=== PATIENT | female | born 1985 | race Caucasian/White ===

== ENCOUNTER 2023-04-03 08:58 | Outpatient (OUT) | payer BC, SELFPAY ==
--- NOTE | 2023-04-03 09:12 | US_ITS ---
Patient: GLO MONTES Exam Date: 04/03/2023 : 1985 Gender:F Ordering : DR Etienne Bueno . Admission #: [id number] Family : NON-STAFF PHYSICIAN Order #: [id number] CLICK HERE TO VIEW EXAM RADIOLOGY REPORT PROCEDURE: MM TOMOSYNTHESIS DIAGNOSTIC BI, 04/03/2023, 09:03 US BREAST LT LIMITED, 04/03/2023, 09:36 COMPARISON: None. INDICATIONS: Nipple Discharge In Female N94.52 Calculator Name NCI Breast Cancer Risk Assessment Tool 5 Year Breast Cancer Risk Not Reported. Lifetime Breast Cancer Risk Not Reported. Personal Breast Cancer No Personal Ovarian Cancer No Treatments None Family Cancers None LOCATION: [facility] BREAST COMPOSITION: Heterogeneously dense,which may obscure small masses. FINDINGS: DIAGNOSTIC CATEGORY 2--BENIGN FINDING: RIGHT BREAST: No significant suspicious finding. LEFT BREAST: No significant suspicious finding. No mammographic or ultrasound abnormality to explain the patient's nipple discharge. Further evaluation should be based on clinical exam RECOMMENDATIONS: ROUTINE MAMMOGRAM AND CLINICAL EVALUATION IN 12 MONTHS. CLINICAL EVALUATION. PLEASE NOTE: A NORMAL MAMMOGRAM DOES NOT EXCLUDE THE POSSIBILITY OF BREAST CANCER. A CLINICALLY SUSPICIOUS PALPABLE LUMP SHOULD BE BIOPSIED. Dictated by: Abdoulaye Greenberg MD on 04/03/2023 at 10:05 Approved by: Abdoulaye Greenberg MD on 04/03/2023 at 10:08
== END 2023-04-03 08:59 | disposition home or self-care (01) ==
LOC: MAMMO 08:58
PROVIDERS: Visit Provider Obstetrics & Gynecology
DX: N64.52 Nipple discharge (principal)
CPT/HCPCS: 76642; 77066; G0279

== ENCOUNTER 2024-02-02 20:57 | Outpatient (REF) | payer BC, SELFPAY ==
[2024-02-07 13:07] LABS: Age Gdln ACOG Testing Note (.); HPV Aptima Negative (Negative); IGP, Aptima HPV, rfx 16/18,45 Note (.)
== END 2024-02-02 20:58 | disposition home or self-care (01) ==
LOC: LAB 20:57
PROVIDERS: Visit Provider Obstetrics & Gynecology
DX: Z01.419 Encounter for gynecological examination (general) (routine) without abnormal findings (principal)
CPT/HCPCS: 87624; G0145

== ENCOUNTER 2024-02-16 09:18 | Outpatient (OUT) | payer BC, SELFPAY ==
--- NOTE | 2024-02-16 08:38 | US_ITS ---
The [address] [address] Patient Name: GLO MONTES MRN: [id number] date: 1985 Sex: F Assigned Patient Location: [facility] Current Patient Location: LAB Accession/Order Number: [id number] Exam Date: 02/16/2024 08:38 Report Date: 02/16/2024 09:34 At the request of: CALI MEHTA Procedure: US pelvis transvaginal EXAMINATION: US pelvis transvaginal HISTORY: MENORRHAGIA , chronic pelvic pain COMPARISON: No relevant comparison available. TECHNIQUE: Transabdominal and/or transvaginal sonographic examination was performed as indicated by examination type. FINDINGS: UTERUS: Normal size and appearance. Uterus size: ENDOMETRIUM: Normal homogeneous appearance. Endometrial thickness: RIGHT OVARY: Contains a dominant follicle versus small cyst. Duplex Doppler demonstrates normal waveform and flow; resistive index 0.6. Ovary size: 4.1 x 2.1 x 2.7 cm LEFT OVARY: Normal size and appearance. Duplex Doppler demonstrates normal waveform and flow; resistive index 0.6. Ovary size: 3.0 x 1.9 x 1.9 cm CUL-DE-SAC: Unremarkable. No significant free fluid. BLADDER: Unremarkable. OTHER: None. US/US pelvis transvaginal IMPRESSION: 1. Dominant follicle versus small cyst within right ovary of doubtful clinical significance. 2. Unremarkable uterus and left ovary. No specific findings to account for patient's symptoms. Electronically authenticated by: NIKKIE THURSTON Date: 02/16/2024 09:34
--- OUTSIDE RECORDS SUMMARY | 2024-02-16 09:39 | XMS_ITS | CCD ---
Author Organization [facility] Care Team Providers Care Mill Manager Name Role Phone JANINE ., DR LEIVA Admitting Unavailable MISC, DR BUTT Primary Care Unavailable JANINE ., DR LEIVA Attending Unavailable JANINE ., DR LEIVA Consulting Unavailable JANINE ., DR LEIVA Admitting Unavailable MISC, DR BUTT Primary Care Unavailable JANINE ., DR LEIVA Attending Unavailable JANINE ., DR LEIVA Consulting Unavailable JANINE, CALI Attending Unavailable SALAM, Kyra Attending Unavailable SALAM, Kyra Admitting Unavailable Evgeny Rodrigez Attending Unavailable Kip Xiao Attending Unavaila ble Problems Active Problems Problem Classification Problem Date Documented Date Episodic/Chronic Immunizations and screening for infectious disease (1 source) Encounter for screening for human papillomavirus (HPV); Translations: [ENC SCREENING HUMAN PAPILLOMAVIRUS] Onset: 02-01-2023 Episodic Other screening for suspected conditions (not mental disorders or infectious disease) (4 sources) Encounter for screening for malignant neoplasm of cervix; Translations: [ENC SCREENING MALIG NEOPLASM CERV] Onset: 01-29-2023 Episodic Past or Other Problems Problem Classification Problem Date Documented Da te Episodic/Chronic Other endocrine disorders (4 sources) Endocrine disorder, unspecified; Translations: [ENDOCRINE DISORDER UNSPECIFIED] Onset: 07-15-2022 Episodic Results Test Name Value Interpretation Reference Range Facility Retail - Clinical Noteon Retail - Clinical Note [id number]#[id number]:127 Normal [facility] Pre-Certification Formon Pre-Certification Form [id number]#1.00CD:127 [facility] Pre-Certification Form [id number]#1.00CD:127 [facility] Pre-Certification Formon Pre-Certification Form [id number]#1.00CD:127 [facility] Retail - Clinical Noteon Retail - Clinical Note [id number]#1.00CD:127 [facility] Pre-Certification Formon Pre-Certification Form [id number]#1.00CD:127 [facility] Pre-Certification Formon Pre-Certification Form [id number]#1.00CD:127 [facility] Family Medicine Office/Clini c Noteon 04-19-2023 Family Medicine Office/Clinic Note Chief Complaint MPt- scalp infection HPI Staff complaints of scalp infection Onset: 1 day Characteristics: crusty red, sore OTC tried: none History of Present Illness I have reviewed and verified the staff HPI to be accurate for this encounter. Portions of this record have been created with voice recognition software. Occasional wrong-word or ?bitda-x-pinv? substitutions may have occurred due to the inherent limitations of voice recognition software. 38 yo female presents today with cc of irritation to the top of her scalp. Patient states that 1 day ago she noticed an area at the top of her scalp which was red and sore. States now it is crusty. Has concerned in regards to staph infection as she states that has happened to her in the past which she then lost hair. She states she would like to be ahead of the game in regards to treating this. She denies any fever chills weakness she denies any areas of the rash or yellow crusted lesions. She has no other concerns at this time. Review of Systems PHQ Score Initial Depression Screen Score: 0 Physical Exam Vitals & Measurements T: 36.3 ?C(Temporal Artery) HR: 77(Peripheral) BP: 120/62 SpO2: 98% HT: 65 in HT: 165 cm WT: 78 kg WT: 171.6 lb BMI: 28.65 General: Well developed, well nourished, in no acute distress Eyes: not assessed Ears: not assessed Nose: not addressed Mouth: not assessed Neck: not assessed Lungs: clear to auscultation throughout, no wheezing, no rales. No respiratory distress Cardio: regular rate and rhythm, no murmur Abdomen: not assessed Musculoskeletal: not assessed Extremity: not assessed Neurologic: not assessed Skin: Patient has a small area at the top midportion of the scalp which appears to be a scabbed lesion this may be somewhat yellow in appearance however no drainage or significant redness surrounding the area. No other areas in the scalp which appear to be the same possible dry skin or early impetigo. Patient states history of staph infection. Mental Status: Alert and oriented x3. Normal mood and affect Assessment/Plan 1. Skin lesion of scalp (L98.9: Disorder of the skin and subcutaneous tissue, unspecified) I discussed with patient regards to treatment with mupirocin ointment to cover staph with her great concern. She states she had staph lesion several years ago which she lost hair and does not wish to go through that again. I spoke with patient noting that the area that appears to be scabbed at the top of the scalp and there is no surrounding redness or concern for immediate infection at this time however the scab did appear to be somewhat yellow in color so we will cover with mupirocin. Patient agrees and understands plan of care. Patient agrees to return or follow-up closely with primary care provider if she notes any worsening or concerning symptoms. Ordered: mupirocin topical, 1 george, Topical, TID for 7 day(s), 22 gm, Refill(s) 0, [employer] [facility], 165, cm, 04/19/23 13:47:00 EDT, Height/Length Dosing, 78, kg, 04/19/23 13:47:00 EDT, Weight Dosing 2. BMI 28.0-28.9,adult (Z68.28: Body mass index [BMI] 28.0-28.9, adult) The standard range for ages 18 and older is >=18.5 and < 25 kg/m2. Your BMI today was above this range, this falls in the overweight to obese category and there are medical benefits to weight loss. We can offer counselling, referral, and/or medical support in addressing this problem. Your BMI and weight management will be followed at subsequent visits. Ordered: mupirocin topical, 1 george, Topical, TID for 7 day(s), 22 gm, Refill(s) 0, [employer] [facility], 165, cm, 04/19/23 13:47:00 EDT, Height/Length Dosing, 78, kg, 04/19/23 13:47:00 EDT, Weight Dosing Follow-up With When Contact Information Vindo ROBINS DO, Toni Carmen, [address] [id number]- Additional Instructions: Patient Education BMI for Adults Impetigo, Adult Problem List/Past Medical History Ongoing Anemia Crohn disease Crohn's disease, small intestine Epigastric pain foliculitis Heart murmur Loose stools seborrice dermititis Historical Procedure/Surgical History Colonoscopy (06/29/2019), Esophagogastroduodenoscopy (06/29/2019), Arthroscopy of knee, Colonoscopy, [place] tooth. 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 Alcohol abuse in household: No. Substance abuse in household: No. Smoker in household: Yes. Injuries/Abuse/Neglect in household: (more content not included)... Normal [facility] Comment on above: Result Comment: Elec tronically Signed By: Elia BONE, Evgeny Spivey\.br\Date and Time Signed: 04/19/23 13:59 EDT Patient Educationon 04-19-20 Patient Education Infectious Disease Impetigo, Adult Impetigo is an infection of the skin. It commonly occurs in young children, but it can also occur in adults. The infection causes itchy blisters and sores that produce brownish-yellow fluid. As the fluid dries, it forms a thick, honey-colored crust. These skin changes usually occur on the face, but they can also affect other areas of the body. Impetigo usually goes away in 7?10 days with treatment. What are the causes? This condition is caused by two types of bacteria. It may be caused by staphylococci or streptococci bacteria. These bacteria cause impetigo when they get under the surface of the skin. This often happens after some damage to the skin, such as: ? Cuts, scrapes, or scratches. ? Rashes. ? Insect bites, especially when you scratch the area of a bite. ? Chickenpox or other illnesses that cause open skin sores. ? Nail biting or chewing. Impetigo can spread easily from one person to another (is contagious). It may be spread through close skin contact or by sharing towels, clothing, or other items that an infected person has touched. Scratching the affected area can cause impetigo to spread to other parts of the body. The bacteria can get under your fingernails and spread when you touch another area of your skin. What increases the risk? The following factors may make you more likely to develop this condition: ? Playing sports that include idud-jj-frvt contact with others. ? Having broken skin, such as from a cut or scrape. ? Living in an area that has high humidity levels. ? Having poor hygiene. ? Having high levels of staphylococci in your nose. ? Having a condition that weakens the skin integrity, such as: ? Having a weak body defense system (immune system). ? Having a skin condition with open sores, such as chickenpox. ? Having diabetes. What are the signs or symptoms? The main symptom of this condition is small blisters, often on the face around the mouth and nose. In time, the blisters break open and turn into tiny sores (lesions) with a yellow crust. In some cases, the blisters cause itching or burning. Scratching, irritation, or lack of treatment may cause these small lesions to get larger. Other possible symptoms include: ? Larger blisters. ? Pus. ? Swollen lymph glands. How is this diagnosed? This condition is usually diagnosed during a physical exam. A skin sample or a sample of fluid from a blister may be taken for lab tests that involve growing bacteria (culture test). Lab tests can help confirm the diagnosis or help determine the best treatment. How is this treated? Treatment for this condition depends on the severity of the condition: ? Mild impetigo can be treated with prescription antibiotic cream. ? Oral antibiotic medicine may be used in more severe cases. ? Medicines that reduce itchiness (antihistamines)may also be used. Follow these instructions at home: Medicines ? Take auls-tpa-hfyfxdb and prescription medicines only as told by your health care provider. ? Apply or take your antibiotic as told by your health care provider. Do not stop using the antibiotic even if your condition improves. ? Before applying antibiotic cream or ointment, you should: ? Gently wash the infected areas with antibacterial soap and warm water. ? Soak crusted areas in warm, soapy water using antibacterial soap. ? Gently rub the areas to remove crusts. Do not scrub. Preventing the spread of infection ? To help prevent impetigo from spreading to other body areas: ? Keep your fingernails short and clean. ? Do not scratch the blisters or sores. ? Cover infected areas, if necessary, to keep from scratching. ? Wash your hands often with soap and warm water. ? To help prevent impetigo from spreading to other people: ? Do not share towels. ? Wash your clothing and bedsheets in water that is 140?F (60?C) or warmer. ? Stay home until you have used an antibiotic cream for 48 hours (2 days) or an oral antibiotic medicine for 24 hours (1 day). ? You should only return to work and activities with other people if your skin shows significant improvement. ? You may return to contact sports after you have used antibiotic medicine for 72 hours (3 days). General instructions ? Keep all follow-up visits. This is important. How is this prevented? ? Wash your hands often with soap and warm water. ? Do not share towels, washcloths, clothing, bedding, or razors. ? Keep your fingernails short. ? Keep any cuts, scrapes, bug bites, or rashes clean and covered. ? Use insect repellent to prevent bug bites. Contact a health care provider if: ? You develop more blisters or sores, even with treatment. ? Other family members get sores. ? Your skin sores are not improving after 72 hours (3 days) of treatment. ? You have a fever. Get help right away if: ? You see spreading redness or swelling of the skin around your sores. ? Y (more content not included)... Normal [facility] Auto Diffon 02-06-2023 Basophils/100 WBC (Bld) 1.1 % Normal 0.0-2.0 [facility] Comment on above: Order Comment: Order Added by Discern Expert. Performed By: #### 2 679084, 8499573, 0273023, 75931350, 4047797, 68346392 #### [facility] [address] [place] [address] Basophils/Leukocytes Auto (Bld) [Pure # fraction] 0.1 E9/L Normal 0.0-0.2 [facility] Comment on above: Order Comment: Order Added by Discern Expert. Performed By: #### 2 533641, 7367366, 8920525, 79510826, 2100701, 62876182 #### [facility] [address] [place] [address] Eosinophils/100 WBC (Bld) 3.2 % Normal 0.0-8.0 [facility] Comment on above: Order Comment: Order Added by Discern Expert. Performed By: #### 2 426178, 9628289, 0460176, 12456377, 3522999, 46525566 #### [facility] [address] [place] [address] Eosinophils/Leukocytes Auto (Bld) [Pure # fraction] 0.2 E9/L Normal 0.0-0.5 [facility] Comment on above: Order Comment: Order Added by Discern Expert. Performed By: #### 2 749478, 0824971, 3665228, 21425060, 1651262, 67262005 #### [facility] [address] [place] [address] Lymphocytes/100 WBC (Bld) 35.3 % Normal 14.0-50.0 [facility] Comment on above: Order Comment: Order Added by Discern Expert. Performed By: #### 2 367040, 5510159, 6684417, 52973557, 2562146, 85824213 #### [facility] [address] [place] [address] Lymphocytes/Leukocytes Auto (Bld) [Pure # fraction] 2.3 E9/L Normal 1.0-4.0 [facility] Comment on above: Order Comment: Order Added by Discern Expert. Performed By: #### 2 848177, 5299076, 4890951, 79579446, 8033821, 36379417 #### [facility] [address] [place] [address] Monocytes/100 WBC (Bld) 8.6 % Normal 4.0-14.0 [facility] Comment on above: Order Comment: Order Added by Rachelle Expert. Performed By: #### 2 687595, 8757715, 3223674, 07558574, 6008069, 35588891 #### [facility] [address] [place] [address] Monocytes/Leukocytes Auto (Bld) [Pure # fraction] 0.6 E9/L Normal 0.2-1.0 [facility] Comment on above: Order Comment: Order Added by Rachelle Expert. Performed By: #### 2 114995, 3435757, 7539768, 62303627, 7503661, 88674692 #### [facility] [address] [place] [address] Neutrophils/100 WBC (Bld) 51.8 % Normal 36.0-75.0 [facility] Comment on above: Order Comment: Order Added by Rachelle Expert. Performed By: #### 2 459289, 9875561, 9263199, 19978820, 9269251, 07232657 #### [facility] [address] [place] [address] Neutrophils/Leukocytes Auto (Bld) [Pure # fraction] 3.4 E9/L Normal 2.0-7.5 [facility] Comment on above: Order Comment: Order Added by Discern Expert. Performed By: #### 2 230347, 5810309, 9671249, 97986213, 1724860, 69054438 #### [facility] [address] [place] [address] CBC w/ Auto Diffon 3 Erythrocyte distribution width (RBC) [Ratio] 14.3 % High 10.9-14.2 [facility] Comment on above: Performed By: #### 2 749979, 8341488, 1556926, 85657937, 0554563, 29256172 #### [facility] [address] [place] [address] Hematocrit (Bld) [Volume fraction] 40.0 % Normal 34.0-46.0 [facility] Comment on above: Performed By: #### 2 274355, 4093002, 9032578, 05344044, 1589899, 16506348 #### [facility] [address] [place], [place] [address] Hemoglobin (Bld) [Mass/Vol] 12.9 g/dL Normal 12.0-16.0 [facility] Comment on above: Performed By: #### 2 904278, 2567327, 0317858, 36013440, 2948706, 56917962 #### [facility] [address] [place] [address] MCH (RBC) [Entitic mass] 29.4 pg Normal 27.0-34.0 [facility] Comment on above: Performed By: #### 2 139665, 6990474, 8702152, 30420645, 4968578, 64103652 #### [facility] [address] [place] [address] MCHC (RBC) [Mass/Vol] 32.3 g/dL Normal 31.4-36.0 [facility] Comment on above: Performed By: #### 2 757496, 4307746, 7250722, 89139325, 0371348, 55693232 #### [facility] [address] [place] [address] MCV (RBC) [Entitic vol] 91.2 fL Normal 80.0-100.0 [facility] Comment on above: Performed By: #### 2 054440, 2947931, 8718742, 47758835, 6456565, 59860866 #### [facility] [address] [place] [address] Platelet mean volume (Bld) [Entitic vol] 8.0 fL Normal 6.4-10.8 [facility] Comment on above: Performed By: #### 2 187654, 0083957, 9206836, 95513364, 4139831, 58892349 #### [facility] [address] [place] [address] Platelets (Bld) [#/Vol] 288.0 E9/L Normal 150. 0-500. 0 [facility] Comment on above: Performed By: #### 2 410820, 9707302, 6969343, 50069702, 1908912, 80341735 #### [facility] [address] [place] [address] RBC (Bld) [#/Vol] 4.4 E12/L Normal 4.3-5.9 [facility] Comment on above: Performed By: #### 2 669172, 3296649, 9647914, 04246874, 5837998, 23015184 #### [facility] [address] [place] [address] WBC corrected for nucl RBC Auto (Bld) [#/Vol] 6.5 E9/L Normal 4.0-11.0 [facility] Comment on above: Performed By: #### 2 247750, 7345644, 8530692, 84565473, 0526781, 43442425 #### [facility] [address] [place] [address] CMPon 02-06-2023 Albumin [Mass/Vol] 4.1 g/dL Normal 3.3-5.0 [facility] Comment on above: Performed By: #### 2 843961, 6506647, 2231583, 67863353, 6260085, 43242814 #### [facility] [address] [place] [address] Albumin/Globulin (S) [Mass conc ratio] 1.1 Normal 1.1-2.2 [facility] Comment on above: Performed By: #### 2 078803, 7261007, 7254720, 97851430, 6336321, 70248194 #### [facility] [address] [place] [address] ALP [Catalytic activity/Vol] 48 Int._Unit/L Normal 21-98 [facility] Comment on above: Performed By: #### 2 415282, 6929513, 5620246, 16681639, 4354301, 62390316 #### [facility] [address] [place] [address] ALT No additional P-5'-P [Catalytic activity/Vol] 23 Int._Unit/L Normal 6-46 [facility] Comment on above: Performed By: #### 2 575137, 1644592, 1355446, 16687003, 1089679, 78330214 #### [facility] [address] [place] [address] Anion gap [Moles/Vol] 12 mmol/L Normal 6-16 [facility] Comment on above: Performed By: #### 2 699550, 1652742, 3703507, 95927066, 1433398, 54296855 #### [facility] [address] [place] [address] AST [Catalytic activity/Vol] 20 Int._Unit/L Normal 5-43 [facility] Comment on above: Performed By: #### 2 569752, 1323905, 8406166, 05604568, 5123247, 31595918 #### [facility] [address] [place] [address] Bilirubin [Mass/Vol] 0.6 mg/dL Normal 0.0-1.1 [facility] Comment on above: Performed By: #### 2 558649, 0170250, 5907706, 64592374, 8880750, 63053416 #### [facility] [address] [place] [address] Calcium [Mass/Vol] 8.9 mg/dL Normal 8.9-11.1 [facility] Comment on above: Performed By: #### 2 312086, 9269395, 3944158, 15484172, 1613098, 59151123 #### [facility] [address] [place] [address] Chloride [Moles/Vol] 104 mmol/L Normal 101-111 [facility] Comment on above: Performed By: #### 2 904402, 1731414, 4865010, 00373499, 3653008, 71327586 #### [facility] [address] [place] [address] CO2 [Moles/Vol] 24 mmol/L Normal 21-31 [facility] Comment on above: Performed By: #### 2 002348, 5593545, 1599710, 12419478, 7662168, 55399298 #### [facility] [address] [place] [address] Creatinine [Mass/Vol] 0.8 mg/dL Normal 0.5-1.3 [facility] Comment on above: Performed By: #### 2 137169, 8241201, 0404686, 56914574, 8771838, 38761412 #### [facility] [address] [place] [address] Globulin (S) [Mass/Vol] 3.6 g/dL Normal 1.4-4.0 [facility] Comment on above: Performed By: #### 2 373169, 7861058, 8778252, 49181500, 4741368, 05677611 #### [facility] [address] [place] [address] Glucose [Mass/Vol] 103 mg/dL Normal 55-199 [facility] Comment on above: Result Comment: If t his glucose result represents a fasting glucose, interpretation should refer to the following reference range: 55-99 mg/dL Performed By: #### 2 539164, 1788514, 1780057, 22348827, 0307534, 00080304 #### [facility] [address] [place] [address] Potassium [Moles/Vol] 3.9 mmol/L Normal 3.5-5.3 [facility] Comment on above: Performed By: #### 2 671163, 6059763, 4591233, 70657894, 2397543, 99960730 #### [facility] [address] [place] [address] Protein [Mass/Vol] 7.7 g/dL Normal 6.0-7.8 [facility] Comment on above: Performed By: #### 2 775985, 2551030, 2201054, 85655990, 4439616, 60475998 #### [facility] [address] [place] [address] Sodium [Moles/Vol] 136 mmol/L Normal 135-145 [facility] Comment on above: Performed By: #### 2 308476, 0672270, 0414353, 15046286, 5236026, 73187655 #### [facility] [address] [place] [address] Urea nitrogen [Mass/Vol] 12 mg/dL Normal 5-21 [facility] Comment on above: Performed By: #### 2 694367, 8100764, 7709358, 95124086, 4596796, 62799196 #### [facility] [address] [place] [address] Urea nitrogen/Creatinine [Mass ratio] 15 No Units Normal 10-20 [facility] Comment on above: Performed By: #### 2 895898, 2203692, 1628805, 36034844, 4821916, 83028964 #### [facility] [address] [place] [address] CRPon 02-06-2023 CRP [Mass/Vol] 0.7 mg/dL Normal <=1.9 [facility] Comment on above: Performed By: #### 2 536058, 1930646, 0566876, 26870318, 9072323, 90631517 #### [facility] [address] [place] [address] Consent for Treatmenton Consent for Treatment [id number] Normal [facility] Sed Rate Automatedon 023 Sed Rate Automated 11 mm/hr Normal 0-34 [facility] Comment on above: Performed By: #### 2 [id number], [id number], [id number] #### [facility] [address] [place] [address] eGFRon 02-06-2023 GFR/1.73 sq M.predicted among non-blacks MDRD (S/P/Bld) [Vol rate/Area] 97 mL/min/1.73 m2 Normal >=59 [facility] Comment on above: Order Comment: Order added by Discern Expert. Result Comment: Computer System Validation Specialist vielka kidney disease could be indicated at eGFR's of less than 60 mL/min/1.73m2. Kidney failure is indicated at less than 15 mL/min/1.73m2. Performed By: #### 2 [id number], [id number], [id number], [id number] #### [facility] [address] [place] [address] PAP ACOG PANEL 2: 30 to 65on 02-05-2023 . . Normal [facility] Comment on above: Result Comment: Perf ormed at: WB Performed By: #### 4 [id number] #### [facility] [address] [address] [address] Sally Lambert Age Gdln ACOG Testing 30-65 Normal [facility] Comment on above: Performed By: #### 4 [id number] #### [facility] [address] [place] [address] Dr. Sally Lambert DIAGNOSIS: Comment Normal [facility] Comment on above: Result Comment: NEGA TIVE FOR INTRAEPITHELIAL LESION OR MALIGNANCY. Performed at: WB Performed By: #### 4 [id number] #### [facility] [address] [place] [address] Dr. Sally Lambert HPV Aptima Negative Normal Negative [facility] Comment on above: Result Comment: This nucleic acid amplification test detects fourteen high-risk HPV types (16,18,31,33,35,39,45,51,52,56,58,59,66,68) without differentiation. Performed at: =G Performed By: #### 4 [id number] #### [facility] [address] [place] [address] Dr. Sally Lambert HPV Genotype Reflex Comment Normal [facility] Comment on above: Result Comment: Crit eria not met, HPV Genotype not performed. Performed at: WB Performed By: #### 4 [id number] #### [facility] [address] [place] [address] Dr. Sally Lambert Methodology: Comment Normal [facility] Comment on above: Result Comment: This liquid based ThinPrep(R) pap test was screened with the use of an image guided system. Performed at: WB Performed By: #### 4 [id number] #### [facility] [address] [place] [address] Dr. Sally Lambert Note: Comment Normal [facility] Comment on above: Result Comment: The Pap smear is a screening test designed to aid in the detection of premalignant and malignant conditions of the uterine cervix. It is not a diagnostic procedure and should not be used as the sole means of detecting cervical cancer. Both false-positive and false-negative reports do occur. . Performed at: WB Performed By: #### 4 [id number] #### [facility] [address] [place] [address] Dr. Sally Lambert Performed by: Comment Normal [facility] Comment on above: Result Comment: Melita Deal, Small Products Assembler (ASCP) Performed at: WB Performed By: #### 4 [id number] #### [facility] [address] [place], [place] [address] Dr. Sally Lambert Specimen adequacy: Comment Normal [facility] Comment on above: Result Comment: Sati sfactory for evaluation. Endocervical and/or squamous metaplastic cells (endocervical component) are present. Performed at: WB Performed By: #### 4 [id number] #### [facility] [address] [address] [address] Sally Lambert DHEA SERUMon 07-18-2022 Dehydroepiandrosterone (DHEA) 335 ng/dL Normal 31-701 [facility] Comment on above: Result Comment: Age 1 - 5 years 0 - 67 6 - 7 years 0 - 110 8 - 10 years 0 - 185 11 - 12 years 0 - 201 13 - 14 years 0 - 318 15 - 16 years 39 - 481 17 - 19 years 40 - 491 >19 years 31 - 701 Performed By: #### Mayra MCCABE. #### [facility] [address] [place] [address] Dr. Sally Lambert DHEA-SULFATEon 07-16-2022 DHEA-Sulfate 291.0 ug/dL Critically high 57.3-279.2 [facility] Comment on above: Performed By: #### Mayra GRANDE #### [facility] [address] [place] [address] Dr. Sally Lambert FSHon 07-16-2022 FSH 4.4 mIU/mL Normal [facility] Comment on above: Result Comment: Adul t Female: Follicular phase 3.5 - 12.5 Ovulation phase 4.7 - 21.5 Luteal phase 1.7 - 7.7 Postmenopausal 25.8 - 134.8 Performed By: #### L [facility] #### [facility] [address] [place] [address] Dr. Sally Lambert LUTEINIZING HORMONE (LH)on LH 5.1 mIU/mL Normal [facility] Comment on above: Result Comment: Adul t Female: Follicular phase 2.4 - 12.6 Ovulation phase 14.0 - 95.6 Luteal phase 1.0 - 11.4 Postmenopausal 7.7 - 58.5 Performed By: #### L FREDRICK #### [facility] [address] [address] [address] Sally Lambert CBC AUTO DIFFon 07-15-2022 BASO # 0.0 103/ul Normal 0.0-0.1 [facility] Comment on above: Performed By: #### C BC #### [facility] [address] [address] [address] Sally Lambert Basophils/100 WBC (Bld) 0.6 % Normal 0.2-2.0 [facility] Comment on above: Performed By: #### C BC #### [facility] [address] [address] [address] Sally Lambert EO # 0.1 103/ul Normal 0.0-0.7 [facility] Comment on above: Performed By: #### C BC #### [facility] [address] [place] [address] Dr. Sally Lambert Eosinophils/100 WBC (Bld) 2.6 % Normal 0.9-7.0 [facility] Comment on above: Performed By: #### C BC #### [facility] [address] [address] [address] Sally Lambert Erythrocyte distribution width (RBC) [Ratio] 13.8 % Normal 11.0-15.0 [facility] Comment on above: Performed By: #### C BC #### [facility] [address] [address] [address] Sally Lambert Hematocrit (Bld) [Volume fraction] 35.9 % Critically low 36.0-48.0 [facility] Comment on above: Performed By: #### C BC #### [facility] [address] [address] [address] Sally Lambert Hemoglobin (Bld) [Mass/Vol] 11.5 g/dL Critically low 12.0-16.0 [facility] Comment on above: Performed By: #### C BC #### [facility] [address] [address] [address] Sally Lambert IG # 0.02 10e3/ul Normal 0.00-0.03 [facility] Comment on above: Performed By: #### C BC #### [facility] [address] [place] [address] Dr. Sally Lambert IG % 0.4 % Normal 0.0-0.5 [facility] Comment on above: Performed By: #### C BC #### [facility] [address] [place] [address] Dr. Sally Lambert LYMPH # 1.9 103/ul Normal 1.2-3.8 [facility] Comment on above: Performed By: #### C BC #### [facility] [address] [place] [address] Dr. Sally Lambert Lymphocytes/100 WBC (Bld) 36.6 % Normal 20.5-60.0 [facility] Comment on above: Performed By: #### C BC #### [facility] [address] [place] [address] Dr. Sally Lambert MANUAL DIFF REQ NO Normal [facility] Comment on above: Performed By: #### C BC #### [facility] [address] [place] [address] Dr. Sally Lambert MCH (RBC) [Entitic mass] 29.6 pg Normal 26.7-34.0 [facility] Comment on above: Performed By: #### C BC #### [facility] [address] [place] [address] Dr. Sally Lambert MCHC (RBC) [Mass/Vol] 32.0 g/dL Normal 29.9-35.2 [facility] Comment on above: Performed By: #### C BC #### [facility] [address] [place] [address] Dr. Sally Lambert MCV (RBC) [Entitic vol] 92.5 fL Normal 81.0-99.0 [facility] Comment on above: Performed By: #### C BC #### [facility] [address] [place] [address] Dr. Sally Lambert MONO # 0.3 103/ul Normal 0.3-0.8 [facility] Comment on above: Performed By: #### C BC #### [facility] [address] [place] [address] Dr. Sally Lambert Monocytes/100 WBC (Bld) 5.7 % Normal 1.7-12.0 [facility] Comment on above: Performed By: #### C BC #### [facility] [address] [place] [address] Dr. Sally Lambert NEUT # 2.9 103/ul Normal 1.4-6.5 [facility] Comment on above: Performed By: #### C BC #### [facility] [address] [place] [address] Dr. Sally Lambert Neutrophils/100 WBC (Bld) 54.1 % Normal 43.0-75.0 [facility] Comment on above: Performed By: #### C BC #### [facility] [address] [place] [address] Dr. Sally Lambert Platelet mean volume (Bld) [Entitic vol] 9.9 fL Normal 9.5-13.5 [facility] Comment on above: Performed By: #### C BC #### [facility] [address] [place] [address] Dr. Sally Lambert PLT 311 103/ul Normal 150-450 [facility] Comment on above: Performed By: #### C BC #### [facility] [address] [place] [address] Dr. Sally Lambert RBC 3.88 106/ul Critically low 4.20-5.40 [facility] Comment on above: Performed By: #### C BC #### [facility] [address] [place] [address] Dr. Sally Lambert WBC 5.3 103/ul Normal 4.0-11.0 [facility] Comment on above: Performed By: #### C BC #### [facility] [address] [place] [address] Dr. Sally Lambert FREE T4on 07-15-2022 Free T4 [Mass/Vol] 0.93 ng/dL Normal 0.76-1.46 [facility] Comment on above: Performed By: #### F T4 #### [facility] [address] [address] [address] Sally Lambert GLYCOHEMOGLOBIN A1Con 2021 ADA RECOMMENDATION SEE BELOW Normal [facility] Comment on above: Result Comment: ADA RECOMMENDED LIMIT 4.0 - 6.0 ADA THERAPEUTIC TARGET < 7.0 ACTION SUGGESTED > 7.0 Performed By: #### A 1C #### [facility] [address] [address] [address] Sally Lambert Glucose [Mass/Vol] 120 mg/dL Normal [facility] Comment on above: Performed By: #### A 1C #### [facility] [address] [address] [address] Sally Lambert HbA1c (Bld) [Mass fraction] 5.8 % Normal 4.5-6.2 [facility] Comment on above: Performed By: #### A 1C #### [facility] [address] [address] [address] Sally Lambert TSHon 07-15-2022 TSH 1.110 uIU/mL Normal 0.358-3.74 0 [facility] Comment on above: Performed By: #### T SH #### [facility] [address] [address] [address] Sally Lambert Encounters Encounter Date Encounter Type Care Provider Facility Start: 03-31-2024 ambulatory Kip Xiao Facility:[facility] Start: 02-02-2024 End: 02-02-2024 ambulatory CALI MEHTA Not Available Start: 04-19-2023 End: 04-20-2023 ambulatory Evgeny Rodrigez [facility] Start: 02-06-2023 End: 02-07-2023 ambulatory Kyra SIMPSON [place] [place] Start: 01-29-2023 End: 01-29-[address] CALI EMHTA . Facility: Start: 07-15-2022 End: 07-16-[address] CALI MEHTA . Facility: Payers Date Payer Category Payer Unknown [id number] 2.16.84 [id number] 1985 Unknown [id number] 2.16.84 [id number] 1984 Unknown [id number] 2.16.84 [id number] 1984 Unknown [id number] 2.16.8 [id number] 1984 Unknown [id number] 2.16.8 [id number] 1984 Unknown [id number] 2.16.8 [id number] 1959 Unknown [id number] Summary Purpose Family History No Family History Records FoundNo Family History Records FoundNo Family History Records Found Advance Directives No Advanced Directives Records FoundNo Advanced Directives Records FoundNo Advanced Directives Records Found Additional Source Comments INFORMATION SOURCE (unrecogn ized section and content) DATE CREATED AUTHOR 02/06/[address] [facility] DATE CREATED AUTHOR AUTHOR'S ORGANIZ ATION 02/03/2024 [facility] EPIC DATE CREATED AUTHOR AUTHOR'S ORGANIZ ATION 02/05/2024 [facility] FOR RECORDS PERTAINING TO PATIENTS WHO ARE OR HAVE BEEN ENROLLED IN A CHEMICAL DEPENDENCY/SUBSTANCEABUSE PROGRAM, SOME INFORMATION MAY BE OMITTED. This clinical summary was aggregated from multiple sources. Caution should be exercised in using it in the provision of clinical care. This summary normalizes information from multiple sources, and as a consequence, information in this document may materially change the coding, format and clinical context of patient data. In addition, data may be omitted in some cases. CLINICAL DECISIONS SHOULD BE BASED ON THE PRIMARY CLINICAL RECORDS. [employer] provides no warranty or guarantee of the accuracy or completeness of information in this document.
== END 2024-02-16 09:19 | disposition home or self-care (01) ==
LOC: NOMS 09:18
PROVIDERS: Visit Provider Obstetrics & Gynecology
DX: N92.0 Excessive and frequent menstruation with regular cycle (principal)
CPT/HCPCS: 76830

== ENCOUNTER 2024-02-16 09:21 | Outpatient (OUT) | payer BC, SELFPAY ==
[2024-02-16 09:41] LABS: Basophils Absolute Auto 0.1 10^3/uL (0.0-0.1); Basophils Percent Auto 1.3 % (0.2-2.0); Eosinophils Absolute Auto 0.2 10^3/uL (0.0-0.7); Hematocrit 40.3 % (36.0-48.0); Hemoglobin 12.8 g/dL (12.0-16.0); Immature Granulocytes Abs Auto 0.01 10^3/uL (0.00-0.03); Immature Granulocytes Pct Auto 0.2 % (0.0-0.5); Lymphocytes Absolute Auto 1.6 10^3/uL (1.2-3.8); Lymphocytes Percent Auto 29.6 % (20.5-60.0); Mean Corpuscular HGB Conc 31.8 g/dL (29.9-35.2); Mean Corpuscular Volume 94.4 fL (81.0-99.0); Mean Platelet Volume 9.8 fL (9.5-13.5); Monocytes Absolute Auto 0.3 10^3/uL (0.3-0.8); Neutrophils Absolute Auto 3.2 10^3/uL (1.4-6.5); Neutrophils Percent Auto 58.9 % (43.0-75.0); Platelet Count 269 10^3/uL (150-450); Red Blood Count 4.27 10^6/uL (4.20-5.40); Red Cell Distribution Width 13.1 % (11.0-15.0); White Blood Count 5.5 10^3/uL (4.0-11.0)
[2024-02-16 10:00] LABS: INR 1.05; Partial Thromboplastin Time 27.7 sec (22.3-36.2); Prothrombin Time 11.1 sec (9.0-11.6)
[2024-02-16 10:10] LABS: HCG Quantitative <1 mIU/mL; Thyroid Stimulating Hormone 1.236 uIU/mL (0.358-3.740)
[2024-02-16 10:16] LABS: Estimated Average Glucose 97 mg/dL
[2024-02-16 10:39] LABS: Free T4 0.74 ng/dL (0.76-1.46)
== END 2024-02-16 09:22 | disposition home or self-care (01) ==
LOC: LAB 09:22
PROVIDERS: Visit Provider Obstetrics & Gynecology
DX: N92.0 Excessive and frequent menstruation with regular cycle (principal); R63.5 Abnormal weight gain
CPT/HCPCS: 36415; 76830; 82533; 83036; 84439; 84443; 84702; 85025; 85610; 85730

== ENCOUNTER 2024-07-27 08:51 | Outpatient (OUT) | payer BC, SELFPAY ==
--- NOTE | 2024-07-27 08:54 | US_ITS ---
The [address] [address] Patient Name: GLO MONTES MRN: [id number] date: 1985 Sex: F Assigned Patient Location: [facility] Current Patient Location: [facility] Accession/Order Number: [id number] Exam Date: 07/27/2024 08:53 Report Date: 07/27/2024 11:29 At the request of: CHINA TAYLOR Procedure: US pelvis EXAMINATION: US pelvis HISTORY: MENORRHAGIA COMPARISON: Ultrasound pelvis 02/16/2024 TECHNIQUE: Transabdominal and/or transvaginal sonographic examination was performed as indicated by examination type. FINDINGS: UTERUS: Normal size and appearance. Uterus size: 10.4 x 5.7 x 6.5 cm ENDOMETRIUM: Normal homogeneous appearance. Endometrial thickness: 14 mm RIGHT OVARY: Normal size and appearance. Duplex Doppler demonstrates normal waveform and flow; resistive index 0.6. Ovary size: 3.0 x 1.6 x 1.6 cm LEFT OVARY: Normal size and appearance. Duplex Doppler demonstrates normal waveform and flow; resistive index 0.5. Ovary size: 3.3 x 2.9 x 2.3 cm CUL-DE-SAC: Unremarkable. No significant free fluid. BLADDER: Unremarkable. OTHER: None. US/US pelvis IMPRESSION: 1. Endometrium is at upper limits of normal in thickness; correlate with patient's stage in her menstrual cycle. 2. Otherwise normal examination. Electronically authenticated by: NIKKIE THURSTON Date: 07/27/2024 11:29
--- OUTSIDE RECORDS SUMMARY | 2024-07-27 08:54 | XMS_ITS | CCD ---
Author Organization [facility] CliniSymn Care Team Providers Care Corporate Compliance Officer Name Role Phone JANINE ., DR LEIVA Admitting Unavailable MISC, DR BUTT Primary Care Unavailable JANINE ., DR LEIVA Attending Unavailable JANINE ., DR LEIVA Consulting Unavailable JANINE ., DR LEIVA Admitting Unavailable MISC, DR BUTT Primary Care Unavailable JANINE ., DR LEIVA Attending Unavailable JANINE ., DR LEIVA Consulting Unavailable CALI BUENO Attending Unavailable Evgeny Rodrigez Attending Unavailable Kip Xiao Attending Kip Bryan Attending CALI Vazquez Attending Unavailable CHINA TAYLOR Attending Unavailable Toni Brock DO Primary Care Provider Kip Xiao Attending Jesus cadet Medications Current Medications Medication Drug Class(es) Dates Sig (Normalized) Sig (Original) 1 ml ustekinumab 90 mg/ml prefilled syringe (3 sources) Interleukin-12 Antagonist, Interleukin-23 Antagonist Start: 12-21-2023 inject 90 mg by subcutaneous injection once Stelara injection Inject 90 mg under the skin 1 (one) time 12/21/2023 Active Problems Active Problems Problem Classification Problem Date Documented Date Episodic/Chronic Immunizations and screening for infectious disease (1 source) Encounter for screening for human papillomavirus (HPV); Translations: [ENC SCREENING HUMAN PAPILLOMAVIRUS] Onset: 02-01-2023 Episodic Menstrual disorders (2 sources) Menorrhagia; Translations: [Excessive and frequent menstruation with regular cycle] 07-19-2024 Chronic Mood disorders (2 sources) Premenstrual dysphoric disorder; Translations: [Premenstrual dysphoric disorder] 07-19-2024 Chronic Other screening for suspected conditions (not mental [...] Test Name Value Interpretation Reference Range Facility Quantiferon-TB Plus (Client Incubated)on 07-25-2024 Gamma interferon background IA Qn (Bld) 0.02 International_Unit/mL Invalid Interpretation Code [facility] Comment on above: Performed By: #### 1 [id number] #### [facility] [address] [place] [address] M. tuberculosis stim IFN-g by CD4+ CD8+ T-cells corrected for background Qn (Bld) 0.01 International_Unit/mL Invalid Interpretation Code [facility] Comment on above: Performed By: #### 1 [id number] #### [facility] [address] [place] [address] M. tuberculosis stim IFN-g by CD4+ T-cells corrected for background Qn (Bld) 0.02 International_Unit/mL Invalid Interpretation Code [facility] Comment on above: Performed By: #### 1 [id number] #### [facility] [address] [place] [address] M. tuberculosis stim IFN-g Ql (Bld) [Interp] Negative Invalid Interpretation Code Negative [facility] Comment on above: Result Comment: No r esponse to M tuberculosis antigens detected. Infection with M tuberculosis is unlikely, but high risk individuals should be considered for additional testing (ATS/IDSA/CDC Clinical Practice Guidelines, 2017). The reference range is an Antigen minus Nil result of <0.35 IU/mL. The specimen received for QuantiFERON testing was incubated by the ordering institution. Specific procedures outlined in our Directory of Services and in the package insert for the QuantiFERON Gold (In Tube) test must be followed to enable for proper stimulation of cells for the production of interferon gamma. Chemiluminescence immunoassay methodology Performed at: [address] [id number] PhD Wm Alonso Performed By: #### 1 [id number] #### [facility] [address] [place] [address] Mitogen stimulated gamma interferon corrected for background Qn (Bld) >10.00 Invalid Interpretation Code [facility] Comment on above: Performed By: #### 1 [id number] #### [facility] [address] [place] [address] Service comment (Unsp spec) [Interp] Comment Invalid Interpretation Code [facility] Comment on above: Result Comment: Idris tiFERON-TB Gold Plus is a qualitative indirect test for M tuberculosis infection (including disease) and is intended for use in conjunction with risk assessment, radiography, and other medical and diagnostic evaluations. The QuantiFERON-TB Gold Plus result is determined by subtracting the Nil value from either TB antigen (Ag) value. The Mitogen tube serves as a control for the test. Performed By: #### 1 [id number] #### [facility] [address] [place] [address] CT Abdomen/Pelvis w/contrast (enterography)on 07-01-2024 CT Abdomen/Pelvis w/contrast (enterography) Exam Date/Time: 06/30/2024 14:47 EDT Reason for Exam: K50.00;Other (please specify) Report IMPRESSION: SPICULATED CONTOUR WALL DISTAL ILEUM, CONSISTENT WITH PATIENT'S CLINICAL HISTORY OF CROHN'S DISEASE. COLLAPSING RIGHT ADNEXAL CYST, MOST LIKELY OVARIAN IN ETIOLOGY. CT OF THE ABDOMEN AND PELVIS WITH INTRAVENOUS CONTRAST MEDIUM. History: K50.00. Crohn's disease. Asymptomatic Technical Factors: CT imaging of the abdomen and pelvis were obtained and formatted as 5 mm contiguous axial images from the domes of the diaphragm to the symphysis pubis. Sagittal and coronal reconstructions were also obtained. Oral contrast medium: Barium sulfate, 900 mL.. Intravenous contrast medium: Isovue-300, 100 mL. Comparison: None Findings: Lower chest: Cardiac size normal. No pericardial effusion. No coronary artery calcification. Lung bases clear. Liver: Normal in size, shape, and decreased in attenuation. Bile Ducts: Normal in caliber. Gallbladder: No stones or wall thickening. Pancreas: Normal without masses, cysts, ductal dilatation or calcification. Spleen: Normal in size without masses or calcifications. No splenules. Kidneys: Normal in size and enhancement. No hydronephrosis, masses, or stones. Adrenals: Normal. Small bowel: Normal in caliber. Circumferential wall thickening, and mildly spiculated margin, distal ileum (series 3, image 42). No adjacent fat stranding. Appendix: Normal. Report Colon: Normal in caliber. Peritoneum: No ascites, free air, or fluid collections. Vessels: Aorta normal in course and caliber. Portal vein, splenic vein, superior mesenteric vein are patent. Lymph nodes: Retroperitoneal: No enlarged retroperitoneal lymph nodes. Mesenteric: No enlarged mesenteric lymph nodes. Pelvic: No enlarged pelvic lymph nodes. Ureters: Normal in course and caliber. No calcifications. Bladder: No wall thickening. Reproductive organs: 0.2 cm collapsing right adnexal cyst. Abdominal Wall: 7 mm fat-containing periumbilical anterior abdominal wall defect. No diastasis of rectus musculature. No edema or masses. Bones: No bone lesions. No degenerative changes. No post operative changes. All CT scans at this facility use dose modulation, iterative reconstruction, and/or weight based dosing when appropriate to reduce radiation dose to as low as reasonably achievable. Ordering Provider: Kip Xiao FINAL REPORT Dictated: 07/01/2024 11:12 am Thong Patrick MD Signed (Electronic Signature): 07/01/2024 11:12 am Signed by: Thong Patrick MD Transcribed by: JARRETT Technologist: JEAN CARLOS Technical Comments GFR (mL/min/1/73m2) na Contrast: Isovue 300 Contrast amount in ml's: 100 Rectal Contrast Given? No Oral contrast amount in ml's: 1350 Normal [facility] Hep Bs Abon 07-01-2024 HBV surface Ab Ql (S) Non-Reactive Invalid Interpretation Code [facility] Comment on above: Result Comment: Non Reactive: Not immune to HBV infection. Equivocal: Unable to determine if anti-HBs is present at levels consistent with immunity. Reactive: Anti-HBs concentration detected at greater than 10 mIU/mL. Individual is considered to be immune to infection with HBV. Performed at: [address] [id number] PhD Wm Alonso Performed By: #### 2 [id number] #### [facility] [address] [place] [address] Hep Bs Agon 07-01-2024 HBV surface Ag IA Ql Negative Invalid Interpretation Code Negative [facility] Comment on above: Result Comment: Perf ormed at: [facility] [address] [id number] PhD Wm Alonso Performed By: #### 2 [id number] #### [facility] [address] [place] [address] Gastroenterology Office/Clin ic Noteon 03-31-2024 Gastroenterology Office/Clinic Note Gastroenterology Office/Clinic Note Chief Complaint 1 year f/u - Crohn's HPI Staff Patient is a(n) 39 year old female who presents today for a(n) 1 year follow up. Repeat colonoscopy not completed as ordered at last visit. Would like to discuss dietitian referral. Any n/v/c/d, abd pain, mucus or blood in stools? no Denies Fhx colon cancer. Denies blood thinners. Last visit 11/13/22 w/Dr. Daniels: Assessment/Plan 1. Crohn's disease, small intestine (K50.00: Crohn's disease of small intestine without complications) The patient was initially diagnosed with small intestinal Crohn's disease in 2004. She was on Remicade for almost 10 years, but she stopped taking Remicade in 2019 secondary to loss of insurance. She was started on Stelara in 2020 and she had no further flare-ups since then. She feels fine at this point with no abdominal pain or diarrhea. There is no evidence of side effects of Stelara. I will proceed with CBC and CMP and we will repeat it every 6 months. We will also proceed with sedimentation rate and fecal calprotectin to assess the activity of Crohn's. I encouraged her to take her annual flu vaccination and we will proceed with a colonoscopy to assess for terminal ileum Crohn's improvement. History of Present Illness currently on Stelara [id number] Review of Systems PHQ Score Initial Depression Screen Score: 0 SCORE All systems reviewed, negative; Except for above Physical Exam Vitals & Measurements HR: 70(Peripheral) RR: 18 BP: 118/68 HT: 65 in HT: 165 cm WT: 83 kg WT: 182.6 lb BMI: 30.49 General: in Nad Abdomen: Soft, NTND Procedure EGD/Colon 06/29/19: Impression and Plan Mild bulbar duodenitis, biopsied Impression and Plan Severe ileitis, biopsied prominent IC valve (see picture) with normal overlying mucosa, tunneled biopsies obtained, underlying tissue appears to be adipose tissue small size external hemorrhoids large size internal hemorrhoids Pathology: Final Diagnosis (Verified) A: DUODENUM, BIOPSY: ? DUODENAL MUCOSA WITH NO SIGNIFICANT PATHOLOGIC CHANGES. B: TERMINAL ILEUM, BIOPSY: ? MODERATE ACUTE ILEITIS WITH EROSION AND GLANDULAR DISTORTION. ? NO GRANULOMA OR DYSPLASIA IDENTIFIED. C: ILEOCECAL VALVE, BIOPSY: ? ACTIVE COLITIS WITH GLANDULAR DISTORTION AND REGENERATIVE CHANGES ? NO GRANULOMA OR DYSPLASIA IDENTIFIED. D: COLON, RANDOM BIOPSY: ? COLONIC MUCOSA WITH NO SIGNIFICANT PATHOLOGIC CHANGES. Note: Clinical correlation and follow-up is indicated for etiology. Assessment/Plan 1. Crohn's disease, small intestine (K50.00: Crohn's disease of small intestine without complications) The patient was initially diagnosed with small intestinal Crohn's disease in 2004. She was on Remicade for almost 10 years, but she stopped taking Remicade in 2019 secondary to loss of insurance. She was started on Stelara in 2020 and she had no further flare-ups since then. She feels fine at this point with no abdominal pain or diarrhea. There is no evidence of side effects of Stelara. We discussed proceeding with a CTE vs colonoscopy to assess for terminal ileum Crohn's improvement- Patient would like to proceed with CTE, labs and CRP at this time. - recommended the Mediterranean diet as well as green Mediterranean diet Will discuss health maintenance next visit I, Inez Castorena, personally scribed for Kip Xiao on 03/31/2024 16:00:50. . Documentation recorded by Inez Castorena, accurately reflects the services I performed and decisions made by me. Kip Xiao MD Follow-up With When Contact Information Dameon OCASIO, CESAR Armenta, JENNIFER Within 3 months [address] [facility], [address] [phone] Additional Instructions: To Follow up on CTE and labs Problem List/Past Medical History Ongoing Anemia Crohn disease Crohn's disease, small intestine Epigastric pain foliculitis Heart murmur Loose stools seborrice dermititis Historical Procedure/Surgical History Colonoscopy (06/29/2019), Esophagogastroduodenoscopy (06/29/2019), Arthroscopy of knee, Colonoscopy, [place] tooth. 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 Alcohol abuse in household: No. Substance abuse in household: No. Smoker in household: Yes. Injuries/Abuse/Neglect in household: No. Crohn's disease in remission, 10/25/2015 N (more content not included)... [facility] Comment on above: Result Comment: Elec tronically Signed By: Dameon OCASIO, Kip Brunner\.br\Date and Time Signed: 03/31/24 16:13 EDT\.br\Electronically Co-Signed By: Inez Castorena MA\.br\Date and Time Co-Signed: 03/31/24 16:03 EDT Retail - Clinical Noteon Retail - Clinical Note [id number]#1.00CD:127 [facility] Pre-Certification Formon Pre-Certification Form [id number]#1.00CD:127 [facility] Pre-Certification Form [id number]#1.00CD:127 Normal [facility] Pre-Certification Formon Pre-Certification Form [id number]#1.00CD:127 [facility] Retail - Clinical Noteon Retail - Clinical Note [id number]#1.00CD:127 [facility] Pre-Certification Formon Pre-Certification Form [id number]#1.00CD:127 [facility] Pre-Certification Formon Pre-Certification Form [id number]#1.00CD:127 [facility] Family Medicine Office/Clini c Noteon 04-19-2023 Family Medicine Office/Clinic Note Chief Complaint MPt- scalp infection HPI Staff complaints of scalp infection Onset: 1 day Characteristics: crusty red, sore OTC tried: none History of Present Illness I have reviewed and verified the staff HPI to be accurate for this encounter. Portions of this record have been created with voice recognition software. Occasional wrong-word or ?vqjyh-j-swfg? substitutions may have occurred due to the [...] for 7 day(s), 22 gm, Refill(s) 0, [facility], 165, cm, 04/19/23 13:47:00 EDT, Height/Length [...] for 7 day(s), 22 gm, Refill(s) 0, [facility], 165, cm, 04/19/23 13:47:00 EDT, Height/Length Dosing, 78, kg, 04/19/23 13:47:00 EDT, Weight Dosing Follow-up With When Contact Information Vinod ROBINS DO, Toni Carmen, [address] [address] Additional Instructions: Patient Education BMI for Adults Impetigo, Adult Problem List/Past Medical History Ongoing Anemia Crohn disease Crohn's disease, small intestine Epigastric pain foliculitis Heart murmur Loose stools seborrice dermititis Historical Procedure/Surgical History Colonoscopy (06/29/2019), Esophagogastroduodenoscopy (06/29/2019), Arthroscopy of knee, Colonoscopy, [place] tooth. 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 Alcohol abuse in household: No. Substance abuse in household: No. Smoker in household: Yes. Injuries/Abuse/Neglect in household: (more content not included)... Normal [facility] Comment on above: Result Comment: Elec tronically [...] this condition: ? Playing sports that include sxnc-kw-rkhs contact with others. ? Having broken skin, [...] these instructions at home: Medicines ? Take ewhe-bnp-wtldsaf and prescription medicines only as told by [...] ? Y (more content not included)... Normal [facility] PAP ACOG PANEL 2: 30 to 65on 02-05-2023 . . Normal [facility] Comment on above: Result Comment: Perf ormed at: WB Performed By: #### 4 [id number] #### [facility] [address] [address] [address] Sally Lambert Age Gdln ACOG Testing 30-65 Normal [facility] Comment on above: Performed By: #### 4 [id number] #### [facility] [address] [address] [address] Sally Lambert DIAGNOSIS: Comment [facility] Comment on above: Result Comment: NEGA TIVE FOR INTRAEPITHELIAL LESION OR MALIGNANCY. Performed at: WB Performed By: #### 4 [id number] #### [facility] [address] [address] [address] Sally Lambert HPV Aptima Negative Normal Negative [facility] Comment on above: Result Comment: This nucleic acid amplification test detects fourteen high-risk HPV types (16,18,31,33,35,39,45,51,52,56,58,59,66,68) without differentiation. Performed at: =G Performed By: #### 4 [id number] #### [facility] [address] [address] [address] Sally Lambert HPV Genotype Reflex Comment [facility] Comment on above: Result Comment: Crit eria not met, HPV Genotype not performed. Performed at: WB Performed By: #### 4 [id number] #### [facility] [address] [address] [address] Sally Lambert Methodology: Comment [facility] Comment on above: Result Comment: This liquid based ThinPrep(R) pap test was screened with the use of an image guided system. Performed at: WB Performed By: #### 4 [id number] #### [facility] [address] [address] [address] Sally Lambert Note: Comment Normal [facility] Comment on above: Result Comment: The Pap smear is a screening test designed to aid in the detection of premalignant and malignant conditions of the uterine cervix. It is not a diagnostic procedure and should not be used as the sole means of detecting cervical cancer. Both false-positive and false-negative reports do occur. . Performed at: WB Performed By: #### 4 [id number] #### [facility] [address] [address] [address] Sally Lambert Performed by: Comment Normal [facility] Comment on above: Result Comment: Melita Deal, Education Program Manager (ASCP) Performed at: WB Performed By: #### 4 [id number] #### [facility] [address] [place] [address] Dr. Sally Lambert Specimen adequacy: Comment Normal [facility] Comment on above: Result Comment: Sati sfactory for evaluation. Endocervical and/or squamous metaplastic cells (endocervical component) are present. Performed at: WB Performed By: #### 4 [id number] #### [facility] [address] [place] [address] [address] [address] Sally Lambert DHEA SERUMon 07-18-2022 Dehydroepiandrosterone (DHEA) 335 ng/dL Normal 31-701 [facility] Comment on above: Result Comment: Age 1 - 5 years 0 - 67 6 - 7 years 0 - 110 8 - 10 years 0 - 185 11 - 12 years 0 - 201 13 - 14 years 0 - 318 15 - 16 years 39 - 481 17 - 19 years 40 - 491 >19 years 31 - 701 Performed By: #### D GWENA. #### [facility] [address] [place] [address] [address] [address] Sally Lambert DHEA-SULFATEon 07-16-2022 DHEA-Sulfate 291.0 ug/dL Critically high 57.3-279.2 [facility] Comment on above: Performed By: #### D GEOVANIUL #### [facility] [address] [place] [address] Dr. Sally Lambert FSHon 07-16-2022 FSH 4.4 mIU/mL Normal [facility] Comment on above: Result Comment: Adul t Female: Follicular phase 3.5 - 12.5 Ovulation phase 4.7 - 21.5 Luteal phase 1.7 - 7.7 Postmenopausal 25.8 - 134.8 Performed By: #### L [facility] #### [facility] [address] [place] [address] Dr. Sally Lambert LUTEINIZING HORMONE (LH)on LH 5.1 mIU/mL Normal [facility] Comment on above: Result Comment: Adul t Female: Follicular phase 2.4 - 12.6 Ovulation phase 14.0 - 95.6 Luteal phase 1.0 - 11.4 Postmenopausal 7.7 - 58.5 Performed By: #### L BCL #### [facility] [address] [place] [address] Dr. Sally Lambert CBC AUTO DIFFon 07-15-2022 BASO # 0.0 103/ul Normal 0.0-0.1 [facility] Comment on above: Performed By: #### C BC #### [facility] [address] [place] [address] Dr. Sally Lambert Basophils/100 WBC (Bld) 0.6 % Normal 0.2-2.0 [facility] Comment on above: Performed By: #### C BC #### [facility] [address] [place] [address] Dr. Sally Lambert EO # 0.1 103/ul Normal 0.0-0.7 [facility] Comment on above: Performed By: #### C BC #### [facility] [address] [place] [address] Dr. Sally Lambert Eosinophils/100 WBC (Bld) 2.6 % Normal 0.9-7.0 [facility] Comment on above: Performed By: #### C BC #### [facility] [address] [place] [address] Dr. Sally Lambert Erythrocyte distribution width (RBC) [Ratio] 13.8 % Normal 11.0-15.0 [facility] Comment on above: Performed By: #### C BC #### [facility] [address] [place] [address] Dr. Sally Lambert Hematocrit (Bld) [Volume fraction] 35.9 % Critically low 36.0-48.0 [facility] Comment on above: Performed By: #### C BC #### [facility] [address] [place] [address] Dr. Sally Lambert Hemoglobin (Bld) [Mass/Vol] 11.5 g/dL Critically low 12.0-16.0 [facility] Comment on above: Performed By: #### C BC #### [facility] [address] [place] [address] Dr. Sally Lambert IG # 0.02 10e3/ul Normal 0.00-0.03 [facility] Comment on above: Performed By: #### C BC #### [facility] [address] [place] [address] Dr. Sally Lambert IG % 0.4 % Normal 0.0-0.5 [facility] Comment on above: Performed By: #### C BC #### [facility] [address] [place] [address] Dr. Sally Lambert LYMPH # 1.9 103/ul Normal 1.2-3.8 [facility] Comment on above: Performed By: #### C BC #### [facility] [address] [place] [address] Dr. Sally Lambert Lymphocytes/100 WBC (Bld) 36.6 % Normal 20.5-60.0 [facility] Comment on above: Performed By: #### C BC #### [facility] [address] [place] [address] Dr. Sally Lambert MANUAL DIFF REQ NO Normal [facility] Comment on above: Performed By: #### C BC #### [facility] [address] [place] [address] Dr. Sally Lambert MCH (RBC) [Entitic mass] 29.6 pg Normal 26.7-34.0 [facility] Comment on above: Performed By: #### C BC #### [facility] Laboratory [address] [place] [address] Dr. Sally Lambert MCHC (RBC) [Mass/Vol] 32.0 g/dL Normal 29.9-35.2 [facility] Comment on above: Performed By: #### C BC #### [facility] Laboratory [address] [place] [address] Dr. Sally Lambert MCV (RBC) [Entitic vol] 92.5 fL Normal 81.0-99.0 [facility] Comment on above: Performed By: #### C BC #### [facility] Laboratory [address] [place] [address] Dr. Sally Lambert MONO # 0.3 103/ul Normal 0.3-0.8 [facility] Comment on above: Performed By: #### C BC #### [facility] Laboratory [address] [place] [address] Dr. Sally Lambert Monocytes/100 WBC (Bld) 5.7 % Normal 1.7-12.0 [facility] Comment on above: Performed By: #### C BC #### [facility] [address] [place] [address] Dr. Sally Lambert NEUT # 2.9 103/ul Normal 1.4-6.5 [facility] Comment on above: Performed By: #### C BC #### [facility] [address] [place] [address] Dr. Sally Lambert Neutrophils/100 WBC (Bld) 54.1 % Normal 43.0-75.0 [facility] Comment on above: Performed By: #### C BC #### [facility] [address] [place] [address] Dr. Sally Lambert Platelet mean volume (Bld) [Entitic vol] 9.9 fL Normal 9.5-13.5 [facility] Comment on above: Performed By: #### C BC #### [facility] [address] [place] [address] Dr. Sally Lambert PLT 311 103/ul Normal 150-450 [facility] Comment on above: Performed By: #### C BC #### [facility] [address] [place] [address] Dr. Sally Lambert RBC 3.88 106/ul Critically low 4.20-5.40 [facility] Comment on above: Performed By: #### C BC #### [facility] [address] [place] [address] Dr. Sally Lambert WBC 5.3 103/ul Normal 4.0-11.0 [facility] Comment on above: Performed By: #### C BC #### [facility] [address] [place] [address] Dr. Sally Lambert FREE T4on 07-15-2022 Free T4 [Mass/Vol] 0.93 ng/dL Normal 0.76-1.46 [facility] Comment on above: Performed By: #### F T4 #### [facility] Laboratory [address] [place] [address] Dr. Sally Lambert GLYCOHEMOGLOBIN A1Con 2021 ADA RECOMMENDATION SEE BELOW Normal [facility] Comment on above: Result Comment: ADA RECOMMENDED LIMIT 4.0 - 6.0 ADA THERAPEUTIC TARGET < 7.0 ACTION SUGGESTED > 7.0 Performed By: #### A 1C #### [facility] [address] [place] [address] Dr. Sally Lambert Glucose [Mass/Vol] 120 mg/dL Normal [facility] Comment on above: Performed By: #### A 1C #### [facility] Laboratory [address] [place] [address] Dr. Sally Lambert HbA1c (Bld) [Mass fraction] 5.8 % Normal 4.5-6.2 [facility] Comment on above: Performed By: #### A 1C #### [facility] [address] [place] [address] Dr. Sally Lambert TSHon 07-15-2022 TSH 1.110 uIU/mL Normal 0.358-3.74 0 [facility] Comment on above: Performed By: #### T SH #### [facility] Laboratory [address] [place] [address] Dr. Sally Lambert Vital Signs Date Time Vital Sign Value Performing Clinician Faci lity 07-19-2024 13:34-0400 Body mass index (BMI) [Ratio] 30.52 kg/m2 China GOMEZ Work Phone: [facility] 07-19-2024 13:34-0400 Body weight 83.19 kg China GOMEZ Work Phone: [facility] Encounters Encounter Date Encounter Type Care Provider Facility Start: 07-28-2024 ambulatory [facility] Facility:[facility] Start: 07-19-2024 End: 07-19-2024 Bamboo flowsheet China GOMEZ Work Phone: [facility] Start: 07-19-2024 End: 07-19-2024 Bamboo flowsheet China GOMEZ Work Phone: [facility] Start: 07-19-2024 End: 07-19-2024 Office outpatient visit 15 minutes China GOMEZ Work Phone: [facility] Comment on above: PMDD (premenstrual d ysphoric disorder) ([facility]); Menorrhagia with regular cycle Start: 07-19-2024 End: 07-19-2024 ambulatory CHINA TAYLOR Not Available Start: 06-30-2024 ambulatory [facility] Facility:[facility] Start: 03-31-2024 End: 03-31-2024 ambulatory [facility] Facility:[facility] Start: 02-02-2024 End: 02-02-2024 ambulatory CALI BUENO Not Available Start: 02-02-2024 End: 02-02-2024 ambulatory CALI BUENO Not Available Start: 04-19-2023 End: 04-19-2023 ambulatory Evgeny Rodrigez Facility:[facility] Start: 01-29-2023 End: 01-29-[address] CALI BUENO . Facility: Start: 07-15-2022 End: 07-16-[address] CALI BUENO . Facility: Plan of Treatment Date Care Activity Detail Author Start: 08-09-2024 End: 08-09-2024 Patient encounter procedure 08/09/2024 10:30 AM EST Consult [facility] [address] [place] [id number] Cali Bueno DO [address] [place], [place] [id number] [facility] Start: 07-27-2024 End: 07-27-2024 Professional / ancillary services management 07/27/2024 9:00 AM EDT Ancillary Procedure [facility] [address] [place] [address] [facility] Start: 07-19-2024 End: 07-19-2025 US for US PELVIS-TRANSVAG IF INDICATED Imaging Routine Menorrhagia with regular cycle Expected: 07/19/2024 (Approximate), Expires: 07/19/2025 [facility] Work Phone: Comment on above: Expected: 07/19/2024 (Approximate), Expires: 07/19/2025 Start: 07-19-2024 End: 07-19-2024 Patient encounter procedure 07/19/2024 1:30 PM EDT Office Visit [facility] [address] [place] [address] China Taylor PA [address] [place], [place] [id number] Arrived [facility] Comment on above: Arrived Payers Date Payer Category Payer [facility] BCBS [id number] 1984 Unknown [id number] [id number] 1984 Unknown [id number]. [id number] 1984 Unknown [id number]. [id number] 1984 Unknown [id number] [id number]. [id number] 1984 Unknown [id number]. [id number] 1984 Unknown [id number] [id number]. 2.727 1984 Unknown [id number] [id number]. 2.1259 1984 Unknown [id number]. [id number] 1959 Unknown [id number] Social History Date Type Detail Facility Tobacco smoking stat [facility] Tobacco smoking consumption unknown [facility] Start: 1985 Sex assigned at Female [facility] Start: 05-19-2024 Gender identity Identifies as female gender (finding) [facility] Start: 05-19-2024 Sexual orientation Heterosexual (fin ding) [facility] History of Present illness Narrative 07-19-2024 PATRICIA Boyd - 07/19/2024 1:30 PM EDT Note Date & Type Note Facility 07-19-2024 History of Presen t illness Narrative Reason for Appointment: Patient ID: Glo Schmidt is a 39 y.o. female who presents for PMDD Patient presents today for PMDD. MEDICATIONS Current Outpatient Medications Medication Instructions Stelara 90 mg, Once ALLERGIES No Known Allergies PROBLEMS Active Ambulatory Problems Diagnosis Date Noted No Active Ambulatory Problems Resolved Ambulatory Problems Diagnosis Date Noted No Resolved Ambulatory Problems No Additional Past Medical History HISTORY PAST MEDICAL HISTORY SOCIAL HISTORY History reviewed. No pertinent past medical history. Social History Tobacco Use Smoking status: Not on file Smokeless tobacco: Not on file Substance Use Topics Alcohol use: Not on file Drug use: Not on file FAMILY HISTORY No family history on file. SURGICAL HISTORY History reviewed. No pertinent surgical history. REVIEW OF SYSTEMS Review of Systems: Review of Systems Constitutional: Negative. HENT: Negative. Eyes: Negative. Respiratory: Negative. Cardiovascular: Negative. Gastrointestinal: Negative. Genitourinary: Negative. Musculoskeletal: Negative. Skin: Negative. Neurological: Negative. All other systems reviewed and are negative. Hematological: Negative. Endocrine: Negative. Allergic/Immunologic: Negative. OBJECTIVE Objective: Physical Exam Constitutional: Appearance: Normal appearance. She is well-developed. Cardiovascular: Rate and Rhythm: Normal rate and regular rhythm. Pulmonary: Effort: Pulmonary effort is normal. Breath sounds: Normal breath sounds. Abdominal: General: Bowel sounds are normal. There is no distension. Palpations: Abdomen is soft. Tenderness: There is no abdominal tenderness. There is no guarding or rebound. Musculoskeletal: General: No swelling. Normal range of motion. Right lower leg: No edema. Left lower leg: No edema. Neurological: Mental Status: She is alert and oriented to person, place, and time. Skin: General: Skin is warm and dry. Psychiatric: Mood and Affect: Mood normal. Behavior: Behavior normal. Vitals and nursing note reviewed. Exam conducted with a diesel scoop operator present. Vitals: Estimated body mass index is 30.52 kg/m as calculated from the following: Height as of 02/02/24: 5' 5 . Weight as of this encounter: 183 lb 6.4 oz. BP: No LMP recorded (within months). ASSESSMENT & PLAN ICD-10-CM 1. PMDD (premenstrual dysphoric disorder) ([facility]) F32.81 Patient presents today for mood swings, heavy painful bleeding and cramping. Patient states that she will have 36 hours of this and then she will be fine and she will then have good 5 days and then the mood swings kick back up. Patient states that she does feel like she has chest pains and itching at times from this. Patient did have labs completed earlier this year. Patient states that she just does not want meds thrown at her. Patient was to have the Ablation and Biopsy but her son was ill and this needed to be rescheduled. Discussed Ablation with the patient on how this may help with the hormones and that her tubes would be removed also. Patient states that this last month was the worse for her and she did have a bad anxiety attack. Patient was advised she can use Zyrtec and pepcid to help with hives to help alleviate symptoms. Patient advised how long we have to allow the ablation to be and then proceed to the next step. Patient reassured we do not want to push meds for her. Patient advised we can order Ultrasound for her. Patient rescheduled ablation and will come into office for preop, endometrial ablation to be performed during procedure Documented by Gabriella Jacome LPN on behalf of: PATRICIA Boyd documented in this encounter [facility] Evaluation note Note Date & Type Note Facility Evaluation note Diagnosis PMDD (premenstrual dysphoric disorder) ([facility]) Premenstrual tension syndromes Menorrhagia with regular cycle documented in this encounter [facility] Summary Purpose Family History No Family History [...] content) DATE CREATED AUTHOR 02/06/2023 [facility] DATE CREATED AUTHOR AUTHOR'S ORGANIZ ATION 02/03/2024 [facility] EPIC DATE CREATED AUTHOR AUTHOR'S ORGANIZ ATION 04/02/2024 [place] [facility] DATE CREATED AUTHOR AUTHOR'S ORGANIZ ATION 07/02/2024 [place] [facility] DATE CREATED AUTHOR AUTHOR'S ORGANIZ ATION 07/08/2024 [place] [facility] DATE CREATED AUTHOR AUTHOR'S ORGANIZ ATION 07/21/2024 [facility] EPIC DATE CREATED AUTHOR AUTHOR'S ORGANIZ ATION 07/27/2024 [facility] Care Teams (unrecognized sec tion and content) Corporate Compliance Officer Relationship Specialty Start Date End Date Toni Brokc DO [address] [place] [id number] PCP - General Family Medicine 07/19/24 Corporate Compliance Officer Relationship Specialty Start Date End Date Toni Brock DO [address] [place] [phone] PCP - General Family Medicine 07/19/24 Reason for Visit (unrecogniz ed section and content) Reason Comments PMDD FOR RECORDS PERTAINING TO PATIENTS WHO ARE [...] BE BASED ON THE PRIMARY CLINICAL RECORDS. [facility] [employer] [facility]. provides no warranty or guarantee of the accuracy or completeness of information in this document.
== END 2024-07-27 08:52 | disposition home or self-care (01) ==
LOC: NOMS 08:52
PROVIDERS: Visit Provider Physician Assistant
DX: N92.0 Excessive and frequent menstruation with regular cycle (principal)
CPT/HCPCS: 76830; 76856

== ENCOUNTER 2024-08-15 14:21 | Outpatient (OUT) | payer BC, SELFPAY ==
--- OUTSIDE RECORDS SUMMARY | 2024-08-15 14:29 | XMS_ITS | CCD ---
Author Organization [facility] Care Team Providers Care Pouncer Machine Name Role Phone MYLES ., DR LEIVA Admitting Unavailable MISC, DR BUTT Primary Care Unavailable MYLES ., DR LEVIA Attending Unavailable MYLES ., DR LEIVA Consulting Unavailable MYLES ., DR LEIVA Admitting Unavailable MISC, DR BUTT Primary Care Unavailable MYLES ., DR LEIVA Attending Unavailable MYLES ., DR LEIVA Consulting Unavailable CALI BUENO Attending Unavailable Evgeny Rodrigez Attending Unavailable Kip Xiao Attending Kip Bryan Attending Jesus Brock DO [facility] Primary Care Provider [phone] CALI BUENO Attending Unavailable CHINA TAYLOR Attending Unavailable CALI BUENO Attending Unavailable REYES LORENZO Attending Unavailable Kip Xiao Attending Unavailsanford cadet Medications Current Medications Medication Drug Class(es) Dates Sig (Normalized) Sig (Original) budesonide 3 mg delayed release oral capsule (1 source) Corticosteroid Start: 07-28-2024 take 1 capsule by mouth once daily, then take 1 capsule by mouth every twenty-four hours budesonide EC (Entocort EC) 3 MG 24 hr capsule Take 3 mg by mouth Daily 07/28/2024 Active esomeprazole 40 mg delayed release oral capsule (1 source) Proton Pump Inhibitor Start: 07-28-2024 take 1 capsule by mouth once daily esomeprazole (NexIUM) [address] capsule Take 40 mg by mouth Daily 07/28/2024 Active 1 ml ustekinumab 90 mg/ml prefilled syringe (5 sources) Interleukin-12 Antagonist, Interleukin-23 Antagonist Start: 12-21-2023 inject 90 mg by subcutaneous injection once Stelara injection Inject 90 mg under the skin 1 (one) time 12/21/2023 Active Problems Active Problems Problem Classification Problem Date Documented Date Episodic/Chronic Abdominal pain (1 source) Pain in female pelvis; Translations: [Pelvic and perineal pain] 08-09-2024 Episodic Contraceptive and procreative management (1 source) Sterilization requested; Translations: [Encounter for sterilization] 08-09-2024 Episodic Immunizations and screening for infectious disease (1 source) Encounter for screening for human papillomavirus (HPV); Translations: [ENC SCREENING HUMAN PAPILLOMAVIRUS] Onset: 02-01-2023 Episodic Menstrual disorders (3 sources) Menorrhagia; Translations: [Excessive and frequent menstruation with regular cycle] 07-19-2024 Chronic Mood disorders (2 sources) Premenstrual dysphoric disorder; Translations: [Premenstrual dysphoric disorder] 07-19-2024 Chronic Other female genital disorders (1 source) Abnormal uterine bleeding; Translations: [Abnormal uterine and vaginal bleeding, unspecified] 08-09-2024 Chronic Other screening for suspected conditions (not [...] Test Name Value Interpretation Reference Range Facility Ambulatory Visit Summaryon 1 10-13-2023 Ambulatory Visit Summary Ambulatory Visi t Summary GLO SCHMIDT :1985 Visit Date:08/13/2024 Ambulatory Visit Instructions Your Diagnosis Acute bacterial sinusitis Acute bronchitis BMI 30.0-30.9,adult Other specified bacterial agents as the cause of diseases classified elsewhere Your Care Team Attending Physician - REYES LORENZO PA-C Primary Care Physician - Toni Brock III, DO This Is Your Medications List albuterol (Ventolin HFA 90 mcg/inh Aerosol-Adpt) amoxicillin-clavulanate (Augmentin 875 mg oral tablet) brompheniramine/dextrometho rphan/PSE (Bromfed DM oral syrup) budesonide (budesonide 3 mg oral delayed release capsule) esomeprazole (Nexium 40 mg Cap-EC) ustekinumab (Stelara) Procedures Performed Colonoscopy (06/29/2019), Esophagogastroduodenoscopy (06/29/2019), Arthroscopy of knee, Colonoscopy, [place] tooth. Discharge Vitals Temperature (Tympanic) 37 ???C Heart Rate (Peripheral) 81 Blood Pressure 128/80 Height 165 cm Height 65 in Weight 83 kg Weight 182.6 lb BMI 30.49 What to do next Scheduled Follow-Up Appointments Thursday 12:45 PM EST Where: [facility] Medications What How Much When Why Instructions New albuterol (Ventolin HFA 90 mcg/ inh Aerosol-Adpt) 2 Puffs Inhalation Every 6 hours as needed for for wheezing Acute bronchitis Duration: 7 Days Pickup at [facility] New amoxicillin-clavulanate (Augmentin 875 mg oral tablet) 1 Tablets By Mouth Every 12 hours Acute bacterial sinusitis Duration: 10 Days Pickup at [facility] New brompheniramine/ dextromethorphan/ PSE (Bromfed DM oral syrup) 10 Milliliter By Mouth 4 times a day as needed for for cough and congestion Acute bronchitis Duration: 7 Days Pickup at [facility] Unchanged budesonide (budesonide 3 mg oral delayed release capsule) 3 Capsules By Mouth Once a day (in the morning) Unchanged esomeprazole (Nexium 40 mg Cap-EC) 1 Capsules By Mouth Every day Unchanged ustekinumab (Stelara) Pharmacy Information [facility]: [address], [place] [id number] [phone] Medications and Immunizations Administered Given albuterol 0.083% Inh Dottie 3 mL, 3 mL, NEB. For: Acute bronchitis Allergies No Known Allergies Problems Ongoing - Any problem that you are currently receiving treatment for. Abdominal pain Anemia Crohn disease Crohn's disease, small intestine Epigastric pain foliculitis Heart murmur Loose stools seborrice dermititis Historical - Any problem that you are no longer receiving treatment for. Patient Survey You may receive a survey via text or e-mail asking about your office visit. Please share your experience with us by completing your survey. We appreciate your feedback and thank you for choosing us for your care. Normal [facility] Gastroenterology Office/Clin ic Noteon 07-28-2024 Gastroenterology Office/Clinic Note Gastroenterology Office/Clinic Note Chief Complaint abd pain, crohns HPI Staff Patient is a(n) 39 year old female who presents today for a sick call with c/o abdominal pain. Pt called 07/11/[address] Xiao wanted to proceed with colonoscopy and continue Stelara. She requested f/u appt in office to discuss. Currently taking Stelara 90mg/ml q8 weeks. Abdominal pain: When did you first have this pain: Quality (sharp, dull): pressure, cold burning Constant or comes or go: constatnt location and radiation:epigastric, does radiate to the right side of her back. Denies blood thinners. Denies GLP-1 agonists. Last visit 03/31/24 w/Dr. Xiao: Assessment/Plan 1. Crohn's disease, small intestine (K50.00: Crohn's disease of small intestine without complications) The patient was initially diagnosed with small intestinal Crohn's disease in 2003. She was on Remicade for almost 10 years, but she stopped taking Remicade in 2018 secondary to loss of insurance. She was [...] diet Will discuss health maintenance next visit EGD/Colon 06/29/19: Impression and Plan Mild bulbar duodenitis, biopsied Impression and Plan Severe ileitis, biopsied prominent IC valve (see picture) with normal overlying mucosa, tunneled biopsies obtained, underlying tissue appears to be adipose tissue small size external hemorrhoids large size internal hemorrhoids Pathology: Final Diagnosis (Verified) A: DUODENUM, BIOPSY: ??? DUODENAL MUCOSA WITH NO SIGNIFICANT PATHOLOGIC CHANGES. B: TERMINAL ILEUM, BIOPSY: ??? MODERATE ACUTE ILEITIS WITH EROSION AND GLANDULAR DISTORTION. ??? NO GRANULOMA OR DYSPLASIA IDENTIFIED. C: ILEOCECAL VALVE, BIOPSY: ??? ACTIVE COLITIS WITH GLANDULAR DISTORTION AND REGENERATIVE CHANGES ??? NO GRANULOMA OR DYSPLASIA IDENTIFIED. D: COLON, RANDOM BIOPSY: ??? COLONIC MUCOSA WITH NO SIGNIFICANT PATHOLOGIC CHANGES. Note: Clinical correlation and follow-up is indicated for etiology. CTE 06/30/24: IMPRESSION: SPICULATED CONTOUR WALL DISTAL ILEUM, CONSISTENT WITH PATIENT'S CLINICAL HISTORY OF CROHN'S DISEASE. COLLAPSING RIGHT ADNEXAL CYST, MOST LIKELY OVARIAN IN ETIOLOGY. CT OF THE ABDOMEN AND PELVIS WITH INTRAVENOUS CONTRAST MEDIUM. Laboratory Results CBC CMP Basophil Absolute: 0 E9/L (06/30/24) A/G Ratio: 1.6 (06/30/24) Basophil Auto: 0.6 % (06/30/24) AGAP: 10 mEq/L (06/30/24) Eos Absolute: 0.2 E9/L (06/30/24) Albumin Lvl: 4.5 gm/dL (06/30/24) Eos Auto: 2.6 % (06/30/24) Alk Phos: 53 Int._Unit/L (06/30/24) Hct: 37.5 % (06/30/24) ALT: 15 Int._Unit/L (06/30/24) HGB: 13.1 gm/dL (06/30/24) AST: 15 Int._Unit/L (06/30/24) Lymph Absolute: 2.2 E9/L (06/30/24) Bili Total: 0.6 mg/dL (06/30/24) Lymph Auto: 27.7 % (06/30/24) BUN: 10 mg/dL (06/30/24) MCH: 31.8 pg (06/30/24) BUN/Creat Ratio: 14 (06/30/24) MCHC: 34.9 gm/dL (06/30/24) Calcium Lvl: 8.8 mg/dL Low (06/30/24) MCV: 91 fL (06/30/24) Chloride: 106 mmol/L (06/30/24) Hitchcock Absolute: 0.4 E9/L (06/30/24) CO2: 24 mmol/L (06/30/24) Hitchcock Auto: 5.4 % (06/30/24) Creatinine: 0.7 mg/dL (06/30/24) MPV: 8.2 fL (06/30/24) Globulin: 2.9 gm/dL (06/30/24) Neutro Absolute: 5.2 E9/L (06/30/24) Glucose Lvl: 89 mg/dL (06/30/24) Neutro Auto: 63.7 % (06/30/24) Potassium Lvl: 3.6 mmol/L (06/30/24) Platelet: 289 E9/L (06/30/24) Sodium Lvl: 136 mmol/L (06/30/24) RBC: 4.1 E12/L Low (06/30/24) Total Protein: 7.4 gm/dL (06/30/24) RDW: 13.3 % (06/30/24) WBC: 8.1 E9/L (06/30/24) Liver Studies Hep Bs Ag: Negative (06/30/24) Hep Bs Ag: Negative (08/19/17) Hep Bs Ag: Negative (02/21/15) TB: negative (06/30/24) Review of Systems PHQ Score Initial Depression Screen Score: 0 SCORE Physical Exam Vitals & Measurements HR: 97(Peripheral) RR: 16 BP: 111/78 HT: 65 in HT: 165 cm WT: 83 kg WT: 182.6 lb BMI: 30.49 Assessment/Plan 1. Crohn's disease, small intestine (K50.00: Crohn's disease of small intestine without complications) The patient was initially diagnosed with small intestinal Crohn's disease in 2004. She was on Remicade for almost 10 years, but she stopped taking Remicade in 2018 secondary to loss of insurance. She was started on Stelara in 2020 and she had no further flare-ups since then. She feels fine at this point with no abdominal pain or diarrhea. There is no evidence of side effects of Stelara. Last visit she was hesitant to have the colonoscopy repeated to assess healing, but since she had the CTE she has been having obstructive symptoms with right lower quadrant pain after eating also she (more content not included)... Normal [facility] Comment on above: Result Comment: Elec tronically Signed By: Dameon OCASIO, Kip Brunner\.br\Date and Time Signed: 07/28/24 13:45 EDT Quantiferon-TB Plus (Client Incubated)on 07-25-2024 Gamma interferon background IA Qn (Bld) 0.02 International_Unit/mL Invalid Interpretation Code [facility] Comment on above: Performed By: #### 1 [id number] #### [facility] [address] [place] [address] M. tuberculosis stim IFN-g by CD4+ CD8+ T-cells corrected for background Qn (Bld) 0.01 International_Unit/mL Invalid Interpretation Code [facility] Comment on above: Performed By: #### 1 [id number] #### [facility] [address] [place] [address] M. tuberculosis stim IFN-g by CD4+ T-cells corrected for background Qn (Bld) 0.02 International_Unit/mL Invalid Interpretation Code [facility] Comment on above: Performed By: #### 1 [id number] #### [facility] [address] [place] [address] M. tuberculosis stim IFN-g Ql (Bld) [Interp] Negative Invalid Interpretation Code Negative [facility] Comment on above: Result Comment: No r [...] interferon gamma. Chemiluminescence immunoassay methodology Performed at: [email or web address] [id number] PhD Wm Alonso Performed By: #### 1 [id number] #### [facility] [address] [place] [address] Mitogen stimulated gamma interferon corrected for background Qn (Bld) >10.00 Invalid Interpretation Code [facility] Comment on above: Performed By: #### 1 [id number] #### [facility] [address] [place] [address] Service comment (Unsp spec) [Interp] Comment Invalid Interpretation Code [facility] Comment on above: Result Comment: Idris tiFERON-TB [...] for the test. Performed By: #### 1 [id number] #### [facility] [address] [place] [address] CT Abdomen/Pelvis w/contrast (enterography)on 07-01-2024 CT Abdomen/Pelvis [...] Oral contrast amount in ml's: 1350 Normal [facility] Hep Bs Abon 07-01-2024 HBV surface Ab Ql (S) Non-Reactive Invalid Interpretation Code [facility] Comment on above: Result Comment: Non Reactive: Not immune to HBV infection. Equivocal: Unable to determine if anti-HBs is present at levels consistent with immunity. Reactive: Anti-HBs concentration detected at greater than 10 mIU/mL. Individual is considered to be immune to infection with HBV. Performed at: [facility] [address] [place], [place] [id number] PhD Wm Alonso Performed By: #### 2 [id number] #### [facility] [address] [place] [address] Hep Bs Agon 07-01-2024 HBV surface Ag IA Ql Negative Invalid Interpretation Code Negative [facility] Comment on above: Result Comment: Perf ormed at: [facility] [address] [place], [place] [id number] PhD Wm Alonso Performed By: #### 2 [id number] #### [facility] [address] [place] [address] Gastroenterology Office/Clin ic Noteon 03-31-2024 Gastroenterology Office/Clinic [...] diagnosed with small intestinal Crohn's disease in 2003. She was on Remicade for almost 10 years, but she stopped taking Remicade in 2018 secondary to loss of insurance. She was [...] History of Present Illness currently on Stelara [id number] Review of Systems PHQ Score Initial Depression [...] diagnosed with small intestinal Crohn's disease in 2003. She was on Remicade for almost 10 years, but she stopped taking Remicade in 2018 secondary to loss of insurance. She was [...] on 03/31/2024 16:00:50. . Documentation recorded by Inze Castorena, accurately reflects the services I performed and decisions made by me. Kip Xiao MD Follow-up With When Contact Information Dameon OCASIO, Kip Brunner, [facility], MED Within 3 months [address] [facility], [address] [phone] [phone] Additional Instructions: To Follow up on CTE and labs Problem List/Past Medical History Ongoing Anemia Crohn disease Crohn's disease, small intestine Epigastric pain foliculitis Heart murmur Loose stools seborrice dermititis Historical Procedure/Surgical History Colonoscopy (06/29/2019), Esophagogastroduodenoscopy (06/29/2019), Arthroscopy of knee, Colonoscopy, [place] tooth. 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 Alcohol abuse in household: No. Substance abuse in household: No. Smoker in household: Yes. Injuries/Abuse/Neglect in household: No. Crohn's disease in remission, 10/25/2015 N (more content not included)... [facility] Comment on above: Result Comment: Elec tronically Signed By: Dameon OCASIO, Kip Brunner\.br\Date and Time Signed: 03/31/24 16:13 EDT\.br\Electronically Co-Signed By: Inez Castorena MA\.br\Date and Time Co-Signed: 03/31/24 16:03 EDT Retail - Clinical Noteon Retail - Clinical Note [id number]#1.00CD:127 [facility] Pre-Certification Formon Pre-Certification Form [id number]#1.00CD:127 [facility] Pre-Certification Form [id number]#1.00CD:127 [facility] Pre-Certification Formon Pre-Certification Form [id number]#1.00CD:127 [facility] Retail - Clinical Noteon Retail - Clinical Note [id number]#1.00CD:127 Normal [facility] Pre-Certification Formon Pre-Certification Form [id number]#1.00CD:127 Normal [facility] Pre-Certification Formon Pre-Certification Form [id number]#1.00CD:127 Normal [facility] Family Medicine Office/Clini c Noteon 04-19-2023 [...] with voice recognition software. Occasional wrong-word or ?hrwkp-z-gigm? substitutions may have occurred due to the [...] for 7 day(s), 22 gm, Refill(s) 0, [facility], 165, cm, 04/19/23 13:47:00 EDT, Height/Length [...] for 7 day(s), 22 gm, Refill(s) 0, [facility], 165, cm, 04/19/23 13:47:00 EDT, Height/Length Dosing, 78, kg, 04/19/23 13:47:00 EDT, Weight Dosing Follow-up With When Contact Information Vinod ROBINS DO, Toni Carmen, [address], [facility] [address]- Additional Instructions: Patient Education BMI for Adults Impetigo, Adult Problem List/Past Medical History Ongoing Anemia Crohn disease Crohn's disease, small intestine Epigastric pain foliculitis Heart murmur Loose stools seborrice dermititis Historical Procedure/Surgical History Colonoscopy (06/29/2019), Esophagogastroduodenoscopy (06/29/2019), Arthroscopy of knee, Colonoscopy, [place] tooth. 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 Alcohol abuse in household: No. Substance abuse in household: No. Smoker in household: Yes. Injuries/Abuse/Neglect in household: (more content not included)... Normal [facility] Comment on above: Result Comment: Elec tronically Signed By: Elia BONE, Evgeny Spivey\.br\Date and Time Signed: 04/19/23 13:59 EDT Patient Educationon 04-19-20 23 Patient Education Infectious Disease Impetigo, Adult Impetigo [...] this condition: ? Playing sports that include yumm-fd-dyxo contact with others. ? Having broken skin, [...] these instructions at home: Medicines ? Take iubq-vzr-tttstzj and prescription medicines only as told by [...] ? Y (more content not included)... Normal [facility] PAP ACOG PANEL 2: 30 to 65on 02-05-2023 . . Normal [facility] Comment on above: Result Comment: Perf ormed at: WB Performed By: #### 4 [id number] #### [facility] [address] [place] [address] Dr. Sally Lambert Age Gdln ACOG Testing 30-65 Normal [facility] Comment on above: Performed By: #### 4 [id number] #### [facility] [address] [place] [address] Dr. Sally Lambert DIAGNOSIS: Comment Normal [facility] Comment on above: Result Comment: NEGA TIVE FOR INTRAEPITHELIAL LESION OR MALIGNANCY. Performed at: WB Performed By: #### 4 [id number] #### [facility] [address] [address] [address] Sally Lambert HPV Aptima Negative Normal Negative [facility] Comment on above: Result Comment: This nucleic acid amplification test detects fourteen high-risk HPV types (16,18,31,33,35,39,45,51,52,56,58,59,66,68) without differentiation. Performed at: =G Performed By: #### 4 [id number] #### [facility] [address] [place] [address] Dr. Sally Lambert HPV Genotype Reflex Comment Normal [facility] Comment on above: Result Comment: Crit eria not met, HPV Genotype not performed. Performed at: WB Performed By: #### 4 [id number] #### [facility] [address] [place] [address] Dr. Sally Lambert Methodology: Comment Normal [facility] Comment on above: Result Comment: This liquid based ThinPrep(R) pap test was screened with the use of an image guided system. Performed at: WB Performed By: #### 4 [id number] #### [facility] [address] [place] [address] Dr. Sally Lambert Note: Comment Normal [facility] Comment on above: Result Comment: The Pap smear is a screening test designed to aid in the detection of premalignant and malignant conditions of the uterine cervix. It is not a diagnostic procedure and should not be used as the sole means of detecting cervical cancer. Both false-positive and false-negative reports do occur. . Performed at: WB Performed By: #### 4 [id number] #### [facility] [address] [address] [address] Sally Lambert Performed by: Comment Normal [facility] Comment on above: Result Comment: Melita Deal, Wallcovering Texturer (ASCP) Performed at: WB Performed By: #### 4 [id number] #### [facility] [address] [address] [address] Sally Lambert Specimen adequacy: Comment Normal [facility] Comment on above: Result Comment: Sati sfactory for evaluation. Endocervical and/or squamous metaplastic cells (endocervical component) are present. Performed at: WB Performed By: #### 4 [id number] #### [facility] [address] [place] [address] Dr. Sally Lambert DHEA SERUMon 07-18-2022 Dehydroepiandrosterone (DHEA) 335 ng/dL Normal 31-701 [facility] Comment on above: Result Comment: Age 1 [...] 701 Performed By: #### Mayra MCCABE. #### [facility] [address] [place] [address] Dr. Sally Lambert DHEA-SULFATEon 07-16-2022 DHEA-Sulfate 291.0 ug/dL Critically high 57.3-279.2 [facility] Comment on above: Performed By: #### Mayra GRANDE #### [facility] [address] [place] [address] Dr. Sally Lambert FSHon 07-16-2022 FSH 4.4 mIU/mL Normal [facility] Comment on above: Result Comment: Adul t Female: Follicular phase 3.5 - 12.5 Ovulation phase 4.7 - 21.5 Luteal phase 1.7 - 7.7 Postmenopausal 25.8 - 134.8 Performed By: #### [facility] #### [facility] [address] [place] [address] Dr. Sally Lambert LUTEINIZING HORMONE (LH)on 1 LH 5.1 mIU/mL Normal [facility] Comment on above: Result Comment: Adul t Female: Follicular phase 2.4 - 12.6 Ovulation phase 14.0 - 95.6 Luteal phase 1.0 - 11.4 Postmenopausal 7.7 - 58.5 Performed By: #### L BCLH #### [facility] [address] [place] [address] Dr. Sally Lambert CBC AUTO DIFFon 07-15-2022 BASO # 0.0 103/ul Normal 0.0-0.1 [facility] Comment on above: Performed By: #### C BC #### [facility] [address] [place] [address] Dr. Sally Lambert Basophils/100 WBC (Bld) 0.6 % Normal 0.2-2.0 [facility] Comment on above: Performed By: #### C BC #### [facility] [address] [place] [address] Dr. Sally Lambert EO # 0.1 103/ul Normal 0.0-0.7 [facility] Comment on above: Performed By: #### C BC #### [facility] [address] [place] [address] Dr. Sally Lambert Eosinophils/100 WBC (Bld) 2.6 % Normal 0.9-7.0 [facility] Comment on above: Performed By: #### C BC #### [facility] [facility] [address] [place] [address] Dr. Sally Lambert Erythrocyte distribution width (RBC) [Ratio] 13.8 % Normal 11.0-15.0 [facility] Comment on above: Performed By: #### C BC #### [facility] [address] [place] [address] Dr. Sally Lambert Hematocrit (Bld) [Volume fraction] 35.9 % Critically low 36.0-48.0 [facility] Comment on above: Performed By: #### C BC #### [facility] [address] [place] [address] Dr. Sally Lambert Hemoglobin (Bld) [Mass/Vol] 11.5 g/dL Critically low 12.0-16.0 [facility] Comment on above: Performed By: #### C BC #### [facility] [address] [place] [address] Dr. Sally Lambert IG # 0.02 10e3/ul Normal 0.00-0.03 [facility] Comment on above: Performed By: #### C BC #### [facility] [address] [place] [address] Dr. Sally Lambert IG % 0.4 % Normal 0.0-0.5 [facility] Comment on above: Performed By: #### C BC #### [facility] [address] [place] [address] Dr. Sally Lambert LYMPH # 1.9 103/ul Normal 1.2-3.8 [facility] Comment on above: Performed By: #### C BC #### [facility] [address] [place] [address] Dr. Sally Lambert Lymphocytes/100 WBC (Bld) 36.6 % Normal 20.5-60.0 [facility] Comment on above: Performed By: #### C BC #### [facility] [address] [place] [address] Dr. Sally Lambert MANUAL DIFF REQ NO Normal [facility] Comment on above: Performed By: #### C BC #### [facility] [address] [place] [address] Dr. Sally Lambert MCH (RBC) [Entitic mass] 29.6 pg Normal 26.7-34.0 [facility] Comment on above: Performed By: #### C BC #### [facility] [address] [place] [address] Dr. Sally Lambert MCHC (RBC) [Mass/Vol] 32.0 g/dL Normal 29.9-35.2 [facility] Comment on above: Performed By: #### C BC #### [facility] [address] [place] [address] Dr. Sally Lambert MCV (RBC) [Entitic vol] 92.5 fL Normal 81.0-99.0 [facility] Comment on above: Performed By: #### C BC #### [facility] [address] [address] [address] Sally Lambert MONO # 0.3 103/ul Normal 0.3-0.8 [facility] Comment on above: Performed By: #### C BC #### [facility] [address] [address] [address] Sally Lambert Monocytes/100 WBC (Bld) 5.7 % Normal 1.7-12.0 [facility] Comment on above: Performed By: #### C BC #### [facility] [address] [place] [address] Dr. Sally Lambert NEUT # 2.9 103/ul Normal 1.4-6.5 [facility] Comment on above: Performed By: #### C BC #### [facility] [address] [place] [address] Dr. Sally Lambert Neutrophils/100 WBC (Bld) 54.1 % Normal 43.0-75.0 [facility] Comment on above: Performed By: #### C BC #### [facility] [address] [place] [address] Dr. Sally Lambert Platelet mean volume (Bld) [Entitic vol] 9.9 fL Normal 9.5-13.5 [facility] Comment on above: Performed By: #### C BC #### [facility] [address] [place] [address] Dr. Sally Lambert PLT 311 103/ul Normal 150-450 [facility] Comment on above: Performed By: #### C BC #### [facility] [address] [place] [address] Dr. Sally Lambert RBC 3.88 106/ul Critically low 4.20-5.40 [facility] Comment on above: Performed By: #### C BC #### [facility] [address] [place] [address] Dr. Sally Lambert WBC 5.3 103/ul Normal 4.0-11.0 [facility] Comment on above: Performed By: #### C BC #### [facility] [address] [place] [address] Dr. Sally Lambert FREE T4on 07-15-2022 Free T4 [Mass/Vol] 0.93 ng/dL Normal 0.76-1.46 [facility] Comment on above: Performed By: #### F T4 #### [facility] [address] [place] [address] Dr. Sally Lambert GLYCOHEMOGLOBIN A1Con 2021 ADA RECOMMENDATION SEE BELOW Normal [facility] Comment on above: Result Comment: ADA RECOMMENDED LIMIT 4.0 - 6.0 ADA THERAPEUTIC TARGET < 7.0 ACTION SUGGESTED > 7.0 Performed By: #### A 1C #### [facility] [address] [place] [address] Dr. Sally Lambert Glucose [Mass/Vol] 120 mg/dL Normal [facility] Comment on above: Performed By: #### A 1C #### [facility] [address] [place] [address] Dr. Sally Lambert HbA1c (Bld) [Mass fraction] 5.8 % Normal 4.5-6.2 [facility] Comment on above: Performed By: #### A 1C #### [facility] [address] [place] [address] Dr. Sally Lambert TSHon 07-15-2022 TSH 1.110 uIU/mL Normal 0.358-3.74 0 [facility] Comment on above: Performed By: #### T SH #### [facility] [address] [place] [address] Dr. Sally Lambert Vital Signs Date Time Vital Sign Value Performing Clinician Faci lity 08-09-2024 10:45-0500 Body mass index (BMI) [Ratio] 30.09 kg/m2 [employer] Work Phone: [facility] 08-09-2024 10:45-0500 Body weight 82.01 kg [employer] Work Phone: [facility] 08-09-2024 10:45-0500 Diastolic blood pressure 70 mm[Hg] [employer] Work Phone: [facility] 08-09-2024 10:45-0500 Systolic blood pressure 118 mm[Hg] Cali Myles DO Work Phone: [facility] 07-19-2024 13:34-0400 Body mass index (BMI) [Ratio] 30.52 kg/m2 [employer] Work Phone: [facility] 07-19-2024 13:34-0400 Body weight 83.19 kg [employer] GOMEZ Work Phone: [facility] Healthcare Encounters Encounter Date Encounter Type Care Provider Facility Start: 08-13-2024 End: 08-13-2024 ambulatory [facility] Facility:[facility] Start: 08-09-2024 End: 08-09-2024 Bamboo flowsheet Cali Myles DO Work Phone: [facility] Start: 08-09-2024 End: 08-09-2024 Bamboo flowsheet Cali Myles DO Work Phone: [facility] Start: 08-09-2024 End: 08-09-2024 Office outpatient visit 15 minutes Cali Myles DO Work Phone: [facility] Comment on above: Pre-operative exam; Menorrhagia with regular cycle; Abnormal uterine bleeding (AUB); Pelvic pain in female; Request for sterilization Start: 08-09-2024 End: 08-09-2024 Preprocedural examination done Cali Myles DO Work Phone: [facility] Work Phone: Start: 08-09-2024 End: 08-09-2024 ambulatory CALI MYLES Not Available Start: 07-28-2024 End: 07-28-2024 ambulatory Kip Xiao Facility:[facility] Start: 07-19-2024 End: 07-19-2024 Bamboo flowsheet [employer] Work Phone: [facility] Start: 07-19-2024 End: 07-19-2024 Bamboo flowsheet [employer] GOMEZ Work Phone: [facility] Start: 07-19-2024 End: 07-19-2024 Office outpatient visit 15 minutes China GOMEZ Work Phone: [facility] Comment on above: PMDD (premenstrual d ysphoric disorder) ([facility]); Menorrhagia with regular cycle Start: 07-19-2024 End: 07-19-2024 ambulatory CHINA TAYLOR Not Available Start: [facility] Start: 03-31-2024 End: 03-31-2024 ambulatory Kip Xiao Facility:[facility] Start: 02-02-2024 End: 02-02-2024 ambulatory CALI BUENO Not Available Start: 02-02-2024 End: 02-02-2024 ambulatory CALI BUENO Not Available Start: 04-19-2023 End: 04-19-2023 ambulatory Evgeny Rodrigez Facility: [facility] Start: 01-29-2023 End: 01-29-[address] CALI BUENO . Facility: Start: 07-15-2022 End: 07-16-[address] CALI BUENO . Facility: Plan of Treatment Date Care Activity Detail Author Start: 09-05-2024 End: 09-05-2024 Patient encounter procedure 09/05/2024 8:30 AM EST Office Visit [facility] [address] [place] [phone] China Taylor PA [address] [place] [address] [facility] Start: 08-09-2024 End: 08-09-2024 Patient encounter procedure [facility] Comment on above: Arrived Start: 07-27-2024 End: 07-27-2024 Professional / ancillary services management 07/27/2024 9:00 AM EDT Ancillary Procedure [facility] [address] [facility] [place] [phone] [facility] Start: 07-19-2024 End: 07-19-2025 US for US PELVIS-TRANSVAG IF INDICATED Imaging Routine Menorrhagia with regular cycle Expected: 07/19/2024 (Approximate), Expires: 07/19/2025 [facility] Work Phone: Comment on above: Expected: 07/19/2024 (Approximate), Expires: 07/19/2025 Start: 07-19-2024 End: 07-19-2024 Patient encounter procedure 07/19/2024 1:30 PM EDT Office Visit [facility] [address] [place] [phone] China Taylor PA [address] [place], [place] [id number] Arrived [facility] Comment on above: Arrived Payers Date Payer Category Payer [facility] BCBS [id number] 1984 Unknown [id number] [id number] 1984 Unknown [id number] [id number]. 2.593 1984 Unknown [id number] [id number]. 2.1259 1984 Unknown [id number] [id number]. 2.727 1984 Unknown [id number] [id number]. 2.727 1984 Unknown [id number] [id number]. 2. 1984 Unknown [id number] [id number]. 2.1258 1984 Unknown [id number] [id number]. 2.1258 1984 Unknown [id number] [id number]. 2. 1984 Unknown [id number] [id number]. 2.727 1959 Unknown [id number] Social History Date Type Detail Facility Tobacco smoking stat [facility] Tobacco smoking consumption unknown [facility] Start: 1985 Sex assigned at Female [facility] Start: 05-19-2024 Gender identity Identifies as female gender (finding) [facility] Start: 05-19-2024 Sexual orientation Heterosexual (fin ding) [facility] History of Present illness Narrative 08-09-2024 Arlene Lugo - 08/09/2024 10:30 AM EST Note Date & Type Note Facility 08-09-2024 History of Presen t illness Narrative Reason for Appointment: Patient ID: Glo Schmidt is a 39 y.o. female who presents for Pre-op Visit Patient presents today for Pre Op appointment. Patient is scheduled to undergo Da Monica assisted Bilateral Laparoscopic Salpingectomy and Endometrial Ablation with Nuris on 08/24/[address] Bueno at [facility] MEDICATIONS Current Outpatient Medications Medication Instructions budesonide EC (ENTOCORT EC) 3 mg, Daily esomeprazole (NEXIUM) 40 mg, Daily Stelara 90 mg, Once ALLERGIES No Known [...] Respiratory: Negative. Cardiovascular: Negative. Gastrointestinal: Negative. Genitourinary: Positive for menstrual problem and pelvic pain. Musculoskeletal: Negative. Skin: Negative. Neurological: Negative. All [...] nursing note reviewed. Exam conducted with a extension work instructor present. Vitals: Estimated body mass index is 30.09 kg/m as calculated from the following: Height as of 24: 5' 5 . Weight as of this encounter: 180 lb 12.8 oz. BP: 118/70 No LMP recorded. ASSESSMENT & PLAN ICD-10-CM 1. Pre-operative exam Z01.818 2. Menorrhagia with regular cycle N92.0 3. Abnormal uterine bleeding (AUB) N93.9 4. Pelvic pain in female R10.2 5. Request for sterilization Z30.2 Pre Op: Patient is doing well but has desire for sterilization and has complaints of bleeding and pelvic pain. Patient has tried hormone therapy in the past but all attempts to subside patients issues of bleeding have failed. I have discussed conservative management vs. surgical management with the patient in detail and patient desires surgical management at this time. Patient has voiced understanding that a Bilateral Salpingectomy is considered to be permanent and patient will undergo Da Monica assisted Bilateral Laparoscopic Salpingectomy & Endometrial Ablation with Nuris on 08/24/2024. Surgical consents were signed, mmc was reviewed, and patient is to proceed to [facility] OR. Follow Up: Patient is to follow up between 1-2 weeks post op to assess proper healing and recovery from procedure. Documented by Christelle Fierro LPN on behalf of: Cali Bueno DO documented in this encounter [facility] History of Present illness Narrative 07-19-2024 PATRICIA [...] nursing note reviewed. Exam conducted with a extension work instructor present. Vitals: Estimated body mass index is 30.52 kg/m as calculated from the following: Height as of 02/02/24: 5' 5 . Weight as of this encounter: 183 lb 6.4 oz. BP: No LMP recorded (within months). ASSESSMENT & PLAN ICD-10-CM 1. PMDD (premenstrual dysphoric disorder) (CMS/HCC) F32.81 Patient presents today for mood swings, [...] of: PATRICIA Boyd documented in this encounter [facility] Evaluation note Note Date & Type Note Facility Evaluation note Diagnosis PMDD (premenstrual dysphoric disorder) ([facility]) Premenstrual tension syndromes Menorrhagia with regular cycle documented in this encounter [facility] Evaluation note Note Date & Type Note Facility Evaluation note Diagnosis Pre-operative exam Unspecified pre-operative examination Menorrhagia with regular cycle Abnormal uterine bleeding (AUB) Pelvic pain in female Unspecified symptom associated with female genital organs Request for sterilization documented in this encounter [facility] Summary [...] content) DATE CREATED AUTHOR 02/06/2023 [facility] DATE CREATED AUTHOR AUTHOR'S ORGANIZ ATION 02/03/2024 [facility] EP[facility] DATE CREATED AUTHOR AUTHOR'S ORGANIZ ATION 04/02/2024 [facility] DATE CREATED AUTHOR AUTHOR'S ORGANIZ ATION 07/02/2024 [facility] DATE CREATED AUTHOR AUTHOR'S ORGANIZ ATION 07/08/2024 [facility] DATE CREATED AUTHOR AUTHOR'S ORGANIZ ATION 08/10/2024 [facility] EPIC DATE CREATED AUTHOR AUTHOR'S ORGANIZ ATION 08/15/2024 [facility] Care Teams (unrecognized sec tion and content) [employer] Relationship Specialty Start Date End Date Toni Brock DO [address] [place] [address] [phone] PCP - General Family Medicine 07/19/24 [employer] Relationship Specialty Start Date End Date Toni Brock [address] [place] [address] [phone] PCP - General Family Medicine 07/19/24 [employer] Relationship Specialty Start Date End Date Vinod Toni [address] [place] [address] [phone] PCP - General Family Medicine 07/19/24 Reason for Visit (unrecogniz ed section and content) Reason Comments PMDD Reason Comments Pre-op Visit FOR RECORDS PERTAINING TO PATIENTS WHO ARE [...] BE BASED ON THE PRIMARY CLINICAL RECORDS. [employer] provides no warranty or guarantee of the accuracy or completeness of information in this document.
== END 2024-08-15 14:22 | disposition home or self-care (01) ==
LOC: PST 14:22
PROVIDERS: Visit Provider Obstetrics & Gynecology
DX: Z01.818 Encounter for other preprocedural examination (principal); Z30.2 Encounter for sterilization; N92.0 Excessive and frequent menstruation with regular cycle; N93.9 Abnormal uterine and vaginal bleeding, unspecified; R10.2 Pelvic and perineal pain

== ENCOUNTER 2024-08-24 08:32 | Day surgery (SDC) | payer BC, SELFPAY ==
[2024-08-15 15:03] VITALS: BP 124/88; PULSE 84; TEMP 36.4; O2SAT 97; BMI 30.5
[2024-08-24] VITALS (15 sets, daily range): BP systolic 110–127; BP diastolic 77–82; PULSE 74–101; TEMP 36.2–36.4; O2SAT 93–98; BMI 30.4
[2024-08-24 08:42] LABS: Basophils Absolute Auto 0.1 10^3/uL (0.0-0.1); Basophils Percent Auto 1.1 % (0.2-2.0); Eosinophils Absolute Auto 0.2 10^3/uL (0.0-0.7); Eosinophils Percent Auto 3.7 % (0.9-7.0); Hematocrit 37.9 % (36.0-48.0); Hemoglobin 12.7 g/dL (12.0-16.0); Immature Granulocytes Abs Auto 0.01 10^3/uL (0.00-0.03); Immature Granulocytes Pct Auto 0.2 % (0.0-0.5); Lymphocytes Absolute Auto 1.9 10^3/uL (1.2-3.8); Lymphocytes Percent Auto 34.1 % (20.5-60.0); Mean Corpuscular HGB Conc 33.5 g/dL (29.9-35.2); Mean Corpuscular Hemoglobin 31.4 pg (26.7-34.0); Mean Corpuscular Volume 93.6 fL (81.0-99.0); Mean Platelet Volume 9.6 fL (9.5-13.5); Monocytes Absolute Auto 0.4 10^3/uL (0.3-0.8); Monocytes Percent Auto 6.4 % (1.7-12.0); Neutrophils Percent Auto 54.5 % (43.0-75.0); Platelet Count 284 10^3/uL (150-450); Red Blood Count 4.05 10^6/uL (4.20-5.40); Red Cell Distribution Width 13.1 % (11.0-15.0); White Blood Count 5.4 10^3/uL (4.0-11.0)
--- OUTSIDE RECORDS SUMMARY | 2024-08-24 08:51 | XMS_ITS | CCD ---
Author Organization [facility] Care Team Providers Care Social Service Assistant Name Role Phone MYLES ., DR LEIVA [...] Attending Kip Bryan Attending Jesus Brock DO [facility] Primary Care Provider [phone] CALI BUENO Attending Unavailable CHINA TAYLOR Attending Unavailable CALI BUENO Attending Unavailable SMITHA LORENZO Attending Kip Aparicio Attending Unavailsanford cadet Medications Current Medications Medication [...] Test Name Value Interpretation Reference Range Facility Family Medicine Office/Clini c Noteon 08-15-2024 Family Medicine Office/Clinic Note Family Medicine Office/Clinic Note Chief Complaint cough HPI Staff 39 year old female presents with chest congestion, headache, sob, and cough since July 31 otc: theraflu History of Present Illness Reviewed and agree with above documented HPI by medical physics researcher. Portions of this record may have been created with voice recognition artificial intelligence software, specifically [employer], [employer] and or [employer]. Substitutions may have occurred due to the inherent limitations of voice recognition and artificial intelligence software. Patient is a 39-year-old female who presents to [facility] care, for sinus congestion, sinus pressure, bilateral ear pressure, and a nonproductive cough, patient states she has been having sinus issues for over 2 weeks, started with a nonproductive cough, on July 31, 2024, since then the cough is nonproductive worse at night, states she has no history of asthma, bronchitis, smoking, or vaping. Patient states when she having coughing spells when she lays her spine she has shortness of breath, states she is having chest congestion, has tried lkxt-pic-oghtycc Tamiflu without any relief, states her and son are both doing well, when she eats and drink she has her sense of taste and smell intact, has no discomfort with swallowing. Patient states she has not been wheezing, patient is a muscular headache for sinus issues, denies having any different type of headache, worsening type of headache, dizziness, difficulty swallowing, fever, chills, nausea vomiting, productive cough, wheezing, palpitation, chest pain, dyspnea exertion, weakness. Review of Systems PHQ Score Initial Depression Screen Score: 0 SCORE Physical Exam Vitals & Measurements T: 37 ???C(Tympanic) HR: 81(Peripheral) BP: 128/80 SpO2: 98% HT: 65 in HT: 165 cm WT: 83 kg WT: 182.6 lb BMI: 30.49 General: Well developed, well nourished, in no acute distress patient does appears ill but not septic. No respiratory distress. Patient answers questions appropriately and in complete sentences, and follows commands appropriately. Head: Normocephalic/atraumatic positive bilateral frontal sinus tenderness and pressure with palpation. No maxillary sinus tenderness. No facial swelling cellulitis. Eyes: Pupils equal, round, and reactive to light. Conjunctivae and sclerae virginie. movements intact Ears: Bilateral TMs are bulging, right greater than left, no signs otitis media otitis externa. Hearing is intact. Nose: No deformity, discharge, inflammation, or lesions Mouth: Mucous membranes moist. Normal oropharynx, and posterior pharynx with erythema and postnasal drip and without exudates, lesions, or enlarged tonsils. No trismus. No difficulty swallowing. Neck: Neck supple. No masses or palpable cervical nodes. No mastoid tenderness. Lungs: Normal respiratory effort and clear to auscultation throughout. Expiratory wheezing in all lung conteh. No decreased breath sounds, rales, crackles. Cardio: regular rate and rhythm, no murmur no chest wall tenderness. Neurologic: Grossly normal Skin: No rashes, ulcerations, or suspicious lesions Lymph Nodes: no lad Mental Status: not assessed Assessment/Plan Patient is agreeable to albuterol breathing treatment, prefers no swabs or chest imaging at this time. 39-year-old female presents to [facility], for acute bacterial sinusitis acute bronchitis, symptoms started 2 weeks ago, patient did appear ill but not septic, no respiratory distress or difficulty swallowing. Patient was given a prescription for refill of albuterol inhaler, Augmentin, and Bromfed. Instructed take juol-tvr-oylfdrt ibuprofen Tylenol as needed for any headaches, body aches, fevers. Drink plenty of fluids to stay hydrated. Follow-up with primary care provider as needed. 1. Acute bacterial sinusitis (J01.90: Acute sinusitis, unspecified) See above 2. Acute bronchitis (J20.9: Acute bronchitis, unspecified) See above 3. BMI 30.0-30.9,adult (Z68.30: Body mass index [BMI] 30.0-30.9, adult) The standard range for ages 18 and older is >=18.5 and < 25 kg/m2. Your BMI today was above this range, this falls in the overweight to obese category and there are medical benefits to weight loss. We can offer counselling, referral, and/or medical support in addressing this problem. Your BMI and weight management will be followed at subsequent visits. Other specified bacterial agents as the cause of diseases classified elsewhere (B96.89: Other specified bacterial agents as the cause of diseases classified elsewhere) Follow-up With When Contact Information Vinod ROBINS DO, Toni Carmen, [address] [address]- Additional Instructions: Problem List/Past Medical History Ongoing Abdominal pain Anemia Crohn disease Crohn's disease, small intestine Epigastric pain foliculitis Heart murmur Loose stools seborrice dermititis Historical (more content not included)... Normal [facility] Comment on above: Result Comment: Elec tronically Signed By: BJ BONE, REYES\.lelia\Date and Time Signed: 08/15/24 10:02 EST Ambulatory Visit Summaryon 1 10-13-2023 Ambulatory Visit [...] (06/29/2019), Esophagogastroduodenoscopy (06/29/2019), Arthroscopy of knee, Colonoscopy, Shumway tooth. Discharge Vitals Temperature (Tympanic) 37 ???C Heart Rate (Peripheral) 81 Blood Pressure 128/80 Height 165 cm Height 65 in Weight 83 kg Weight 182.6 lb BMI 30.49 What to do next Scheduled Follow-Up Appointments Thursday 12:45 PM EST Where: [facility] Medications What How Much When Why Instructions New albuterol (Ventolin HFA 90 mcg/ inh Aerosol-Adpt) 2 Puffs Inhalation Every 6 hours as needed for for wheezing Acute bronchitis Duration: 7 Days Pickup at [facility] New amoxicillin-clavulanate (Augmentin 875 mg oral tablet) 1 Tablets By Mouth Every 12 hours Acute bacterial sinusitis Duration: 10 Days Pickup at [facility] New brompheniramine/ dextromethorphan/ PSE (Bromfed DM oral syrup) 10 Milliliter By Mouth 4 times a day as needed for for cough and congestion Acute bronchitis Duration: 7 Days Pickup at [facility] Unchanged budesonide (budesonide 3 mg oral delayed release capsule) 3 Capsules By Mouth Once a day (in the morning) Unchanged esomeprazole (Nexium 40 mg Cap-EC) 1 Capsules By Mouth Every day Unchanged ustekinumab (Stelara) Pharmacy Information [facility]: [address] [place], [place] [id number] [phone] Medications and Immunizations Administered Given albuterol 0.083% [...] you for choosing us for your care. Hany Velázquez [facility] Gastroenterology Office/Clin ic Noteon 07-28-2024 Gastroenterology [...] Will discuss health maintenance next visit EGD/Colon 9/25/19: Impression and Plan Mild bulbar duodenitis, biopsied [...] 91 fL (06/30/24) Chloride: 106 mmol/L (06/30/24) Tucker Absolute: 0.4 E9/L (06/30/24) CO2: 24 mmol/L (06/30/24) Tucker Auto: 5.4 % (06/30/24) Creatinine: 0.7 mg/dL [...] also she (more content not included)... Normal [facility] Comment on above: Result Comment: Elec tronically Signed By: Dameon OCASIO, Kip Brunner\.lelia\Date and Time Signed: 07/28/24 13:45 EDT Quantiferon-TB Plus (Client Incubated)on 07-25-2024 Gamma interferon background IA Qn (Bld) 0.02 International_Unit/mL Invalid Interpretation Code [facility] Comment on above: Performed By: #### 1 [id number] #### [facility] [address] [place] [address] M. tuberculosis stim IFN-g by CD4+ CD8+ T-cells corrected for background Qn (Bld) 0.01 International_Unit/mL Invalid Interpretation Code [facility] Comment on above: Performed By: #### 1 [id number] #### [facility] [address] [place] [address] M. tuberculosis stim IFN-g by CD4+ T-cells corrected for background Qn (Bld) 0.02 International_Unit/mL Invalid Interpretation Code [facility] Comment on above: Performed By: #### 1 [id number] #### [facility] [address] [place] [address] M. tuberculosis stim IFN-g Ql (Bld) [Interp] Negative Invalid Interpretation Code Negative [facility] Comment on above: Result Comment: No [...] interferon gamma. Chemiluminescence immunoassay methodology Performed at: [facility] [id number] PhD Wm Alonso Performed By: #### 1 [id number] #### [facility] [address] [place] [address] Mitogen stimulated gamma interferon corrected for background Qn (Bld) >10.00 Invalid Interpretation Code [facility] Comment on above: Performed By: #### 1 [id number] #### [facility] [address] [place] [address] Service comment (Unsp spec) [Interp] Comment Invalid Interpretation Code [facility] Comment on above: Result Comment: Idris [...] for the test. Performed By: #### 1 [id number] #### [facility] [address] [place] [address] CT Abdomen/Pelvis w/contrast (enterography)on 07-01-2024 CT Abdomen/Pelvis [...] Oral contrast amount in ml's: 1350 Normal [facility] Hep Bs Abon 07-01-2024 HBV surface Ab Ql (S) Non-Reactive Invalid Interpretation Code [facility] Comment on above: Result Comment: Non Reactive: Not immune to HBV infection. Equivocal: Unable to determine if anti-HBs is present at levels consistent with immunity. Reactive: Anti-HBs concentration detected at greater than 10 mIU/mL. Individual is considered to be immune to infection with HBV. Performed at: [facility] [address] [place], [place] [id number] PhD Wm Alonso Performed By: #### 2 [id number] #### [facility] [address] [place] [address] Hep Bs Agon 07-01-2024 HBV surface Ag IA Ql Negative Invalid Interpretation Code Negative [facility] Comment on above: Result Comment: Perf ormed at: [facility] [address] [place], [place] [id number] PhD Wm Alonso Performed By: #### 2 [id number] #### [facility] [address] [place] [address] Gastroenterology Office/Clin ic Noteon 03-31-2024 Gastroenterology Office/Clinic [...] History of Present Illness currently on Stelara [id number] Review of Systems PHQ Score Initial Depression [...] When Contact Information Dameon OCASIO, CESAR [place], MED Within 3 months [address], [address] [phone] Additional Instructions: To Follow up on CTE and labs Problem List/Past Medical History Ongoing Anemia Crohn disease Crohn's disease, small intestine Epigastric pain foliculitis Heart murmur Loose stools seborrice dermititis Historical Procedure/Surgical History Colonoscopy (06/29/2019), Esophagogastroduodenoscopy (06/29/2019), Arthroscopy of knee, Colonoscopy, Shumway tooth. 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 Alcohol abuse in household: No. Substance abuse in household: No. Smoker in household: Yes. Injuries/Abuse/Neglect in household: No. Crohn's disease in remission, 10/25/2015 N (more content not included)... [facility] Comment on above: Result Comment: Elec tronically Signed By: Dameon OCASIO, Kip Brunner\.br\Date and Time Signed: 03/31/24 16:13 EDT\.br\Electronically Co-Signed By: Inez Castorena MA\.br\Date and Time Co-Signed: 03/31/24 16:03 EDT Retail - Clinical Noteon Retail - Clinical Note [id number]#1.00CD:127 [facility] Pre-Certification Formon Pre-Certification Form [id number]#1.00CD:127 [facility] Pre-Certification Form [id number]#1.00CD:127 [facility] Pre-Certification Formon Pre-Certification Form [id number]#1.00CD:127 [facility] Retail - Clinical Noteon Retail - Clinical Note [id number]#1.00CD:127 [facility] Pre-Certification Formon Pre-Certification Form [id number]#1.00CD:127 [facility] Pre-Certification Formon Pre-Certification Form [id number]#1.00CD:127 [facility] Family Medicine Office/Clini c Noteon 04-19-2023 [...] with voice recognition software. Occasional wrong-word or ?dsmpo-f-yuym? substitutions may have occurred due to the [...] 7 day(s), 22 gm, Refill(s) 0, [facility], 165, cm, 04/19/23 13:47:00 EDT, Height/Length [...] for 7 day(s), 22 gm, Refill(s) 0, [facility], 165, cm, 04/19/23 13:47:00 EDT, Height/Length Dosing, 78, kg, 04/19/23 13:47:00 EDT, Weight Dosing Follow-up With When Contact Information Vinod ROBINS DO, Toni R, [address], [facility]ENTERMary Anne OLIVEROSMATTEAWAN STATE [facility] THE [place] [address]- Additional Instructions: Patient Education BMI for Adults Impetigo, Adult Problem List/Past Medical History Ongoing Anemia Crohn disease Crohn's disease, small intestine Epigastric pain foliculitis Heart murmur Loose stools seborrice dermititis Historical Procedure/Surgical History Colonoscopy (06/29/2019), Esophagogastroduodenoscopy (06/29/2019), Arthroscopy of knee, Colonoscopy, Shumway tooth. 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 Alcohol abuse in household: No. Substance abuse in household: No. Smoker in household: Yes. Injuries/Abuse/Neglect in household: (more content not included)... Normal [facility] Comment on above: Result Comment: Elec tronically Signed By: Elia BONE, Evgeny Spivey\.br\Date and Time Signed: 04/19/23 13:59 EDT Patient Educationon 07-16-20 23 Patient Education Infectious Disease Impetigo, Adult [...] this condition: ? Playing sports that include pfqj-oz-okno contact with others. ? Having broken skin, [...] these instructions at home: Medicines ? Take fmos-qcu-akupdpz and prescription medicines only as told by [...] ? Y (more content not included)... Normal [facility] PAP ACOG PANEL 2: 30 to 65on 02-05-2023 . . Normal [facility] Comment on above: Result Comment: Perf ormed at: WB Performed By: #### 4 [id number] #### [facility] [address] [address] [address] Sally Lambert Age Gdln ACOG Testing 30-65 [facility] Comment on above: Performed By: #### 4 [id number] #### [facility] [address] [address] [address] Sally Lambert DIAGNOSIS: Comment Normal [facility] Comment on above: Result Comment: NEGA TIVE FOR INTRAEPITHELIAL LESION OR MALIGNANCY. Performed at: WB Performed By: #### 4 [id number] #### [facility] [address] [address] [address] Sally Lambert HPV Aptima Negative Normal Negative [facility] Comment on above: Result Comment: This nucleic acid amplification test detects fourteen high-risk HPV types (16,18,31,33,35,39,45,51,52,56,58,59,66,68) without differentiation. Performed at: =G Performed By: #### 4 [id number] #### [facility] [address] [address] [address] Sally Lambert HPV Genotype Reflex Comment [facility] Comment on above: Result Comment: Crit eria not met, HPV Genotype not performed. Performed at: WB Performed By: #### 4 [id number] #### [facility] [address] [address] [address] Sally Lambert Methodology: Comment Normal [facility] Comment on above: Result Comment: This liquid based ThinPrep(R) pap test was screened with the use of an image guided system. Performed at: WB Performed By: #### 4 [id number] #### [facility] [address] [place] [address] Dr. Sally Lambert Note: Comment Normal [facility] Comment on above: Result Comment: The Pap smear is a screening test designed to aid in the detection of premalignant and malignant conditions of the uterine cervix. It is not a diagnostic procedure and should not be used as the sole means of detecting cervical cancer. Both false-positive and false-negative reports do occur. . Performed at: WB Performed By: #### 4 [id number] #### [facility] [address] [place] [address] Dr. Sally Lambert Performed by: Comment Normal [facility] Comment on above: Result Comment: Melita Deal, Cushion Filler (ASCP) Performed at: WB Performed By: #### 4 [id number] #### [facility] [address] [place] [address] Dr. Sally Lambert Specimen adequacy: Comment Normal [facility] Comment on above: Result Comment: Sati sfactory for evaluation. Endocervical and/or squamous metaplastic cells (endocervical component) are present. Performed at: WB Performed By: #### 4 [id number] #### [facility] [address] [place] [address] Dr. Sally Lambert DHEA SERUMon 07-18-2022 Dehydroepiandrosterone (DHEA) 335 ng/dL Normal 31-701 [facility] Comment on above: Result Comment: Age [...] 701 Performed By: #### Mayra MCCABE. #### [facility] [address] [place] [address] Dr. Sally Lambert DHEA-SULFATEon 07-16-2022 DHEA-Sulfate 291.0 ug/dL Critically high 57.3-279.2 [facility] Comment on above: Performed By: #### Mayra GRANDE #### [facility] [address] [place] [address] Dr. Sally Lambert FSHon 07-16-2022 FSH 4.4 mIU/mL Normal [facility] Comment on above: Result Comment: Adul t Female: Follicular phase 3.5 - 12.5 Ovulation phase 4.7 - 21.5 Luteal phase 1.7 - 7.7 Postmenopausal 25.8 - 134.8 Performed By: #### L BCFS #### [facility] [address] [place] [address] Dr. Sally Lambert LUTEINIZING HORMONE (LH)on 1 LH 5.1 mIU/mL Normal [facility] Comment on above: Result Comment: Adul t Female: Follicular phase 2.4 - 12.6 Ovulation phase 14.0 - 95.6 Luteal phase 1.0 - 11.4 Postmenopausal 7.7 - 58.5 Performed By: #### L BCL #### [facility] [address] [place] [address] Dr. Sally Lambert CBC AUTO DIFFon 07-15-2022 BASO # 0.0 103/ul Normal 0.0-0.1 [facility] Comment on above: Performed By: #### C BC #### [facility] [address] [place] [address] Dr. Sally Lambert Basophils/100 WBC (Bld) 0.6 % Normal 0.2-2.0 [facility] Comment on above: Performed By: #### C BC #### [facility] [address] [place] [address] Dr. Sally Lambert EO # 0.1 103/ul Normal 0.0-0.7 [facility] Comment on above: Performed By: #### C BC #### [facility] [address] [place] [address] Dr. Sally Lambert Eosinophils/100 WBC (Bld) 2.6 % Normal 0.9-7.0 [facility] Comment on above: Performed By: #### C BC #### [facility] [address] [place] [address] Dr. Sally Lambert Erythrocyte distribution width (RBC) [Ratio] 13.8 % Normal 11.0-15.0 [facility] Comment on above: Performed By: #### C BC #### [facility] [address] [place] [address] Dr. Sally Lambert Hematocrit (Bld) [Volume fraction] 35.9 % Critically low 36.0-48.0 [facility] Comment on above: Performed By: #### C BC #### [facility] [address] [place] [address] Dr. Sally Lambert Hemoglobin (Bld) [Mass/Vol] 11.5 g/dL Critically low 12.0-16.0 [facility] Comment on above: Performed By: #### C BC #### [facility] [address] [place] [address] Dr. Sally Lambert IG # 0.02 10e3/ul Normal 0.00-0.03 [facility] Comment on above: Performed By: #### C BC #### [facility] [address] [place] [address] Dr. Sally Lambert IG % 0.4 % Normal 0.0-0.5 [facility] Comment on above: Performed By: #### C BC #### [facility] [address] [place] [address] Dr. Sally Lambert LYMPH # 1.9 103/ul Normal 1.2-3.8 [facility] Comment on above: Performed By: #### C BC #### [facility] [address] [place] [address] Dr. Sally Lambert Lymphocytes/100 WBC (Bld) 36.6 % Normal 20.5-60.0 [facility] Comment on above: Performed By: #### C BC #### [facility] [address] [place] [address] Dr. Sally Lambert MANUAL DIFF REQ NO Normal [facility] Comment on above: Performed By: #### C BC #### [facility] [address] [place] [address] Dr. Sally Lambert MCH (RBC) [Entitic mass] 29.6 pg Normal 26.7-34.0 [facility] Comment on above: Performed By: #### C BC #### [facility] [address] [address] [address] Sally Lambert MCHC (RBC) [Mass/Vol] 32.0 g/dL Normal 29.9-35.2 [facility] Comment on above: Performed By: #### C BC #### [facility] [address] [address] [address] Sally Lambert MCV (RBC) [Entitic vol] 92.5 fL Normal 81.0-99.0 [facility] Comment on above: Performed By: #### C BC #### [facility] [address] [place] [address] Dr. Sally Lambert MONO # 0.3 103/ul Normal 0.3-0.8 [facility] Comment on above: Performed By: #### C BC #### [facility] [address] [place] [address] Dr. Sally Lambert Monocytes/100 WBC (Bld) 5.7 % Normal 1.7-12.0 [facility] Comment on above: Performed By: #### C BC #### [facility] [address] [place] [address] Dr. Sally Lambert NEUT # 2.9 103/ul Normal 1.4-6.5 [facility] Comment on above: Performed By: #### C BC #### [facility] [address] [place] [address] Dr. Sally Lambert Neutrophils/100 WBC (Bld) 54.1 % Normal 43.0-75.0 [facility] Comment on above: Performed By: #### C BC #### [facility] [address] [address] [address] Sally Lambert Platelet mean volume (Bld) [Entitic vol] 9.9 fL Normal 9.5-13.5 [facility] Comment on above: Performed By: #### C BC #### [facility] [address] [place] [address] Dr. Sally Lambert PLT 311 103/ul Normal 150-450 [facility] Comment on above: Performed By: #### C BC #### [facility] [address] [place] [address] Dr. Sally Lambert RBC 3.88 106/ul Critically low 4.20-5.40 [facility] Comment on above: Performed By: #### C BC #### [facility] [address] [place] [address] Dr. Sally Lambert WBC 5.3 103/ul Normal 4.0-11.0 [facility] Comment on above: Performed By: #### C BC #### [facility] [address] [place] [address] Dr. Sally Lambert FREE T4on 07-15-2022 Free T4 [Mass/Vol] 0.93 ng/dL Normal 0.76-1.46 [facility] Comment on above: Performed By: #### F T4 #### [facility] [address] [place] [address] Dr. Sally Lambert GLYCOHEMOGLOBIN A1Con 2021 ADA RECOMMENDATION SEE BELOW Normal [facility] Comment on above: Result Comment: ADA RECOMMENDED LIMIT 4.0 - 6.0 ADA THERAPEUTIC TARGET < 7.0 ACTION SUGGESTED > 7.0 Performed By: #### A 1C #### [facility] [address] [place] [address] Dr. Sally Lambert Glucose [Mass/Vol] 120 mg/dL Normal [facility] Comment on above: Performed By: #### A 1C #### [facility] [address] [place] [address] Dr. Sally Lambert HbA1c (Bld) [Mass fraction] 5.8 % Normal 4.5-6.2 [facility] Comment on above: Performed By: #### A 1C #### [facility] [address] [place] [address] Dr. Sally Lambert TSHon 07-15-2022 TSH 1.110 uIU/mL Normal 0.358-3.74 0 [facility] Comment on above: Performed By: #### T SH #### [facility] [address] [place] [address] Dr. Sally Lambert Vital Signs Date Time Vital Sign Value Performing Clinician Faci lity 08-09-2024 10:45-0500 Body mass index (BMI) [Ratio] 30.09 kg/m2 Cali Myles DO Work Phone: [facility] 08-09-2024 10:45-0500 Body weight 82.01 kg Cali Myles DO Work Phone: [facility] 08-09-2024 10:45-0500 Diastolic blood pressure 70 mm[Hg] Cali Myles DO Work Phone: [facility] 08-09-2024 10:45-0500 Systolic blood pressure 118 mm[Hg] Cali Myles DO Work Phone: [facility] 07-19-2024 13:34-0400 Body mass index (BMI) [Ratio] 30.52 kg/m2 China GOMEZ Work Phone: [facility] 07-19-2024 13:34-0400 Body weight 83.19 kg China GOMEZ Work Phone: [facility] Encounters Encounter Date Encounter Type Care Provider Facility Start: 08-13-2024 End: 08-13-2024 ambulatory SMITHA LORENZO Facility:[facility] Start: 08-09-2024 End: 08-09-2024 Bamboo flowsheet Cali Myles DO Work Phone: [facility] Start: 08-09-2024 End: 08-09-2024 Bamboo flowsheet Cali Myles DO Work Phone: [facility] Start: 08-09-2024 End: 08-09-2024 Office outpatient visit 15 minutes Cali Myles DO Work Phone: [facility] Comment on above: Pre-operative exam; Menorrhagia with regular cycle; Abnormal uterine bleeding (AUB); Pelvic pain in female; Request for sterilization Start: 08-09-2024 End: 08-09-2024 Preprocedural examination done Cali Myles DO Work Phone: [facility] Work Phone: Start: 08-09-2024 End: 08-09-2024 ambulatory CALI BUENO Not Available Start: 07-28-2024 End: 07-28-2024 ambulatory Shin Talal Michaelmini Facility:[facility] Start: 07-19-2024 End: 07-19-2024 Bamboo flowsheet China GOMEZ Work Phone: [facility] Start: 07-19-2024 End: 07-19-2024 Bamboo flowsheet China GOMEZ Work Phone: [facility] Start: 07-19-2024 End: 07-19-2024 Office outpatient visit 15 minutes China GOMEZ Work Phone: [facility] Comment on above: PMDD (premenstrual d ysphoric disorder) (CMS/[facility]); Menorrhagia with regular cycle Start: 07-19-2024 End: 07-19-2024 ambulatory CHINA TAYLOR Not Available Start: 06-30-2024 ambulatory Shin Talal Michaelmini Facility:[facility] Start: 03-31-2024 End: 03-31-2024 [facility] Start: 02-02-2024 End: 02-02-2024 ambulatory CALI BUENO Not Available Start: 02-02-2024 End: 02-02-2024 ambulatory CALI BUENO Not Available Start: 04-19-2023 End: 04-19-2023 ambulatory Evgeny Rodrigez Facility: [facility] Start: 01-29-2023 End: 01-29-[address] CALI BUENO . Facility: Start: 07-15-2022 End: 07-16-[address] CALI BUENO . Facility: Plan of Treatment Date Care Activity Detail Author Start: 09-05-2024 End: 09-05-2024 Patient encounter procedure 09/05/2024 8:30 AM EST Office Visit [facility] [address] [place] [address] China Taylor PA [address] [place] [address] [facility] Start: 08-09-2024 End: 08-09-2024 Patient encounter procedure [facility] Comment on above: Arrived Start: 07-27-2024 End: 07-27-2024 Professional / ancillary services management 07/27/2024 9:00 AM EDT Ancillary Procedure [facility] [address] [facility] [place] [id number] [facility] Start: 07-19-2024 End: 07-19-2025 US for US PELVIS-TRANSVAG IF INDICATED Imaging Routine Menorrhagia with regular cycle Expected: 07/19/2024 (Approximate), Expires: 07/19/2025 [facility] Work Phone: Comment on above: Expected: 07/19/2024 (Approximate), Expires: 07/19/2025 Start: 07-19-2024 End: 07-19-2024 Patient encounter procedure 07/19/2024 1:30 PM EDT Office Visit [facility] [address] [place] [phone] China Taylor PA [address] [facility] [address] [place], [place] [id number] Arrived [facility] Comment on above: Arrived Payers Date Payer Category Payer [facility] BCBS [id number] 1984 Unknown [id number] 1984 Unknown [id number]. [id number] 1984 Unknown [id number] [id number]. [id number] 1984 Unknown [id number]. 2.727 1984 Unknown [id number] [id number]. [id number] 1984 Unknown [id number] [id number]. 2.727 1984 Unknown [id number] [id number]. 2.9 1984 Unknown [id number] [id number]. 2.9 1984 Unknown [id number] [id number]. 2.727 1984 Unknown [id number] [id number]. 2.727 1959 Unknown [id number] Social History Date Type Detail Facility Tobacco smoking stat [facility] Tobacco smoking consumption unknown [facility] Start: 1985 Sex assigned at Female [facility] Start: 05-19-2024 Gender identity Identifies as female gender (finding) [facility] Start: 05-19-2024 Sexual orientation Heterosexual (fin ding) [facility] History of Present illness Narrative 08-09-2024 Arlene Lugo - 08/09/2024 10:30 AM EST Note Date & Type Note Facility 08-09-2024 History of Presen t illness Narrative Reason for Appointment: Patient ID: Gol Schmidt is a 39 y.o. female who presents for Pre-op Visit Patient presents today for Pre Op appointment. Patient is scheduled to undergo Da Monica assisted Bilateral Laparoscopic Salpingectomy and Endometrial Ablation with Nuris on 08/24/[address] Bueno at [facility]. MEDICATIONS Current Outpatient Medications Medication Instructions budesonide [...] nursing note reviewed. Exam conducted with a group president present. Vitals: Estimated body mass index is 30.09 kg/m as calculated from the following: Height as of 02/01/24: 5' 5 . Weight as of this [...] reviewed, and patient is to proceed to [facility]. Follow Up: Patient is to follow up between 1-2 weeks post op to assess proper healing and recovery from procedure. Documented by Christelle Fierro LPN on behalf of: Cali Bueno DO documented in this encounter [facility] History of Present [...] nursing note reviewed. Exam conducted with a group president present. Vitals: Estimated body mass index is 30.52 kg/m as calculated from the following: Height as of 02/02/24: 5' 5 . Weight as of this encounter: 183 lb 6.4 oz. BP: No LMP recorded (within months). ASSESSMENT & PLAN ICD-10-CM 1. PMDD (premenstrual dysphoric disorder) (CMS/[facility]) F32.81 Patient presents today for mood swings, [...] of: PATRICIA Boyd documented in this encounter [facility] Evaluation note Note Date & Type Note Facility Evaluation note Diagnosis PMDD (premenstrual dysphoric disorder) ([facility]) Premenstrual tension syndromes Menorrhagia with regular cycle documented in this encounter [facility] Evaluation note Note Date & Type Note Facility Evaluation note Diagnosis Pre-operative exam Unspecified pre-operative examination Menorrhagia with regular cycle Abnormal uterine bleeding (AUB) Pelvic pain in female Unspecified symptom associated with female genital organs Request for sterilization documented in this encounter [facility] Summary Purpose Family History No Family [...] content) DATE CREATED AUTHOR [facility]/06/2023 [facility] DATE CREATED AUTHOR AUTHOR'S ORGANIZ ATION 02/03/2024 [facility] EPIC DATE CREATED AUTHOR AUTHOR'S ORGANIZ ATION 04/02/2024 [facility] DATE CREATED AUTHOR AUTHOR'S ORGANIZ ATION 07/02/2024 [facility] DATE CREATED AUTHOR AUTHOR'S ORGANIZ ATION 07/08/[address] [facility] DATE CREATED AUTHOR AUTHOR'S ORGANIZ ATION 08/10/2024 [facility] EPIC DATE CREATED AUTHOR AUTHOR'S ORGANIZ ATION 08/16/2024 [facility] Care Teams (unrecognized sec tion and content) Social Service Assistant Relationship Specialty Start Date End Date Toni Brock DO [address] [address] PCP - General Family Medicine 07/19/24 Social Service Assistant Relationship Specialty Start Date End Date Toni Brock [place] [address] [place] [phone] PCP - General Family Medicine 07/19/24 Social Service Assistant Relationship Specialty Start Date End Date Toni Brock DO [address] [place] [place] [phone] PCP - General Family Medicine 07/19/24 Reason [...] BE BASED ON THE PRIMARY CLINICAL RECORDS. [employer] provides no warranty or guarantee of the accuracy or completeness of information in this document.
[2024-08-24] MEDS: LACTATED RINGER'S SOLUTION 1,000 ML 50 ML IV ×2 (09:23→12:12)
[2024-08-24 09:26] LABS: HCG Quantitative <1 mIU/mL
[2024-08-24] MEDS: ALBUTEROL SULFATE 2.5 MG/3 ML VIAL NEB IH (09:34)
--- NOTE | 2024-08-24 11:28 | PM.ONB ---
Brief Operative Note Date of procedure: 08/24/24 Pre-op diagnosis general: menorrhagia, desires permenant sterilization Post-op diagnosis: same as pre-op Procedure: NAME OF PROCEDURE: robotic assisted Laparoscopic bilateral salpingectomy, with Nuris endometrial ablation with hysteroscopy PROCEDURE: The patient was taken back to the OR where she was prepped and draped in the normal sterile fashion after being placed in the dorsal lithotomy position, after being placed under general anesthesia without difficulty. a weighted speculum was then placed into the vagina. endometrial bx were performed without difficulty. the anterior lip was grasped with a single tooth tenaculum. The patient was then sounded to approximatley 9cm. The patient was gently sounded using Hegar dilators and the hysteroscope was passed through the cervix into the uterus where both ostia were seen. No gross evidence of polyps, fibroids or malignancy. The cervical length was noted to be 4cm. The Nuris ablation apparatus was set to approximately 5cm in length. This was placed in through the cervix and into the uterus. After the seal was tested, at that time the total ablation of 120 seconds was performed with the Nuris without difficulty. All instruments were removed from the vagina. A wet sponge stick was placed into the patient's vagina. Attention was then turned to the patient's abdomen, where a scalpel was used to make a small infraumbilical incision. The S retractors were then used to dissect the underlying layers until the fascia could be seen. The fascia was then grasped with Marisel clamps and tented up. A knife was then used to make a small incision to the fascia. The muscle was identified, at that time two sutures of #0 Vicryl on a GI needlewas then used and placed through the fascia. The peritoneum was then identified and entered bluntly. The 10-4 Tyler was then placed into the patient's abdomen. This was confirmed with direct visualization of the bowel, using the laparoscope. The patient's abdomen was then insufflated using approximately 4 liters of CO2 gas. Survey of the patient's abdomen demonstrated normal appearing ovaries, uterus and tubes. A second and third lateral robotic ports, which was 8mm in size, was then placed laterally after incision was made in the skin under direct visualization. the robotic arms were engaged. The patient's tube on the patient's right side was identified. The tube was then tented up using a grasper. The ligasure was used to transect and coagulate the mesosalpingx from the fimbriated end to the insertion at the uterus, the tube was amputated and removed in its entirety.? Excellent hemostasis was noted. ?This was performed on the contralateral sideas well. The lateral ports were then moved under direct visualization with excellent hemostasis. The abdomen was deinsufflated. All instruments were removed from the patient's abdomen. The fascia was closed using the #0 Vicryl on GI needle. The skin was closed using 4-0 Vicryl subcuticularly. All instruments were removed from the patient's vagina as well. The patient was taken out of the dorsal lithotomy position and placed in the supine position and taken to recovery in stable condition. Sponge, lap and needle counts were correct x2. ??? Anesthesia: REHAN Surgeon: Etienne Bueno Legal Billing Analyst: Sonja Ayala Estimated blood loss (mL): 10 Pathology: other (endometrial currettings) Condition: stable Disposition: PACU Urinary Catheter Management Urinary Catheter Management Urethral: Cath placed during this visit: no
[2024-08-24] MEDS: HYDROMORPHONE HCL 0.5 MG/0.5 ML SYRINGE IV (12:42)
[2024-08-24] MEDS: HYDROCODONE/ACET 5-325 MG TABLET 1 TAB PO (12:48)
== END 2024-08-24 14:30 | disposition home or self-care (01) ==
PROVIDERS: Visit Provider Obstetrics & Gynecology
PROC: (CPT 840; principal; 2024-08-24 10:10)
PROC: (CPT 840; 2024-08-24 10:10)
DX: Z30.2 Encounter for sterilization (principal); N92.0 Excessive and frequent menstruation with regular cycle; R10.2 Pelvic and perineal pain; N93.9 Abnormal uterine and vaginal bleeding, unspecified; N80.209 Endometriosis of unspecified fallopian tube, unspecified depth
CPT/HCPCS: 58563; 58661; 36415; 84702; 85025; 88302; 88305; 94640; J1100; J1171; J1885; J2250; J2371; J2405; J2704; J3010

== ENCOUNTER 2025-06-20 20:27 | Outpatient (REF) | payer BC, SELFPAY ==
--- OUTSIDE RECORDS SUMMARY | 2020-10-12 13:30 | XMS_ITS | Continuity of Care Document ---
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 [address] [place] [address], [id number], [place]. tel:[phone] [facility], [address] [place] [address], [id number], [place] tel:[phone] [facility] Encounter for screening for other viral diseases Loren Giordano. [address] [place] [address], [id number], [place]. tel:[phone] [facility], [address] [place] [address], [id number], [place] tel:[phone] [facility] Encounter for screening for other viral diseases Loren Giordano. [address], [place], [id number], [place]. tel:[phone] [facility], [address], [place], [id number], [place] tel:[phone] [facility] Encounter for screening for respiratory tuberculosis Loren Giordano. [address], [place], [id number], [place]. tel:[phone] [facility], [address], [place], [id number], [place] tel:[phone] [facility] Encounter for screening for respiratory tuberculosis Loren Giordano. [address], [place], [id number], [place]. tel:[phone] [facility], [address] [place] [address], [id number], [place] tel:[phone] [facility] Encounter for screening for respiratory tuberculosis Loren Giordano. [address], [place], [id number], [place]. tel:[phone] Family History Family Member Type Diagnosis Age At Onset No Information Payers Payer name Insurance type Covered green party ID Authorannamaria pacekristen(s) Kavita GABRIELE [id number] Social History Type Description Quantity Date Captured Comments Alcohol Use Details Unknown Caffeine Use Details Unknown Tobacco Use Status No Information Smoking Status No Information Sex Female Sexual Orientation Straight or heterosexual Gender Identity Female Chief Complaint And Reason For Visit No Information Reason For Referral Reason For Referral No Information History Of Present Illness Encounter Date Complaint History Of Prese nt Illness No Information Functional Status Date Functional Assessmen t No Information Instructions Date Instruction Additional Infor mation No Information Assessments Type Assessment Date assessment Encounter for screening for othe r viral diseases Patient Care Teams Name Effective Dates (start - stop) Status Members No Information
--- OUTSIDE RECORDS SUMMARY | 2025-06-20 08:40 | XMS_ITS | Encounter Summary ---
Author Organization [facility] Address [address] [facility] [place] [address] Care Team Providers Care Assembler Flexible Leads Name Role Phone Toni Brock DO Primary Care Provider [phone] Reason for Visit * Reason Comments Gynecologic Exam Pre-op Visit Encounter Details Date Type Department Care Team (Late st Contact Info) Description 06/20/2025 8:40 AM EDT Consult [facility] [address] [place] [phone] Etienne Bueno DO [address] [facility] [address] [place] [address] Pre-op examination; Pelvic pain; Dyspareunia in female; Dysmenorrhea; Menorrhagia with regular cycle; Well woman exam with routine gynecological exam; Breast cancer screening by mammogram Social History Tobacco Use Types Packs/Day Years Used Date Smoking Tobacco: Never Assessed Comments No Sex and Gender Information Value Date Recorded Sex Assigned at Female 05/19/2024 8:48 AM EDT Legal Sex Female 7:07 PM EDT Gender Identity Female 05/19/2024 8:48 AM EDT Sexual Orientation Straight 05/19/2024 8: 48 AM EDT documented as of this encounter Last Filed Vital Signs Vital Sign Reading Time Taken Comments Blood Pressure 118/78 06/20/2025 8:58 AM EDT Pulse - - Temperature - - Respiratory Rate - - Oxygen Saturation - - Inhaled Oxygen Concentration - - Weight 81.6 kg (179 lb 12.8 oz) 06/20/2025 8:58 AM EDT Height - - Body Mass Index 29.92 02/02/2024 9:16 AM EDT documented in this encounter Progress Notes * Sapna Kim - 06/20/2025 8:40 AM EDT Reason for Appointment: Patient ID: Susana Schmidt is a 40 y.o. female who presents for Gynecologic Exam and Pre-op Visit Patient presents today for Pre Op/Annual appointment. Patient is scheduled to undergo Da Monica assisted Diagnostic Laparoscopy, possible YUNG, possible FOE, possible BSO on 07-19-[address] Bueno at [facility]. MEDICATIONS Current Outpatient Medications Medication Instructions budesonide EC (ENTOCORT EC) 3 mg, Daily citalopram (CELEXA) 20 mg, Oral, Daily colestipol (COLESTID) 2 g, Daily dicyclomine (Bentyl) 10 MG capsule TAKE 1 CAPSULE BY MOUTH FOUR TIMES DAILY FOR 14 DAYS NEEDED FOR PAIN diphenhydrAMINE (BENADRYL) 50 mg, Oral, Nightly PRN doxylamine (UNISOM SLEEPTABS) 25 mg, Oral, Nightly PRN esomeprazole (NEXIUM) 40 mg, Daily famotidine (PEPCID) 40 mg, Nightly Ferrous Sulfate (IRON PO) 1 tablet, Oral, Daily RT fluticasone (Flonase) 50 MCG/ACT nasal spray 2 sprays, Nasal, Daily PRN ibuprofen 800 MG tablet Stelara 90 mg, Once ALLERGIES No Known Allergies PROBLEMS Active Ambulatory Problems Diagnosis Date Noted No Active Ambulatory Problems Resolved Ambulatory Problems Diagnosis Date Noted No Resolved Ambulatory Problems No Additional Past Medical History HISTORY PAST MEDICAL HISTORY SOCIAL HISTORY No past medical history on file. Social History Tobacco Use Smoking status: Not on file Smokeless tobacco: Not on file Substance Use Topics Alcohol use: Not on file Drug use: Not on file FAMILY HISTORY No family history on file. SURGICAL HISTORY Past Surgical History: Procedure Laterality Date ENDOMETRIAL ABLATION 08/24/2024 SALPINGECTOMY Bilateral 08/24/2024 REVIEW OF SYSTEMS Review of Systems: Review of Systems Constitutional: Negative. HENT: Negative. Eyes: Negative. Respiratory: Negative. Cardiovascular: Negative. Gastrointestinal: Negative. Genitourinary: Negative. Musculoskeletal: Negative. Skin: Negative. Neurological: Negative. All other systems reviewed and are negative. Hematological: Negative. Endocrine: Negative. Allergic/Immunologic: Negative. OBJECTIVE Objective: Physical Exam Constitutional: Appearance: Normal appearance. She is well-developed. Genitourinary: Vulva normal. Cardiovascular: Rate and Rhythm: Normal rate and [...] nursing note reviewed. Exam conducted with a clerk funeral detail present. Vitals: Estimated body mass index is 29.45 kg/m?? as calculated from the following: Height as of 02/02/24: 5' 5 . Weight as of 03/14/25: 177 lb. BP: No LMP recorded. Patient has had an ablation. ASSESSMENT & PLAN ICD-10-CM 1. Pre-op examination Z01.818 2. Pelvic pain R10.2 3. Dyspareunia in female N94.10 4. Dysmenorrhea N94.6 5. Menorrhagia with regular cycle N92.0 Annual: Patient presents today for an annual exam. Patient states she is doing well and has no complaints. Pap was obtained without difficulty. Pre Op: Patient is doing well but has complaints of menorrhagia, dyspareunia, dysmenorrhea and pelvic pain.I have discussed conservative management vs. surgical management with the patient in detail and patient desires surgical management at this time. Patient will undergo Da Monica assisted Diagnostic [place] roscopy, possible YUNG, possible FOE, possible BSO on 07-19-25. Surgical consents were signed, mmc was reviewed, and patient is to proceed to [facility] OR. Follow Up: Patient is to follow up at 1 & 6 weeks post operative to assess proper healing and recovery from procedure. Documented by Christelle Fierro LPN on behalf of: Etienne Bueno DO documented in this encounter Plan of Treatment Upcoming Encounters Date Type Department Care Team (Late st Contact Info) Description 07/31/2025 8:30 AM EDT Office Visit [facility] [address] [place] [address] China Stevens PA [address] [place] [address] Scheduled Orders Name Type Priority Associated Diagnoses Orde r Schedule Bilateral screening mammogram Imaging Routine Breast cancer screening by mammogram Expected: 06/20/2025 (Approximate), Expires: 08/20/2026 THIN PREP TIS PAP AND HR HPV DNA Pathology and Cytology Routine Well woman exam with routine gynecological exam Ordered: 06/20/2025 documented as of this encounter Visit Diagnoses Diagnosis Pre-op examination Pelvic pain Dyspareunia in female Dysmenorrhea Menorrhagia with regular cycle Well woman exam with routine gynecological exam Routine gynecological examination Breast cancer screening by mammogram documented in this encounter Care Teams Assembler Flexible Leads Relationship Specialty Start Date End Date Toni Brock DO PCP - General Family Medicine 07/19/24 documented as of this encounter
--- OUTSIDE RECORDS SUMMARY | 2025-06-20 20:31 | XMS_ITS | Encounter Summary ---
Author Organization [facility] Address [address] [facility] [place] [address] Care Team Providers Care Content Curator Name Role Phone Toni Brock DO Primary Care Provider Encounter Details Date Type Department Care Team (Late Contact Info) Description 08/31/2024 Abstract [facility] [address] [place] [address] [place] [address] Etienne Bueno DO [address] [address] [place], [place] [address] Social History Tobacco Use Types Packs/Day Years Used Date Smoking Tobacco: Never Assessed Comments No Sex and Gender Information Value Date Recorded Sex Assigned at Female 05/19/2024 8:48 AM EDT Legal Sex Female 7:07 PM EDT Gender Identity Female 05/19/2024 8:48 AM EDT Sexual Orientation Straight 05/19/2024 8: 48 AM EDT documented as of this encounter Plan of Treatment Upcoming Encounters Date Type Department Care Team (Late st Contact Info) Description 07/31/2025 8:30 AM EDT Office Visit [facility] BR[facility] [address] [place] [address] [place] [address] China Stevens PA [address] [facility] [address] [place], [facility] documented as of this encounter Visit Diagnoses Not on filedocumented in this encounter Care Teams Content Curator Relationship Specialty Start Date End Date Toni Brock DO PCP - General Family Medicine 07/19/24 documented as of this encounter
--- OUTSIDE RECORDS SUMMARY | 2025-06-20 20:31 | XMS_ITS | Encounter Summary ---
Author Organization [facility] Address [address] [facility] [place] [address] Care Team Providers Care Commercial Relationship Manager Name Role Phone Toni Brock DO Primary Care Provider [phone] Encounter Details Date Type Department Care Team (Late Contact Info) Description 08/24/2024 Abstract [facility] [address] [place] [address] [place] [address] Etienne Bueno DO [address] [facility] [address] [place], [place] [address] Social History Tobacco Use Types Packs/Day Years Used Date Smoking Tobacco: Never Assessed Comments Unknown Sex and Gender Information Value Date Recorded [...] 8:30 AM EDT Office Visit [facility] BRUNSON [address] [place] [address] [place] [address] China Stevens PA [address] [facility] [address] [place], [facility] documented as of this encounter Visit Diagnoses Not on filedocumented in this encounter Care Teams Commercial Relationship Manager Relationship Specialty Start Date End Date Toni Brock DO PCP - General Family Medicine 07/19/24 documented as of this encounter
--- OUTSIDE RECORDS SUMMARY | 2025-06-20 20:32 | XMS_ITS | Encounter Summary ---
Author Organization [facility] Address [address] [facility] [place] [address] Care Team Providers Care Telemedicine Physician Name Role Phone Toni Brock DO Primary Care Provider [phone] Encounter Details Date Type Department Care Team (Late st Contact Info) Description 02/16/2024 Clinisync Result Encounter [facility] External Department Unsolicited Cali Bueno DO [address] [facility] [place] [address] Social History Tobacco Use Types Packs/Day Years [...] 07/31/2025 8:30 AM EDT Office Visit AIMEE Maldonado OBMARCIE [address] [facility] [place] [phone] China Stevens PA [address] [facility] [place] [address] documented as of this encounter Procedures Procedure Name Priority Date/Time Associated Diagnosis Comments US PELVIS TRANSVAGINAL 02/16/2024 9:34 AM EDT TBH PREG QUANT HCG Routine 02/16/2024 9: 32 AM EDT [facility] PROTHROMBIN TIME INR W/O COUM Routine 02/16/2024 9:32 AM EDT MLR HEMOGLOBIN A1C Routine 02/16/2024 9: 32 AM EDT HMHP CORTISOL Routine 02/16/2024 9:32 AM EDT CCF APTT Routine 02/16/2024 9:32 AM EDT ALL THYROXINE (T4) FREE Routine 02/16/2024 9:32 AM EDT ALL THYROID STIM HORMONE Routine 02/16/2024 9:32 AM EDT ALL CBC WITH AUTO DIFF Routine 02/16/2024 9:32 AM EDT documented in this encounter Results * US PELVIS TRANSVAGINAL (02/16/2024 9:34 AM EDT) Anatomical Region Laterality Modality Other 02/16/2024 9:34 AM EDT Narrative 02/16/2024 9:37 [place] [address] Ultrasound Report Signed Patient: GLO SCHMIDT MR#: [id number] : 1985 Acct:[id number] Age/Sex: 38 / F ADM Date: 02/16/24 Loc: [facility] Attending Dr: Cali Bueno D.O. Ordering Physician: Cali Bueno D.O. Date of Service: 02/16/24 Procedure(s): US pelvis transvaginal Accession Number(s): [id number] cc: Cali Bueno D.O.; Physician,Non-Staff M.DMary Anne The [address] [address] Patient Name: GLO SCHMIDT MRN: [facility]:[id number] date: 1985 Sex: F Assigned Patient Location: [facility] Current Patient Location: LAB Accession/Order Number: [id number] Exam Date: 02/16/2024 08:38 Report Date: 02/16/2024 09:34 At the request of: CALI BUENO Procedure: US pelvis transvaginal EXAMINATION: US pelvis transvaginal HISTORY: MENORRHAGIA , chronic pelvic pain COMPARISON: No relevant comparison available. TECHNIQUE: Transabdominal and/or transvaginal sonographic examination was performed as indicated by examination type. FINDINGS: UTERUS: Normal size and appearance. Uterus size: ENDOMETRIUM: Normal homogeneous appearance. Endometrial thickness: RIGHT OVARY: Contains a dominant follicle versus small cyst. Duplex Doppler demonstrates normal waveform and flow; resistive index 0.6. Ovary size: 4.1 x 2.1 x 2.7 cm LEFT OVARY: Normal size and appearance. Duplex Doppler demonstrates normal waveform and flow; resistive index 0.6. Ovary size: 3.0 x 1.9 x 1.9 cm CUL-DE-SAC: Unremarkable. No significant free fluid. BLADDER: Unremarkable. OTHER: None. US/US pelvis transvaginal IMPRESSION: 1. Dominant follicle versus small cyst within right ovary of doubtful clinical significance. 2. Unremarkable uterus and left ovary. No specific findings to account for patient's symptoms. Electronically authenticated by: SATHISH REYNOLDS Date: 02/16/2024 09:34 Dictated By: Sathish Reynolds M.D. Signed By: 02/16/24 0937 DD/ 0934 TD/TT: Lead Shop Operator: Procedure Note Radiology, Radiologist, MD - 02/16/2024 [place] [address] Ultrasound Report Signed Patient: GLO SCHMIDT R#: [id number] : 1985Acct:[id number] Age/Sex: 38 / FADM Date: 02/16/24 Loc: [facility] Attending Dr: Cali Bueno D.O. Ordering Physician: Cali Bueno D.O. Date of Service: 02/16/24 Procedure(s): US pelvis transvaginal Accession Number(s): [id number] cc: Cali Bueno D.O.; Physician,Non-Staff Marvin [address] [address] Patient Name: GLO SCHMIDT MRN: [facility]:[id number] date: 1985 Sex: F Assigned Patient Location: [facility] Current Patient Location: LAB Accession/Order Number: [id number] Exam Date: 02/16/2024 08:38 Report Date: 02/16/2024 09:34 At the request of: CALI BUENO Procedure: US pelvis transvaginal EXAMINATION: US pelvis transvaginal HISTORY: MENORRHAGIA , chronic pelvic pain COMPARISON: No relevant comparison available. TECHNIQUE: Transabdominal and/or transvaginal sonographic examination was performed as indicated by examination type. FINDINGS: UTERUS: Normal size and appearance. Uterus size: ENDOMETRIUM: Normal homogeneous appearance. Endometrial thickness: RIGHT OVARY: Contains a dominant follicle versus small cyst. DuplexDoppler demonstrates normal waveform and flow; resistive index 0.6. Ovary size:4.1 x 2.1 x 2.7 cm LEFT OVARY: Normal size and appearance. Duplex Doppler demonstrates normal waveform and flow; resistive index 0.6. Ovary size: 3.0 x 1.9 x 1.9 cm CUL-DE-SAC: Unremarkable. No significant free fluid. BLADDER: Unremarkable. OTHER: None. US/US pelvis transvaginal IMPRESSION: 1. Dominant follicle versus small cyst within right ovary of doubtfulclinical significance. 2. Unremarkable uterus and left ovary. No specific findings to account for patient's symptoms. Electronically authenticated by: SATHISH REYNOLDS Date: 02/16/2024 09:34 Dictated By: Sathish Reynolds M.D. Signed By:02/16/2437 DD/ TD/TT: Lead Shop Operator: us Cali Bueno DO [facility] IMAGING Final Result * [facility] CORTISOL (02/16/2024 9:32 AM EDT) [facility] CORTISOL 7.9 6.2 - 19.4 ug/dL TB Comment: Please Note: The reference interval and flagging for this test is for an AM collection. If this is a PM collection please use: Cortisol PM: 2.3-11.9 Performed at: [address] [id number] Skill Labor: Gavin Burk PhD, Phone: [phone] 02/16/2024 9:32 AM EDT 02/16/2024 9:35 AM EDT Narrative CLINISYNC - 02/17/2024 4:09 AM EDT Cali Myles DO CLINISYNC Final Result Performing Organization Address [facility] Co de Phone Number [facility] * (ABNORMAL) ALL THYROXINE (T4) FREE (02/16/2024 9:32 AM EDT) FREE T4 0.74(L) 0.76 - 1.46 ng/dL TB 02/16/2024 9:32 AM EDT 02/16/2024 9:35 AM EDT Narrative CLIN[facility]YNC - 02/16/2024 10:50 AM EDT Cali Myles DO CLIN[facility] Final Result Performing Organization Address [facility] de Phone Number CL[facility]YNC [facility] * MLR HEMOGLOBIN A1C (02/16/2024 9:32 AM EDT) GLYCOHEMOGLOBIN A1C 5.0 4.5 - 6.2 % [facility] Comment: ADA RECOMMENDED LIMIT 4.0 - 6.0 ADA THERAPEUTIC TARGET < 7.0 ACTION SUGGESTED > 7.0 ESTIMATED AVERAGE GLUCOSE 97 mg/dL TB 02/16/2024 9:32 AM EDT 02/16/2024 9:35 AM EDT Narrative CLINISYNC - 02/16/2024 10:19 AM EDT Cali Myles DO CLIN[facility]NC Final Result Performing Organization Address [facility]/State/[facility] Co de Phone Number CLINISYNC [facility]H * TBH PREG QUANT HCG (02/16/2024 9:32 AM EDT) HCG QUANTITATIVE <1 mIU/mL TBH Comment: 5-50 0.2-1 WEEK 50-500 1-2 WEEKS 100-5,000 2-3 WEEKS 500-10,000 3-4 WEEKS 1,000-50,000 4-5 WEEKS 10,000-100,000 5-6 WEEKS 15,000-200,000 6-8 WEEKS 10,000-100,000 2-3 MONTHS 02/16/2024 9:32 AM EDT 02/16/2024 9:35 AM EDT Narrative CLINISYNC - 02/16/2024 10:19 AM EDT us Cali Myles DO CLINIS[facility]NC Final Result Performing Organization Address [facility] Co de Phone Number [facility] * ALL THYROID STIM HORMONE (02/16/2024 9:32 AM EDT) THYROID STIMULATING HORMONE 1.236 0.358 - 3.740 uIU/mL TBH 02/16/2024 9:32 AM EDT 02/16/2024 9:35 AM EDT Narrative CLINISYNC - 02/16/2024 10:19 AM EDT us Cali Myles DO CLINISYNC Final Result Performing Organization Address [facility]/ZIP Co de Phone Number [facility] * CCF APTT (02/16/2024 9:32 AM EDT) PARTIAL THROMBOPLASTIN TIME 27.7 22.3 - 36.2 sec TBH 02/16/2024 9:32 AM EDT 02/16/2024 9:35 AM EDT Narrative CLINISYNC - 02/16/2024 10:17 AM EDT us Cali Myles DO CLINISYNC Final Result Performing Organization Address City/[facility]/ZIP Co de Phone Number [facility] * [facility] PROTHROMBIN TIME INR W/O COUM (02/16/2024 9:32 AM EDT) PROTHROMBIN TIME 11.1 9.0 - 11.6 sec TB TB INR 1.05 TB Comment: DESIRED INR: 2.0-3.0 CONDITIONS NOT LISTED BELOW 2.5-3.5 FOR PROSTHETIC HEART VALVE REPLACEMENT 2.5-3.5 RECURRENT THROMBOSIS 02/16/2024 9:32 AM EDT 02/16/2024 9:35 AM EDT Narrative CLINISYNC - 02/16/2024 10:17 AM EDT Cali Myles DO [facility] Final Result [facility] * ALL CBC WITH AUTO DIFF (02/16/2024 9:32 AM EDT) TB WBC 5.5 4.0 - 11.0 10 3/uL TBH TB RBC 4.27 4.20 - 5.40 10 6/uL TBH TB HGB 12.8 12.0 - 16.0 g/dL TB TB HCT 40.3 36.0 - 48.0 % TB TB MCV 94.4 81.0 - 99.0 fL TB TB MCH 30.0 26.7 - 34.0 pg TB TB MCHC 31.8 29.9 - 35.2 g/dL TB TB RDW 13.1 11.0 - 15.0 % TB TB PLT 269 150 - 450 10 3/uL TBH TB MPV 9.8 9.5 - 13.5 fL TBH NEUTROPHILS PERCENT AUTO 58.9 43.0 - 75.0 % TBH LYMPHOCYTES PERCENT AUTO 29.6 20.5 - 60.0 % TBH MONOCYTES PERCENT AUTO 6.0 1.7 - 12.0 % TBH TBH EO % 4.0 0.9 - 7.0 % TBH BASOPHILS PERCENT AUTO 1.3 0.2 - 2.0 % TBH IMMATURE GRANULOCYTES PCT AUTO 0.2 0.0 - 0.5 % TBH NEUTROPHILS ABSOLUTE AUTO 3.2 1.4 - 6.5 10 3/uL TBH LYMPHOCYTES ABSOLUTE AUTO 1.6 1.2 - 3.8 10 3/uL TBH MONOCYTES ABSOLUTE AUTO 0.3 0.3 - 0.8 10 3/uL TBH TBH EO # 0.2 0.0 - 0.7 10 3/uL TBH BASOPHILS ABSOLUTE AUTO 0.1 0.0 - 0.1 10 3/uL TBH IMMATURE GRANULOCYTES ABS AUTO 0.01 0.00 - 0.03 10 3/uL TBH 02/16/2024 9:32 AM EDT 02/16/2024 9:35 AM EDT Narrative CLINISYNC - 02/16/2024 9:44 AM EDT us Cali Bueno DO CLINISYNC Final Result [facility] documented in this encounter Visit Diagnoses Not on filedocumented in this encounter Care Teams Telemedicine Physician Relationship Specialty Start Date End Date Toni Brock DO PCP - General Family Medicine 07/19/24 documented as of this encounter
--- OUTSIDE RECORDS SUMMARY | 2025-06-20 20:32 | XMS_ITS | Encounter Summary ---
Author Organization [facility] Address [address] [place] [address] Care Team Providers Care Lens Assistant Name Role Phone Toni Brock DO Primary Care Provider Encounter Details Date Type Department Care Team (Late st Contact Info) Description 06/02/2025 Telephone [facility] [address] [facility] [place] [phone] Etienne Bueno DO [address] [place] [address] Social History Tobacco Use Types Packs/Day Years Used Date Smoking Tobacco: Never Assessed Comments No Sex and Gender Information Value Date Recorded Sex Assigned at Female 05/19/2024 8:48 AM EDT Legal Sex Female 7:07 PM EDT Gender Identity Female 05/19/2024 8:48 AM EDT Sexual Orientation Straight 05/19/2024 8: 48 AM EDT documented as of this encounter Miscellaneous Notes * Telephone Encounter - Gabriella RUBEN Jacome - 06/02/2025 10:59 AM EDT Patient called the office and she does have some questions in regards to her endometriosis. Patient is scheduled for a Partial hyst in July. She would like to determine endometriosis status because last cycle was the worse pain she has had and not sure what endometriosis status is after the ablation. Patient states that these symptoms have gotten worse and she should have gone to ER with her last cycle but she did not go. Patient wants to know if partial hyst will help with pain and if not she is not sure wants to go through another surgery. Feels that after she had the ablation it flared up the Endometriosis. Patient reassured would get to Dr he may get back before end of day or while at Hospital but if notwe will get back to her on Thursday. PVU in this. documented in this encounter Plan of Treatment Upcoming Encounters Date Type Department Care Team (Late st Contact Info) Description 07/31/2025 8:30 AM EDT Office Visit [facility] Joel BRUNSON [address] [place] [phone] China Stevens PA [address] [place] [address] documented as of this encounter Visit Diagnoses Not on filedocumented in this encounter Care Teams Lens Assistant Relationship Specialty Start Date End Date Toni Brock DO PCP - General Family Medicine 07/19/24 documented as of this encounter
--- OUTSIDE RECORDS SUMMARY | 2025-06-20 20:32 | XMS_ITS | Clinical Summary ---
Author Organization [facility], [facility] Address [address] [place] [address] Care Team Providers Care Matlab Developer Name Role Phone Phys, Unable To Identify Primary Care Provider U navailable Allergies No known active allergies Medications FLUoxetine 40 mg capsule Take 40 mg by mouth once daily. Active PNV Fe fum-FA 28 mg iron-0.8 mg tablet Take 1 tablet by mouth once daily. Active fluticasone (FLONASE) 50 mcg/actuation nasal spray Place 2 sprays in each nostril as needed for allergies. Active cetirizine (ZyrTEC) 10 mg tablet Take 10 mg by mouth as needed for allergies. Active diphenhydrAMINE 50 mg capsule Take 50 mg by mouth at bedtime as needed for sleep. 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 Social History Tobacco Use Types Packs/Day Years Used Date Smoking Tobacco: Never Smokeless Tobacco: Never Alcohol Use Standard Drinks/Week Comments Not Currently 0 (1 standard drink = 0.6 oz pur e alcohol) Comments Unknown Sex and Gender Information Value Date Recorded Sex Assigned at Not on file Legal Sex Female 9:30 AM EDT Gender Identity Not on file Sexual Orientation Not on file Plan of Treatment Health Maintenance Due Date Last Done Comments Hepatitis C Screening 1984 Alternating Mammogram/MRI 1996 Hepatitis B Vaccine ages 19 years and older (1 of 3 - 19+ 3-dose series) 02/24/2003 Breast Cancer Screening 2004 Mammogram 2004 Cervical Cancer Screening: Cytology 02/24/2005 COVID-19 Vaccine ( - 2023-2 5 season) 2025 Influenza Vaccine (#1) 2025 DTaP,Tdap,and Td Vaccines (2 - Td or Tdap) 05/25/2030 05/25/2020 Respiratory Syncytial Virus (RSV) or ages 60 years and older (1 - 1-dose 75+ series) 02/24/2059 Pneumococcal Combined Aged Out No connor jena eligible based on patient's age to complete this topic Respiratory Syncytial Virus (RSV) ages 0 thru 19 months Aged Out No longer eligible based on patient's age to complete this topic Insurance [facility] OUT OF STATE PPO Care Teams Matlab Developer Relationship Specialty Start Date End Date Phys, Unable To Identify PCP - General 07/27/20
--- OUTSIDE RECORDS SUMMARY | 2025-06-20 20:32 | XMS_ITS | Encounter Summary ---
Author Organization [facility] Address [address] [facility] [place] [address] Care Team Providers Care Automotive Fuel Injection Servicer Name Role Phone Toni Brock DO Primary Care Provider Encounter Details Date Type Department Care Team (Late st Contact Info) Description 07/15/2024 Abstract [facility] BRUNSON [address] [place] [address] [place] [address] Etienne Bueno DO [address] [facility] [address] [place], [place] [address] Social History Tobacco Use Types Packs/Day Years [...] 8:30 AM EDT Office Visit AIMEE BRUNSON [address] [place] [address] [place] [address] China Stevens PA [address] [facility] [address] [place], [facility] documented as of this encounter Visit Diagnoses Not on filedocumented in this encounter Care Teams Automotive Fuel Injection Servicer Relationship Specialty Start Date End Date Toni Brock DO PCP - General Family Medicine 07/19/24 documented as of this encounter
--- OUTSIDE RECORDS SUMMARY | 2025-06-20 20:32 | XMS_ITS | Clinical Summary ---
Author Organization [facility] Address [address] [place] [address] Care Team Providers Care Pick Up And Delivery Driver Name Role Phone Toni Brock DO Primary Care Provider [phone] Allergies No known active allergies Medications Stelara injection Inject 90 mg under the skin 1 (one) time 4 Active budesonide EC (Entocort EC) 3 MG 24 hr capsule Take 3 mg by mouth Daily 4 Active esomeprazole (NexIUM) [address] capsule Take 40 mg by mouth Daily 4 Active colestipol (Colestid) 1 g tablet Take 2 g by mouth Daily 5 Active dicyclomine (Bentyl) 10 MG capsule TAKE 1 CAPSULE BY MOUTH FOUR TIMES DAILY FOR 14 DAYS NEEDED FOR PAIN 5 Active diphenhydrAMINE (BENADryl) 50 MG capsule Take 50 mg by mouth as needed at bedtime Active doxylamine (Unisom SleepTabs) 25 MG tablet Take 25 mg by mouth as needed at bedtime Active famotidine (Pepcid) 40 MG tablet Take 40 mg by mouth at bedtime 5 Active Ferrous Sulfate (IRON PO) Take 1 tablet by mouth in the morning. Active fluticasone (Flonase) 50 MCG/ACT nasal spray Administer 2 sprays into affected nostril(s) Daily as needed Active ibuprofen 800 MG tablet 4 Active citalopram (CeleXA) 20 MG tabletIndication s:Anxiety, generalized Take 1 tablet (20 mg) by mouth Daily 30 tablet 11 12/07/19 26 Active Additional Information Patient not taking.Reported on 06/20/2025 Encounters Date Type Department Care Team Description 06/20/2025 8:40 [place] [phone] Etienne Bueno, Pre-op examination; Pelvic pain; Dyspareunia in female; Dysmenorrhea; Menorrhagia with regular cycle; Well woman exam with routine gynecological exam; Breast cancer screening by mammogram 06/02/20[address] [place] [address] Etienne Bueno, 03/27/2025 10:30 AM EDT [place] [address] S/P endometrial ablation; Uterine pain; Abnormal uterine bleeding (AUB) from Last 3 Months Social History Tobacco Use Types Packs/Day Years Used Date Smoking Tobacco: Never Assessed Comments No Sex and Gender Information Value Date Recorded Sex Assigned at Female 05/19/2024 8:48 AM EDT Legal Sex Female 7:07 PM EDT Gender Identity Female 05/19/2024 8:48 AM EDT Sexual Orientation Straight 05/19/2024 8: 48 AM EDT Last Filed Vital Signs Vital Sign Reading Time Taken Comments Blood Pressure 118/78 06/20/2025 8:58 AM EDT Pulse - - Temperature - - Respiratory Rate - - Oxygen Saturation - - Inhaled Oxygen Concentration - - Weight 81.6 kg (179 lb 12.8 oz) 06/20/2025 8:58 AM EDT Height 165.1 cm (5' 5 ) 02/02/2024 9:16 AM EDT Body Mass Index 29.92 02/02/2024 9:16 AM EDT Plan of Treatment Upcoming Encounters Date Type Department Care Team (Late st Contact Info) Description 07/31/2025 8:30 AM EDT [place] [address] China Stevens PA [address] [place] [address] [place] [address] Procedures Procedure Name Priority Date/Time Associated Diagnosis Comments US PELVIC COMPLETE W/ TV Routine 03/27/2025 10:46 AM EDT S/P endometrial ablation Uterine pain Abnormal uterine bleeding (AUB) from Last 3 Months Results * US Pelvis w/ TV (03/27/2025 10:46 AM EDT) Anatomical Region Laterality Modality Pelvis Ultrasound 03/28/2025 8:32 AM EDT Narrative 03/28/2025 8:32 AM EDT EXAM: US PELVIC COMPLETE W/ TV HISTORY: Pelvic pain, AUB, heavy and painful periods, endometrial ablation x 6 months ago with continued bleeding. COMPARISON: None available. TECHNIQUE: Two-dimensional transabdominal grayscale ultrasound imaging of the pelvis was performed. Color flow Doppler imaging of the ovaries was also performed. Transvaginal was also performed. FINDINGS: UTERUS 10.4 x 4.8 x 6.2 cm The uterus is retroflexed in position and demonstrates a normal, homogeneous echotexture. ENDOMETRIUM 0.7 cm The endometrium demonstrates a normal, homogeneous echotexture. RIGHT OVARY 2.5 x 1.6 x 1.7 cm The right ovary demonstrates a normal echotexture. There is normal color Doppler flow. LEFT OVARY 3.9 x 2.4 x 2.8 cm The left ovary demonstrates a normal echotexture. There is normal color Doppler flow. No fluid is present within the cul-de-sac. IMPRESSION: 1. Unremarkable ultrasound of the pelvis. 2. Normal color Doppler flow within the bilateral ovaries. Interpreted by: Electronically signed by KIN OSMAN II, MD, PHD at 28-Mar-2025 08:31:02 AM [facility] Procedure Note Kin Osman MD - 03/28/2025 EXAM: US PELVIC COMPLETE W/ TV HISTORY: Pelvic pain, AUB, heavy and painful periods, endometrialablation x 6 months ago with continued bleeding. COMPARISON: None available. TECHNIQUE: Two-dimensional transabdominal grayscale ultrasound imaging ofthe pelvis was performed. Color flow Doppler imaging of the ovaries wasalso performed. Transvaginal was also performed. FINDINGS: UTERUS 10.4 x 4.8 x 6.2 cm The uterus is retroflexed in position and demonstrates a normal,homogeneous echotexture. ENDOMETRIUM 0.7 cm The endometrium demonstrates a normal, homogeneous echotexture. RIGHT OVARY 2.5 x 1.6 x 1.7 cm The right ovary demonstrates a normal echotexture. There is normal colorDoppler flow. LEFT OVARY 3.9 x 2.4 x 2.8 cm The left ovary demonstrates a normal echotexture. There is normal colorDoppler flow. No fluid is present within the cul-de-sac. IMPRESSION: 1. Unremarkable ultrasound of the pelvis. 2. Normal color Doppler flow within the bilateral ovaries. Interpreted by: Electronically signed by KIN OSMAN II, MD, PHD [id number] 08:31:02 AM [facility] us Etienne Myles DO [facility] US PROCEDURES Final Result from Last [address] [facility] Care Teams Pick Up And Delivery Driver Relationship Specialty Start Date End Date Toni Brock DO PCP - General Family Medicine 07/19/24
--- OUTSIDE RECORDS SUMMARY | 2025-06-20 20:34 | XMS_ITS | CCD ---
Author Organization [facility] Care Team Providers Care Leaf Tier Name Role Phone MYLES ., DR LEIVA Admitting Unavailable MISC, DR BUTT Primary Care Unavailable MYLES ., DR LEIVA Attending Unavailable MYLES ., DR LEIVA Consulting Unavailable MYLES ., DR LEIVA Admitting Unavailable MISC, DR BUTT Primary Care Unavailable MYLES ., DR LEIVA Attending Unavailable MYLES ., DR LEIVA Consulting Unavailable ETIENNE BUENO Attending Unavailable Toni Brock DO Primary Care Provider [phone] Kip Xiao Talal Referring Unavaila ble Sarmini, Kip Talal Attending Unavaila ble Sarmini, Kip Talal Admitting Unavaila ble REYES LORENZO Attending Unavailable Sarmini, Kip Talal Attending Unavaila ble Sarmini, Kip Talal Referring Unavaila ble Sarmini, Kip Talal Attending Unavaila ble Sarmini, Kip Talal Admitting Unavaila ble Sarmini, Kip Talal Attending Unavaila ble Sarmini, Kip Talal Admitting Unavaila ble Sarmini, Kip Talal Attending Unavaila ble Sarmini, Kip Talal Referring Unavaila ble Sarmini, Kip Talal Referring Unavaila ble Sarmini, Kip Talal Admitting Unavaila ble Sarmini, Kip Talal Attending Unavaila ble Sarmini, Kip Talal Attending Unavaila ble Sarmini, Kip Talal Referring Unavaila ble Sarmini, Kip Talal Admitting Unavaila ble Sarmini, Kip Talal Attending Unavaila ble Sarmini, Kip Talal Attending Unavaila ble Sarmini, Shin Talal Attending [employer]et Toni Brock DO Primary Care Provider CHINA STEVENS Attending Unavailable ETIENNE BUENO Attending Unavailable ETIENNE BUENO Referring Unavailable CHINA STEVENS Attending Unavailable ETIENNE BUENO Attending Unavailable CHINA STEVENS Attending Unavailable Kip Xiao Attending Kip Bryan Referring Kip Bryan Admitting Kip Bryan Attending Jesus cadet Medications Current Medications Medication Drug Class(es) Dates Sig (Normalized) Sig (Original) budesonide 3 mg delayed release oral capsule (14 sources) Corticosteroid Start: 07-28-2024 take 1 capsule by mouth once daily, then take 1 capsule by mouth every twenty-four hours budesonide EC (Entocort EC) 3 MG 24 hr capsule Take 3 mg by mouth Daily 07/28/2024 Active citalopram 20 mg oral tablet (8 sources) Serotonin Reuptake Inhibitor Start: 12-06-2024 End: 12-06-2025 take 1 tablet by mouth once daily citalopram (CeleXA) 20 MG tablet Indications: Anxiety, generalized Take 1 tablet (20 mg) by mouth Daily 30 tablet 11 12/06/2024 12/06/2025 Active colestipol hydrochloride 1000 mg oral tablet (8 sources) Bile Acid Sequestrant Start: 11-11-2024 take 2 tablets by mouth once daily colestipol (Colestid) 1 g tablet Take 2 g by mouth Daily 11/11/2024 Active dicyclomine hydrochloride 10 mg oral capsule (8 sources) Anticholinergic Start: 11-06-2024 take 1 capsule by mouth four times daily as needed for pain dicyclomine (Bentyl) 10 MG capsule TAKE 1 CAPSULE BY MOUTH FOUR TIMES DAILY FOR 14 DAYS NEEDED FOR PAIN 11/06/2024 Active diphenhydrAMINE hydrochloride 50 mg oral capsule (8 sources) Histamine-1 Receptor Antagonist diphenhydrAMINE (BENADryl) 50 MG capsule Take 50 mg by mouth as needed at bedtime Active doxylamine succinate 25 mg oral tablet (8 sources) doxylamine (Unis om SleepTabs) 25 MG tablet Take 25 mg by mouth as needed at bedtime Active esomeprazole 40 mg delayed release oral capsule (14 sources) Proton Pump Inhibitor Start: 07-28-2024 take 1 capsule by mouth once daily esomeprazole (NexIUM) [address] capsule Take 40 mg by mouth Daily 07/28/2024 Active famotidine 40 mg oral tablet (8 sources) Histamine-2 Receptor Antagonist Start: 10-24-2024 take 1 tablet by mouth at bedtime famotidine (Pepcid) 40 MG tablet Take 40 mg by mouth at bedtime 10/24/2024 Active ferrous sulfate (8 sources) take 1 tablet by mouth in the morning Ferrous Sulfate (IRON PO) Take 1 tablet by mouth in the morning. Active fluticasone propionate 0.05 mg/actuat metered dose nasal spray (8 sources) Corticosteroid take 2 spray(s) nasal route once daily as needed fluticasone (Flonase) 50 MCG/ACT nasal spray Administer 2 sprays into affected nostril(s) Daily as needed Active ibuprofen 800 mg oral tablet (8 sources) Nonsteroidal Anti-inflammatory Drug Start: 08-24-2024 ibuprofen 800 MG tablet 08/24/2024 Active 1 ml ustekinumab 90 mg/ml prefilled syringe (18 sources) Interleukin-12 Antagonist, Interleukin-23 Antagonist Start: 12-21-2023 inject 90 mg by subcutaneous injection once Stelara injection Inject 90 mg under the skin 1 (one) time 12/21/2023 Active Problems Active Problems Problem Classification Problem Date Documented Date Episodic/Chronic Abdominal pain (2 sources) Pain in female pelvis; Translations: [Pelvic and perineal pain] 08-09-2024 Episodic Anxiety disorders (2 sources) Generalized anxiety disorder; Translations: [Generalized anxiety disorder] 12-06-2024 Chronic Contraceptive and procreative management (1 source) Sterilization requested; Translations: [Encounter for sterilization] 08-09-2024 Episodic Immunizations and screening for infectious disease (1 source) Encounter for screening for human papillomavirus (HPV); Translations: [ENC SCREENING HUMAN PAPILLOMAVIRUS] Onset: 02-01-2023 Episodic Menopausal disorders (2 sources) Perimenopausal state; Translations: [Menopausal and female climacteric states] 12-06-2024 Chronic Menstrual disorders (5 sources) Menorrhagia; Translations: [Excessive and frequent menstruation with regular cycle] 07-19-2024 Chronic Mood disorders (2 sources) Premenstrual dysphoric disorder; Translations: [Premenstrual dysphoric disorder] 07-19-2024 Chronic Other aftercare (2 sources) Postoperative visit; Translations: [Encounter for other specified surgical aftercare] 08-31-2024 Episodic Other female genital disorders (3 sources) Abnormal uterine bleeding; Translations: [Abnormal uterine and vaginal bleeding, unspecified] 08-09-2024 Chronic Other female genital disorders (1 source) Pain in female genitalia on intercourse; Translations: [Unspecified dyspareunia] 06-20-2025 Chronic Other female genital disorders (2 sources) Uterine contractions present; Translations: [Other specified conditions associated with female genital organs and menstrual cycle] 03-14-2025 Episodic Other female genital disorders (2 sources) Pain of uterus; Translations: [Other specified conditions associated with female genital organs and menstrual cycle] 03-14-2025 Episodic Other screening for suspected conditions (not mental disorders or infectious disease) (5 sources) Encounter for screening for malignant neoplasm of cervix; Translations: [Patient encounter status] Onset: 01-29-2023 Episodic Residual codes; unclassified (4 sources) History of endometrial ablation; Translations: [Other specified postprocedural states] 08-31-2024 Episodic Past or Other Problems Problem Classification Problem Date Documented Da te Episodic/Chronic Other endocrine disorders (4 sources) Endocrine disorder, unspecified; Translations: [ENDOCRINE DISORDER UNSPECIFIED] Onset: 07-15-2022 Episodic Results Test Name Value Interpretation Reference Range Facility US PELVIC COMPLETE W/ TVon 0 03-27-2025 US PELVIC COMPLETE W/ TV EXAM: US PELVIC COMPLETE W/ TV HISTORY: [...] II, MD, PHD at 28-Mar-2025 08:31:02 AM [facility] Normal Not Available Comment on above: Order Comment: US PE LVIS-TRANSVAG IF INDICATED No LMP recorded. Patient has had an ablation. Reminderson 02-02-2025 Reminders Reminders From: Asha Apodaca I To: [facility] - Reminders/Recalls; Sent: 02/02/2025 12:02:26 EDT Show up: 12/03/2025 12:02:00 EST Subject: Colonoscopy recall Due Date/Time: 01/05/2026 12:02:00 EDT Reminder/Recall [address] Xiao 01/05/25 Normal [facility] Gastroenterology Office/Clin ic Noteon 01-17-2025 Gastroenterology Office/Clinic Note Gastroenterology Office/Clinic Note Chief Complaint f/u to egd/colonoscopy HPI Staff Established patient is a(n) 39 year old female who presents today for a follow up to EGD & Colonoscopy on 01/05/25. COLON RECALL NEEDS PLACED. Continues Stelara q4 weeks. 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 Prescribed Colestid and Bentyl at last appt. Did pt start? Effective? Colestid was making her constipated, was taking bentyl as needed. She is wanting to know if she can take ashwaganda Any blood thinners? No. Any GLP-1 agonists? No. Laboratory Results CBC CMP Basophil Absolute: 0.1 E9/L (11/08/24) A/G Ratio: 1.4 (11/08/24) Basophil Auto: 0.9 % (11/08/24) AGAP: 11 mEq/L (11/08/24) Eos Absolute: 0.2 E9/L (11/08/24) Albumin Lvl: 4.3 gm/dL (11/08/24) Eos Auto: 3 % (11/08/24) Alk Phos: 51 Int._Unit/L (11/08/24) Hct: 39.4 % (11/08/24) ALT: 23 Int._Unit/L (11/08/24) HGB: 13.3 gm/dL (11/08/24) AST: 17 Int._Unit/L (11/08/24) Lymph Absolute: 1.8 E9/L (11/08/24) Bili Total: 0.3 mg/dL (11/08/24) Lymph Auto: 29.4 % (11/08/24) BUN: 12 mg/dL (11/08/24) MCH: 31.3 pg (11/08/24) BUN/Creat Ratio: 15 (11/08/24) MCHC: 33.9 gm/dL (11/08/24) Calcium Lvl: 8.9 mg/dL (11/08/24) MCV: 92.4 fL (11/08/24) Chloride: 106 mmol/L (11/08/24) Cuming Absolute: 0.4 E9/L (11/08/24) CO2: 26 mmol/L (11/08/24) Cuming Auto: 6.4 % (11/08/24) Creatinine: 0.8 mg/dL (11/08/24) MPV: 8.4 fL (11/08/24) Globulin: 3.1 gm/dL (11/08/24) Neutro Absolute: 3.6 E9/L (11/08/24) Glucose Lvl: 96 mg/dL (11/08/24) Neutro Auto: 60.3 % (11/08/24) Potassium Lvl: 4 mmol/L (11/08/24) Platelet: 245 E9/L (11/08/24) Sodium Lvl: 139 mmol/L (11/08/24) RBC: 4.3 E12/L (11/08/24) Total Protein: 7.4 gm/dL (11/08/24) RDW: 13.7 % (11/08/24) WBC: 6 E9/L (11/08/24) CRP: 0.3 (06/30/24) Liver Studies Hep Bs Ag: Negative (06/30/24) TB: negative (06/30/24) History of Present Illness Reviewed HPI collected by staff Review of Systems All systems reviewed, negative; Except for above Physical Exam Vitals & Measurements HR: 69(Peripheral) RR: 14 BP: 124/86 HT: 65 in HT: 165 cm WT: 178.574 lb WT: 81 kg BMI: 29.75 No acute distress Procedure EGD: Impression and Plan 1. Esophageal landmarks identified, LA grade B esophagitis noted, otherwise normal examined esophagus 2. Normal examined stomach, and biopsies were taken to rule H. pylori 3. Normal examined duodenum 4. Normal examined proximal jejunum Colonoscopy: Impression and Plan 1. Small internal hemorrhoids 2. Normal colonic mucosa 3. Widely open IC valve, TI mucosa significantly improved, normal villi, biopsies were taken Recommendations: Repeat colonoscopy:: Based on path Pathology: Final Diagnosis ( Modified ) A: STOMACH, BIOPSY: ??? ANTRAL MUCOSA COMPATIBLE WITH MILD REACTIVE GASTROPATHY. ??? NO ACTIVE INFLAMMATION, GRANULOMA OR INTESTINAL METAPLASIA. ??? NO H. PYLORI MICROORGANISMS IDENTIFIED WITH IMMUNOSTAIN. B: TERMINAL ILEUM, BIOPSY: ??? TERMINAL ILEAL MUCOSA WITH NO ACTIVE INFLAMMATION, GRANULOMA OR DYSPLASIA. Assessment/Plan 1. Crohn's disease, small intestine (K50.00: [...] no evidence of side effects of Stelara. She was hesitant to have the colonoscopy repeated to assess healing, but since she had the CTE she has been having obstructive symptoms with right lower quadrant pain after eating also she is reporting heartburn which she did not have before CT suggestive of some inflammation at the end of the small bowel, no upstream dilation noted We discussed steroids, she reported prednisone gave her suicidal thoughts in the past, will start budesonide for 4 weeks can be extended for 2-3 refills based on symptoms also increase Stelara she reported that she initially feels better after taking the Stelara shot but after few weeks the symptoms worsen gradually Prescribed Nexium in the morning Colonoscopy 09/27: Widely open IC valve suggestive of chronic inflammation in the TI, inflammation and mild stricture with sharp angulation from 5 to 10 cm from the IC valve, multiple large ulcers noted. Biopsy showed moderate nonspecific active ileitis. She is taking Stelara every 4 weeks, increased in September. She reports improvement since increasing. She is having 2-3 BMs daily, loose. She denies blood in stools. Occasional urgency. Colonoscopy 01/2025: Small internal hemorrhoids, Widely open IC valve, TI mucosa significantly improved, normal villi No current need for dilation or surgery for significant strictures at this time Will consider CTE in the future if needed. Continue Stelar (more content not included)... Normal [facility] Comment on above: Result Comment: Elec tronically Signed By: Asha Apodaca I\.lelia\Date and Time Signed: 01/17/25 11:21 EDT Ambulatory Visit Summaryon 0 01-16-2025 Ambulatory Visit Summary Ambulatory Visit Summary SUSANA SCHMIDT :1985 Visit Date:01/16/2025 Ambulatory Visit Instructions Your Diagnosis Crohn's disease, small intestine Epigastric pain Loose stools Your Care Team Attending Physician - Kip Xiao MD Primary Care Physician - Toni Brock III, DO This Is Your Medications List Contact prescribing physician if questions or concerns Non-Formulary Medication (Histamine Blend SP 33) dicyclomine (dicyclomine 10 mg Cap) esomeprazole (Nexium 40 mg Cap-EC) famotidine (famotidine 40 mg Tab) ustekinumab (Stelara) Procedures Performed Colonoscopy (01/05/2025), Colonoscopy (09/05/2024), Esophagogastroduodenoscopy (09/05/2024), Colonoscopy (06/29/2019), Esophagogastroduodenoscopy (06/29/2019), Arthroscopy of knee, Colonoscopy, [place] tooth. Discharge Vitals Heart Rate (Peripheral) 69 Respiratory Rate 14 Blood Pressure 124/86 Height 165 cm Height 65 in Weight 81 kg Weight 178.574 lb BMI 29.75 What to do next Scheduled Follow-Up Appointments Thursday 8:45 AM EDT With: Kip Xiao MD Where: [facility] [address] [place] [address]- You Need to Schedule the Following Appointments Follow Up with Dameon OCASIO, Kip Brunner, [facility] When: In 3 months Where: [address], [address] [facility] [address] [place] [address]- [phone] Medications What How Much When Instructions Unchanged dicyclomine (dicyclomine 10 mg Cap) 60 EA, 0 Refill(s), TAKE 1 CAPSULE BY MOUTH FOUR TIMES DAILY FOR 14 DAYS NEEDED FOR PAIN Contact prescribing physician if questions or concerns Unchanged esomeprazole (Nexium 40 mg Cap-EC) 1 Capsules By Mouth Every day Contact prescribing physician if questions or concerns Unchanged famotidine (famotidine 40 mg Tab) 1 Tablets By Mouth Once a day (at bedtime) Contact prescribing physician if questions or concerns Unchanged Non-Formulary Medication (Histamine Blend SP 33) Contact prescribing physician if questions or concerns Unchanged ustekinumab (Stelara) Subcutaneous Every 4 weeks Contact prescribing physician if questions or concerns Allergies No Known Allergies Problems Ongoing - [...] for choosing us for your care. Normal [facility] Surgical Pathology Reporton 01-10-2025 Surgical Pathology Report [facility] [address] [place] [address]- Surgical Pathology Report Collected Date/Time: 01/05/2025 08:20 EDT Pathologist: Fausto OCASIO PhD, Sally Espinoza Received Date/Time: 01/05/2025 09:16 EDT Dameon OCASIO, Kip Xiao MD, iKp Brunner 07 Surgical Pathology Report - 01/10/2025 13:04 EDT - Auth (Verified) Final Diagnosis A: STOMACH, BIOPSY: - ANTRAL MUCOSA COMPATIBLE WITH MILD REACTIVE GASTROPATHY. - NO ACTIVE INFLAMMATION, GRANULOMA OR INTESTINAL METAPLASIA. - NO H. PYLORI MICROORGANISMS IDENTIFIED WITH IMMUNOSTAIN. B: TERMINAL ILEUM, BIOPSY: - TERMINAL ILEAL MUCOSA WITH NO ACTIVE INFLAMMATION, GRANULOMA OR DYSPLASIA. (Electronic Signature) Sally Lambert MD PhD 01/10/2025 13:04 Clinical Information Crohn's disease Pre-Op Diagnosis: Crohn's disease Procedure: EGD, colonoscopy Post-Op Diagnosis: 1. Esophageal landmarks identified, LA grade B esophagitis noted, otherwise normal examined esophagus 2. Normal examined stomach, and biopsies were taken to rule H. pylori 3. Normal examined duodenum 4. Normal examined proximal jejunum 5. Small internal hemorrhoids 6. Normal colonic mucosa 7. Widely open IC valve, TI mucosa significantly improved, normal villi, biopsies were taken Specimen(s) Received A.Gastric biopsy B.Terminal ileum biopsy Gross Description A: Received in formalin labeled with patient name, number, and gastric biopsy are four fragments of carrasco/pink tissue ranging from less than 0.1 cm up to 0.4 cm in greatest dimension. Specimen is entirely submitted in one cassette. B: Received in formalin labeled with patient name, number, and terminal ileum biopsy are two fragments of carrasco/pink tissue each measuring 0.1 cm. Multiple carrasco/pink debridement-like materials measuring up to less than 0.1 cm are present. Specimen is entirely submitted in one cassette. (DC) DC:[facility] Microscopic Description Microscopic examination performed unless gross only specified. This report was transcribed using voice recognition technology and might contain unintended computerized paster hat lining errors. The use of one or more reagents in the above tests is regulated as an analyte specific reagent (ASR). The test or tests are ordered following initial H&E microscopic examination. The performance characteristics were determined by the [facility] Surgical Pathology. They have not been cleared or approved by the US Food and Drug Administration. The FDA has Surgical Pathology Report Collected Date/Time: 01/05/2025 08:20 EDT Pathologist: Fausto OCASIO PhD, Sally Espinoza Received Date/Time: 01/05/2025 09:16 EDT Dameon OCASIO, Kip Xiao MD, Kip Brunner Microscopic Description determined that such clearance or approval is not necessary. These tests are used for clinical purposes. They should not be regarded as investigational or for research. Appropriate positive and negative controls are performed and are acceptable. This report was transcribed using voice recognition technology and might contain unintended computerized paster hat lining errors. Normal [facility] Comment on above: Performed By: #### [id number] #### [facility] Laboratory [address] [place] [address] Main OR Intraoperative Recor don 01-06-2025 Main OR Intraoperative Record Main OR Intraoperative Record IntraOp Document Type FT Summary Primary Physician: Kip Xiao MD Finalized Date/Time: 01/06/25 14:08:51 Pt. Name: SUSANA SCHMIDT Alexis /Sex: 1985 Female Med Rec #: [id number] Physician: Kip Xiao MD Financial #: [id number] Pt. Type: O Room/Bed: / Admit/Disch: 01/05/25 07:12:58 - 01/06/25 23:59:59 Institution: Case Times FT Entry 1 Patient Times In Room 01/05/25 08:08:00 Out Room 01/05/25 08:31:00 Procedure Times Start 01/05/25 08:12:00 Stop 01/05/25 08:29:00 Anesthesia Times Start 01/05/25 08:08:00 Stop 01/05/25 08:31:00 Time at [facility] 01/05/25 08:23:00 Last Modified By: Bella Linares RN 01/05/25 08:33:31 General Comments: 0815-EGD completed/AW RN 0818-Colonoscopy started/AW RN Case Attendance FT Entry 1 Entry 2 Entry 3 Case Attendee Leobardo RUSH, ELECTROENCEPHALOGRAPHIC TECHNOLOGIST, Queen Vijay VELIZ, Bryanna Graves Role Performed ELECTROENCEPHALOGRAPHIC TECHNOLOGIST Manager Produce - Primary Staff - Other Time In 01/05/25 08:08:00 01/05/25 08:08:00 01/05/25 08:08:00 Time Out 01/05/25 08:31:00 01/05/25 08:31:00 01/05/25 08:31:00 Procedure EGD AND COLONOSCOPY(.) EGD AND COLONOSCOPY(.) EGD AND COLONOSCOPY(.) Comments Dr. Diez supervising help in room Last Modified By: Vijay VELIZ, Bella Linares RN, Bella Linares RN, Bella 01/05/25 08:33:33 01/05/25 08:33:33 01/05/25 08:33:33 Entry 4 Entry 5 Case Attendee Christie Fernandez MD, Kip Brunner Role Performed Scrub - Primary Surgeon - Primary Time In 01/05/25 08:08:00 01/05/25 08:08:00 Time Out 01/05/25 08:31:00 01/05/25 08:31:00 Procedure EGD AND COLONOSCOPY(.) EGD AND COLONOSCOPY(.) Comments Last Modified By: Vijay VELIZ, Bella Linares RN, Bella 01/05/25 08:33:33 01/05/25 08:33:33 Perioperative Protocols FT Pre-Care Text: Implements protective measures prior to operative or invasive procedure, confirms identity before the operative or invasive procedure, verifies operative procedure, surgical site, and laterality Entry 1 Procedure(s) EGD AND COLONOSCOPY(.) Patient Identity Birthday, ID Band Verified (select at Check, Patient least 2): Participation Consents / H and P Anesthesia Consent, Operative Site N/A Verified H&P, Surgery/Procedure Marking Verified Consent Surgical Site No Laterality Verified n/a Verified Procedure Verified Yes Correct Patient Yes Position Verified Availability Equipment, Medication Prep Dry n/a Verified (If Applicable) PreOp Antibiotic No Time Out Leobardo RUSH, DONNA, Lozano Bekah Participants N., Vijay VELIZ, Anirudh Blanco Kirstyn K, Sparks, Micala E, Sarmini MD, Kip Brunner Time Out Complete 01/05/25 08:10:00 Outcomes Met? Yes Last Modified By: Bella Linares RN 01/05/25 08:23:32 Post-Care Text: The patient is free from signs and symptoms of injury caused by extraneous objects Allergy Information FT Pre-Care Text: Verifies allergies Entry 1 Allergies Reviewed? Yes Allergies Reviewed Self/Patient With Outcomes Met? Yes Last Modified By: Bella Linares RN 01/05/25 08:27:37 Post-Care Text: The patient received appropriate medication(s) safely administered during the perioperative period Surgical Procedures FT Entry 1 Procedure Description Procedure EGD AND COLONOSCOPY Modifiers . Surgeon Description EGD with gastric biopsy. COLONOSCOPY with terminal ileum biopsy Primary Procedure Yes Primary Surgeon Kip Xiao MD Start 01/05/25 08:12:00 Stop 01/05/25 08:29:00 Anesthesia Type General Surgical Service Gastroenterology Wound Class 2 - Clean-Contaminated Last Modified By: Bella Linares RN 01/05/25 08:33:36 General Case Data FT Pre-Care Text: Classifies surgical wound, implements aseptic technique, initiates traffic control Entry 1 Case Information OR ENDO 1 FT Case Level Level 2 Wound Class 2 - Clean-Contaminated Specialty Gastroenterology ASA Class 2 Preop Diagnosis Crohn's disease Postop Same As Preop No Postop Diagnosis EGD- LA grade A Outcomes Met? Yes esophagitis. Colonoscopy-erosion in the terminal ileum, internal hemorrhoids Last Modified By: Bella Linares RN 01/05/25 08:33:44 Post-Care Text: The patient is free from signs and symptoms of infection Skin Assessment (Pre Procedure) FT Pre-Care Text: Implements protective measures to prevent skin/ tissue injury due to thermal or mechanical sources Evaluates for signs and symptoms of physical injury to skin and tissue Entry 1 Skin Integrity Intact, [place], Warm, & Skin Abnormality No Dry Outcomes Met? Yes Last Modified By: Bella Linares RN 01/05/25 08:26:24 Post-Care Text: The patient is free from signs and symptoms of injury caused by extraneous objects Patient Positioning FT Pre-Care Text: Identifies physical alterations that require additional precautions for procedure-specific positioning, verifies presence of prosthetics or corrective devices, posit (more content not included)... Normal [facility] Discharge Instructionson Discharge Instructions Discharge Instruc tions SUSANA SCHMIDT :1985 Visit Date:01/05/2025 Inpatient Discharge Instructions Your Care Team Admitting Physician - Kip Xiao MD Referring Physician - Kip Xiao MD Reason for Your Visit COLON WALL THICKENING, CROHNS DISEASE, DIARRHEA Your Diagnosis Acute Crohn's disease Tests Performed Pathology Tissue Exam -- Results Pending -- Please visit your patient portal for your results or contact your primary care physician. This Is Your Medications List budesonide (budesonide 3 mg oral delayed release capsule) colestipol (Colestid 1 g Tab) esomeprazole (Nexium 40 mg Cap-EC) famotidine (famotidine 40 mg Tab) peppermint oil (Ibgard 90 mg oral delayed release capsule) ustekinumab (Stelara) Procedure History Colonoscopy (09/05/2024), Esophagogastroduodenoscopy (09/05/2024), Colonoscopy (06/29/2019), Esophagogastroduodenoscopy (06/29/2019), Arthroscopy of knee, Colonoscopy, [place] tooth. Discharge Vitals Temperature (Temporal Artery) 36.8 ???C Heart Rate (Monitored) 81 Respiratory Rate 50 Blood Pressure 103/69 Height 165 cm Weight 82 kg BMI 30.12 What to do next Instructions From Your Doctor Event Name Event Result Discharge Activity Resume normal activities in 24 hours Discharge Restrictions No driving for 24 hrs Discharge Diet(s) Regular Call Your Doctor For Persistent or heavy bleeding Discharge Instructions Discharge Instructions Previously Scheduled Follow-Up Appointments Thursday 9:45 AM EDT With: Dameon OCASIO, Kip Brunner Where: [facility] [address] [address]- New Follow Up Appointments after Discharge Follow Up with Dameon OCASIO, Kip Brunner, [facility], [facility] When: Comments: Keep scheduled appt. Where: [address], [address] [phone] Medications What How Much When Instructions Next Dose Unchanged budesonide (budesonide 3 mg oral delayed release capsule) 3 Capsules By Mouth Once a day (in the morning) Unchanged colestipol (Colestid 1 g Tab) 2 Tablets By Mouth Every day Unchanged esomeprazole (Nexium 40 mg Cap-EC) 1 Capsules By Mouth Every day Unchanged famotidine (famotidine 40 mg Tab) 1 Tablets By Mouth Once a day (at bedtime) Unchanged peppermint oil (Ibgard 90 mg oral delayed release capsule) 2 Capsules By Mouth 2 times a day Unchanged ustekinumab (Stelara) Subcutaneous Every 4 weeks Test Results No qualifying data available. Allergies No Known Allergies Problems Ongoing - Any problem that you are currently receiving treatment for. Abdominal pain Anemia Crohn disease Crohn's disease, small intestine Epigastric pain foliculitis Heart murmur Loose stools seborrice dermititis Historical - Any problem that you are no longer receiving treatment for. Education Materials Colonoscopy Care After Surgery Please read the instructions outlined below and refer to this sheet in the next few weeks. These discharge instructions provide you with general information on caring for yourself after you leave the hospital. Your doctor may also give you specific instructions. While your treatment has been planned according to the most current medical practices available, unavoidable complications occasionally occur. If you have any problems or questions after discharge, please call your doctor. ACTIVITY You may resume your regular activity, but move at a slower pace for the next 24 hours. Take frequent rest periods for the next 24 hours. Walking will help get rid of the air and reduce the bloated feeling in your abdomen (belly). No driving for 24 hours (because of the anesthesia (medicine) used during the test). You may shower. Do not sign any important legal documents or operate any machinery for 24 hours (because of the anesthesia used during the test). NUTRITION Drink plenty of fluids. You may resume your normal diet as instructed by your doctor. Begin with a light meal and progress to your normal diet. Heavy or fried foods are harder to digest and may make you feel nauseated (sick to your stomach). Avoid alcoholic beverages for 24 hours or as instructed. MEDICATIONS You may resume your normal medications unless your doctor tells you otherwise. WHAT YOU CAN EXPECT TODAY Some feelings of bloating in the abdomen. Passage of more gas than usual. Spotting of blood in your stool or on the toilet paper. FOLLOW-UP Your doctor will discuss the results of your test with you. SEEK IMMEDIATE MEDICAL ATTENTION IF: There is more than a spotting of blood in your stool. There is abdominal distention (your abdomen is swollen). There is vomiting. You have a temperature over 101.5 F. There is abdominal pain or discomfort that is sev (more content not included)... Normal [facility] Comment on above: Result Comment: Elec tronically Signed By: Chandana VELIZ, Jessica\.br\Date and Time Signed: 01/05/25 08:48 EDT Inpatient Patient Summaryon 01-05-2025 Inpatient Patient Summary Inpatient Patient Summary [place] [id number] [facility] Clinical Discharge Instructions PERSON INFORMATION Name: SUSANA SCHMIDT PHYSICIANS Admitting Physician: Kip Xiao MD Attending Physician: Kip Xiao MD PCP: Toni Brock III, DO Diagnosis: Acute Crohn's disease Comment: PATIENT EDUCATION INFORMATION Instructions: Medication Leaflets: Follow up: Type Location Start [facility] Follow Up [facility] 01/16/2025 9:45 AM 01/16/2025 10:00 AM Confirmed MEDICATION LIST Medications to Continue with No Changes Other Medications budesonide (budesonide 3 mg oral delayed release capsule) 3 Capsules By Mouth once a day (in the morning). Refills: 3. colestipol (Colestid 1 g Tab) 2 Tablets By Mouth every day. Refills: 6. esomeprazole (Nexium 40 mg Cap-EC) 1 Capsules By Mouth every day. Refills: 3. famotidine (famotidine 40 mg Tab) 1 Tablets By Mouth once a day (at bedtime). Refills: 3. peppermint oil (Ibgard 90 mg oral delayed release capsule) 2 Capsules By Mouth 2 times a day. Refills: 0., lot: [id number] exp: 05/30 ustekinumab (Stelara) Subcutaneous every 4 weeks. Comment: Normal [facility] Main OR PACU II Recordon Main OR PACU II Record Main OR PACU II R ecord PACU Phase II Document Type FT Summary Primary Physician: Kip Xiao MD Finalized Date/Time: 01/05/25 11:30:06 Pt. Name: SUSANA SCHMIDT /Sex: 1985 Female Med Rec #: [id number] Physician: Kip Xiao MD Financial #: [id number] Pt. Type: O Room/Bed: / Admit/Disch: 01/05/25 07:12:58 - Institution: Case Times PACU II FT Pre-Care Text: Identifies barriers to communication and implements measures to provide psychological support and determines knowledge level Develops individualized plan of care, and ensures continuity of care Maintains patient's dignity and privacy, and maintains patient confidentiality Identifies and reports philosophical, cultural, and spiritual beliefs and values Identifies individual values and wishes concerning care administers prescribed antibiotic therapy and immunizing agents as ordered, Evaluates postoperative tissue perfusion Implements thermoregulation measures, and monitors body temperature Evaluates postoperative respiratory status Evaluates postoperative cardiac status Evaluates postoperative neurological status Assesses pain control, collaborated in initiating patient-controlled analgesia and implements alternative methods of pain control Verifies allergies, administers prescribed medications and solutions, evaluates response to medications Entry 1 In PACU II 01/05/25 08:34:00 Discharge from PACU 01/05/25 09:31:00 II Outcomes Met? Yes Last Modified By: Jessica Ellington RN 01/05/25 11:29:57 Post-Care Text: The patient demonstrates knowledge of the expected response to the operative or invasive procedure The patient's care is consistent with the individualized perioperative plan of care The patient's right to privacy is maintained The patient's value system, lifestyle, ethnicity, and culture are considered, respected, and incorporated into the perioperative plan of care The patient participates in decisions affecting his or her perioperative plan of care. The patient is free from signs and symptoms of infection The patient has wound/tissue perfusion consistent with or improved from baseline levels established preoperatively The patient is at or returning to normothermia at the conclusion of the immediate postoperative period The patient's respiratory function is consistent with or improved from baseline levels established preoperatively The patient's cardiovascular status is consistent with or improved from baseline levels established preoperatively The patient's neurological status is consistent with or improved from baseline levels established preoperatively The patient demonstrates and/or reports adequate pain control throughout the perioperative period The patient received appropriate medication(s), safely administered during the perioperative period Finalized By: Jessica Ellington RN Document Signatures Signed By: Jessica Ellington RN 01/05/25 11:30 Normal [facility] Main OR Preoperative Recordo n 01-05-2025 Main OR Preoperative Record Main OR Preoperative Record Holding Area Document Type FT Summary Primary Physician: Kip Xiao MD Finalized Date/Time: 01/05/25 07:38:21 Pt. Name: SUSANA SCHMIDT /Sex: 1985 Female Med Rec #: [id number] Physician: Kip Xiao MD Financial #: [id number] Pt. Type: O Room/Bed: / Admit/Disch: 01/05/25 07:12:58 - Institution: Case Times Holding FT Pre-Care Text: Verifies consent for planned procedure, identifies individual values and wishes concerning care, includes family members in perioperative teaching Secures patient's records' belongings, and valuables, maintains patient's dignity and privacy, and maintains patient confidentiality Entry 1 In Holding 01/05/25 07:25:00 Outcomes Met? Yes Last Modified By: Val Muñiz RN 01/05/25 07:37:18 Post-Care Text: The patient participates in decisions affecting his or her perioperative plan of care The patient's right to privacy is maintained Surgery Checklist FT Entry 1 Patient Birthday, ID Band Procedure History and Physical, Identification: Check, Patient Verification: Surgical Consent, With Participation Patient NPO after Midnight: Yes Date/Time: 01/05/25 02:00:00 Personal Items: Glasses, Jewelry Personal Items GLASSES, RING, CLOTHES, Comment: SHOES Limitations: N/A Complaints of Pain: Yes Pain Comment: 5/10 RIGHT UPPER Operative Site n/a QUADRANT PAIN Marking: Marked By: N/A Availability Equipment Verified: Does Patient Smoke No Patient states Yes Comment - Adult SPOUSE postop adult Supervision supervision available Case Cancelled in No Holding Area see comments below for reason Last Modified By: Val Muñiz RN 01/05/25 07:38:19 General Comments: Pt finished colon prep at 0200, states stool is clear liquid, has been NPO since. /,RN Finalized By: Val Muñiz RN Document Signatures Signed By: Val Muñiz RN 01/05/25 07:38 Normal [facility] Outpatient Surgery Discharge Instructionon 01-05-2025 Outpatient Surgery Discharge Instruction Outpatient Surgery Discharge Instruction [place] [id number] Patient Discharge Instructions PERSON INFORMATION Name: SUSANA SCHMIDT Date of : 1985 Current Date: 01/05/2025 08:07:15 PHYSICIANS Admitting Physician: Dameon OCASIO, Kip Brunner Discharge Diagnosis: Acute Crohn's disease SUSANA SCHMIDT has been given the following list of follow-up instructions, prescriptions, and patient education materials: PATIENT FOLLOW-UP INFORMATION Diet: Regular Discharge Activity: Resume normal activities in 24 hours Discharge Restrictions: No driving for 24 hrs Call Your Doctor For: Persistent or heavy bleeding IF UNABLE TO CONTACT YOUR PHYSICIAN AND YOU FEEL IT IS AN EMERGENCY, GO TO THE NEAREST EMERGENCY ROOM OR CALL 911 I, SUSANA SCHMIDT, have received the attached patient education materials/instructions and have verbalized understanding: May we do a follow up call? Yes No I was present when discharge instructions were given ____ Patient Signature _ Date Clinican/Nurse Signature Date Follow up: Type Location [facility] Follow Up [facility] 01/16/2025 9:45 AM 01/16/2025 10:00 AM Confirmed Pharmacy Information: You may receive a survey from [employer] asking you to rate your care experience. Your feedback is important and will help us understand what we do well and how we can improve the quality of care we provide to you, your loved ones and our community. It???s an honor to serve you. Thank you for choosing [facility] HERE ARE THE MEDICATION CHANGES THAT OCCURRED DURING YOUR HOSPITAL STAY Medications to Continue with No Changes Other Medications budesonide (budesonide 3 mg oral delayed release capsule) 3 Capsules By Mouth once a day (in the morning). Refills: 3. colestipol (Colestid 1 g Tab) 2 Tablets By Mouth every day. Refills: 6. esomeprazole (Nexium 40 mg Cap-EC) 1 Capsules By Mouth every day. Refills: 3. famotidine (famotidine 40 mg Tab) 1 Tablets By Mouth once a day (at bedtime). Refills: 3. peppermint oil (Ibgard 90 mg oral delayed release capsule) 2 Capsules By Mouth 2 times a day. Refills: 0., lot: [id number] exp: 05/30 ustekinumab (Stelara) Subcutaneous every 4 weeks. PATIENT EDUCATION INFORMATION Instructions: Medication Leaflets: Normal [facility] Ambulatory Visit Summaryon 0 11-11-2024 Ambulatory Visit Summary Ambulatory Visit Summary SUSANA SCHMIDT :1985 Visit Date:11/11/2024 Ambulatory Visit Instructions Your Diagnosis Crohn's disease, small intestine Epigastric pain Loose stools Your Care Team Attending Physician - Kip Xiao MD Primary Care Physician - Toni Brock III, DO This Is Your Medications List colestipol (Colestid 1 g Tab) Contact prescribing physician if questions or concerns budesonide (budesonide 3 mg oral delayed release capsule) dicyclomine (Bentyl 10 mg Cap) esomeprazole (Nexium 40 mg Cap-EC) famotidine (famotidine 40 mg Tab) ustekinumab (Stelara) Procedures Performed Colonoscopy (09/05/2024), Esophagogastroduodenoscopy (09/05/2024), Colonoscopy (06/29/2019), Esophagogastroduodenoscopy (06/29/2019), Arthroscopy of knee, Colonoscopy, [place] tooth. Discharge Vitals Heart Rate (Peripheral) 80 Respiratory Rate 14 Blood Pressure 134/87 Height 165 cm Height 65 in Weight 82 kg Weight 180.779 lb BMI 30.12 What to do next Scheduled Follow-Up Appointments Thursday 9:45 AM EDT With: Dameon OCASIO, Kip Brunner Where: [facility] [address] [place] [address] [place] [address]- Medications What How Much When Instructions New colestipol (Colestid 1 g Tab) 2 Tablets By Mouth Every day Refills: 6 Pickup at [facility] Unchanged budesonide (budesonide 3 mg oral delayed release capsule) 3 Capsules By Mouth Once a day (in the morning) Contact prescribing physician if questions or concerns Unchanged dicyclomine (Bentyl 10 mg Cap) 1 Capsules By Mouth 4 times a day as needed for Pain Duration: 14 Days Contact prescribing physician if questions or concerns Unchanged esomeprazole (Nexium 40 mg Cap-EC) 1 Capsules By Mouth Every day Contact prescribing physician if questions or concerns Unchanged famotidine (famotidine 40 mg Tab) 1 Tablets By Mouth Once a day (at bedtime) Contact prescribing physician if questions or concerns Unchanged ustekinumab (Stelara) Subcutaneous Every 3 months Contact prescribing physician if questions or concerns Pharmacy Information [facility]: [address] [place], [place] [phone] Allergies No Known Allergies Problems Ongoing - [...] for choosing us for your care. Normal [facility] Gastroenterology Office/Clin ic Noteon 11-11-2024 Gastroenterology Office/Clinic Note Gastroenterology Office/Clinic Note Chief Complaint f/u to egd/colon HPI Staff Established patient is a(n) 39 year old female who presents today for a follow up to EGD & Colonoscopy on 09/05/24. COLON RECALL NEEDS PLACED. RUQ abdominal pain crohns ho- she feels good she has decreased nexium to once a day and pepcid at night and feels okay. Stelara increased to q4 weeks 09/2024. 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 Pt called 11/03/24 with c/o RUQ pain for over a year. Occurs about 45 minutes postprandial, followed by diarrhea. Burning/inflamed feeling. Non consistent - type of food does not matter (sometimes fatty foods, sometimes healthy) Taking Nexium, Pepcid and Entocort as prescribed. Feels different from a Crohn's flare. Dr. Xiao added Bentyl PRN. US gallbladder ordered - see below. Any blood thinners? no Any GLP-1 agonists? no Last visit 07/28/24 w/Dr. Xiao: Assessment/Plan 1. Crohn's disease, small [...] lower quadrant pain after eating also she is reporting heartburn which she did not have before CT suggestive of some inflammation at the end of the small bowel, no upstream dilation noted We discussed steroids, she reported prednisone gave her suicidal thoughts in the past, will start budesonide for 4 weeks can be extended for 2-3 refills based on symptoms also increase Stelara she reported that she initially feels better after taking the Stelara shot but after few weeks the symptoms worsen gradually Also discussed starting Nexium in the morning EGD and colonoscopy If Stelara fails after few few months of 4 weeks dosing, we can consider Skyrizi, other options include infliximab plus minus immunomodulator, Rinvoq/Xeljanz and Entyvio The main goal of the colonoscopy to assess if she will need dilation or surgery for significant stricture 2. Abdominal pain (R10.9: Unspecified abdominal pain) US gallbladder 11/08/24: IMPRESSION: NORMAL EXAMINATION. Laboratory Results CBC CMP Basophil Absolute: 0.1 E9/L (11/08/24) A/G Ratio: 1.4 (11/08/24) Basophil Auto: 0.9 % (11/08/24) AGAP: 11 mEq/L (11/08/24) Eos Absolute: 0.2 E9/L (11/08/24) Albumin Lvl: 4.3 gm/dL (11/08/24) Eos Auto: 3 % (11/08/24) Alk Phos: 51 Int._Unit/L (11/08/24) Hct: 39.4 % (11/08/24) ALT: 23 Int._Unit/L (11/08/24) HGB: 13.3 gm/dL (11/08/24) AST: 17 Int._Unit/L (11/08/24) Lymph Absolute: 1.8 E9/L (11/08/24) Bili Total: 0.3 mg/dL (11/08/24) Lymph Auto: 29.4 % (11/08/24) BUN: 12 mg/dL (11/08/24) MCH: 31.3 pg (11/08/24) BUN/Creat Ratio: 15 (11/08/24) MCHC: 33.9 gm/dL (11/08/24) Calcium Lvl: 8.9 mg/dL (11/08/24) MCV: 92.4 fL (11/08/24) Chloride: 106 mmol/L (11/08/24) Cuming Absolute: 0.4 E9/L (11/08/24) CO2: 26 mmol/L (11/08/24) Cuming Auto: 6.4 % (11/08/24) Creatinine: 0.8 mg/dL (11/08/24) MPV: 8.4 fL (11/08/24) Globulin: 3.1 gm/dL (11/08/24) Neutro Absolute: 3.6 E9/L (11/08/24) Glucose Lvl: 96 mg/dL (11/08/24) Neutro Auto: 60.3 % (11/08/24) Potassium Lvl: 4 mmol/L (11/08/24) Platelet: 245 E9/L (11/08/24) Sodium Lvl: 139 mmol/L (11/08/24) RBC: 4.3 E12/L (11/08/24) Total Protein: 7.4 gm/dL (11/08/24) RDW: 13.7 % (11/08/24) WBC: 6 E9/L (11/08/24) Liver Studies Hep Bs Ag: Negative (06/30/24) TB: Negative (06/30/24) History of Present Illness Reviewed HPI collected by staff Review of Systems PHQ Score Initial Depression Screen Score: 0 SCORE All systems reviewed, negative; Except for above Physical Exam Vitals & Measurements HR: 80(Peripheral) RR: 14 BP: 134/87 HT: 65 in HT: 165 cm WT: 82 kg WT: 180.779 lb BMI: 30.12 General: in Nad Abdomen: Soft, NTND Procedure EGD: Impression and Plan 1. Esophageal landmarks identified, LA grade B esophagitis noted 2. Mild gastritis in the antrum of the stomach, random biopsies were taken to rule out H. pylori 3. Mild nonspecific patchy erythema in the duodenal bulb, random biopsies were taken to rule out Crohn's disease Recommendations: -Avoid NSAIDs, increase omeprazole to twice a day before breakfast and dinner, start famotidine at bedtime -Repeat EGD in 3 months to ensure esophagitis healing Colonoscopy: Impression and Plan 1. Small internal hemorrhoids 2. Normal colonic mucosa 3. Widely open IC valve suggestive of chronic inflammation in the terminal ileum secondary to Crohn's 4. Advanced about 20 cm in the termin (more content not included)... Normal [facility] Comment on above: Result Comment: Elec tronically Signed By: Kip Xiao MD\.br\Date and Time Signed: 11/11/24 09:31 EST\.br\Electronically Co-Signed By: Rosmery Bartholomew MA\.br\Date and Time Co-Signed: 11/11/24 09:29 EST US Gallbladderon 11-09-2024 US Gallbladder Exam Date/Time: 11/08/2024 09:48 EST Reason for Exam: K50.90;Other (please specify) Report IMPRESSION: NORMAL EXAMINATION. EXAMINATION: US Gallbladder HISTORY: Abdominal pain COMPARISON: The abdomen and pelvis 06/30/2024 TECHNIQUE: Ultrasound evaluation was performed of the right upper quadrant of the abdomen FINDINGS: Normal echogenicity and contour of the liver. No liver lesion or intrahepatic biliary dilatation identified. Liver length measured at approximately 15.9 cm. The gallbladder is physiologically distended. No cholelithiasis or pericholecystic fluid. Gallbladder wall thickness is normal measured at approximately 1.7 mm. Common bile duct is normal measuring approximately 1.6 mm in diameter. No overt abnormality of the pancreas. Ordering Provider: Kip Xiao FINAL REPORT Dictated: 11/09/2024 3:20 pm Bhupinder Ho DO Signed (Electronic Signature): 11/09/2024 3:20 pm Signed by: Bhupinder Ho DO Transcribed by: JARRETT Technologist: Hany CIFUENTES [facility] CBC w/ Auto Diffon 5 Basophils/100 WBC (Bld) 0.9 % Normal 0.0-2.0 [facility] Comment on above: Performed By: #### 2 [id number] #### [facility] Laboratory [address] [place] [address] Basophils/Leukocytes Auto (Bld) [Pure # fraction] 0.1 E9/L Normal 0.0-0.2 [facility] Comment on above: Performed By: #### 2 [id number] #### [facility] [address] [place] [address] Eosinophils (Bld) [#/Vol] 0.2 E9/L Normal 0.0-0.5 [facility] Comment on above: Performed By: #### 2 [id number] #### [facility] [address] [place] [address] Eosinophils/100 WBC (Bld) 3.0 % Normal 0.0-8.0 [facility] Comment on above: Performed By: #### 2 [id number] #### [facility] [address] [place] [address] Erythrocyte distribution width (RBC) [Ratio] 13.7 % Normal 10.9-14.2 [facility] Comment on above: Performed By: #### 2 [id number] #### [facility] [address] [place] [address] Hematocrit (Bld) [Volume fraction] 39.4 % Normal 34.0-46.0 [facility] Comment on above: Performed By: #### 2 [id number] #### [facility] [address] [place] [address] Hemoglobin (Bld) [Mass/Vol] 13.3 g/dL Normal 12.0-16.0 [facility] Comment on above: Performed By: #### 2 [id number] #### [facility] [address] [place] [id number] Lymphocytes (Bld) [#/Vol] 1.8 E9/L Normal 1.0-4.0 [facility] Comment on above: Performed By: #### 2 [id number] #### [facility] [address] [place] [address] Lymphocytes/100 WBC (Bld) 29.4 % Normal 14.0-50.0 [facility] Comment on above: Performed By: #### 2 [id number] #### [facility] [address] [place] [address] MCH (RBC) [Entitic mass] 31.3 pg Normal 27.0-34.0 [facility] Comment on above: Performed By: #### 2 [id number] #### [facility] [address] [place] [address] MCHC (RBC) [Mass/Vol] 33.9 g/dL Normal 31.4-36.0 [facility] Comment on above: Performed By: #### 2 [id number] #### [facility] [address] [place] [address] MCV (RBC) [Entitic vol] 92.4 fL Normal 80.0-100.0 [facility] Comment on above: Performed By: #### 2 [id number] #### [facility] [address] [place] [address] Monocytes (Bld) [#/Vol] 0.4 E9/L Normal 0.2-1.0 [facility] Comment on above: Performed By: #### 2 [id number] #### [facility] [address] [place] [address] Neutrophils (Bld) [#/Vol] 3.6 E9/L Normal 2.0-7.5 [facility] Comment on above: Performed By: #### 2 [id number] #### [facility] [address] [place] [address] Neutrophils/100 WBC (Bld) 60.3 % Normal 36.0-75.0 [facility] Comment on above: Performed By: #### 2 [id number] #### [facility] [address] [place] [address] Platelet mean volume (Bld) [Entitic vol] 8.4 fL Normal 6.4-10.8 [facility] Comment on above: Performed By: #### 2 [id number] #### [facility] [address] [place] [address] Platelets (Bld) [#/Vol] 245.0 E9/L Normal 150. 0-500. 0 [facility] Comment on above: Performed By: #### 2 [id number] #### [facility] Laboratory [address] [place] [address] RBC (Bld) [#/Vol] 4.3 E12/L Normal 4.3-5.9 [facility] Comment on above: Performed By: #### 2 [id number] #### [facility] Laboratory [address] [place] [address] WBC corrected for nucl RBC Auto (Bld) [#/Vol] 6.0 E9/L Normal 4.0-11.0 [facility] Comment on above: Performed By: #### 2 [id number] #### [facility] [address] [place] [address] CMPon 11-08-2024 Albumin [Mass/Vol] 4.3 g/dL Normal 3.3-5.0 [facility] Comment on above: Performed By: #### 2 [id number] #### [facility] [address] [place] [address] Albumin/Globulin (S) [Mass conc ratio] 1.4 Normal 1.1-2.2 [facility] Comment on above: Performed By: #### 2 [id number] #### [facility] [address] [place] [address] ALP [Catalytic activity/Vol] 51 Int._Unit/L Normal 21-98 [facility] Comment on above: Performed By: #### 2 [id number] #### [facility] [address] [place] [address] ALT No additional P-5'-P [Catalytic activity/Vol] 23 Int._Unit/L Normal 6-46 [facility] Comment on above: Performed By: #### 2 [id number] #### [facility] [address] [place] [address] Anion gap [Moles/Vol] 11 mmol/L Normal 6-16 [facility] Comment on above: Performed By: #### 2 [id number] #### [facility] [address] [place] [address] AST [Catalytic activity/Vol] 17 Int._Unit/L Normal 5-43 [facility] Comment on above: Performed By: #### 2 [id number] #### [facility] [address] [place] [address] Bilirubin [Mass/Vol] 0.3 mg/dL Normal 0.0-1.1 [facility] Comment on above: Performed By: #### 2 [id number] #### [facility] [address] [place] [address] Calcium [Mass/Vol] 8.9 mg/dL Normal 8.9-11.1 [facility] Comment on above: Performed By: #### 2 [id number] #### [facility] [address] [place] [address] Chloride [Moles/Vol] 106 mmol/L Normal 101-111 [facility] Comment on above: Performed By: #### 2 [id number] #### [facility] [address] [place] [address] CO2 [Moles/Vol] 26 mmol/L Normal 21-31 [facility] Comment on above: Performed By: #### 2 [id number] #### [facility] [address] [place] [address] Creatinine [Mass/Vol] 0.8 mg/dL Normal 0.5-1.3 [facility] Comment on above: Performed By: #### 2 [id number] #### [facility] [address] [place] [address] Globulin (S) [Mass/Vol] 3.1 g/dL Normal 1.4-4.0 [facility] Comment on above: Performed By: #### 2 [id number] #### [facility] [address] [place] [address] Glucose [Mass/Vol] 96 mg/dL Normal 55-199 [facility] Comment on above: Performed By: #### 2 [id number] #### [facility] [address] [place] [address] Potassium [Moles/Vol] 4.0 mmol/L Normal 3.5-5.3 [facility] Comment on above: Performed By: #### 2 [id number] #### [facility] [address] [place] [address] Protein [Mass/Vol] 7.4 g/dL Normal 6.0-7.8 [facility] Comment on above: Performed By: #### 2 [id number] #### [facility] [address] [place] [address] Sodium [Moles/Vol] 139 mmol/L Normal 135-145 [facility] Comment on above: Performed By: #### 2 [id number] #### [facility] [address] [place] [address] Urea nitrogen [Mass/Vol] 12 mg/dL Normal 5-21 [facility] Comment on above: Performed By: #### 2 [id number] #### [facility] [address] [place] [address] Urea nitrogen/Creatinine [Mass ratio] 15 No Units Normal 10-20 [facility] Comment on above: Performed By: #### 2 [id number] #### [facility] [address] [place] [address] eGFRon 11-08-2024 eGFR 95 mL/min/1.73 m2 Normal >=59 [facility] Comment on above: Performed By: #### 1 [id number] ####[facility] [address] [place] [address] Surgical Pathology Reporton 09-08-2024 Surgical Pathology Report [facility] [address] [place] [address]- Surgical Pathology Report Collected Date/Time: 09/05/2024 13:09 EST Pathologist: Bhupinder Carrion MD Date/Time: 09/05/2024 13:37 EST Dameon OCASIO, Kip Xiao MD, Kip Brunner 07 Surgical Pathology Report - 09/08/2024 16:27 EST - Auth (Verified) Final Diagnosis A: TERMINAL ILEUM, BIOPSY: MODERATE NONSPECIFIC ACTIVE ILEITIS - NO IDENTIFIED CRYPT ABSCESSES OR GRANULOMAS - NO DIAGNOSTIC EVIDENCE OF DYSPLASIA B: DUODENUM, BIOPSY: ARCHITECTURALLY NORMAL VILLOUS INTESTINAL MUCOSA - NO DIAGNOSTIC EVIDENCE OF CELIAC DISEASE C: STOMACH, BIOPSY: ESSENTIALLY NORMAL GASTRIC GLANDULAR MUCOSA - FOCAL MINIMAL NONSPECIFIC MUCOSAL CHRONIC INFLAMMATION PRESENT - MUCOSAL ACUTE VASCULAR CONGESTION PRESENT - SPECIAL IHC STAIN FOR H. pylori: NEGATIVE (Electronic Signature) Bhupinder Carrion MD 09/08/2024 16:27 Clinical Information Crohn disease small intestine, abdominal pain Pre-Op Diagnosis: Crohn disease small intestine, abdominal pain Procedure: Colonoscopy, EGD Post-Op Diagnosis: 1. Small internal hemorrhoids 2. Normal colonic mucosa 3. Widely open IC valve suggestive of chronic inflammation in the terminal ileum secondary to Crohn's 4. Advanced about 20 cm in the terminal ileum, there is inflammation and mild stricture with sharp angulation from 5 to 10 cm from the IC valve, multiple large ulcers noted, biopsied, otherwise normal mucosa beyond it 5. Esophageal landmarks identified, LA grade B esophagitis noted 6. Mild gastritis in the antrum of the stomach, random biopsies were taken to rule out H. pylori 7. Mild nonspecific patchy erythema in the duodenal bulb, random biopsies were taken to rule out Crohn's disease Specimen(s) Received A.TI biopsy B.Duodenal biopsy C.Gastric biopsy Gross Description A: Received in formalin labeled with patient name, number, and TI biopsy are two fragments of carrasco/pink tissue measuring less than 0.1 cm and up to 0.2 cm. The specimen is entirely submitted in one cassette. Surgical Pathology Report Collected Date/Time: 09/05/2024 13:09 IVELISSE Pathologist: Bhupinder Carrion MD Received Date/Time: 09/05/2024 13:37 IVELISSE Xiao MD, Kip Xiao MD, Kip Brunner Gross Description B: Received in formalin labeled with patient name, number, and duodenal biopsy are two fragments of acrrasco/pink tissue measuring less than 0.1 cm and up to 0.2 cm. The specimen is entirely submitted in one cassette. C: Received in formalin labeled with patient name, number, and gastric biopsy are two fragments of carrasco/pink tissue measuring 0.1 and 0.2 cm. Specimen is entirely submitted in one cassette. (DC) DC:MCA Microscopic Description Microscopic examination performed unless gross only specified. The use of one or more reagents in the above tests is regulated as an analyte specific reagent (ASR). The test or tests are ordered following initial H&E microscopic examination. The performance characteristics were determined by the [facility] Surgical Pathology. They have not been cleared or approved by the US Food and Drug Administration. The FDA has determined that such clearance or approval is not necessary. These tests are used for clinical purposes. They should not be regarded as investigational or for research. Appropriate positive and negative controls are performed and are acceptable. Normal [facility] Comment on above: Performed By: #### 4 [id number] #### [facility] [address] [place] [address] Discharge Instructionson Discharge Instructions Discharge Instruc tions ROXANASUSANA SARABIA :1985 Visit Date:09/05/2024 Inpatient Discharge Instructions Your Care Team Admitting Physician - Kip Xiao MD Referring Physician - Dameon OCASIO, Kip Brunner Reason for Your Visit CROHN'S DISEASE SMALL INTESTINE, ABDOMINAL PAIN Your Diagnosis Acute Crohn's disease Tests Performed Pathology Tissue Exam -- Results Pending -- Please visit your patient portal for your results or contact your primary care physician. This Is Your Medications List albuterol (Ventolin HFA 90 mcg/inh Aerosol-Adpt) budesonide (budesonide 3 mg oral delayed release capsule) esomeprazole (Nexium 40 mg Cap-EC) esomeprazole (Nexium 40 mg Cap-EC) famotidine (famotidine 40 mg Tab) ustekinumab (Stelara) Procedure History Colonoscopy (06/29/2019), Esophagogastroduodenoscopy (06/29/2019), Arthroscopy of knee, Colonoscopy, [place] tooth. What to do next Instructions From Your Doctor Event Name Event Result Discharge Activity Resume normal activities in 24 hours Discharge Restrictions No driving for 24 hrs Discharge Diet(s) Other: previous Call Your Doctor For Persistent or heavy bleeding Discharge Instructions Discharge Instructions New Follow Up Appointments after Discharge Follow Up with Dameon OCASIO, Kip Brunner, [facility], [facility] When: Comments: Call for any problems. Office will call to schedule follow up appointment Where: Medications What How Much When Why Instructions Next Dose New famotidine (famotidine 40 mg Tab) 1 Tablets By Mouth Once a day (at bedtime) Refills: 3 Pickup at [facility] Changed esomeprazole (Nexium 40 mg Cap-EC) 1 Capsules By Mouth Every day Changed esomeprazole (Nexium 40 mg Cap-EC) 1 Capsules By Mouth 2 times a day Pickup at [facility] Unchanged albuterol (Ventolin HFA 90 mcg/ inh Aerosol-Adpt) 2 Puffs Inhalation Every 6 hours as needed for for wheezing Acute bronchitis Duration: 7 Days Unchanged budesonide (budesonide 3 mg oral delayed release capsule) 3 Capsules By Mouth Once a day (in the morning) Unchanged ustekinumab (Stelara) Subcutaneous Every 3 months Pharmacy Information [facility]: [address] [place], [place] [id number] [phone] Test Results No qualifying data available. Allergies No Known Allergies Problems Ongoing - Any problem that you are currently receiving treatment for. Abdominal pain Anemia Crohn disease Crohn's disease, small intestine Epigastric pain foliculitis Heart murmur Loose stools seborrice dermititis Historical - Any problem that you are no longer receiving treatment for. Education Materials Duodenitis Duodenitis is when the lining of the first part of your small intestine (duodenum) becomes inflamed. It is often caused by a bacterial infection. You may also have open sores in your intestine called ulcers. Duodenitis may start all of a sudden and last for a short time (acute). It may also develop over time and last for months or years (chronic). What are the causes? The most common cause of this condition is an infection from a type of bacteria called Helicobacter pylori (H. pylori). Other causes include: ??? Long-term use of NSAIDs, such as ibuprofen. ??? Using too much alcohol. ??? An infection of the small intestine caused by the Giardia parasite (giardiasis). ??? Crohn's disease. ??? Certain diseases of the body's defense system (immune system). ??? Certain treatments for cancer. What increases the risk? You may be more likely to develop this condition if: ??? You smoke cigarettes. ??? You drink alcohol. ??? You have a family history of duodenitis. ??? You take NSAIDs. ??? You eat a high-fat diet. What are the signs or symptoms? Symptoms of this condition may include: ??? Epigastric pain. This is a gnawing or burning pain in the upper center of your abdomen. It may get worse when your stomach is empty and may get better after you eat. ??? Cramps in your abdomen. ??? Nausea and vomiting. ??? Bloody vomit. ??? Stools that are bloody, dark, or look like tar. ??? Diarrhea. ??? Weight loss. ??? Feeling tired (fatigue). How is this diagnosed? This condition may be diagnosed based on your medical history and a physical exam. You may also have tests, such as: ??? Blood tests. ??? Stool tests. ??? A test that checks the gases in your breath. ??? An X-ray that is done after you swallow a liquid called barium. The barium makes your digestive tract easier to see. ??? Endoscopy. This is an exam that is done by putting a thin tube with a camera on the end (endoscope) down your throat. A biopsy may be taken. This is when a sample of tissue from your duodenum is removed with the scope and looked at under a microscope to check if the tissue (more content not included)... Normal [facility] Comment on above: Result Comment: Elec tronically Signed By: Varsha Anguiano I\.br\Date and Time Signed: 09/05/24 13:29 EST Inpatient Patient Summaryon 09-05-2024 Inpatient Patient Summary Inpatient Patient Summary [place] [address] [facility] Clinical Discharge Instructions PERSON INFORMATION Name: SUSANA SCHMIDT PHYSICIANS Admitting Physician: Kip Xiao MD Attending Physician: Kip Xiao MD PCP: Toni Brock III, DO Discharge Diagnosis: Acute Crohn's disease Comment: PATIENT EDUCATION INFORMATION Instructions: Medication Leaflets: Follow up: MEDICATION LIST Medications to Continue with No Changes Other Medications albuterol (Ventolin HFA 90 mcg/inh Aerosol-Adpt) 2 Puffs Inhalation every 6 hours as needed for wheezing for 7 Days. Refills: 0. budesonide (budesonide 3 mg oral delayed release capsule) 3 Capsules By Mouth once a day (in the morning). Refills: 3. esomeprazole (Nexium 40 mg Cap-EC) 1 Capsules By Mouth every day. Refills: 3. ustekinumab (Stelara) Subcutaneous every 3 months. Comment: Normal [facility] Main OR Intraoperative Recor don 09-05-2024 Main OR Intraoperative Record Main OR Intraoperative Record IntraOp Document Type FT Summary Primary Physician: Kip Xiao MD Finalized Date/Time: 09/05/24 14:04:03 Pt. Name: SUSANA SCHMIDT /Sex: 1985 Female Med Rec #: [id number] Physician: Dameon OCASIO, Kip Brunner Financial #: [id number] Pt. Type: O Room/Bed: / Admit/Disch: 09/05/24 11:40:26 - Institution: Case Times FT Entry 1 Patient Times In Room 09/05/24 12:48:00 Out Room 09/05/24 13:21:00 Procedure Times Start 09/05/24 12:52:00 Stop 09/05/24 13:15:00 Anesthesia Times Start 09/05/24 12:48:00 Stop 09/05/24 13:21:00 Time at [place] 09/05/24 13:05:00 Last Modified By: Kathrine Webber RN 09/05/24 13:21:09 General Comments: EGD end time at 1258./KS,RN Colonoscopy start time at 1301./1301 09/05/24 Chart opened to review and send charges [facility]FA Case Attendance FT Entry 1 Entry 2 Entry 3 Case Attendee Bhupinder Saldivar MD, Kip Webber RN, Kathrine Brunner Role Performed Anesthesiologist Surgeon - Primary Manager Produce - Primary Gas Tender Time In 09/05/24 12:48:00 09/05/24 12:48:00 09/05/24 12:48:00 Time Out 09/05/24 13:21:00 09/05/24 13:21:00 09/05/24 13:21:00 Procedure EGD AND COLONOSCOPY(.) EGD AND COLONOSCOPY(.) EGD AND COLONOSCOPY(.) Comments Dr. Frederick is supervising Last Modified By: Akbar VELIZ, Kathrine Webber RN, Kathrine Kam RN 09/05/24 13:21:10 09/05/24 13:21:10 09/05/24 13:21:10 Entry 4 Case Attendee Bernice Craft CST Role Performed Scrub - Primary Time In 09/05/24 12:48:00 Time Out 09/05/24 13:21:00 Procedure EGD AND COLONOSCOPY(.) Comments Last Modified By: Kathrine Webber RN 09/05/24 13:21:10 General Comments: Mylene Corbett medical device sales consultant./BAKARI,tension worker Protocols FT Pre-Care Text: Implements protective measures prior to operative or invasive procedure, confirms identity before the operative or invasive procedure, verifies operative procedure, surgical site, and laterality Entry 1 Procedure(s) EGD AND COLONOSCOPY(.) Patient Identity Birthday, ID Band Verified (select at Check, Patient least 2): Participation Consents / H and P Anesthesia Consent, Operative Site N/A Verified H&P, Surgery/Procedure Marking Verified Consent Surgical Site No Laterality Verified n/a Verified Procedure Verified Yes Correct Patient Yes Position Verified Availability Equipment, Medication Prep Dry n/a Verified (If Applicable) PreOp Antibiotic No Time Out Bhupinder Saldivar Given Participants Dameon Stanford MD, Kip Brunner, Akbar VELIZ, Kathrine Kruger, Venancio COLUNGA, Bernice Calabrese Time Out Complete 09/05/24 12:53:00 Outcomes Met? Yes Last Modified By: Kathrine Webber RN 09/05/24 12:53:30 Post-Care Text: The patient is free from signs and symptoms of injury caused by extraneous objects Allergy Information FT Pre-Care Text: Verifies allergies Entry 1 Allergies Reviewed? Yes Allergies Reviewed Self/Patient With Outcomes Met? Yes Last Modified By: Kathrine Wbeber RN 09/05/24 12:53:37 Post-Care Text: The patient received appropriate medication(s) safely administered during the perioperative period Surgical Procedures FT Entry 1 Procedure Description Procedure EGD AND COLONOSCOPY Modifiers . Surgeon Description EGD with gastric and duodenal biopsy. Colonoscopy with TI biopsies. Primary Procedure Yes Primary Surgeon Dameon OCASIO, Kip Brunner Start 09/05/24 12:52:00 Stop 09/05/24 13:15:00 Anesthesia Type General Surgical Service Gastroenterology Wound Class 2 - Clean-Contaminated Last Modified By: Ktahrine Webber RN 09/05/24 13:15:30 General Case Data FT Pre-Care Text: Classifies surgical wound, implements aseptic technique, initiates traffic control Entry 1 Case Information OR ENDO 1 FT Case Level Level 2 Wound Class 2 - Clean-Contaminated Specialty Gastroenterology ASA Class 2 Preop Diagnosis Crohns's disease small Postop Same As Preop No intestine, abdominal pain Postop Diagnosis EGD- Mild gastritis, Outcomes Met? Yes duodenitis, LA grade C esophagitis. Colonoscopy- Ulcers and stricture in TI. Last Modified By: Kathrine Webber RN 09/05/24 13:15:02 Post-Care Text: The patient is free from signs and symptoms of infection Skin Assessment (Pre Procedure) FT Pre-Care Text: Implements protective measures to prevent skin/ tissue injury due to thermal or mechanical sources Evaluates for signs and symptoms of physical injury to skin and tissue Entry 1 Skin Integrity Intact, [place], Warm, & Skin Abnormality No Dry Outcomes Met? Yes Last Modified By: Kathrine Webber RN 09/05/24 12:57:23 Post-Care Text: The patient is free from signs and symptoms of injury caused by extraneous objects Patient Positioning FT Pre-Care Text: Identifies physical alterations that require additional precautions for procedure-specific positioning, v (more content not included)... Normal [facility] Main OR PACU II Recordon Main OR PACU II Record Main OR PACU II R ecord PACU Phase II Document Type FT Summary Primary Physician: Kip Xiao MD Finalized Date/Time: 09/05/24 14:08:46 Pt. Name: SUSANA SCHMIDT/Sex: 1985 Female Med Rec #: [id number] Physician: Kip Xiao MD Financial #: [id number] Pt. Type: O Room/Bed: / Admit/Disch: 09/05/24 11:40:26 - Institution: Case Times PACU II FT Pre-Care Text: Identifies barriers to communication and implements measures to provide psychological support and determines knowledge level Develops individualized plan of care, and ensures continuity of care Maintains patient's dignity and privacy, and maintains patient confidentiality Identifies and reports philosophical, cultural, and spiritual beliefs and values Identifies individual values and wishes concerning care administers prescribed antibiotic therapy and immunizing agents as ordered, Evaluates postoperative tissue perfusion Implements thermoregulation measures, and monitors body temperature Evaluates postoperative respiratory status Evaluates postoperative cardiac status Evaluates postoperative neurological status Assesses pain control, collaborated in initiating patient-controlled analgesia and implements alternative methods of pain control Verifies allergies, administers prescribed medications and solutions, evaluates response to medications Entry 1 In PACU II 09/05/24 13:23:00 Discharge from PACU 09/05/24 13:53:00 II Outcomes Met? Yes Last Modified By: Varsha Anguiano I 09/05/24 14:08:41 Post-Care Text: The patient demonstrates knowledge of the expected response to the operative or invasive procedure The patient's care is consistent with the individualized perioperative plan of care The patient's right to privacy is maintained The patient's value system, lifestyle, ethnicity, and culture are considered, respected, and incorporated into the perioperative plan of care The patient participates in decisions affecting his or her perioperative plan of care. The patient is free from signs and symptoms of infection The patient has wound/tissue perfusion consistent with or improved from baseline levels established preoperatively The patient is at or returning to normothermia at the conclusion of the immediate postoperative period The patient's respiratory function is consistent with or improved from baseline levels established preoperatively The patient's cardiovascular status is consistent with or improved from baseline levels established preoperatively The patient's neurological status is consistent with or improved from baseline levels established preoperatively The patient demonstrates and/or reports adequate pain control throughout the perioperative period The patient received appropriate medication(s), safely administered during the perioperative period Finalized By: Varsha Anguiano I Document Signatures Signed By: Varsha Anguiano I 09/05/24 14:08 Normal [facility] Main OR Preoperative Recordo n 09-05-2024 Main OR Preoperative Record Main OR Preoperative Record Holding Area Document Type FT Summary Primary Physician: Kip Xiao MD Finalized Date/Time: 09/05/24 11:57:37 Pt. Name: SUSANA SCHMIDT/Sex: 1985 Female Med Rec #: [id number] Physician: Kip Xiao MD Financial #: [id number] Pt. Type: O Room/Bed: / Admit/Disch: 09/05/24 11:40:26 - Institution: Case Times Holding FT Pre-Care Text: Verifies consent for planned procedure, identifies individual values and wishes concerning care, includes family members in perioperative teaching Secures patient's records' belongings, and valuables, maintains patient's dignity and privacy, and maintains patient confidentiality Entry 1 In Holding 09/05/24 11:50:00 Outcomes Met? Yes Last Modified By: Kathrine Webber RN 09/05/24 11:55:23 Post-Care Text: The patient participates in decisions affecting his or her perioperative plan of care The patient's right to privacy is maintained Surgery Checklist FT Entry 1 Patient Birthday, ID Band Procedure History and Physical, Identification: Check, Patient Verification: Surgical Consent, With Participation Patient NPO after Midnight: No Date/Time: 09/05/24 07:00:00 Personal Items: Glasses Personal Items clothes Comment: Limitations: n/a Complaints of Pain: No Pain Comment: no Operative Site n/a Marking: Marked By: no Availability Equipment Verified: Does Patient Smoke No Patient states Yes Comment - Adult Mary- postop adult Supervision supervision available Case Cancelled in No Holding Area see comments below for reason Last Modified By: Kathrine Webber RN 09/05/24 11:57:36 Finalized By: Kathrine Webber RN Document Signatures Signed By: Kathrine Webber RN 09/05/24 11:57 Normal [facility] Outpatient Surgery Discharge Instructionon 09-05-2024 Outpatient Surgery Discharge Instruction Outpatient Surgery Discharge Instruction [address] [address] Patient Discharge Instructions PERSON INFORMATION Name: SUSANA SCHMIDT Date of : 1985 Current Date: 09/05/2024 12:44:53 PHYSICIANS Admitting Physician: Kip Xiao MD Discharge Diagnosis: Acute Crohn's disease SUSANA SCHMIDT has been given the following list of follow-up instructions, prescriptions, and patient education materials: PATIENT FOLLOW-UP INFORMATION Diet: Other: previous Discharge Activity: Resume normal activities in 24 hours Discharge Restrictions: No driving for 24 hrs Call Your Doctor For: Persistent or heavy bleeding IF UNABLE TO CONTACT YOUR PHYSICIAN AND YOU FEEL IT IS AN EMERGENCY, GO TO THE NEAREST EMERGENCY ROOM OR CALL 911 I, SUSANA SCHMIDT, have received the attached patient education materials/instructions and have verbalized understanding: May we do a follow up call? Yes No I was present when discharge instructions were given ____ Patient Signature _ Date Clinican/Nurse Signature Date Follow up: Pharmacy Information: You may receive a survey from [employer] asking you to rate your care experience. Your feedback is important and will help us understand what we do well and how we can improve the quality of care we provide to you, your loved ones and our community. It???s an honor to serve you. Thank you for choosing [facility] HERE ARE THE MEDICATION CHANGES THAT OCCURRED DURING YOUR HOSPITAL STAY Medications to Continue with No Changes Other Medications albuterol (Ventolin HFA 90 mcg/inh Aerosol-Adpt) 2 Puffs Inhalation every 6 hours as needed for wheezing for 7 Days. Refills: 0. budesonide (budesonide 3 mg oral delayed release capsule) 3 Capsules By Mouth once a day (in the morning). Refills: 3. esomeprazole (Nexium 40 mg Cap-EC) 1 Capsules By Mouth every day. Refills: 3. ustekinumab (Stelara) Subcutaneous every 3 months. PATIENT EDUCATION INFORMATION Instructions: Medication Leaflets: Normal [facility] ALL CBC WITH AUTO DIFFon 11- 20-2024 BASOPHILS ABSOLUTE AUTO 0.1 N [facility] Basophils/100 WBC (Bld) 1.1 % 0.2 - 2.0 % [facility] Eosinophils/100 WBC (Bld) 3.7 % 0.9 - 7.0 % [facility] Erythrocyte distribution width (RBC) [Ratio] 13.1 % 11.0 - 15.0 % [facility] Hematocrit (Bld) [Volume fraction] 37.9 % 36.0 - 48.0 % [facility] Hemoglobin (Bld) [Mass/Vol] 12.7 g/dL 12.0 - 16.0 g/dL [facility] IMMATURE GRANULOCYTES ABS AUTO 0.01 [facility] Immature granulocytes/100 WBC (Bld) 0.2 % 0.0 - 0.5 % [facility] Interpretation and review of laboratory results Abnormal [facility] LYMPHOCYTES ABSOLUTE AUTO 1.9 [facility] Lymphocytes/100 WBC (Bld) 34.1 % 20.5 - 60.0 % [facility] MCH (RBC) [Entitic mass] 31.4 pg 26.7 - 34.0 pg [facility] MCHC (RBC) [Mass/Vol] 33.5 g/dL 29.9 - 35.2 g/dL [facility] MCV (RBC) [Entitic vol] 93.6 fL 81.0 - 99.0 fL [facility] MONOCYTES ABSOLUTE AUTO 0.4 N [facility] Monocytes/100 WBC (Bld) 6.4 % 1.7 - 12.0 % [facility] NEUTROPHILS ABSOLUTE AUTO 3 [facility] Neutrophils/100 WBC (Bld) 54.5 % 43.0 - 75.0 % [facility] Platelet mean volume (Bld) [Entitic vol] 9.6 fL 9.5 - 13.5 [facility]2 [facility] TB PLT [facility] RBC 4.05 [facility] WBC 5.4 [facility] Family Medicine Office/Clini c Noteon 08-15-2024 Family Medicine Office/Clinic Note Family Medicine Office/Clinic Note Chief Complaint cough HPI Staff 39 year old female presents with chest congestion, headache, sob, and cough since July 31 otc: theraflu History of Present Illness Reviewed and agree with above documented HPI by medical safety director. Portions of this record may have been created with voice recognition artificial intelligence software, specifically [employer], [employer] and or [employer]. Substitutions may have occurred due to the inherent limitations of voice recognition and artificial intelligence software. Patient is a 39-year-old female who presents to [facility] care, for sinus congestion, sinus pressure, bilateral [...] she is having chest congestion, has tried [id number] Tamiflu without any relief, states her and [...] at this time. 39-year-old female presents to [facility], for acute bacterial sinusitis acute bronchitis, symptoms started 2 weeks ago, patient did appear ill but not septic, no respiratory distress or difficulty swallowing. Patient was given a prescription for refill of albuterol inhaler, Augmentin, and Bromfed. Instructed take klvs-wki-[id number] ibuprofen Tylenol as needed for any headaches, [...] Contact Information Vinod ROBINS DO, Toni Carmen, [address], [facility] [place] [address]- Additional Instructions: Problem List/Past Medical History Ongoing Abdominal pain Anemia Crohn disease Crohn's disease, small intestine Epigastric pain foliculitis Heart murmur Loose stools seborrice dermititis Historical (more content not included)... Normal [facility] Comment on above: Result Comment: Elec tronically Signed By: BJ BONE, REYES\.br\Date and Time Signed: 08/15/24 10:02 EST Ambulatory Visit Summaryon 1 10-13-2023 Ambulatory Visit Summary Ambulatory Visit Summary SUSANA SCHMIDT :1985 Visit Date:08/13/2024 Ambulatory Visit Instructions Your Diagnosis Acute bacterial sinusitis Acute bronchitis BMI 30.0-30.9,adult Other specified bacterial agents as the cause of diseases classified elsewhere Your Care Team Attending Physician - REYES LORENZO PA-C Primary Care Physician - Toni Brock III, DO This Is Your Medications List albuterol (Ventolin HFA 90 mcg/inh Aerosol-Adpt) amoxicillin-clavulanate (Augmentin 875 mg oral tablet) brompheniramine/dextrometh orphan/PSE (Bromfed DM oral syrup) budesonide (budesonide 3 mg oral delayed release capsule) esomeprazole (Nexium 40 mg Cap-EC) ustekinumab (Stelara) Procedures Performed Colonoscopy (06/29/2019), Esophagogastroduodenoscopy (06/29/2019), Arthroscopy of knee, Colonoscopy, [place] tooth. Discharge Vitals Temperature (Tympanic) 37 ???C Heart Rate (Peripheral) 81 Blood Pressure 128/80 Height 165 cm Height 65 in Weight 83 kg Weight 182.6 lb BMI 30.49 What to do next Scheduled Follow-Up Appointments Thursday 12:45 PM EST Where: [facility] Medications What How Much When Why Instructions New albuterol (Ventolin HFA 90 mcg/ inh Aerosol-Adpt) 2 Puffs Inhalation Every 6 hours as needed for for wheezing Acute bronchitis Duration: 7 Days Pickup at [facility] New amoxicillin-clavulanate (Augmentin 875 mg oral tablet) 1 Tablets By Mouth Every 12 hours Acute bacterial sinusitis Duration: 10 Days Pickup at [facility] New brompheniramine/ dextromethorphan/ PSE (Bromfed DM oral syrup) 10 Milliliter By Mouth 4 times a day as needed for for cough and congestion Acute bronchitis Duration: 7 Days Pickup at [facility] Unchanged budesonide (budesonide 3 mg oral delayed release capsule) 3 Capsules By Mouth Once a day (in the morning) Unchanged esomeprazole (Nexium 40 mg Cap-EC) 1 Capsules By Mouth Every day Unchanged ustekinumab (Stelara) Pharmacy Information [facility]: [address] [place], [place] [id number] [phone] Medications and Immunizations Administered Given albuterol 0.083% [...] for choosing us for your care. Normal [facility] Gastroenterology Office/Clin ic Noteon 07-28-2024 Gastroenterology Office/Clinic [...] 91 fL (06/30/24) Chloride: 106 mmol/L (06/30/24) Cuming Absolute: 0.4 E9/L (06/30/24) CO2: 24 mmol/L (06/30/24) Cuming Auto: 5.4 % (06/30/24) Creatinine: 0.7 mg/dL [...] also she (more content not included)... Normal [facility] Comment on above: Result Comment: Elec tronically Signed By: Dameon OCASIO, Kip Brunner\.br\Date and Time Signed: 07/28/24 13:45 EDT Quantiferon-TB Plus (Client Incubated)on 07-25-2024 Gamma interferon background IA Qn (Bld) 0.02 International_Unit/mL Invalid Interpretation Code [facility] Comment on above: Performed By: #### 1 [id number] ####[place] [address] M. tuberculosis stim IFN-g by CD4+ CD8+ T-cells corrected for background Qn (Bld) 0.01 International_Unit/mL Invalid Interpretation Code [facility] Comment on above: Performed By: #### 1 [id number] ####[place] [id number] M. tuberculosis stim IFN-g by CD4+ T-cells corrected for background Qn (Bld) 0.02 International_Unit/mL Invalid Interpretation Code [facility] Comment on above: Performed By: #### 1 [id number] ####[place] [id number] M. tuberculosis stim IFN-g Ql (Bld) [Interp] Negative Invalid Interpretation Code Negative [facility] Comment on above: Result Comment: No r [...] interferon gamma. Chemiluminescence immunoassay methodology Performed at: [facility] [id number] PhD Wm Alonso Performed By: #### 1 [id number] ####[address] [address] Mitogen stimulated gamma interferon corrected for background Qn (Bld) >10.00 Invalid Interpretation Code [facility] Comment on above: Performed By: #### 1 [id number] ####[address] [address] Service comment (Unsp spec) [Interp] Comment Invalid Interpretation Code [facility] Comment on above: Result Comment: Idris tiFERON-TB [...] for the test. Performed By: #### 1 [id number] ####[address] [address] [address] Abdomen/Pelvis w/contrast (enterography)on 07-01-2024 CT Abdomen/Pelvis [...] Oral contrast amount in ml's: 1350 Normal [facility] Hep Bs Abon 07-01-2024 HBV surface Ab Ql (S) Non-Reactive Invalid Interpretation Code [facility] Comment on above: Result Comment: Non Reactive: Not immune to HBV infection. Equivocal: Unable to determine if anti-HBs is present at levels consistent with immunity. Reactive: Anti-HBs concentration detected at greater than 10 mIU/mL. Individual is considered to be immune to infection with HBV. Performed at: [facility] [address] [id number] PhD Wm Alonso Performed By: #### 2 [id number] #### [facility] [address] [place] [address] Hep Bs Agon 07-01-2024 HBV surface Ag IA Ql Negative Invalid Interpretation Code Negative [facility] Comment on above: Result Comment: Perf ormed at: [facility] [id number] PhD Wm Alonso Performed By: #### 2 [id number] #### [facility] [address] [place] [address] Gastroenterology Office/Clin ic Noteon 03-31-2024 Gastroenterology Office/Clinic [...] History of Present Illness currently on Stelara [id number] Review of Systems PHQ Score Initial Depression [...] When Contact Information Dameon OCASIO, Kip Brunner, [facility], [facility] Within 3 months [address], [address] [phone] Additional Instructions: To Follow up on CTE and labs Problem List/Past Medical History Ongoing Anemia Crohn disease Crohn's disease, small intestine Epigastric pain foliculitis Heart murmur Loose stools seborrice dermititis Historical Procedure/Surgical History Colonoscopy (06/29/2019), Esophagogastroduodenoscopy (06/29/2019), Arthroscopy of knee, Colonoscopy, [place] tooth. 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 Alcohol abuse in household: No. Substance abuse in household: No. Smoker in household: Yes. Injuries/Abuse/Neglect in household: No. Crohn's disease in remission, 10/25/2015 N (more content not included)... Normal [facility] Comment on above: Result Comment: Elec tronically Signed By: Dameon OCASIO, Kip Brunner\.br\Date and Time Signed: 03/31/24 16:13 EDT\.br\Electronically Co-Signed By: Inez Castorena MA\.br\Date and Time Co-Signed: 03/31/24 16:03 EDT PAP ACOG PANEL 2: 30 to 65on 02-05-2023 . . Normal [facility] Comment on above: Result Comment: Perf ormed at: WB Performed By: #### 4 [id number] #### [facility] [address] [place] [address] [address] Sally Lambert Age Gdln ACOG Testing 30-65 Normal [facility] Comment on above: Performed By: #### 4 [id number] #### [facility] [address] [place] [address] [address] Sally Lambert DIAGNOSIS: Comment Normal [facility] Comment on above: Result Comment: NEGA TIVE FOR INTRAEPITHELIAL LESION OR MALIGNANCY. Performed at: WB Performed By: #### 4 [id number] #### [facility] [address] [address] [address] Sally Lambert HPV Aptima Negative Normal Negative [facility] Comment on above: Result Comment: This nucleic acid amplification test detects fourteen high-risk HPV types (16,18,31,33,35,39,45,51,52,56,58,59,66,68) without differentiation. Performed at: =G Performed By: #### 4 [id number] #### [facility] [address] [address] [address] Sally Lambert HPV Genotype Reflex Comment [facility] Comment on above: Result Comment: Crit eria not met, HPV Genotype not performed. Performed at: WB Performed By: #### 4 [id number] #### [facility] [address] [address] [address] Sally Lambert Methodology: Comment [facility] Comment on above: Result Comment: This liquid based ThinPrep(R) pap test was screened with the use of an image guided system. Performed at: WB Performed By: #### 4 [id number] #### [facility] [address] [place] [address] Dr. Sally Lambert Note: Comment Normal [facility] Comment on above: Result Comment: The Pap smear is a screening test designed to aid in the detection of premalignant and malignant conditions of the uterine cervix. It is not a diagnostic procedure and should not be used as the sole means of detecting cervical cancer. Both false-positive and false-negative reports do occur. . Performed at: WB Performed By: #### 4 [id number] #### [facility] [address] [place] [address] Dr. Sally Lambert Performed by: Comment Normal [facility] Comment on above: Result Comment: Melita Deal, Speech Communication Instructor (ASCP) Performed at: WB Performed By: #### 4 [id number] #### [facility] [address] [place] [address] Dr. Sally Lambert Specimen adequacy: Comment Normal [facility] Comment on above: Result Comment: Sati sfactory for evaluation. Endocervical and/or squamous metaplastic cells (endocervical component) are present. Performed at: WB Performed By: #### 4 [id number] #### [facility] [address] [place] [address] Dr. Sally Lambert DHEA SERUMon 07-18-2022 Dehydroepiandrosterone (DHEA) 335 ng/dL Normal 31-701 [facility] Comment on above: Result Comment: Age [...] 31 - 701 Performed By: #### D ELIOT. #### [facility] [address] [place] [address] Dr. Sally Lambert DHEA-SULFATEon 07-16-2022 DHEA-Sulfate 291.0 ug/dL Critically high 57.3-279.2 [facility] Comment on above: Performed By: #### D GWENASUL #### [facility] [address] [place] [address] Dr. Sally Lambert FSHon 07-16-2022 FSH 4.4 mIU/mL Normal [facility] Comment on above: Result Comment: Adul t Female: Follicular phase 3.5 - 12.5 Ovulation phase 4.7 - 21.5 Luteal phase 1.7 - 7.7 Postmenopausal 25.8 - 134.8 Performed By: #### L [facility] #### [facility] [address] [place] [address] Dr. Sally Lambert LUTEINIZING HORMONE (LH)on LH 5.1 mIU/mL Normal [facility] Comment on above: Result Comment: Adul t Female: Follicular phase 2.4 - 12.6 Ovulation phase 14.0 - 95.6 Luteal phase 1.0 - 11.4 Postmenopausal 7.7 - 58.5 Performed By: #### L BCL #### [facility] [address] [place] [address] Dr. Sally Lambert CBC AUTO DIFFon 07-15-2022 BASO # 0.0 103/ul Normal 0.0-0.1 [facility] Comment on above: Performed By: #### C BC #### [facility] [address] [place] [address] Dr. Sally Lambert Basophils/100 WBC (Bld) 0.6 % Normal 0.2-2.0 [facility] Comment on above: Performed By: #### C BC #### [facility] [address] [place] [address] Dr. Sally Lambert EO # 0.1 103/ul Normal 0.0-0.7 [facility] Comment on above: Performed By: #### C BC #### [facility] [address] [place] [address] Dr. Sally Lambert Eosinophils/100 WBC (Bld) 2.6 % Normal 0.9-7.0 [facility] Comment on above: Performed By: #### C BC #### [facility] [address] [place] [address] Dr. Sally Lambert Erythrocyte distribution width (RBC) [Ratio] 13.8 % Normal 11.0-15.0 [facility] Comment on above: Performed By: #### C BC #### [facility] [address] [place] [address] Dr. Sally Lambert Hematocrit (Bld) [Volume fraction] 35.9 % Critically low 36.0-48.0 [facility] Comment on above: Performed By: #### C BC #### [facility] [address] [place] [address] Dr. Sally Lambert Hemoglobin (Bld) [Mass/Vol] 11.5 g/dL Critically low 12.0-16.0 [facility] Comment on above: Performed By: #### C BC #### [facility] [address] [place] [address] Dr. Sally Lambert IG # 0.02 10e3/ul Normal 0.00-0.03 [facility] Comment on above: Performed By: #### C BC #### [facility] [address] [place] [address] Dr. Sally Lambert IG % 0.4 % Normal 0.0-0.5 [facility] Comment on above: Performed By: #### C BC #### [facility] [address] [place] [address] Dr. Sally Lambert LYMPH # 1.9 103/ul Normal 1.2-3.8 [facility] Comment on above: Performed By: #### C BC #### [facility] [address] [place] [address] Dr. Sally Lambert Lymphocytes/100 WBC (Bld) 36.6 % Normal 20.5-60.0 [facility] Comment on above: Performed By: #### C BC #### [facility] [address] [place] [address] Dr. Sally Lambert MANUAL DIFF REQ NO Normal [facility] Comment on above: Performed By: #### C BC #### [facility] [address] [place] [address] Dr. Sally Lambert MCH (RBC) [Entitic mass] 29.6 pg Normal 26.7-34.0 [facility] Comment on above: Performed By: #### C BC #### [facility] [address] [place] [address] Dr. Sally Lambert MCHC (RBC) [Mass/Vol] 32.0 g/dL Normal 29.9-35.2 [facility] Comment on above: Performed By: #### C BC #### [facility] [address] [address] [address] Sally Lambert MCV (RBC) [Entitic vol] 92.5 fL Normal 81.0-99.0 [facility] Comment on above: Performed By: #### C BC #### [facility] [address] [address] [address] Sally Lambert MONO # 0.3 103/ul Normal 0.3-0.8 [facility] Comment on above: Performed By: #### C BC #### [facility] [address] [place] [address] Dr. Sally Lambert Monocytes/100 WBC (Bld) 5.7 % Normal 1.7-12.0 [facility] Comment on above: Performed By: #### C BC #### [facility] [address] [place] [address] Dr. Sally Lambert NEUT # 2.9 103/ul Normal 1.4-6.5 [facility] Comment on above: Performed By: #### C BC #### [facility] [address] [place] [address] Dr. Sally Lambert Neutrophils/100 WBC (Bld) 54.1 % Normal 43.0-75.0 [facility] Comment on above: Performed By: #### C BC #### [facility] [address] [place] [address] Dr. Sally Lambert Platelet mean volume (Bld) [Entitic vol] 9.9 fL Normal 9.5-13.5 [facility] Comment on above: Performed By: #### C BC #### [facility] [address] [place] [address] Dr. Sally Lambert PLT 311 103/ul Normal 150-450 [facility] Comment on above: Performed By: #### C BC #### [facility] [address] [place] [address] Dr. Sally Lambert RBC 3.88 106/ul Critically low 4.20-5.40 [facility] Comment on above: Performed By: #### C BC #### [facility] [address] [place] [address] Dr. Sally Lambert WBC 5.3 103/ul Normal 4.0-11.0 [facility] Comment on above: Performed By: #### C BC #### [facility] [address] [place] [address] Dr. Sally Lambert FREE T4on 07-15-2022 Free T4 [Mass/Vol] 0.93 ng/dL Normal 0.76-1.46 [facility] Comment on above: Performed By: #### F T4 #### [facility] [address] [place] [address] Dr. Sally Lambert GLYCOHEMOGLOBIN A1Con 2021 ADA RECOMMENDATION SEE BELOW Normal [facility] Comment on above: Result Comment: ADA RECOMMENDED LIMIT 4.0 - 6.0 ADA THERAPEUTIC TARGET < 7.0 ACTION SUGGESTED > 7.0 Performed By: #### A 1C #### [facility] [address] [place] [address] Dr. Sally Lambert Glucose [Mass/Vol] 120 mg/dL Normal [facility] Comment on above: Performed By: #### A 1C #### [facility] [address] [place] [address] Dr. Sally Lambert HbA1c (Bld) [Mass fraction] 5.8 % Normal 4.5-6.2 [facility] Comment on above: Performed By: #### A 1C #### [facility] [address] [place] [address] Dr. Sally Lambert TSHon 07-15-2022 TSH 1.110 uIU/mL Normal 0.358-3.74 0 [facility] Comment on above: Performed By: #### T SH #### [facility] [address] [place] [address] Dr. Sally Lambert Vital Signs Date Time Vital Sign Value Performing Clinician Minnie bolton 06-20-2025 08:58-0400 Body mass index (BMI) [Ratio] 29.92 kg/m2 [employer] Work Phone: [facility] 06-20-2025 08:58-0400 Body weight 81.56 kg [employer] Work Phone: [facility] 06-20-2025 08:58-0400 Diastolic blood pressure 78 mm[Hg] Etienne Myles DO Work Phone: [facility] 06-20-2025 08:58-0400 Systolic blood pressure 118 mm[Hg] Etienne Myles DO Work Phone: [facility] 03-14-2025 13:33-0400 Body mass index (BMI) [Ratio] 29.45 kg/m2 Etienne Myles DO Work Phone: [facility] 03-14-2025 13:33-0400 Body weight 80.29 kg Etienne Myles DO Work Phone: [facility] 03-14-2025 13:33-0400 Diastolic blood pressure 70 mm[Hg] Etienne Myles DO Work Phone: [facility] 03-14-2025 13:33-0400 Systolic blood pressure 114 mm[Hg] Etienne Myles DO Work Phone: [facility] 12-06-2024 10:35-0500 Body mass index (BMI) [Ratio] 30.62 kg/m2 [place] PA Work Phone: [facility] 12-06-2024 10:35-0500 Body weight 83.46 kg China Spring PA Work Phone: [facility] 12-06-2024 10:35-0500 Diastolic blood pressure 76 mm[Hg] [place] PA Work Phone: [facility] 12-06-2024 10:35-0500 Systolic blood pressure 124 mm[Hg] China [place] PA Work Phone: [facility] 08-31-2024 13:57-0500 Body mass index (BMI) [Ratio] 30.12 kg/m2 China Spring PA Work Phone: [facility] 08-31-2024 13:57-0500 Body weight 82.1 kg China Rodney PA Work Phone: [facility] 08-31-2024 13:57-0500 Diastolic blood pressure 76 mm[Hg] China GOMEZ Work Phone: [facility] 08-31-2024 13:57-0500 Systolic blood pressure 124 mm[Hg] China GOMEZ Work Phone: [facility] 08-09-2024 10:45-0500 Body mass index (BMI) [Ratio] 30.09 kg/m2 Etienne Myles DO Work Phone: [facility] 08-09-2024 10:45-0500 Body weight 82.01 kg Etienne Myles DO Work Phone: [facility] 08-09-2024 10:45-0500 Diastolic blood pressure 70 mm[Hg] Etienne Myles DO Work Phone: [facility] 08-09-2024 10:45-0500 Systolic blood pressure 118 mm[Hg] Etienne Myles DO Work Phone: [facility] 07-19-2024 13:34-0400 Body mass index (BMI) [Ratio] 30.52 kg/m2 China GOMEZ Work Phone: [facility] 07-19-2024 13:34-0400 Body weight 83.19 kg China GOMEZ Work Phone: [facility] Healthcare Encounters Encounter Date Encounter Type Care Provider Facility Start: 06-20-2025 End: 06-20-2025 Patient encounter procedure Etienne Myles DO Work Phone: [facility] [employer] Work Phone: Start: 06-20-2025 End: 06-20-2025 Periodic preventive med est patient 40-64yrs Etienne Myles DO Work Phone: [facility] Joel BRUNSON Comment on above: Pre-op examination; Pelvic pain; Dyspareunia in female; Dysmenorrhea; Menorrhagia with regular cycle; Well woman exam with routine gynecological exam; Breast cancer screening by mammogram Start: 06-20-2025 End: 06-20-2025 Preprocedural examination done Etienne Myles DO Work Phone: [facility] Start: 06-02-2025 End: 06-06-2025 Telephone encounter Etienne Myles DO Work Phone: [facility] Start: 04-26-2025 End: 04-26-2025 ambulatory Shin Talal Sarmini Facility:[facility] Start: 03-27-2025 End: 03-27-2025 ambulatory ETIENNE MYLES Not Available Start: 03-14-2025 End: 03-14-2025 Bamboo flowsheet Etienne Myles DO Work Phone: [facility] Start: 03-14-2025 End: 03-14-2025 Bamboo flowsheet Etienne Myles DO Work Phone: [facility] Start: 03-14-2025 End: 03-14-2025 Office outpatient visit 15 minutes Etienen Myles DO Work Phone: [facility] Comment on above: S/P endometrial abla tion; Uterine cramping; Uterine pain; Abnormal uterine bleeding (AUB) Start: 03-14-2025 End: 03-14-2025 ambulatory ETIENNE MYLES Not Available Start: 01-16-2025 End: 01-16-2025 ambulatory Shin Talal Sarmini Facility:[facility] Start: 01-05-2025 End: 01-06-2025 [facility] Start: 12-15-2024 End: 12-15-2024 Telephone encounter Sade George MA [facility] Start: 12-06-2024 End: 12-06-2024 Bamboo flowsheet China GOMEZ Work Phone: [facility] Start: 12-06-2024 End: 12-06-2024 Bamboo flowsheet China GOMEZ Work Phone: [facility] Start: 12-06-2024 End: 12-06-2024 Office outpatient visit 15 minutes China GOMEZ Work Phone: [facility] Comment on above: Jasmin-menopause; Anxiety, generalized (CMS/HCC) Start: 12-06-2024 End: 12-06-2024 ambulatory CHINA STEVENS Not Available Start: 11-11-2024 End: 11-11-2024 ambulatory Shin Talal Sarmini Facility:[facility] Start: 11-08-2024 End: 11-08-2024 ambulatory Shin Talal Sarmini Facility:[facility] Start: 09-05-2024 End: 09-05-2024 ambulatory Shin Talal Sarmini Facility:[facility] Start: 08-31-2024 End: 08-31-2024 Bamboo flowsheet China GOMEZ Work Phone: [facility] Start: 08-31-2024 End: 08-31-2024 Bamboo flowsheet China GOMEZ Work Phone: [facility] Start: 08-31-2024 End: 08-31-2024 Postop follow up visit related to original px China GOMEZ Work Phone: [facility] Comment on above: Postoperative visit; S/P tubal ligation; S/P endometrial ablation Start: 08-31-2024 End: 08-31-2024 ambulatory CHINA STEVENS Not Available Start: 08-24-2024 End: 08-24-2024 Clinisync Result Encounter Etienne Myles DO Work Phone: [facility] External Department Unsolicited Start: 08-24-2024 End: 08-24-2024 Clinisync Result Encounter Etienne Myles DO Work Phone: [facility] External Department Unsolicited Start: 08-13-2024 End: 08-13-2024 ambulatory REYES LORENZO [facility] Start: 08-09-2024 End: 08-09-2024 Bamboo flowsheet Etienne Myles DO Work Phone: [facility] Start: 08-09-2024 End: 08-09-2024 Bamboo flowsheet Etienne Myles DO Work Phone: [facility] Start: 08-09-2024 End: 08-09-2024 Office outpatient visit 15 minutes Etienne Myles DO Work Phone: [facility] Comment on above: Pre-operative exam; Menorrhagia with regular cycle; Abnormal uterine bleeding (AUB); Pelvic pain in female; Request for sterilization Start: 08-09-2024 End: 08-09-2024 Preprocedural examination done Etienne Myles DO Work Phone: [facility] Work Phone: Start: 08-09-2024 End: 08-09-2024 ambulatory ETIENNE BUENO Not Available Start: 07-28-2024 End: 07-28-2024 ambulatory Shin Talal Sarmini Facility:[facility] Start: 07-19-2024 End: 07-19-2024 Bamboo flowsheet China GOMEZ Work Phone: [facility] Start: 07-19-2024 End: 07-19-2024 Bamboo flowsheet China GOMEZ Work Phone: [facility] Start: 07-19-2024 End: 07-19-2024 Office outpatient visit 15 minutes China GOMEZ Work Phone: [facility] Comment on above: PMDD (premenstrual d ysphoric disorder) ([facility]); Menorrhagia with regular cycle Start: 07-19-2024 End: 07-19-2024 ambulatory CHINA STEVENS Not Available Start: 06-30-2024 ambulatory Shin Talal Sarmini Facility:[facility] Start: 03-31-2024 End: 03-31-2024 ambulatory Shin Talal Sarmini Facility:[facility] Start: 02-02-2024 End: 02-02-2024 ambulatory ETIENNE BUENO Not Available Start: 01-29-2023 End: 01-29-[address] ETIENNE BUENO . Facility: Start: 07-15-2022 End: 07-16-[address] ETIENNE BUENO . Facility: Procedures Date Procedure Procedure Detail Performing Clinician Start: 08-24-2024 ALL CBC WITH AUTO DIFF Etienne Bueno DO Work Phone: H/O: tubal ligation S/P tubal ligation Am y Rodney GOMEZ Work Phone: Plan of Treatment Date Care Activity Detail Author Start: 06-20-2025 End: 08-20-2026 MG Breast - bilateral Screening Bilateral screening mammogram Imaging Routine Breast cancer screening by mammogram Expected: 06/20/2025 (Approximate), Expires: 08/20/2026 [facility] Work Phone: Comment on above: Expected: 06/20/2025 (Approximate), Expires: 08/20/2026 Start: 06-20-2025 End: 06-20-2025 Patient encounter procedure 06/20/2025 8:40 AM EDT Consult [facility] [address] [place] [id number] Etienne Bueno DO [address] [place] [address] [facility] Start: 03-14-2025 End: 09-13-2025 US Pelvis US Pelvis w/ TV Imaging Routine S/P endometrial ablation Uterine pain Abnormal uterine bleeding (AUB) Expected: 03/14/2025, Expires: 09/13/2025 [facility] Work Phone: Comment on above: Expected: 03/14/2025 , Expires: 09/13/2025 Start: 03-14-2025 End: 03-14-2025 Patient encounter procedure 03/14/2025 1:20 PM EDT Office Visit [facility] [address] [place] [phone] Etienne Bueno DO [address] [place] [address] Arrived [facility] Comment on above: Arrived Start: 12-06-2024 End: 12-06-2024 Patient encounter procedure 12/06/2024 10:20 AM EST Office Visit [facility] [address] [facility] [address] [place] [phone] China Stevens PA [address] [place] [address] Arrived [facility] Comment on above: Arrived Start: 09-05-2024 End: 09-05-2024 Patient encounter procedure 09/05/2024 8:30 AM EST Office Visit [facility] [address] [facility] [address] [place] [phone] China Stevens, PA [address] [place] [address] [facility] Start: 08-31-2024 End: 08-31-2024 Patient encounter procedure 08/31/2024 1:40 PM EST Office Visit [facility] [address] [facility] [address] [place] [address] China Stevens, PA [address] [place] [address] Arrived [facility] Comment on above: Arrived Start: 08-09-2024 End: 08-09-2024 Patient encounter procedure [facility] Comment on above: Arrived Start: 07-27-2024 End: 07-27-2024 Professional / ancillary services management 07/27/2024 9:00 AM EDT Ancillary Procedure [facility] [address] [facility] [address] [place] [phone] [facility] Start: 07-19-2024 End: 07-19-2025 US for US PELVIS-TRANSVAG IF INDICATED Imaging Routine Menorrhagia with regular cycle Expected: 07/19/2024 (Approximate), Expires: 07/19/2025 [facility] Work Phone: Comment on above: Expected: 07/19/2024 (Approximate), Expires: 07/19/2025 Start: 07-19-2024 End: 07-19-2024 Patient encounter procedure 07/19/2024 1:30 PM EDT Office Visit [facility] [address] [facility] [place] [address] China Stevens PA [address] [place] [address] Arrived [facility] Comment on above: Arrived THIN PREP TIS PAP AN D HR HPV DNA THIN PREP TIS PAP AND HR HPV DNA Pathology and Cytology Routine Well woman exam with routine gynecological exam Ordered: 06/20/2025 [facility] Comment on above: Ordered: 06/20/2025 Payers Date Payer Category Payer Unknown 2021 [facility] ..[id number] 1984 Unknown [id number]. 2.593 1984 Unknown [id number]. 2.593 1984 Unknown [id number]. 2.1259 1984 Unknown [id number]. 2.727 1984 Unknown [id number] 2840.1.916714.3.579. 2.727 1984 Unknown [id number] 2.16.840.1.056901.3.579. 2. 1984 Unknown [id number] 2.16.840.1.390836.3.579. 2 1984 Unknown [id number] 2.16.840.1.483622.3.579. 2. 1984 Unknown [id number] 2.16.840.1.866916.3.579. 2. 1984 Unknown [id number] 2.16.840.1.621690.3.579. 2 1984 Unknown [id number] 2.16.840.1.803996.3.579. 2 1984 Unknown [id number] 2.16.840.1.477279.3.579. 2 1984 Unknown [id number] 2.16840.1.019326.3.579. 2 1984 Unknown [id number] 2.16.840.1.112491.3.579. 2.1258 1984 Unknown [id number] 2.16.840.1.123439.3.579. 2.1258 1984 Unknown [id number] 2.16.840.1.299306.3.579. 2.1258 1984 Unknown [id number] 2.16.840.1.049675.3.579. 2.1258 1984 Unknown [id number] 2.16.840.1.974625.3.579. 2.1258 1984 Unknown [id number] 2.16.840.1.456375.3.579. 2.1258 1984 Unknown [id number] 2.16.840.1.752116.3.579. 2. 1985 Unknown [id number] 2.16.840.1.563854.3.579. 2. 1960 Unknown [id number] Social History Date Type Detail Facility Tobacco smoking stat [facility] Tobacco smoking consumption unknown [facility] Healthcare Start: 1985 Sex assigned at Female N [facility] Start: 05-19-2024 Gender identity Identifies as female gender (finding) [facility] Start: 05-19-2024 Sexual orientation Heterosexual (fin ding) [facility] Clinical Notes 07-19-2024 to 06-20-2025 Sapna Judy - 06/20/2025 8:40 AM EDTTelephone Encounter - Gabriella Jacome LPN - 06/02/2025 10:59 AM EDTTelephone Encounter - Gabriella Jacome, [employer] - 06/02/2025 10:59 AM EDT Note Date & Type Note Facility 06-20-2025 History of Present illness Narrative Reason for Appointment: Patient ID: Susana Schmidt is a 40 y.o. female who presents for Gynecologic Exam and Pre-op Visit Patient presents today for Pre Op/Annual appointment. Patient is scheduled to undergo Da Monica assisted Diagnostic Laparoscopy, possible YUNG, possible FOE, possible BSO on 07-19-[address] Bueno at [facility]. MEDICATIONS Current Outpatient Medications Medication Instructions budesonide [...] nursing note reviewed. Exam conducted with a food service attendant present. Vitals: Estimated body mass index is 29.45 kg/m as calculated from the following: Height [...] complaints of menorrhagia, dyspareunia, dysmenorrhea and pelvic pain. I have discussed conservative management vs. surgical management with the patient in detail and patient desires surgical management at this time. Patient will undergo Da Monica assisted Diagnostic Laparoscopy, possible YUNG, possible FOE, possible BSO on 07-19-25. Surgical consents were signed, mmc was reviewed, and patient is to proceed to [facility] OR. Follow Up: Patient is to follow up at 1 & 6 weeks post operative to assess proper healing and recovery from procedure. Documented by Christelle Fierro LPN on behalf of: Etienne Bueno DO documented in this encounter [facility] 06-02-2025 Telephone encounter Note Patient called the office and she does [...] Endometriosis. Patient reassured would get to Dr obrien may get back before end of day or while at Hospital but if not we will get back to her on Thursday. PVU in this. [facility] 06-02-2025 Miscellaneous Notes Patient called the office and she does [...] Endometriosis. Patient reassured would get to Dr obrien may get back before end of day or while at Hospital but if not we will get back to her on Thursday. PVU in this. documented in this encounter [facility] 03-14-2025 History of Present illness Narrative Reason for Appointment: Patient ID: Susana Schmidt is a 40 y.o. female who presents for Discuss Ablation symptoms (Pt present today to discuss symptoms after endometrial ablation.) Patient presents today for Consult appointment. MEDICATIONS Current Outpatient Medications Medication Instructions budesonide [...] Negative. Gastrointestinal: Negative. Genitourinary: Positive for menstrual problem. Musculoskeletal: Negative. Skin: Negative. Neurological: Negative. All [...] nursing note reviewed. Exam conducted with a food service attendant present. Vitals: Estimated body mass index is 29.45 kg/m as calculated from the following: Height as of 02/01/24: 5' 5 . Weight as of this encounter: 177 lb. BP: 114/70 No LMP recorded. Patient has had an ablation. ASSESSMENT & PLAN ICD-10-CM 1. S/P endometrial ablation Z98.890 2. Uterine cramping N94.89 3. Uterine pain N94.89 Pt presents with complaints of uterine pain and cramping and sore breasts during when cycle was supposed to start. Pt had heavy bleeding and pain with cycle on March 10. Discussed all symptoms with pt in great detail. Pt considering surgical management. Discussed partial hysterectomy. Pt will continue to wait out the bleeding and given ultrasound. Documented by Christelle Fierro LPN on behalf of: Etienne Bueno DO documented in this encounter [facility] 01-05-2025 Note Progress Note-Physic derrell Patient: SUSANA SCHMIDT Age: 39 years Sex: Female : 1985 Associated Diagnoses: None Author: Rudolph Diez Jr., DO Postoperative Information Postoperative disposition: Postoperative disposition: Home. Optimetrix number: Optimetrix number [id number]. Anesthetic utilized: General. Physical Examination Vital Signs 01/05/2025 9:15 EDT Heart Rate Monitored 76 bpm 01/05/2025 9:15 EDT Respiratory Rate Monitored 9 br/min 01/05/2025 9:15 EDT SpO2 99 % 01/05/2025 9:13 EDT Heart Rate Monitored 75 bpm Respiratory Rate Monitored 10 br/min 01/05/2025 9:13 EDT SpO2 100 % 01/05/2025 9:10 EDT SpO2 100 % 01/05/2025 9:10 EDT Heart Rate Monitored 75 bpm 01/05/2025 9:10 EDT Respiratory Rate Monitored 11 br/min 01/05/2025 9:10 EDT Systolic Blood Pressure 103 mmHg Diastolic Blood Pressure 77 mmHg Mean Arterial Pressure, Cuff 86 mmHg 01/05/2025 9:05 EDT SpO2 99 % 01/05/2025 9:05 EDT Heart Rate Monitored 74 bpm 01/05/2025 9:05 EDT Respiratory Rate Monitored 12 br/min 01/05/2025 9:00 EDT Respiratory Rate Monitored 10 br/min 01/05/2025 9:00 EDT Heart Rate Monitored 69 bpm 01/05/2025 9:00 EDT SpO2 100 % 01/05/2025 9:00 EDT Systolic Blood Pressure 105 mmHg Diastolic Blood Pressure 80 mmHg Mean Arterial Pressure, Cuff 88 mmHg 01/05/2025 8:51 EDT Heart Rate Monitored 73 bpm 01/05/2025 8:51 EDT Respiratory Rate Monitored 18 br/min SpO2 100 % 01/05/2025 8:50 EDT SpO2 100 % 01/05/2025 8:50 EDT Heart Rate Monitored 76 bpm Respiratory Rate Monitored 19 br/min 01/05/2025 8:50 EDT Systolic Blood Pressure 108 mmHg Diastolic Blood Pressure 76 mmHg Mean Arterial Pressure, Cuff 87 mmHg 01/05/2025 8:44 EDT SpO2 100 % 01/05/2025 8:44 EDT Heart Rate Monitored 81 bpm 01/05/2025 8:42 EDT SpO2 100 % SpO2 100 % 01/05/2025 8:40 EDT SpO2 100 % 01/05/2025 8:40 EDT Heart Rate Monitored 84 bpm 01/05/2025 8:40 EDT Respiratory Rate Monitored 20 br/min 01/05/2025 8:40 EDT Systolic Blood Pressure 103 mmHg Diastolic Blood Pressure 69 mmHg Mean Arterial Pressure, Cuff 80 mmHg Pain Assessment: Controlled. General: Awake, Alert, Appropriate. Respiratory: Adequate air exchange, Non-labored. Cardiovascular: Stable, Normal peripheral perfusion. Neurological: Neurologic exam at baseline. No changes.. Assessment Anesthetic outcome No anesthetic complications noted. No nausea/vomiting. Review / Management Condition: Stable. Plan Transfer/Discharge: Transfer/Discharge Discharge when meets criteria ( From PACU to Ambulatory Surgery Unit, and To home ). [facility] Comment on above: Result Comment: Elec tronically Signed By: Rudolph Diez Jr., DO.lelia\Date and Time Signed: 01/05/25 10:39 EDT 01-05-2025 Note Patient Education - Text Colonoscopy Care After Surgery Please read the instructions outlined below and refer to this sheet in the next few weeks. These discharge instructions provide you with general information on caring for yourself after you leave the hospital. Your doctor may also give you specific instructions. While your treatment has been planned according to the most current medical practices available, unavoidable complications occasionally occur. If you have any problems or questions after discharge, please call your doctor. ACTIVITY You may resume your regular activity, but move at a slower pace for the next 24 hours. Take frequent rest periods for the next 24 hours. Walking will help get rid of the air and reduce the bloated feeling in your abdomen (belly). No driving for 24 hours (because of the anesthesia (medicine) used during the test). You may shower. Do not sign any important legal documents or operate any machinery for 24 hours (because of the anesthesia used during the test). NUTRITION Drink plenty of fluids. You may resume your normal diet as instructed by your doctor. Begin with a light meal and progress to your normal diet. Heavy or fried foods are harder to digest and may make you feel nauseated (sick to your stomach). Avoid alcoholic beverages for 24 hours or as instructed. MEDICATIONS You may resume your normal medications unless your doctor tells you otherwise. WHAT YOU CAN EXPECT TODAY Some feelings of bloating in the abdomen. Passage of more gas than usual. Spotting of blood in your stool or on the toilet paper. FOLLOW-UP Your doctor will discuss the results of your test with you. SEEK IMMEDIATE MEDICAL ATTENTION IF: There is more than a spotting of blood in your stool. There is abdominal distention (your abdomen is swollen). There is vomiting. You have a temperature over 101.5 F. There is abdominal pain or discomfort that is severe or gets worse throughout the day. [facility] 01-05-2025 Note Endoscopic Procedure Report - Other Patient: SUSANA SCHMIDT Age: 39 years Sex: Female : 1985 Associated Diagnoses: None Author: Kip Xiao MD Pre-Procedure Procedure Date 01/05/2025 08:30:00 . Procedure Type: Colonoscopy with biopsy. Procedure provider Performed by Kip Xiao MD. Current history and physical Documented on chart. Colonoscopy ([id number]) on 09/05/2024 at 39 Years. Esophagogastroduodenoscopy ([id number]) on 09/05/2024 at 39 Years. Esophagogastroduodenoscopy ([id number]) on 06/29/2019 at 34 Years. Colonoscopy ([id number]) on 06/29/2019 at 34 Years. right Arthroscopy of knee ([id number]). [place] tooth ([id number]). Colonoscopy ([id number]).. Past Medical History Active Crohn disease ([id number]) foliculitis seborrice dermititis Resolved ([id number]): Onset on 08/05/2017 at 32 years. Resolved on 04/04/2018 at 33 years. ([id number]): Onset on 01/03/2015 at 29 years. Resolved on 10/25/2015 at 30 years. ([id number]): Onset on 12/29/2000 at 15 years. Resolved in 2001 at 16 years.. Family History Entire family history is negative.. Procedure History Colonoscopy ([id number]) on 09/05/2024 at 39 Years. Esophagogastroduodenoscopy ([id number]) on 09/05/2024 at 39 Years. Esophagogastroduodenoscopy ([id number]) on 06/29/2019 at 34 Years. Colonoscopy ([id number]) on 06/29/2019 at 34 Years. right Arthroscopy of knee ([id number]). [place] tooth ([id number]). Colonoscopy ([id number]).. Colorectal neoplasm risk assessment Average risk. Informed Consent After discussing the rationale, risks and benefits, and alternatives to this procedure, the patient provided signed consent for the procedure. Pre-procedure diagnosis: Diagnostic: Crohn's disease. Medications (Selected) Inpatient Medications Ordered Sodium Chloride 0.9% IV Dottie 1000 mL 1,000 mL: 1,000 mL, IV, 20 mL/hr, Routine, Start date 01/05/25 6:41:00 EDT, 50 hour(s), Total volume (mL): 1,000 Prescriptions Prescribed Colestid 1 g Tab: 2 gm = 2 tab(s), Oral, Daily, # 60 tab(s), Refills(s) 6, Pharmacy: [id number], 165, cm, 11/11/24 9:09:00 EST, Height/Length Dosing, 82, kg, 11/11/24 9:09:00 EST, Weight Dosing Ibgard 90 mg oral delayed release capsule: 180 mg = 2 cap(s), Oral, BID, # 16 cap(s), Refills(s) 0, samples given to patient (Rx) Nexium 40 mg Cap-EC: 40 mg = 1 cap(s), Oral, Daily, # 90 cap(s), Refills(s) 3, Pharmacy: [id number], 165, cm, 07/28/24 12:58:00 EDT, Height/Length Dosing, 83, kg, 07/28/24 12:58:00 EDT, Weight Dosing budesonide 3 mg oral delayed release capsule: 9 mg = 3 cap(s), Oral, qAM, # 90 cap(s), Refills(s) 3, Pharmacy: [id number], 165, cm, 07/28/24 12:58:00 EDT, Height/Length Dosing, 83, kg, 07/28/24 12:58:00 EDT, Weight Dosing famotidine 40 mg Tab: 40 mg = 1 tab(s), Oral, Once a day (at bedtime), # 90 tab(s), Refills(s) 3, Pharmacy: [id number], 165, cm, 09/05/24 11:54:00 EST, Height/Length Dosing, 83, kg, 09/05/24 11:54:00 EST, Weight Dosing Documented Medications Documented Stelara: SubCutaneous, q4wk, Refills(s) 0, Other (see comment) ASA Classification: Class II. . Monitoring: See anesthesia record. . Procedure The procedure was performed in the hospital. See anesthesia record for sedation given during procedure. The patient was positioned starting in the left lateral decubitus position. Endoscope type used was a pediatric-size. The endoscope was lubricated then introduced through the anus. The scope was advanced to the cecum. No difficulties encountered during the procedure. The bowel preparation quality was adequate (see polyps greater than or equal to 6 millimeters). The patient tolerated the procedure well. Extent reached: 5 min Time of withdrawal: 6 min Current therapy for IBD: Stelara q4w Findings 1. Small internal hemorrhoids 2. Normal colonic mucosa 3. Widely open IC valve, TI mucosa significantly improved, normal villi, biopsies were taken Images Procedure images: [id number] Rec1_hd_video_2024__[id number]. jpg Rec1_hd_video_2024__[id number]. jpg Rec1_hd_video_2024__[id number]. jpg Rec1_hd_video_2024__[id number]. jpg Rec1_hd_video_2024__[id number]. jpg Rec1_hd_video_2024__03T07_[id number]. jpg Rec1_hd_video_2024__03T07_[id number]. jpg Rec1_hd_video_2024__[id number]. jpg Rec1_hd_video_2024_04_[id number]. jpg (Inserted Image. Unable to disp (more content not included)... [facility] Comment on above: Result Comment: Elec tronically Signed By: Kip Xiao MD\.br\Date and Time Signed: 01/05/25 08:31 EDT Other Comment: Rose edwards Attachment - attachment storage system not supported [id number] Can be viewed in source [facility] Attachment - attachment storage system not supported [id number] Can be viewed in source systemMisslowell [facility] Attachment - attachment storage system not supported [id number] Can be viewed in source systemMisslowell [facility] Attachment - attachment storage system not supported [id number] Can be viewed in source systemMisslowell [facility] Attachment - attachment storage system not supported [id number] Can be viewed in source systemMisslow[facility] Attachment - attachment storage system not supported [id number] Can be viewed in source systemMisslow[facility] Attachment - attachment storage system not supported [id number] Can be viewed in source systemMisslow[facility] Attachment - attachment storage system not supported [id number] Can be viewed in source systemMisslowell [facility] Attachment - attachment storage system not supported [id number] Can be viewed in source systemMisslow[facility] Attachment - attachment storage system not supported [id number] Can be viewed in source systemMisslowell [facility] Attachment - attachment storage system not supported [id number] Can be viewed in source systemMisslow[facility] Attachment - attachment storage system not supported [id number] Can be viewed in source systemMisslow[facility] Attachment - attachment storage system not supported [id number] Can be viewed in source systemMisslowell [facility] Attachment - attachment storage system not supported [id number] Can be viewed in source systemMisslowell [facility] Attachment - attachment storage system not supported [id number] Can be viewed in source system 01-05-2025 Note Endoscopic Procedure Report - Other Patient: SUSANA SCHMIDT Age: 39 years Sex: Female : 1985 Associated Diagnoses: None Author: Kip Xiao MD Pre-Procedure Procedure Date 01/05/2025 08:15:00 . Procedure Type: Push enteroscopy. with biopsy. Procedure provider Performed by Kip Xiao MD. Current history and physical Documented on chart. Informed Consent After discussing the rationale, risks and benefits, and alternatives to this procedure, the patient provided signed consent for the procedure. Pre-procedure diagnosis: Crohn's disease, abdominal pain. ASA Classification: Class III. . Monitoring: See anesthesia record. . Procedure The procedure was performed in the hospital. See anesthesia record for sedation given during procedure. The patient was positioned starting in the left lateral decubitus position and with safety measures. Endoscope type used was an adult-size, introduced orally, advanced to jejunum. No difficulty was encountered during the procedure. Views were excellent. The patient tolerated the procedure well. Findings 1. Esophageal landmarks identified, LA grade B esophagitis noted, otherwise normal examined esophagus 2. Normal examined stomach, and biopsies were taken to rule H. pylori 3. Normal examined duodenum 4. Normal examined proximal jejunum Images Procedure images: Rec1_hd_video_2024__[id number]. jpg Rec1_hd_video_2024__[id number]__[id number]. jpg Rec1_hd_video_2024__[id number]. jpg Rec1_hd_video_2024__[id number]__[id number]. jpg Rec1_hd_video_2024__[id number]__[id number]. jpg . Post-Procedure Complications: none. Estimated blood loss: minimal. Specimens: None. Devices/ implants: none left in place. Impression and Plan 1. Esophageal landmarks identified, LA grade B esophagitis noted, otherwise normal examined esophagus 2. Normal examined stomach, and biopsies were taken to rule H. pylori 3. Normal examined duodenum 4. Normal examined proximal jejunum Recommendations -Continue previous diet -Avoid NSAIDs -Follow-up in GI clinic in 1 to 2 weeks when pathology is available [facility] Comment on above: Result Comment: Elec tronically Signed By: Kip Xiao MD\.br\Date and Time Signed: 01/05/25 08:17 EDT Other Comment: Rose ng Attachment - attachment storage system not supported [id number] Can be viewed in source system Missing Attachment - attachment storage system not supported [id number] Can be viewed in source system Missing Attachment - attachment storage system not supported [id number] Can be viewed in source system Missing Attachment - attachment storage system not supported [id number] Can be viewed in source system Missing Attachment - attachment storage system not supported [id number] Can be viewed in source system 01-05-2025 Note History and Physical Patient: SUSANA SCHMIDT Age: 39 years Sex: Female : 1985 Associated Diagnoses: None Author: Dameon OCASIO, Kip Brunner Preoperative Information Indication for procedure and diagnosis: Crohn's Chief Complaint as above Review of Systems All systems reviewed, negative except as mentioned above Health Status Current medications: (Selected) Inpatient Medications Ordered Sodium Chloride 0.9% IV Dottie 1000 mL 1,000 mL: 1,000 mL, IV, 20 mL/hr, Routine, Start date 01/05/25 6:41:00 EDT, 50 hour(s), Total volume (mL): 1,000 Prescriptions Prescribed Colestid 1 g Tab: 2 gm = 2 tab(s), Oral, Daily, # 60 tab(s), Refills(s) 6, Pharmacy: [facility], 165, cm, 11/11/24 9:09:00 EST, Height/Length Dosing, 82, kg, 11/11/24 9:09:00 EST, Weight Dosing Ibgard 90 mg oral delayed release capsule: 180 mg = 2 cap(s), Oral, BID, # 16 cap(s), Refills(s) 0, samples given to patient (Rx) Nexium 40 mg Cap-EC: 40 mg = 1 cap(s), Oral, Daily, # 90 cap(s), Refills(s) 3, Pharmacy: [facility], 165, cm, 07/28/24 12:58:00 EDT, Height/Length Dosing, 83, kg, 07/28/24 12:58:00 EDT, Weight Dosing budesonide 3 mg oral delayed release capsule: 9 mg = 3 cap(s), Oral, qAM, # 90 cap(s), Refills(s) 3, Pharmacy: [facility], 165, cm, 07/28/24 12:58:00 EDT, Height/Length Dosing, 83, kg, 07/28/24 12:58:00 EDT, Weight Dosing famotidine 40 mg Tab: 40 mg = 1 tab(s), Oral, Once a day (at bedtime), # 90 tab(s), Refills(s) 3, Pharmacy: [facility], 165, cm, 09/05/24 11:54:00 EST, Height/Length Dosing, 83, kg, 09/05/24 11:54:00 EST, Weight Dosing Documented Medications Documented Stelara: SubCutaneous, q4wk, Refills(s) 0, Other (see comment), Home Medications (6) Active budesonide 3 mg oral delayed release capsule 9 mg = 3 cap(s), Oral, qAM Colestid 1 g Tab 2 gm = 2 tab(s), Oral, Daily famotidine 40 mg Tab 40 mg = 1 tab(s), Oral, Once a day (at bedtime) Ibgard 90 mg oral delayed release capsule 180 mg = 2 cap(s), Oral, BID Nexium 40 mg Cap-EC 40 mg = 1 cap(s), Oral, Daily Stelara , SubCutaneous, q4wk Problem list: All Problems Crohn disease / SNOMED CT 61698619 / Confirmed foliculitis / Confirmed seborrice dermititis / Confirmed Anemia / SNOMED CT 334060575 / Confirmed Heart murmur / SNOMED CT 552329820 / Confirmed Crohn's disease, small intestine / SNOMED CT 80106930 / Confirmed Loose stools / SNOMED CT 2016853993 / Confirmed Epigastric pain / SNOMED CT 790691737 / Confirmed Abdominal pain / SNOMED CT 92844614 / Confirmed Histories Past Medical History: Active Crohn disease ([id number]) foliculitis seborrice dermititis Resolved ([id number]): Onset on 08/05/2017 at 32 years. Resolved on 04/04/2018 at 33 years. ([id number]): Onset on 01/03/2015 at 29 years. Resolved on 10/25/2015 at 30 years. ([id number]): Onset on 12/29/2000 at 15 years. Resolved in 2001 at 16 years. Family History: Entire family history is negative. Procedure history: Colonoscopy ([id number]) on 09/05/2024 at 39 Years. Esophagogastroduodenoscopy ([id number]) on 09/05/2024 at 39 Years. Esophagogastroduodenoscopy ([id number]) on 06/29/2019 at 34 Years. Colonoscopy ([id number]) on 06/29/2019 at 34 Years. right Arthroscopy of knee ([id number]). [place] tooth ([id number]). Colonoscopy ([id number]). 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 [employer] 10/25/2015 14:55 - Love Arboleda RN 11/11/2024 Status: Employed Description: [employer] Exercise 11/11/2024 Risk Assessment: Occasional exercise Home/Environment 11/11/2024 Risk Assessment: Low Risk 11/11/2024 Lives with: Children, Spouse Alcohol abuse in household: No Substance abuse in household: No Smoker in household: Yes Injuries/Abuse/Neglect in household: No Agencies notified: Crohn's disease in remission Nutrition/Health 11/11/2024 Type of diet: Regular Comment: Crohn's disease in remission - 10/25/2015 14:57 - Love Arboleda RN Substance Abuse 11/11/2024 Risk Assessment: Denies Substance Abuse Tobacco 11/11/2024 Risk Assessment: Denies Tobacco Use 11/11/2024 Tobacco Use: Former smoker, quit more Smokeless tobacco use: Never Smoking Cessation Yes 11/11/2024 Tobacco Use: Former smoker, quit more 11/11/2024 Tobacco Use: Former smoker, quit more . Physical Examination Vital Signs (last 24 hrs) Last Charted Temp Temporal 36.8 DegC (JAN 05 07:33) Heart Rate Monitored 93 bpm (JAN 05 07:33) Resp Rate 16 br/min (JAN 05 07:33) SBP 109 mmHg (JAN 05 07:33) DBP 74 mmHg (JAN 05 07:33) Weight 82 kg (JAN 05:38) BMI 30.12 (JAN 05:38) General: in Nad Abdomen: S (more content not included)... [facility] Comment on above: Result Comment: Elec tronically Signed By: Dameon OCASIO, Kip Brunner\.br\Date and Time Signed: 01/05/25 08:06 EDT 01-05-2025 Note Progress Note-Physic derrell Patient: SUSANA CSHMIDT Age: 39 years Sex: Female : 1985 Associated Diagnoses: None Author: Rudolph Diez Jr., DO Preoperative Information Anesthesia history: Patient history: No prior anesthetic problems. Informed consent: Signed by patient. Re-evaluation prior to induction: Initial evaluation reviewed: No significant change. Review of Systems Respiratory: Negative except as documented in history of present illness. Cardiovascular: Negative except as documented in history of present illness. Health Status Allergies: Allergic Reactions (Selected) No Known Allergies, Allergies (1) Active Severity Reaction No Known Allergies None Documented Current medications: (Selected) Inpatient Medications Ordered Sodium Chloride 0.9% IV Dottie 1000 mL 1,000 mL: 1,000 mL, IV, 20 mL/hr, Routine, Start date 01/05/25 6:41:00 EDT, 50 hour(s), Total volume (mL): 1,000 Prescriptions Prescribed Colestid 1 g Tab: 2 gm = 2 tab(s), Oral, Daily, # 60 tab(s), Refills(s) 6, Pharmacy: [facility], 165, cm, 11/11/24 9:09:00 EST, Height/Length Dosing, 82, kg, 11/11/24 9:09:00 EST, Weight Dosing Ibgard 90 mg oral delayed release capsule: 180 mg = 2 cap(s), Oral, BID, # 16 cap(s), Refills(s) 0, samples given to patient (Rx) Nexium 40 mg Cap-EC: 40 mg = 1 cap(s), Oral, Daily, # 90 cap(s), Refills(s) 3, Pharmacy: [facility], 165, cm, 07/28/24 12:58:00 EDT, Height/Length Dosing, 83, kg, 07/28/24 12:58:00 EDT, Weight Dosing budesonide 3 mg oral delayed release capsule: 9 mg = 3 cap(s), Oral, qAM, # 90 cap(s), Refills(s) 3, Pharmacy: [facility], 165, cm, 07/28/24 12:58:00 EDT, Height/Length Dosing, 83, kg, 07/28/24 12:58:00 EDT, Weight Dosing famotidine 40 mg Tab: 40 mg = 1 tab(s), Oral, Once a day (at bedtime), # 90 tab(s), Refills(s) 3, Pharmacy: [facility], 165, cm, 09/05/24 11:54:00 EST, Height/Length Dosing, 83, kg, 09/05/24 11:54:00 EST, Weight Dosing Documented Medications Documented Stelara: SubCutaneous, q3mo, Refills(s) 0, Other (see comment), Home Medications (6) Active budesonide 3 mg oral delayed release capsule 9 mg = 3 cap(s), Oral, qAM Colestid 1 g Tab 2 gm = 2 tab(s), Oral, Daily famotidine 40 mg Tab 40 mg = 1 tab(s), Oral, Once a day (at bedtime) Ibgard 90 mg oral delayed release capsule 180 mg = 2 cap(s), Oral, BID Nexium 40 mg Cap-EC 40 mg = 1 cap(s), Oral, Daily Stelara , SubCutaneous, q3mo , Medications (1) Active Scheduled: (0) Continuous: (1) Sodium Chloride 0.9% 1,000 mL 1,000 mL, IV, 20 mL/hr PRN: (0) Problem list: All Problems Abdominal pain / SNOMED CT 10494183 / Confirmed Anemia / SNOMED CT 637227401 / Confirmed Crohn disease / SNOMED CT 19762732 / Confirmed Crohn's disease, small intestine / SNOMED CT 57044564 / Confirmed Epigastric pain / SNOMED CT 736279544 / Confirmed foliculitis / Confirmed Heart murmur / SNOMED CT 297984954 / Confirmed Loose stools / SNOMED CT 1140543695 / Confirmed seborrice dermititis / Confirmed Resolved: / SNOMED CT 917193787 Resolved: / SNOMED CT 535789774 Resolved: / SNOMED CT 473076482 Histories Past Medical History: Active Crohn disease ([id number]) foliculitis seborrice dermititis Resolved ([id number]): Onset on 08/05/2017 at 32 years. Resolved on 04/04/2018 at 33 years. ([id number]): Onset on 01/03/2015 at 29 years. Resolved on 10/25/2015 at 30 years. ([id number]): Onset on 12/29/2000 at 15 years. Resolved in 2001 at 16 years. Procedure history: Colonoscopy ([id number]) on 09/05/2024 at 39 Years. Esophagogastroduodenoscopy ([id number]) on 09/05/2024 at 39 Years. Esophagogastroduodenoscopy ([id number]) on 06/29/2019 at 34 Years. Colonoscopy ([id number]) on 06/29/2019 at 34 Years. right Arthroscopy of knee (073047338). [place] tooth ([id number]). Colonoscopy ([id number]). 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 [employer] - 10/25/2015 14:55 - Love Arboleda RN 11/11/2024 Status: Employed Description: [employer] Exercise 11/11/2024 Risk Assessment: Occasional exercise Home/Environment 11/11/2024 Risk Assessment: Low Risk 11/11/2024 Lives with: Children, Spouse Alcohol abuse in household: No Substance abuse in household: No Smoker in household: Yes Injuries/Abuse/Neglect in household: No Agencies notified: Crohn's disease in remission Nutrition/Health 11/11/2024 Type of diet: Regular Comment: Crohn's disease in remission - 10/25/2015 14:57 Love Echevarria RN Substance Abuse 11/11/2024 Risk Assessment: Denies Substance Abuse Tobacco 11/11/2024 Risk Assessment: Denies Tobacco Use 02 (more content not included)... [facility] Comment on above: Result Comment: Elec tronically Signed By: Rudolph Diez Jr., DO\Date and Time Signed: 01/05/25 07:36 EDT 12-15-2024 Telephone encounter Note Martin, this is Susana Portage. My D. O. B. Is [id number] have a couple questions about the side effects I am experiencing from the Celexa, I am on I was put on it about a week, if you can please call me back. That would be great. [phone]. Pt c/o BARNES, Dry Mouth, Insomnia, Decreased Appetite, and Nausea. Pt advised that it take 2 weeks for medicine to kick in. Otherwise if side effects are unbearable than pt to discontinue. Pt would like to know dr. Bueno's opinion Please advise. [facility] 12-15-2024 Miscellaneous Notes Martin, this is Susana Sellersland. My D. O. B. Is [phone] have a couple questions about the side effects I am experiencing from the Celexa, I am on I was put on it about a week, if you can please call me back. That would be great. [phone]. Pt c/o BARNES, Dry Mouth, Insomnia, Decreased Appetite, and Nausea. Pt advised that it take 2 weeks for medicine to kick in. Otherwise if side effects are unbearable than pt to discontinue. Pt would like to know dr. Bueno's opinion Please advise. documented in this encounter [facility] 12-06-2024 History of Present illness Narrative Reason for Appointment: Patient ID: Susana Schmidt is a 39 y.o. female who presents for Menopause (Pt present today to discuss jasmin menopausal symptoms.) Patient presents today for Jasmin -menopause MEDICATIONS Current Outpatient Medications Medication Instructions budesonide EC (ENTOCORT EC) 3 mg, Daily colestipol (COLESTID) 2 g, Daily dicyclomine [...] Exam Constitutional: Appearance: Normal appearance. She is normal weight. HENT: Head: Normocephalic. Cardiovascular: Rate and Rhythm: Normal rate. Pulses: Normal pulses. Pulmonary: Effort: Pulmonary effort is normal. Breath sounds: Normal breath sounds. Abdominal: Palpations: Abdomen is soft. Musculoskeletal: General: Normal range of motion. Neurological: General: No focal deficit present. Mental Status: She is alert and oriented to person, place, and time. Psychiatric: Mood and Affect: Mood normal. Behavior: Behavior normal. Thought Content: Thought content normal. Judgment: Judgment normal. Vitals and nursing note reviewed. Vitals: Estimated body mass index is 30.12 kg/m as calculated from the following: Height as of 02/02/24: 5' 5 . Weight as of 08/31/24: 181 lb. BP: No LMP recorded. Patient has had an ablation. ASSESSMENT & PLAN ICD-10-CM 1. Jasmin-menopause N95.1 Patient in office due to having jasmin-menopause issues. Pt complains of having continued bleeding after having an ablation 3 months ago. Pt states the bleeding has tapered down but, its still heavy when she bleeds. Pt also complains of anxiety/panic attacks that come at any moment, irritable, agitated and very hormonal. Pt states she has had hallucinations and has scared her. Patient would like to discuss what options she may have to help with all of her issues. I believe patients symptoms are anxiety and stress driven. Patient dealing with a lot of personal issues and a sick little one at home. She describes symptoms of irritability and and panic attacks. We discussed trying celexa. Patient has agreed. We will do telehealth in one month to discuss symptoms. She denies suicidal or homicidal thoughts Pt was prescribed Celexa 20 mg at today's visit and sent to pharmacy. Documented by Karen Brock MA on behalf of: PATRICIA Boyd documented in this encounter [facility] 09-05-2024 Note Progress Note-Physic derrell Patient: SUSANA SCHMIDT Age: 39 years Sex: Female : 1985 Associated Diagnoses: None Author: Kin Frederick MD Postoperative Information Postoperative disposition: Postoperative disposition: To PACU. Optimetrix number: Optimetrix number [id number]. Anesthetic utilized: General. Health Status Allergies: Allergic Reactions (Selected) No Known Allergies Physical Examination Vital Signs 09/05/2024 13:48 EST Heart Rate Monitored 75 bpm Respiratory Rate Monitored 18 br/min Systolic Blood Pressure 120 mmHg Diastolic Blood Pressure 80 mmHg Mean Arterial Pressure, Cuff 93 mmHg SpO2 96 % 09/05/2024 13:35 EST Heart Rate Monitored 80 bpm Respiratory Rate Monitored 14 br/min Systolic Blood Pressure 113 mmHg Diastolic Blood Pressure 81 mmHg Mean Arterial Pressure, Cuff 92 mmHg SpO2 97 % 09/05/2024 13:23 EST Temperature Temporal Artery 36.7 DegC Heart Rate Monitored 84 bpm Respiratory Rate Monitored 19 br/min Systolic Blood Pressure 110 mmHg Diastolic Blood Pressure 72 mmHg Mean Arterial Pressure, Cuff 85 mmHg SpO2 98 % Pain Assessment: Controlled. General: Awake, Appropriate. Respiratory: Adequate air exchange. Cardiovascular: Stable. Neurological Assessment Anesthetic outcome No anesthetic complications noted. Adequate pain relief. Review / Management Condition: Stable. Plan Transfer/Discharge: Transfer/Discharge Discharge when meets criteria ( To home ). [facility] Comment on above: Result Comment: Elec tronically Signed By: Otoniel OCASIO, Kin Alarcon\.br\Date and Time Signed: 09/05/24 14:54 EST 09-05-2024 Note Patient Education - Text Endoscopy Care After Procedure Please read the instructions outlined below and refer to this sheet in the next few weeks. These discharge instructions provide you with general information on caring for yourself after you leave the hospital. Your doctor may also give you specific instructions. While your treatment has been planned according to the most current medical practices available, unavoidable complications occasionally occur. If you have any problems or questions after discharge, please call your doctor. ACTIVITY ??? You may resume your regular activity but move at a slower pace for the next 24 hours. ??? Take frequent rest periods for the next 24 hours. ??? Walking will help expel (get rid of) the air and reduce the bloated feeling in your abdomen. ??? No driving for 24 hours (because of the anesthesia (medicine) used during the test). ??? You may shower. ??? Do not sign any important legal documents or operate any machinery for 24 hours (because of the anesthesia used during the test). NUTRITION ??? Drink plenty of fluids. ??? You may resume your normal diet. ??? Begin with a light meal and progress to your normal diet. ??? Avoid alcoholic beverages for 24 hours or as instructed by your caregiver. MEDICATIONS ??? You may resume your normal medications unless your caregiver tells you otherwise. WHAT YOU CAN EXPECT TODAY ??? You may experience abdominal discomfort such as a feeling of fullness or ???gas??? pains. FOLLOW-UP ??? Your doctor will discuss the results of your test with you. seek immediate medical attention if any of the following occur: ??? Excessive nausea (feeling sick to your stomach) and/or vomiting. ??? Severe abdominal pain and distention (swelling). ??? Trouble swallowing. ??? Temperature over 100 F (37.8??? C). ??? Rectal bleeding or vomiting of blood. Document Released: 05/05/2005 Document Re-Released: 03/15/2007 ExitCare??? Patient Information ???2009 [employer]. Colonoscopy Care After Surgery Please read the instructions outlined below and refer to this sheet in the next few weeks. These discharge instructions provide you with general information on caring for yourself after you leave the hospital. Your doctor may also give you specific instructions. While your treatment has been planned according to the most current medical practices available, unavoidable complications occasionally occur. If you have any problems or questions after discharge, please call your doctor. ACTIVITY You may resume your regular activity, but move at a slower pace for the next 24 hours. Take frequent rest periods for the next 24 hours. Walking will help get rid of the air and reduce the bloated feeling in your abdomen (belly). No driving for 24 hours (because of the anesthesia (medicine) used during the test). You may shower. Do not sign any important legal documents or operate any machinery for 24 hours (because of the anesthesia used during the test). NUTRITION Drink plenty of fluids. You may resume your normal diet as instructed by your doctor. Begin with a light meal and progress to your normal diet. Heavy or fried foods are harder to digest and may make you feel nauseated (sick to your stomach). Avoid alcoholic beverages for 24 hours or as instructed. MEDICATIONS You may resume your normal medications unless your doctor tells you otherwise. WHAT YOU CAN EXPECT TODAY Some feelings of bloating in the abdomen. Passage of more gas than usual. Spotting of blood in your stool or on the toilet paper. FOLLOW-UP Your doctor will discuss the results of your test with you. SEEK IMMEDIATE MEDICAL ATTENTION IF: There is more than a spotting of blood in your stool. There is abdominal distention (your abdomen is swollen). There is vomiting. You have a temperature over 101.5 F. There is abdominal pain or discomfort that is severe or gets worse throughout the day. Gastroenterology Esophagitis Esophagitis is inflammation of the esophagus. The esophagus is the tube that carries food from the mouth to the stomach. Esophagitis can cause soreness or pain in the esophagus. This condition can make it difficult and painful to swallow. What are the causes? Most causes of esophagitis are not serious. Common causes of this condition include: ??? Gastroesophageal reflux disease (GERD). This is when stomach contents move back up into the esophagus (reflux). ??? Repeated vomiting. ??? An allergic reaction, especially caused by food allergies (eosinophilic esophagitis). ??? Injury to the esophagus by swallowing large pills with or without water, or swallowing certain types of medicines. ??? Swallowing harmful chemicals, such as household cleaning products. ??? Drinking a lot of alcohol. ??? An infection of the esophagus. This most often occurs in people who have a weakened immune system. ??? Radiation or chemotherapy treatm (more content not included)... [facility] 09-05-2024 Note Endoscopic Procedure Report - Other Patient: SUSANA SCHMIDT Age: 39 years Sex: Female : 1985 Associated Diagnoses: None Author: Kip Xiao MD Pre-Procedure Procedure Date 09/05/2024 13:16:00 . Procedure Type: Colonoscopy with biopsy. Procedure provider Performed by Kip Xiao MD. Current history and physical Documented on chart. Esophagogastroduodenoscopy ([id number]) on 06/29/2019 at 34 Years. Colonoscopy ([id number]) on 06/29/2019 at 34 Years. right Arthroscopy of knee ([id number]). [place] tooth ([id number]). Colonoscopy ([id number]).. Past Medical History Active Crohn disease ([id number]) foliculitis seborrice dermititis Resolved ([id number]): Onset on 08/05/2017 at 32 years. Resolved on 04/04/2018 at 33 years. ([id number]): Onset on 01/03/2015 at 29 years. Resolved on 10/25/2015 at 30 years. ([id number]): Onset on 12/29/2000 at 15 years. Resolved in 2001 at 16 years.. Family History Entire family history is negative.. Procedure History Esophagogastroduodenoscopy ([id number]) on 06/29/2019 at 34 Years. Colonoscopy ([id number]) on 06/29/2019 at 34 Years. right Arthroscopy of knee ([id number]). [place] tooth ([id number]). Colonoscopy ([id number]).. Colorectal neoplasm risk assessment Average risk. Informed Consent After discussing the rationale, risks and benefits, and alternatives to this procedure, the patient provided signed consent for the procedure. Pre-procedure diagnosis: Diagnostic: Crohn's disease. Medications (Selected) Inpatient Medications Ordered Lactated Ringers IV Dottie 1000 mL 1,000 mL: 1,000 mL, IV, 100 mL/hr, Routine, Start date 09/05/24 12:45:00 EST, 10 hour(s), Total volume (mL): 1,000, 83 kg, 1.95, m2 Sodium Chloride 0.9% IV Dottie 1000 mL 1,000 mL: 1,000 mL, IV, 20 mL/hr, Routine, Start date 09/05/24 6:27:00 EST, 50 hour(s), Total volume (mL): 1,000, 83 kg, 1.95, m2 Prescriptions Prescribed Nexium 40 mg Cap-EC: 40 mg = 1 cap(s), Oral, BID, # 180 cap(s), Refills(s) 3, Pharmacy: [facility], 165, cm, 09/05/24 11:54:00 EST, Height/Length Dosing, 83, kg, 09/05/24 11:54:00 EST, Weight Dosing Nexium 40 mg Cap-EC: 40 mg = 1 cap(s), Oral, Daily, # 90 cap(s), Refills(s) 3, Pharmacy: [facility], 165, cm, 07/28/24 12:58:00 EDT, Height/Length Dosing, 83, kg, 07/28/24 12:58:00 EDT, Weight Dosing Ventolin HFA 90 mcg/inh Aerosol-Adpt: 2 puff(s), Inhalation, q6hr for wheezing, 18 gm, Refill(s) 0, [facility], 165, cm, 08/13/24 12:43:00 EST, Height/Length Dosing, 83, kg, 08/13/24 12:43:00 EST, Weight Dosing budesonide 3 mg oral delayed release capsule: 9 mg = 3 cap(s), Oral, qAM, # 90 cap(s), Refills(s) 3, Pharmacy: [facility], 165, cm, 07/28/24 12:58:00 EDT, Height/Length Dosing, 83, kg, 07/28/24 12:58:00 EDT, Weight Dosing famotidine 40 mg Tab: 40 mg = 1 tab(s), Oral, Once a day (at bedtime), # 90 tab(s), Refills(s) 3, Pharmacy: [facility], 165, cm, 09/05/24 11:54:00 EST, Height/Length Dosing, 83, kg, 09/05/24 11:54:00 EST, Weight Dosing Documented Medications Documented Stelara: SubCutaneous, q3mo, Refills(s) 0, Other (see comment) ASA Classification: Class II. . Monitoring: See anesthesia record. . Procedure The procedure was performed in the hospital. See anesthesia record for sedation given during procedure. The patient was positioned starting in the left lateral decubitus position. Endoscope type used was a pediatric-size. The endoscope was lubricated then introduced through the anus. The scope was advanced to the cecum. No difficulties encountered during the procedure. The bowel preparation quality was adequate (see polyps greater than or equal to 6 millimeters). The patient tolerated the procedure well. Last colonoscopy Extent reached: 4 min Time of withdrawal: 10 min Current therapy for IBD: Stelara still every 8 weeks Findings 1. Small internal hemorrhoids 2. Normal colonic mucosa 3. Widely open IC valve suggestive of chronic inflammation in the terminal ileum secondary to Crohn's 4. Advanced about 20 cm in the terminal ileum, there is inflammation and mild stricture with sharp angulation from 5 to 10 cm from the IC valve, multiple large ulcers noted, biopsied, otherwise normal mucosa beyond it Images Procedure images: Rec1_hd_video_2023 397. jpg Rec1_hd_video_2023____30_[id number]. jpg Rec1_hd_video____23_262. jpg Rec1_hd_video____25_640. jpg Rec1_hd_video____04_806. jpg Rec1_hd_video____56_[id number]. jpg Rec1_hd_video_2023____51_[id number]. jpg Re (more content not included)... [facility] Comment on above: Result Comment: Elec tronically Signed By: Dameon OCASIO, Kip Brunner\.br\Date and Time Signed: 09/05/24 13:20 EST Other Comment: Rose ng Attachment - attachment storage system not supported [id number] Can be viewed in source system Missing Attachment - attachment storage system not supported [id number] Can be viewed in source system Missing Attachment - attachment storage system not supported [id number] Can be viewed in source system Missing Attachment - attachment storage system not supported [id number] Can be viewed in source system Missing Attachment - attachment storage system not supported [id number] Can be viewed in source system Missing Attachment - attachment storage system not supported [id number] Can be viewed in source system Missing Attachment - attachment storage system not supported [id number] Can be viewed in source system Missing Attachment - attachment storage system not supported [id number] Can be viewed in source system Missing Attachment - attachment storage system not supported [id number] Can be viewed in source system Missing Attachment - attachment storage system not supported [id number] Can be viewed in source system Missing Attachment - attachment storage system not supported [id number] Can be viewed in source system Missing Attachment - attachment storage system not supported [id number] Can be viewed in source system Missing Attachment - attachment storage system not supported [id number] Can be viewed in source system Missing Attachment - attachment storage system not supported [id number] Can be viewed in source system Missing Attachment - attachment storage system not supported [id number] Can be viewed in source system Missing Attachment - attachment storage system not supported [id number] Can be viewed in source system Missing Attachment - attachment storage system not supported [id number] Can be viewed in source system Missing Attachment - attachment storage system not supported [id number] Can be viewed in source system Missing Attachment - attachment storage system not supported [id number] Can be viewed in source system Missing Attachment - attachment storage system not supported [id number] Can be viewed in source system 09-05-2024 Note Endoscopic Procedure Report - Other Patient: SUSANA SCHMIDT Age: 39 years Sex: Female : 1985 Associated Diagnoses: None Author: Kip Xiao MD Pre-Procedure Procedure Date 09/05/2024 12:58:00 . Procedure Type: Esophagogastroduodenoscopy with biopsy. Procedure provider Performed by Kip Xiao MD. Current history and physical Documented on chart. Informed Consent After discussing the rationale, risks and benefits, and alternatives to this procedure, the patient provided signed consent for the procedure. Pre-procedure diagnosis: GERD. Medications Anticoagulant/antiplatelet None. ASA Classification: Class II. . Monitoring: See anesthesia record. . Procedure The procedure was performed in the hospital. See anesthesia record for sedation given during procedure. The patient was positioned starting in the left lateral decubitus position and with safety measures. Endoscope type used was an adult-size, introduced orally, advanced to the 3rd portion of the duodenum. No difficulty was encountered during the procedure. Views were excellent. The patient tolerated the procedure well. Findings 1. Esophageal landmarks identified, LA grade B esophagitis noted 2. Mild gastritis in the antrum of the stomach, random biopsies were taken to rule out H. pylori 3. Mild nonspecific patchy erythema in the duodenal bulb, random biopsies were taken to rule out Crohn's disease Images Procedure images: Rec_hd_video____11_937. jpg Rec_hd_video____786. jpg Rec_hd_video 254. jpg Rec1_hd_video____58_177. jpg Rec1_hd_video_2023____40_083. jpg Rec1_hd_video_2023____28_[id number]. jpg Rec1_hd_video_2023____[id number]. jpg Rec1_hd_video_2023__T13_06_[id number]. jpg Rec1_hd_video_2023__T1_04_48_[id number]. jpg Rec1_hd_video_2023____37_697. jpg Rec1_hd_video_2023____25_760. jpg Rec1_hd_video_2023__T13__06_[id number]. jpg Rec1_hd_video_2023___03_[id number]. jpg . Post-Procedure Complications: none. Estimated blood loss: minimal. Specimens: sent to pathology. Devices/ implants: none left in place. Impression and Plan 1. Esophageal landmarks identified, LA grade B esophagitis noted 2. Mild gastritis in the antrum of the stomach, random biopsies were taken to rule out H. pylori 3. Mild nonspecific patchy erythema in the duodenal bulb, random biopsies were taken to rule out Crohn's disease Recommendations: -Resume previous diet -Avoid NSAIDs, increase omeprazole to twice a day before breakfast and dinner, start famotidine at bedtime -Await pathology results, follow in GI clinic in 1-2 after discharge -Repeat EGD in 3 months to ensure esophagitis healing [facility] Comment on above: Result Comment: Elec tronically Signed By: Dameon OCASIO, iKp Brunner\.br\Date and Time Signed: 09/05/24 13:00 EST Other Comment: Rose edwards Attachment - attachment storage system not supported [id number] Can be viewed in source system Missing Attachment - attachment storage system not supported [id number] Can be viewed in source system Missing Attachment - attachment storage system not supported [id number] Can be viewed in source system Missing Attachment - attachment storage system not supported [id number] Can be viewed in source system Missing Attachment - attachment storage system not supported [id number] Can be viewed in source system Missing Attachment - attachment storage system not supported [id number] Can be viewed in source system Missing Attachment - attachment storage system not supported [id number] Can be viewed in source system Missing Attachment - attachment storage system not supported [id number] Can be viewed in source system Missing Attachment - attachment storage system not supported [id number] Can be viewed in source system Missing Attachment - attachment storage system not supported [id number] Can be viewed in source system Missing Attachment - attachment storage system not supported [id number] Can be viewed in source system Missing Attachment - attachment storage system not supported [id number] Can be viewed in source system Missing Attachment - attachment storage system not supported [id number] Can be viewed in source system 09-05-2024 Note Progress Note-Physic derrell Patient: SUSANA SCHMIDT Age: 39 years Sex: Female : 1985 Associated Diagnoses: None Author: Kin Frederick MD Preoperative Information Anesthesia Preop Info: Time patient last ate or drank 09/05/2024 00:00:00. Anesthesia history: Patient history: None. Family history+: None. Informed consent: Signed by patient. Re-evaluation prior to induction: Initial evaluation reviewed: No significant change. Review of Systems Eye Ear/Nose/Mouth/Throat Respiratory: No shortness of breath, No cough. Cardiovascular: Negative, No chest pain. Gastrointestinal: Heartburn. Musculoskeletal Neurologic Health Status Allergies: Allergic Reactions (Selected) No Known Allergies, Allergies (1) Active Severity Reaction No Known Allergies None Documented Current medications: (Selected) Inpatient Medications Ordered Sodium Chloride 0.9% IV Dottie 1000 mL 1,000 mL: 1,000 mL, IV, 20 mL/hr, Routine, Start date 09/05/24 6:27:00 EST, 50 hour(s), Total volume (mL): 1,000, 83 kg, 1.95, m2 Prescriptions Prescribed Nexium 40 mg Cap-EC: 40 mg = 1 cap(s), Oral, Daily, # 90 cap(s), Refills(s) 3, Pharmacy: [facility], 165, cm, 07/28/24 12:58:00 EDT, Height/Length Dosing, 83, kg, 07/28/24 12:58:00 EDT, Weight Dosing Ventolin HFA 90 mcg/inh Aerosol-Adpt: 2 puff(s), Inhalation, q6hr for wheezing, 18 gm, Refill(s) 0, [facility], 165, cm, 08/13/24 12:43:00 EST, Height/Length Dosing, 83, kg, 08/13/24 12:43:00 EST, Weight Dosing budesonide 3 mg oral delayed release capsule: 9 mg = 3 cap(s), Oral, qAM, # 90 cap(s), Refills(s) 3, Pharmacy: [facility], 165, cm, 07/28/24 12:58:00 EDT, Height/Length Dosing, 83, kg, 07/28/24 12:58:00 EDT, Weight Dosing Documented Medications Documented Stelara: SubCutaneous, q3mo, Refills(s) 0, Other (see comment), Home Medications (4) Active budesonide 3 mg oral delayed release capsule 9 mg = 3 cap(s), Oral, qAM Nexium 40 mg Cap-EC 40 mg = 1 cap(s), Oral, Daily Stelara , SubCutaneous, q3mo Ventolin HFA 90 mcg/inh Aerosol-Adpt 2 puff(s), PRN, Inhalation, q6hr , Medications (1) Active Scheduled: (0) Continuous: (1) Sodium Chloride 0.9% 1,000 mL 1,000 mL, IV, 20 mL/hr PRN: (0) Problem list: All Problems Abdominal pain / SNOMED CT 10908101 / Confirmed Anemia / SNOMED CT 928635265 / Confirmed Crohn disease / SNOMED CT 74476784 / Confirmed Crohn's disease, small intestine / SNOMED CT 97524631 / Confirmed Epigastric pain / SNOMED CT 571870671 / Confirmed foliculitis / Confirmed Heart murmur / SNOMED CT 953663448 / Confirmed Loose stools / SNOMED CT 6410459835 / Confirmed seborrice dermititis / Confirmed Resolved: / SNOMED CT 663214719 Resolved: / SNOMED CT 476951207 Resolved: / SNOMED CT 686824156, Active Problems (9) Abdominal pain Anemia Crohn disease Crohn's disease, small intestine Epigastric pain foliculitis Heart murmur Loose stools seborrice dermititis Histories Past Medical History: Active Crohn disease (11186070) foliculitis seborrice dermititis Resolved ([id number]): Onset on 08/05/2017 at 32 years. Resolved on 04/04/2018 at 33 years. ([id number]): Onset on 01/03/2015 at 29 years. Resolved on 10/25/2015 at 30 years. ([id number]): Onset on 12/29/2000 at 15 years. Resolved in 2001 at 16 years. Family History: Entire family history is negative. Procedure history: Esophagogastroduodenoscopy ([id number]) on 06/29/2019 at 34 Years. Colonoscopy ([id number]) on 06/29/2019 at 34 Years. right Arthroscopy of knee ([id number]). [place] tooth ([id number]). Colonoscopy ([id number]). 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 - 10/25/2015 14:55 - Love Arboleda RN 08/13/2024 Status: Employed Description: [employer] Exercise 08/13/2024 Risk Assessment: Occasional exercise Home/Environment 08/13/2024 Risk Assessment: Low Risk 08/13/2024 Lives with: Children, Spouse Alcohol abuse in household: No Substance abuse in household: No Smoker in household: Yes Injuries/Abuse/Neglect in household: No Agencies notified: Crohn's disease in remission Nutrition/Health 08/13/2024 Type of diet: Regular Comment: Crohn's disease in remission - 10/25/2015 14:57 Love Echevarria RN Substance Abuse 08/13/2024 Risk Assessment: Denies Substance Abuse Tobacco 08/13/2024 Risk Assessment: Denies Tobacco Use 08/13/2024 Tobacco Use: Former smoker, quit more Smokeless tobacco use: Never Smoking Cessation Yes 08/13/2024 Tobacco Use: Former smoker, quit more . Physical Examination No qualifying data available Airway: Naomi (more content not included)... [facility] Comment on above: Result Comment: Elec tronically Signed By: Otoniel OCASIO, Kin Alarcon\.br\Date and Time Signed: 09/05/24 12:47 EST 09-05-2024 Note History and Physical Patient: SUSANA SCHMIDT Age: 39 years Sex: Female : 1985 Associated Diagnoses: None Author: Dameon OCASIO, Kip Brunner Preoperative Information Indication for procedure and diagnosis: Crohn's and GERD Chief Complaint as above Review of Systems All systems reviewed, negative except as mentioned above Health Status Current medications: (Selected) Inpatient Medications Ordered Sodium Chloride 0.9% IV Dottie 1000 mL 1,000 mL: 1,000 mL, IV, 20 mL/hr, Routine, Start date 09/05/24 6:27:00 EST, 50 hour(s), Total volume (mL): 1,000, 83 kg, 1.95, m2 Prescriptions Prescribed Nexium 40 mg Cap-EC: 40 mg = 1 cap(s), Oral, Daily, # 90 cap(s), Refills(s) 3, Pharmacy: [facility], 165, cm, 07/28/24 12:58:00 EDT, Height/Length Dosing, 83, kg, 07/28/24 12:58:00 EDT, Weight Dosing Ventolin HFA 90 mcg/inh Aerosol-Adpt: 2 puff(s), Inhalation, q6hr for wheezing, 18 gm, Refill(s) 0, [facility], 165, cm, 08/13/24 12:43:00 EST, Height/Length Dosing, 83, kg, 08/13/24 12:43:00 EST, Weight Dosing budesonide 3 mg oral delayed release capsule: 9 mg = 3 cap(s), Oral, qAM, # 90 cap(s), Refills(s) 3, Pharmacy: [facility], 165, cm, 07/28/24 12:58:00 EDT, Height/Length Dosing, 83, kg, 07/28/24 12:58:00 EDT, Weight Dosing Documented Medications Documented Stelara: SubCutaneous, q3mo, Refills(s) 0, Other (see comment), Home Medications (4) Active budesonide 3 mg oral delayed release capsule 9 mg = 3 cap(s), Oral, qAM Nexium 40 mg Cap-EC 40 mg = 1 cap(s), Oral, Daily Stelara , SubCutaneous, q3mo Ventolin HFA 90 mcg/inh Aerosol-Adpt 2 puff(s), PRN, Inhalation, q6hr Problem list: All Problems Crohn disease / SNOMED CT 42536414 / Confirmed foliculitis / Confirmed seborrice dermititis / Confirmed Anemia / SNOMED CT 996082752 / Confirmed Heart murmur / SNOMED CT 655731833 / Confirmed Crohn's disease, small intestine / SNOMED CT 00768451 / Confirmed Loose stools / SNOMED CT 7840600163 / Confirmed Epigastric pain / SNOMED CT 489458555 / Confirmed Abdominal pain / SNOMED CT 07159600 / Confirmed Histories Past Medical History: Active Crohn disease (53413453) foliculitis seborrice dermititis Resolved (951372901): Onset on 08/05/2017 at 32 years. Resolved on 04/04/2018 at 33 years. ([id number]): Onset on 01/03/2015 at 29 years. Resolved on 10/25/2015 at 30 years. ([id number]): Onset on 12/29/2000 at 15 years. Resolved in 2001 at 16 years. Family History: Entire family history is negative. Procedure history: Esophagogastroduodenoscopy ([id number]) on 06/29/2019 at 34 Years. Colonoscopy ([id number]) on 06/29/2019 at 34 Years. right Arthroscopy of knee ([id number]). [place] tooth ([id number]). Colonoscopy ([id number]). 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 14:55 - Love Arboleda RN 08/13/2024 Status: Employed Description: [employer] Exercise 08/13/2024 Risk Assessment: Occasional exercise Home/Environment 08/13/2024 Risk Assessment: Low Risk 08/13/2024 Lives with: Children, Spouse Alcohol abuse in household: No Substance abuse in household: No Smoker in household: Yes Injuries/Abuse/Neglect in household: No Agencies notified: Crohn's disease in remission Nutrition/Health 08/13/2024 Type of diet: Regular Comment: Crohn's disease in remission - 10/25/2015 14:57 - Love Arboleda RN Substance Abuse 08/13/2024 Risk Assessment: Denies Substance Abuse Tobacco 08/13/2024 Risk Assessment: Denies Tobacco Use 08/13/2024 Tobacco Use: Former smoker, quit more Smokeless tobacco use: Never Smoking Cessation Yes 08/13/2024 Tobacco Use: Former smoker, quit more . Physical Examination Vital Signs (last 24 hrs) Last Charted Temp Temporal 36.8 DegC (SEP 05 11:55) Heart Rate Monitored 78 bpm (SEP 05 11:55) Resp Rate 10 br/min (SEP 05 11:55) SBP 125 mmHg (SEP 05 11:55) DBP 86 mmHg (SEP 05 11:55) Weight 83 kg (SEP 05 11:53) BMI 30.49 (SEP 05 11:53) General: in Nad Abdomen: Soft, NTND Impression and Plan Impression: Crohn's and GERD Plan: -EGD and Colonoscopy [facility] Comment on above: Result Comment: Elec tronically Signed By: Dameon OCASIO, Kip Brunner\.br\Date and Time Signed: 09/05/24 12:45 EST 08-31-2024 History of Present illness Narrative Reason for Appointment: Patient ID: Susana Schmidt is a 39 y.o. female who presents for Post-op Visit (Pt present today for post operative visit. Pt had an ablation/salpingectomy on 08/24/2024.) Patient presents today for 1 Week Post Op Follow Up appointment. MEDICATIONS Current Outpatient Medications Medication Instructions budesonide [...] SYSTEMS Review of Systems: Review of Systems OBJECTIVE Objective: OBGyn Exam Vitals: Estimated body mass index is 30.12 kg/m as calculated from the following: Height as of 02/02/24: 5' 5 . Weight as of this encounter: 181 lb. BP: 124/76 No LMP recorded. Patient has had an ablation. ASSESSMENT & PLAN ICD-10-CM 1. Postoperative visit Z48.89 2. S/P tubal ligation Z98.51 3. S/P endometrial ablation Z98.890 Post Op Follow Up: Patient presents today for a postop follow up after having a Bilateral Laparoscopic Salpingectomy/Nuris ablation performed at [facility] with Dr. Bueno. Patient is healing well and shows no signs or symptoms of infection. Pathology results was reviewed with the patient in great detail and all restrictions have been lifted. Patient has complaints of having some depression and anxiety and has no appetite since the surgery. Follow Up: Patient is to return to the office for annual exam unless needed otherwise. Documented by Karen Brock MA on behalf of: PATRICIA Boyd documented in this encounter [facility] 08-09-2024 History of Present illness Narrative Reason for Appointment: Patient ID: Susana Schmidt is a 39 y.o. female who presents for Pre-op Visit Patient presents today for Pre Op appointment. Patient is scheduled to undergo Da Monica assisted Bilateral Laparoscopic Salpingectomy and Endometrial Ablation with Nuris on 08/24/[address] Bueno at [facility]. MEDICATIONS Current Outpatient Medications Medication Instructions budesonide [...] nursing note reviewed. Exam conducted with a food service attendant present. Vitals: Estimated body mass index is [...] reviewed, and patient is to proceed to [facility] OR. Follow Up: Patient is to follow up between 1-2 weeks post op to assess proper healing and recovery from procedure. Documented by Christelle Fierro LPN on behalf of: Etienne Bueno DO documented in this encounter [facility] 07-19-2024 History of Present illness Narrative Reason for Appointment: Patient ID: Susana Schmidt is a 39 y.o. female who [...] nursing note reviewed. Exam conducted with a food service attendant present. Vitals: Estimated body mass index is 30.52 kg/m as calculated from the following: Height as of 02/01/: 5' 5 . Weight as of this encounter: 183 lb 6.4 oz. BP: No LMP recorded (within months). ASSESSMENT & PLAN ICD-10-CM 1. PMDD (premenstrual dysphoric disorder) (CMS/[facility]) F32.81 Patient presents today for mood swings, [...] in this encounter [facility] note Diagnosis PMDD (premenstrual dysphoric disorder) (CMS/HCC) Premenstrual tension syndromes Menorrhagia with regular cycle [facility] Diagnosis Pre-operative exam Unspecified pre-operative examination Menorrhagia with regular cycle Abnormal uterine bleeding (AUB) Pelvic pain in female Unspecified symptom associated with female genital organs Request for sterilization [facility] Diagnosis Postoperative visit S/P tubal ligation Tubal ligation status S/P endometrial ablation Other postprocedural status [facility] Diagnosis Jasmin-menopause Symptomatic menopausal or female climacteric states Anxiety, generalized (CMS/HCC) documented [facility] Diagnosis S/P endometrial ablation Other postprocedural status Uterine cramping Uterine pain Abnormal uterine bleeding (AUB) [facility]* Diagnosis Pre-op examination Pelvic pain Dyspareunia in female Dysmenorrhea Menorrhagia with regular cycle Well woman exam with routine gynecological exam Routine gynecological examination Breast cancer screening by mammogram documented in this encounter [facility] Summary [...] section and content) DATE CREATED AUTHOR 02/06/2023 [facility] DATE CREATED AUTHOR AUTHOR'S ORGANIZ ATION 02/03/2024 [facility] DATE CREATED AUTHOR AUTHOR'S ORGANIZ ATION 07/02/2024 [facility] DATE CREATED AUTHOR AUTHOR'S ORGANIZ ATION 07/08/2024 [facility] DATE CREATED AUTHOR AUTHOR'S ORGANIZ ATION 09/06/2024 [facility] DATE CREATED AUTHOR AUTHOR'S ORGANIZ ATION 11/10/2024 [facility] DATE CREATED AUTHOR AUTHOR'S ORGANIZ ATION 11/12/2024 [facility] DATE CREATED AUTHOR AUTHOR'S ORGANIZ ATION 01/11/2025 [facility] DATE CREATED AUTHOR AUTHOR'S ORGANIZ ATION 01/18/2025 [facility] DATE CREATED AUTHOR AUTHOR'S ORGANIZ ATION 02/07/2025 [facility] DATE CREATED AUTHOR AUTHOR'S ORGANIZ ATION 03/28/2025 [facility] DATE CREATED AUTHOR AUTHOR'S ORGANIZ ATION 04/28/2025 [facility] Care Teams (unrecognized sec tion and content) [facility] Relationship Specialty Start Date End Date Toni Brock DO [address] [place] [address] [phone] PCP - General Family Medicine 07/19/24 [facility] Relationship Specialty Start Date End Date Toni Brock DO [address] [place] [address] [phone] PCP - General Family Medicine 07/19/24 [facility] Relationship Specialty Start Date End Date Toni Brock DO [address] [place] [address] [phone] PCP - General Family Medicine 07/19/24 [facility] Relationship Specialty Start Date End Date Toni Brock DO [address] [place] [address] [phone] PCP - General Family Medicine 07/19/24 [facility] Relationship Specialty Start Date End Date Toni Brock DO [address] [place] [phone] PCP - General Family Medicine 07/19/24 [facility] Relationship Specialty Start Date End Date Toni Brock DO [address] [place] [phone] PCP - General Family Medicine 07/19/24 [facility] Relationship Specialty Start Date End Date Toni Brock DO PCP - General [facility] Medicine 07/19/24 [facility] Relationship Specialty Start Date End Date Toni Brock DO PCP - General Family Medicine 07/19/24 [facility] Relationship Specialty Start Date End Date Toni Brock DO PCP - General Family Medicine 07/19/24 [facility] Relationship Specialty Start Date End Date Toni Brock DO PCP - General Family Medicine 07/19/24 Reason for Visit (unrecogniz ed section and content) Reason Comments PMDD Reason Comments Pre-op Visit Reason Comments Post-op Visit Pt present today for post operative visit. Pt had an ablation/salpingectomy on 08/24/2024. Reason Comments Menopause Pt present today to discuss jasmin menopausal symptoms. Reason Comments Discuss Ablation symptoms Pt present tod ay to discuss symptoms after endometrial ablation. Reason Comments Gynecologic Exam Pre-op Visit FOR RECORDS PERTAINING TO PATIENTS [...] BE BASED ON THE PRIMARY CLINICAL RECORDS. [facility] [employer] [facility] provides no warranty or guarantee of the accuracy or completeness of information in this document.
[2025-06-26 17:08] LABS: Age Gdln ACOG Testing Note (.); IGP, Aptima HPV, rfx 16/18,45 Note (.)
== END 2025-06-20 20:28 | disposition home or self-care (01) ==
LOC: LAB 20:27
PROVIDERS: Visit Provider Obstetrics & Gynecology
DX: Z01.419 Encounter for gynecological examination (general) (routine) without abnormal findings (principal)
CPT/HCPCS: 87624; 88175

== ENCOUNTER 2025-07-11 12:19 | Outpatient (OUT) | payer BC, SELFPAY ==
--- OUTSIDE RECORDS SUMMARY | 2025-07-11 12:28 | XMS_ITS | CCD ---
Author Organization [facility] Care Team Providers Care Golf Ball Winder Name Role Phone MYLES ., DR LEIVA Admitting Unavailable MISC, DR BUTT Primary Care Unavailable MYLES ., DR LEIVA Attending Unavailable MYLES ., DR LEIVA Consulting Unavailable MYLES ., DR LEIVA Admitting Unavailable MISC, DR BUTT Primary Care Unavailable MYLES ., DR LEIVA Attending Unavailable MYLES ., DR LEIVA Consulting Unavailable ETIENNE BUENO Attending Unavailable Toni Brock DO Primary Care Provider [phone] Kip Xiao Talal Referring Unavaila ble Sarmini, Kip Talal Attending Unavaila ble Sarmini, Kip Talal Admitting Unavaila ble REYES LORENZO Attending Unavailable Michaelmini, Kip Talal Attending Unavaila ble Sarmini, Kip [...] Unavaila ble Sarmini, Kip Talal Attending Unavaila helio Vinod ISABEL Toni Primary Care Provider CHINA STEVENS Attending Unavailable ETIENNE BUENO Attending Unavailable CHINA STEVENS Attending Unavailable ETIENNE BUENO Attending Unavailable MYLES, ETIENNE Referring Unavailable MYLES, ETIENNE Attending Unavailable CHINA STEVENS Attending Unavailable Sarmini, Shin Talal Admitting Unavaila ble Sarmini, Shin Talal Referring Unavaila ble Sarmini, Shin Talal Attending Unavaila ble Sarmini, Shin Talal Attending Unavaila ble Sarmini, Shin Talal Attending Unavaila ble Sarmini, Kip Samsonal Attending Unavaila ble Allergies Allergy Classification Reported Allergen(s) Allergy Type Date of Onset Reaction(s) Facility (1 source) Luz Elena; Translations: [Wezlana] Propensity to adverse reactions (disorder) [facility] Repository Medications Current Medications Medication Drug Class(es) Dates Sig (Normalized) Sig (Original) budesonide 3 mg delayed release oral capsule (15 sources) Corticosteroid Start: 07-28-2024 take 1 capsule by mouth once daily, then take 1 capsule by mouth every twenty-four hours budesonide EC (Entocort EC) 3 MG 24 hr capsule Take 3 mg by mouth Daily 07/28/2024 Active citalopram 20 mg oral tablet (9 sources) Serotonin Reuptake Inhibitor Start: 12-06-2024 End: 12-06-2025 take 1 tablet by mouth once daily citalopram (CeleXA) 20 MG tablet Indications: Anxiety, generalized Take 1 tablet (20 mg) by mouth Daily 30 tablet 11 12/06/2024 12/06/2025 Active colestipol hydrochloride 1000 mg oral tablet (9 sources) Bile Acid Sequestrant Start: 11-11-2024 take 2 tablets by mouth once daily colestipol (Colestid) 1 g tablet Take 2 g by mouth Daily 11/11/2024 Active dicyclomine hydrochloride 10 mg oral capsule (9 sources) Anticholinergic Start: 11-06-2024 take 1 capsule by mouth four times daily as needed for pain dicyclomine (Bentyl) 10 MG capsule TAKE 1 CAPSULE BY MOUTH FOUR TIMES DAILY FOR 14 DAYS NEEDED FOR PAIN 11/06/2024 Active diphenhydrAMINE hydrochloride 50 mg oral capsule (9 sources) Histamine-1 Receptor Antagonist diphenhydrAMINE (BENADryl) 50 MG capsule Take 50 mg by mouth as needed at bedtime Active doxylamine succinate 25 mg oral tablet (9 sources) doxylamine (Unis om SleepTabs) 25 MG tablet Take 25 mg by mouth as needed at bedtime Active esomeprazole 40 mg delayed release oral capsule (15 sources) Proton Pump Inhibitor Start: 07-28-2024 take 1 capsule by mouth once daily esomeprazole (NexIUM) [address] capsule Take 40 mg by mouth Daily 07/28/2024 Active famotidine 40 mg oral tablet (9 sources) Histamine-2 Receptor Antagonist Start: 10-24-2024 take 1 tablet by mouth at bedtime famotidine (Pepcid) 40 MG tablet Take 40 mg by mouth at bedtime 10/24/2024 Active ferrous sulfate (9 sources) take 1 tablet by mouth in the morning Ferrous Sulfate (IRON PO) Take 1 tablet by mouth in the morning. Active fluticasone propionate 0.05 mg/actuat metered dose nasal spray (9 sources) Corticosteroid take 2 spray(s) nasal route once daily as needed fluticasone (Flonase) 50 MCG/ACT nasal spray Administer 2 sprays into affected nostril(s) Daily as needed Active ibuprofen 800 mg oral tablet (9 sources) Nonsteroidal Anti-inflammatory Drug Start: 08-24-2024 ibuprofen 800 MG tablet 08/24/2024 Active 1 ml ustekinumab 90 mg/ml prefilled syringe (19 sources) Interleukin-12 Antagonist, Interleukin-23 Antagonist Start: 12-21-2023 [...] Interpretation Reference Range Facility Ambulatory Visit Summaryon 0 06-28-2025 Ambulatory Visit Summary Ambulatory Visit Summary SUSANA SCHMIDT :1985 Visit Date:06/28/2025 Ambulatory Visit Instructions Your Diagnosis Crohn's disease, small intestine Epigastric pain Loose stools Your Care Team Attending Physician - Dameon OCASIO, iKp Brunner Primary Care Physician - Toni Brock III, DO This Is Your Medications List budesonide (Entocort EC 3 mg oral delayed release capsule) Contact prescribing physician if questions or concerns Non-Formulary Medication (Histamine Blend SP 33) dicyclomine (dicyclomine 10 mg Cap) esomeprazole (Nexium 40 mg Cap-EC) famotidine (famotidine 40 mg Tab) Procedures Performed Colonoscopy (01/05/2025), Colonoscopy (09/05/2024), Esophagogastroduodenoscopy (09/05/2024), Colonoscopy (06/29/2019), Esophagogastroduodenoscopy (06/29/2019), Arthroscopy of knee, Colonoscopy, [place] tooth. Discharge Vitals Heart Rate (Peripheral) 69 Blood Pressure 100/69 Height 165 cm Height 65 in Weight 81.17 kg Weight 178.949 lb BMI 29.81 What to do next You Need to Schedule the Following Appointments Follow Up with Dameon OCASIO, Kip Brunner, [facility], [facility] When: Within 6 months Where: [address] [place] [address], [facility] [address] [phone] [phone] You Need to Complete the Following C-Reactive Protein, Blood, Routine collect, 06/28/25, Order for future visit, Lab Collect, Crohn's disease, small intestine Epigastric pain, Print Label By Order Location Calprotectin, Fecal, Stool, Routine collect, 06/28/25, Order for future visit, Nurse collect, Crohn's disease, small intestine, Print Label By Order Location CBC w/ Auto Diff, Blood, Routine collect, 06/28/25, Order for future visit, Lab Collect, Crohn's disease, small intestine Epigastric pain, Print Label By Order Location Comprehensive Metabolic Panel, Blood, Routine collect, 06/28/25, Order for future visit, Lab Collect, Crohn's disease, small intestine Epigastric pain, Print Label By Order Location Medications What How Much When Instructions New budesonide (Entocort EC 3 mg oral delayed release capsule) 3 Capsules By Mouth Once a day (in the morning) Refills: 5 Pickup at [facility] Unchanged dicyclomine (dicyclomine 10 mg Cap) 60 [...] physician if questions or concerns Pharmacy Information [facility]: [address] [place], [place] [phone] Allergies Wezlana (Joint pain, Fatigue, Itching) Problems Ongoing - Any problem that you [...] you for choosing us for your care. Patient Portal You may access all of your results and other medical record information on our secure patient portal. If you are not signed up for this yet, please contact [employer] at [phone] to get signed up today. Language Information Language assistance services are available as needed. [facility] Gastroenterology Office/Clin ic Noteon 06-28-2025 Gastroenterology Office/Clinic Note Gastroenterology Office/Clinic Note Chief Complaint Wezlana causing joint pain, itching and fatigue HPI Staff Established patient is a(n) 40 year old female who presents today for a sick call with c/o reaction to Wezlana. Switched to Wezlana q4wks (Stelara biosimilar, preferred by insurance) in April. Reaction: itching all over, joint pain (hands/feet) and fatigue When was last injection? 3 weeks ago Previous tx's tried: Remicade, Stelara, Wezlana, Entocort, Pentasa and 6-MP Was advised to stop 06/21/25 and f/u in office to discuss switching to Tremfya. Any blood thinners? no Any GLP-1 agonists? no Laboratory Results CBC CMP Basophil Absolute: 0.1 [...] 92.4 fL (11/08/24) Chloride: 106 mmol/L (11/08/24) [place] Absolute: 0.4 E9/L (11/08/24) CO2: 26 mmol/L (11/08/24) [place] Auto: 6.4 % (11/08/24) Creatinine: 0.8 mg/dL [...] Physical Exam Vitals & Measurements HR: 69(Peripheral) BP: 100/69 HT: 65 in HT: 165 cm WT: 178.949 lb WT: 81.17 kg BMI: 29.81 No acute distress Procedure EGD/Colonoscopy 01/05/25: Impression and Plan 1. Esophageal landmarks identified, LA grade B esophagitis noted, otherwise normal examined esophagus 2. Normal examined stomach, and biopsies were taken to rule H. pylori 3. Normal examined duodenum 4. Normal examined proximal jejunum Impression and Plan 1. Small internal hemorrhoids [...] reporting heartburn which she did not have before. CT suggestive of some inflammation at the end of the small bowel, no upstream dilation noted We discussed steroids, she reported prednisone gave her suicidal thoughts in the past, started budesonide for 4 weeks, can be extended for 2-3 refills based on symptoms also increased Stelara she reported that she initially feels [...] significantly improved, normal villi No current need f (more content not included)... Normal [facility] Comment on above: Result Comment: Elec tronically Signed By: Rosmery Bartholomew MA\.br\Date and Time Signed: 06/28/25 10:20 EDT\.br\Electronically Co-Signed By: Dameon OCASIO, Kip Brunner\.br\Date and Time Co-Signed: 06/28/25 12:57 EDT IGP,APTIMA HPV,AGE GDLNon AGE GDLN ACOG TESTING Note . [facility] Comment on above: TESTS RESULT FLAG UN ITS REF RANGE LAB Clinician Provided Cytology Information Source.............Cervix;Endocervix No. of containers..01 ThinPrep Vial Age Algo ACOG Carie... FLAG LEGEND: L-Low Normal,H-High Normal,LL-Alert Low,HH-Alert High <-Panic Low,>-Panic High,A-Abnormal,AA-Critical Abnormal Performed at: 01 =[address] [address] Shavon Gonzales MD, HPV APTIMA Negative Negative [facility] Comment on above: This nucleic acid am plification test detects fourteen high- risk HPV types (16,18,31,33,35,39,45,51,52,56,58,59,66,68) without differentiation. Performed at: =[address] [id number] Director Of Hemophilia: Shavon Gonzales MD, Phone: [phone] Performed at: [address] [id number] Director Of Hemophilia: Shavon Gonzales MD, Phone: [phone] IGP, APTIMA HPV, RFX 16/18,45 Note . [facility] Comment on above: TESTS RESULT FLAG UN ITS REF RANGE LAB DIAGNOSIS: 02 NEGATIVE FOR INTRAEPITHELIAL LESION OR MALIGNANCY. Specimen adequacy: 02 Satisfactory for evaluation. Endocervical and/or squamous metaplastic cells (endocervical component) are present. Performed by: 02 Giana Law, Machine Shop Lead Man ([facility]) . 02 Note: Note 02 The Pap smear is a screening test designed to aid in the detection of premalignant and malignant conditions of the uterine cervix. It is not a diagnostic procedure and should not be used as the sole means of detecting cervical cancer. Both false-positive and false-negative reports do occur. Test Methodology: Note 02 This liquid based ThinPrep(R) pap test was screened with the use of an image guided system. HPV Genotype Reflex Note 02 Criteria not met, HPV Genotype not performed. FLAG LEGEND: L-Low Normal,H-High Normal,LL-Alert Low,HH-Alert High <-Panic Low,>-Panic High,A-Abnormal,AA-Critical Abnormal Performed at: [address] [address] Shavon Gonzales MD, BRUSH-SPATULA CERVIX ENDOCERVIX [facility] US PELVIC COMPLETE W/ TVon 0 03-27-2025 [...] II, MD, PHD at 28-Mar-2025 08:31:02 AM [facility] Normal Not Available Comment on above: Order Comment: US PE LVIS-TRANSVAG IF INDICATED No LMP recorded. Patient has had an ablation. Reminderson 02-02-2025 Reminders Reminders From: Asha Apodaca I To: [facility] - Reminders/Recalls; Sent: 02/02/2025 12:02:26 EDT Show up: 12/03/2025 12:02:00 EST Subject: Colonoscopy recall Due Date/Time: 01/05/2026 12:02:00 EDT Reminder/Recall [address] Xiao 01/05/25 Normal [facility] Gastroenterology Office/Clin ic Noteon 01-17-2025 Gastroenterology Office/Clinic Note Gastroenterology Office/Clinic Note Chief Complaint f/u to egd/colonoscopy HPI Staff Established patient is a(n) 39 year old female who presents today for a follow up to EGD & Colonoscopy on 01/05/25. COLON RECALL NEEDS PLACED. Continues Stelara q4 weeks. Serviced through [employer]. Prescribed Colestid and Bentyl at last appt. [...] 92.4 fL (11/08/24) Chloride: 106 mmol/L (11/08/24) [place] Absolute: 0.4 E9/L (11/08/24) CO2: 26 mmol/L (11/08/24) [place] Auto: 6.4 % (11/08/24) Creatinine: 0.8 mg/dL [...] Continue Stelar (more content not included)... Normal [facility] Comment on above: Result Comment: [...] (06/29/2019), Esophagogastroduodenoscopy (06/29/2019), Arthroscopy of knee, Colonoscopy, [place] tooth. Discharge Vitals Heart Rate (Peripheral) 69 Respiratory Rate 14 Blood Pressure 124/86 Height 165 cm Height 65 in Weight 81 kg Weight 178.574 lb BMI 29.75 What to do next Scheduled Follow-Up Appointments Thursday 8:45 AM EDT With: Kip Xiao MD Where: [facility] [address] [facility] [place] [address] [place] [address] You Need to Schedule the Following Appointments Follow Up with Dameon OCASIO, Kip Brunner, [facility], [facility] When: In 3 months Where: [address] [facility] [address] [place] [phone] Medications What How Much When Instructions Unchanged [...] for choosing us for your care. Normal [facility] Surgical Pathology Reporton 01-10-[address] [facility] [address] [place] [address]- Surgical Pathology Report Collected Date/Time: 01/05/2025 08:20 EDT Pathologist: Fausto OCASIO PhD, Sally Espinoza Received Date/Time: 01/05/2025 09:16 EDT Dameon OCASIO, Kip Xiao MD, Kip Brunner 07 Surgical Pathology Report - 01/10/2025 [...] is entirely submitted in one cassette. (DC) DC:[facility] Microscopic Description Microscopic examination performed unless gross only specified. This report was transcribed using voice recognition technology and might contain unintended computerized media operator errors. The use of one or more reagents in the above tests is regulated as an analyte specific reagent (ASR). The test or tests are ordered following initial H&E microscopic examination. The performance characteristics were determined by the Laboratory of [facility] Surgical Pathology. They have not been [...] recognition technology and might contain unintended computerized media operator errors. Normal [facility] Comment on above: Performed By: #### [id number] #### [facility] Laboratory [address] [place] [address] Main OR Intraoperative Recor don 01-06-2025 Main OR Intraoperative Record Main OR Intraoperative Record IntraOp Document Type FT Summary Primary Physician: Kip Xiao MD Finalized Date/Time: 01/06/25 14:08:51 Pt. Name: SUSANA SCHMIDT /Sex: 1985 Female Med Rec #: [id number] Physician: Kip Xiao MD Financial #: [id number] Pt. Type: O Room/Bed: / Admit/Disch: 01/05/25 07:12:58 - 01/06/25 23:59:59 Institution: Case Times FT Entry 1 Patient Times In Room 01/05/25 08:08:00 Out Room 01/05/25 08:31:00 Procedure Times Start 01/05/25 08:12:00 Stop 01/05/25 08:29:00 Anesthesia Times Start 01/05/25 08:08:00 Stop 01/05/25 08:31:00 Time at [facility] 01/05/25 08:23:00 Last Modified By: Vijay VELIZ, Bella 01/05/25 08:33:31 General Comments: 0815-EGD completed/AW RN 0818-Colonoscopy started/AW RN Case Attendance FT Entry 1 Entry 2 Entry 3 Case Attendee Leobardo RUSH, RESTAURANT AREA DIRECTOR, Queen Vijay VELIZ, Bryanna Graves Role Performed RESTAURANT AREA DIRECTOR Director Design - Primary Staff - Other Time In 01/05/25 08:08:00 01/05/25 08:08:00 01/05/25 08:08:00 Time Out 01/05/25 08:31:00 01/05/25 08:31:00 01/05/25 08:31:00 Procedure EGD AND COLONOSCOPY(.) EGD AND COLONOSCOPY(.) EGD AND COLONOSCOPY(.) Comments Dr. Diez supervising help in room Last Modified By: Vijay VELIZ, Bella Linares RN, Bella Mcallister RN 01/05/25 08:33:33 01/05/25 08:33:33 01/05/25 08:33:33 Entry 4 Entry 5 Case Attendee Christie Fernandez MD, Kip Brunner Role Performed Scrub - Primary Surgeon - Primary Time In 01/05/25 08:08:00 01/05/25 08:08:00 Time Out 01/05/25 08:31:00 01/05/25 08:31:00 Procedure EGD AND COLONOSCOPY(.) EGD AND COLONOSCOPY(.) Comments Last Modified By: Bella Linares RN, RN, Angela 01/05/25 08:33:33 01/05/25 08:33:33 Perioperative Protocols FT [...] Antibiotic No Time Out Leobardo RUSH, DONNA, Queen [place] Participants Ana, Bella Linares RN, Miles, Kirstyn K, Sparks, Micala E, Dameon OCASIO, Kip Brunner Time Out Complete 01/05/25 08:10:00 [...] ileum biopsy Primary Procedure Yes Primary Surgeon Dameon OCASIO, Kip Brunner Start 01/05/25 08:12:00 Stop 01/05/25 08:29:00 Anesthesia [...] and tissue Entry 1 Skin Integrity Intact, Pillager, Warm, & Skin Abnormality No Dry Outcomes Met? Yes Last Modified By: Bella Linares RN 01/05/25 08:26:24 Post-Care Text: The patient is free from signs and symptoms of injury caused by extraneous objects Patient Positioning FT Pre-Care Text: Identifies physical alterations that require additional precautions for procedure-specific positioning, verifies presence of prosthetics or corrective devices, posit (more content not included)... Normal [facility] Discharge Instructionson Discharge Instructions Discharge [...] (06/29/2019), Esophagogastroduodenoscopy (06/29/2019), Arthroscopy of knee, Colonoscopy, [place] tooth. Discharge Vitals Temperature (Temporal Artery) 36.8 [...] EDT With: Dameon OCASIO, Kip Brunner Where: [facility] [address] [address]- New Follow Up Appointments after Discharge Follow Up with Dameon OCASIO, Kip Brunner, [facility], [facility] When: Comments: Keep scheduled appt. Where: [address] [phone] Medications What How Much When Instructions Next [...] is sev (more content not included)... Normal [facility] Comment on above: Result Comment: Elec tronically Signed By: Chandana VELIZ, Jessica\.br\Date and Time Signed: 01/05/25 08:48 EDT Inpatient Patient Summaryon 01-05-2025 Inpatient Patient Summary Inpatient Patient Summary [place] [id number] [facility] Clinical Discharge Instructions PERSON INFORMATION Name: SUSANA SCHMIDT [facility]#:[id number] PHYSICIANS Admitting Physician: Dameon OCASIO, Kip Brunner Attending Physician: Kip Xiao MD PCP: Toni Brock III, DO Discharge Diagnosis: Acute Crohn's disease Comment: PATIENT EDUCATION INFORMATION Instructions: Medication Leaflets: Follow up: Type Location Start [facility] Follow Up [facility] 01/16/2025 9:45 AM 01/16/2025 10:00 [...] 2 times a day. Refills: 0., lot: [id number] exp: 05/30 ustekinumab (Stelara) Subcutaneous every 4 weeks. Comment: Normal [facility] Main OR PACU II Recordon Main OR PACU II Record Main OR PACU II R ecord PACU Phase II Document Type FT Summary Primary Physician: Kip Xiao MD Finalized Date/Time: 01/05/25 11:30:06 Pt. Name: SUSANA SCHMIDT/Sex: 1985 Female Med Rec #: [id number] Physician: Kip Xiao MD Financial #: [id number] Pt. Type: O Room/Bed: / Admit/Disch: 01/05/25 [...] By: Jessica Ellington RN 01/05/25 11:30 Normal [facility] Main OR Preoperative Recordo n 01-05-2025 Main OR Preoperative Record Main OR Preoperative Record Holding Area Document Type FT Summary Primary Physician: Kip Xiao MD Finalized Date/Time: 01/05/25 07:38:21 Pt. Name: SUSANA SCHMIDT/Sex: 1985 Female Med Rec #: [id number] Physician: Kip Xiao MD Financial #: [id number] Pt. Type: O Room/Bed: / Admit/Disch: 01/05/25 [...] N/A Complaints of Pain: Yes Pain Comment: 510 RIGHT UPPER Operative Site n/a QUADRANT PAIN [...] By: Val Muñiz RN 01/05/25 07:38 Normal [facility] Outpatient Surgery Discharge Instructionon 01-05-2025 Outpatient Surgery Discharge Instruction Outpatient Surgery Discharge Instruction [place] [id number] Patient Discharge Instructions PERSON INFORMATION Name: SUSANA [...] THE NEAREST EMERGENCY ROOM OR CALL [address] KIMBERLY L, have received the attached patient education materials/instructions and have verbalized understanding: May we do a follow up call? Yes No I was present when discharge instructions were given ____ Patient Signature _ Date Clinican/Nurse Signature Date Follow up: Type Location Start [facility] Follow Up [facility] 01/16/2025 9:45 AM 01/16/2025 10:00 AM Confirmed Pharmacy Information: You may receive a survey from Lizett Weiss asking you to rate your care experience. Your feedback is important and will help us understand what we do well and how we can improve the quality of care we provide to you, your loved ones and our community. It???s an honor to serve you. Thank you for choosing [facility] HERE ARE THE MEDICATION CHANGES THAT [...] 2 times a day. Refills: 0., lot: [id number] exp: 05/30 ustekinumab (Stelara) Subcutaneous every 4 weeks. PATIENT EDUCATION INFORMATION Instructions: Medication Leaflets: [facility] Ambulatory Visit Summaryon 0 11-11-2024 Ambulatory Visit [...] (06/29/2019), Esophagogastroduodenoscopy (06/29/2019), Arthroscopy of knee, Colonoscopy, [place] tooth. Discharge Vitals Heart Rate (Peripheral) 80 Respiratory Rate 14 Blood Pressure 134/87 Height 165 cm Height 65 in Weight 82 kg Weight 180.779 lb BMI 30.12 What to do next Scheduled Follow-Up Appointments Thursday 9:45 AM EDT With: Kip Xiao MD Where: [facility] [address] [place] [address]- Medications What How Much When Instructions New colestipol (Colestid 1 g Tab) 2 Tablets By Mouth Every day Refills: 6 Pickup at [facility] Unchanged budesonide (budesonide 3 mg oral [...] physician if questions or concerns Pharmacy Information [facility]: [address] [place] [phone] Allergies No Known Allergies Problems Ongoing - [...] for choosing us for your care. Normal [facility] Gastroenterology Office/Clin ic Noteon 11-11-2024 [...] increased to q4 weeks 09/2024. Serviced through [employer]. Pt called 11/03/24 with c/o RUQ pain [...] 92.4 fL (11/08/24) Chloride: 106 mmol/L (11/08/24) [place] Absolute: 0.4 E9/L (11/08/24) CO2: 26 mmol/L (11/08/24) [place] Auto: 6.4 % (11/08/24) Creatinine: 0.8 mg/dL [...] the termin (more content not included)... Normal [facility] Comment on above: Result Comment: Elec tronically Signed By: Dameon OCASIO, Kip Brunner\.br\Date and Time Signed: 11/11/24 09:31 EST\.br\Electronically Co-Signed [...] Bhupinder Ho DO Transcribed by: JARRETT Technologist: ESAU, Normal [facility] CBC w/ Auto Diffon 5 Basophils/100 WBC (Bld) 0.9 % Normal 0.0-2.0 [facility] Comment on above: Performed By: #### 2 [id number] #### [facility] [address] [place] [address] Basophils/Leukocytes Auto (Bld) [Pure # fraction] 0.1 E9/L Normal 0.0-0.2 [facility] Comment on above: Performed By: #### 2 [id number] #### [facility] [address] [place] [address] Eosinophils (Bld) [#/Vol] 0.2 E9/L Normal 0.0-0.5 [facility] Comment on above: Performed By: #### 2 [id number] #### [facility] [address] [place] [address] Eosinophils/100 WBC (Bld) 3.0 % Normal 0.0-8.0 [facility] Comment on above: Performed By: #### 2 [id number] #### [facility] [address] [place] [address] Erythrocyte distribution width (RBC) [Ratio] 13.7 % Normal 10.9-14.2 [facility] Comment on above: Performed By: #### 2 [id number] #### [facility] [address] [place] [address] Hematocrit (Bld) [Volume fraction] 39.4 % Normal 34.0-46.0 [facility] Comment on above: Performed By: #### 2 [id number] #### [facility] [address] [place] [address] Hemoglobin (Bld) [Mass/Vol] 13.3 g/dL Normal 12.0-16.0 [facility] Comment on above: Performed By: #### 2 [id number] #### [facility] [address] [place] [address] Lymphocytes (Bld) [#/Vol] 1.8 E9/L Normal 1.0-4.0 [facility] Comment on above: Performed By: #### 2 [id number] #### [facility] [address] [place] [address] Lymphocytes/100 WBC (Bld) 29.4 % Normal 14.0-50.0 [facility] Comment on above: Performed By: #### 2 [id number] #### [facility] [address] [place] [address] MCH (RBC) [Entitic mass] 31.3 pg Normal 27.0-34.0 [facility] Comment on above: Performed By: #### 2 [id number] #### [facility] [address] [place] [address] MCHC (RBC) [Mass/Vol] 33.9 g/dL Normal 31.4-36.0 [facility] Comment on above: Performed By: #### 2 [id number] #### [facility] [address] [place] [address] MCV (RBC) [Entitic vol] 92.4 fL Normal 80.0-100.0 [facility] Comment on above: Performed By: #### 2 [id number] #### [facility] [address] [place] [address] Monocytes (Bld) [#/Vol] 0.4 E9/L Normal 0.2-1.0 [facility] Comment on above: Performed By: #### 2 [id number] #### [facility] [address] [place] [address] Neutrophils (Bld) [#/Vol] 3.6 E9/L Normal 2.0-7.5 [facility] Comment on above: Performed By: #### 2 [id number] #### [facility] [address] [place] [address] Neutrophils/100 WBC (Bld) 60.3 % Normal 36.0-75.0 [facility] Comment on above: Performed By: #### 2 [id number] #### [facility] [address] [place] [address] Platelet mean volume (Bld) [Entitic vol] 8.4 fL Normal 6.4-10.8 [facility] Comment on above: Performed By: #### 2 [id number] #### [facility] [address] [place] [address] Platelets (Bld) [#/Vol] 245.0 E9/L Normal 150. 0-500. 0 [facility] Comment on above: Performed By: #### 2 [id number] #### [facility] [address] [place] [address] RBC (Bld) [#/Vol] 4.3 E12/L Normal 4.3-5.9 [facility] Comment on above: Performed By: #### 2 657179 #### [facility] [address] [place] [address] WBC corrected for nucl RBC Auto (Bld) [#/Vol] 6.0 E9/L Normal 4.0-11.0 [facility] Comment on above: Performed By: #### 2 947068 #### [facility] [address] [place] [address] CMPon 11-08-2024 Albumin [Mass/Vol] 4.3 g/dL Normal 3.3-5.0 [facility] Comment on above: Performed By: #### 2 176079 #### [facility] [address] [place] [address] Albumin/Globulin (S) [Mass conc ratio] 1.4 Normal 1.1-2.2 [facility] Comment on above: Performed By: #### 2 [id number] #### [facility] [address] [place] [address] ALP [Catalytic activity/Vol] 51 Int._Unit/L Normal 21-98 [facility] Comment on above: Performed By: #### 2 [id number] #### [facility] [address] [place] [address] ALT No additional P-5'-P [Catalytic activity/Vol] 23 Int._Unit/L Normal 6-46 [facility] Comment on above: Performed By: #### 2 [id number] #### [facility] [address] [place] [address] Anion gap [Moles/Vol] 11 mmol/L Normal 6-16 [facility] Comment on above: Performed By: #### 2 [id number] #### [facility] [address] [place] [address] AST [Catalytic activity/Vol] 17 Int._Unit/L Normal 5-43 [facility] Comment on above: Performed By: #### 2 [id number] #### [facility] [address] [place] [address] Bilirubin [Mass/Vol] 0.3 mg/dL Normal 0.0-1.[address] [facility] Comment on above: Performed By: #### 2 [id number] #### [facility] [address] [place] [address] Calcium [Mass/Vol] 8.9 mg/dL Normal 8.9-11.1 [facility] Comment on above: Performed By: #### 2 859128 #### [facility] [address] [place] [address] Chloride [Moles/Vol] 106 mmol/L Normal 101-[address] [facility] Comment on above: Performed By: #### 2 356138 #### [facility] [address] [place] [address] CO2 [Moles/Vol] 26 mmol/L Normal 21-31 [facility] Comment on above: Performed By: #### 2 333246 #### [facility] [address] [place] [address] Creatinine [Mass/Vol] 0.8 mg/dL Normal 0.5-1.3 [facility] Comment on above: Performed By: #### 2 456952 #### [facility] [address] [place] [address] Globulin (S) [Mass/Vol] 3.1 g/dL Normal 1.4-4.0 [facility] Comment on above: Performed By: #### 2 211408 #### [facility] [address] [place] [address] Glucose [Mass/Vol] 96 mg/dL Normal 55-199 [facility] Comment on above: Performed By: #### 2 264938 #### [facility] [address] [place] [address] Potassium [Moles/Vol] 4.0 mmol/L Normal 3.5-5.3 [facility] Comment on above: Performed By: #### 2 758994 #### [facility] [address] [place] [address] Protein [Mass/Vol] 7.4 g/dL Normal 6.0-7.8 [facility] Comment on above: Performed By: #### 2 [id number] #### [facility] [address] [place] [address] Sodium [Moles/Vol] 139 mmol/L Normal 135-145 [facility] Comment on above: Performed By: #### 2 597794 #### [facility] [address] [place] [address] Urea nitrogen [Mass/Vol] 12 mg/dL Normal 5-21 [facility] Comment on above: Performed By: #### 2 763620 #### [facility] [address] [place] [address] Urea nitrogen/Creatinine [Mass ratio] 15 No Units Normal 10-20 [facility] Comment on above: Performed By: #### 2 688661 #### [facility] [address] [place] [address] eGFRon 11-08-2024 eGFR 95 mL/min/1.73 m2 Normal >=59 [facility] Comment on above: Performed By: #### 1 [id number] ####[facility] [address] [place] [address] Surgical Pathology Reporton 09-08-[address] [facility] [address] [place] [address]- Surgical Pathology Report Collected Date/Time: 09/05/2024 13:09 EST Pathologist: Murali OCASIO, Bhupinder Styles Received Date/Time: 09/05/2024 13:37 IVELISSE Xiao MD, Kip Xiao MD, Kip Gomez Surgical Pathology Report - 09/08/2024 16:27 EST [...] 09/05/2024 13:09 EST Pathologist: Bhupinder Carrion MD Received Date/Time: 09/05/2024 13:37 IVELISSE Xiao MD, Kip Xiao MD, Kip Brunner Gross Description B: Received in formalin labeled with patient name, number, and duodenal biopsy are two fragments of carrasco/pink tissue [...] characteristics were determined by the Laboratory of [facility] Surgical Pathology. They have not been cleared or approved by the US Food and Drug Administration. The FDA has determined that such clearance or approval is not necessary. These tests are used for clinical purposes. They should not be regarded as investigational or for research. Appropriate positive and negative controls are performed and are acceptable. Normal [facility] Comment on above: Performed By: #### 4 [id number] #### [facility] [address] [place] [address] Discharge Instructionson Discharge Instructions Discharge Instruc tions SUSANA SCHMIDT :1985 Visit Date:09/05/2024 Inpatient Discharge Instructions Your Care Team Admitting Physician - Kip Xiao MD Referring Physician - Kip Xiao MD Reason for Your Visit CROHN'S DISEASE SMALL [...] (06/29/2019), Esophagogastroduodenoscopy (06/29/2019), Arthroscopy of knee, Colonoscopy, [place] tooth. What to do next Instructions From Your Doctor Event Name Event Result Discharge Activity Resume normal activities in 24 hours Discharge Restrictions No driving for 24 hrs Discharge Diet(s) Other: previous Call Your Doctor For Persistent or heavy bleeding Discharge Instructions Discharge Instructions New Follow Up Appointments after Discharge Follow Up with Dameon OCASIO, CESAR [facility] When: Comments: Call for any problems. Office will call to schedule follow up appointment Where: Medications What How Much When Why Instructions Next Dose New famotidine (famotidine 40 mg Tab) 1 Tablets By Mouth Once a day (at bedtime) Refills: 3 Pickup at [facility] Changed esomeprazole (Nexium 40 mg Cap-EC) 1 Capsules By Mouth Every day Changed esomeprazole (Nexium 40 mg Cap-EC) 1 Capsules By Mouth 2 times a day Pickup at [facility] Unchanged albuterol (Ventolin HFA 90 mcg/ inh Aerosol-Adpt) 2 Puffs Inhalation Every 6 hours as needed for for wheezing Acute bronchitis Duration: 7 Days Unchanged budesonide (budesonide 3 mg oral delayed release capsule) 3 Capsules By Mouth Once a day (in the morning) Unchanged ustekinumab (Stelara) Subcutaneous Every 3 months Pharmacy Information [facility]: [address] [place], [place] [phone] [phone] Test Results No qualifying data available. Allergies [...] the tissue (more content not included)... Normal [facility] Comment on above: Result Comment: Elec tronically Signed By: Varsha Anguiano.lelia\Date and Time Signed: 09/05/24 13:29 EST Inpatient Patient Summaryon 09-05-2024 Inpatient Patient Summary Inpatient Patient Summary [place] [address] [facility] Clinical Discharge Instructions PERSON INFORMATION Name: [...] (Stelara) Subcutaneous every 3 months. Comment: Normal [facility] Main OR Intraoperative Recor don 09-05-2024 Main OR Intraoperative Record Main OR Intraoperative Record IntraOp Document Type FT Summary Primary Physician: Kip Xiao MD Finalized Date/Time: 09/05/24 14:04:03 Pt. Name: SUSANA SCHMIDT Enzo/Sex: 1985 Female Med Rec #: [id number] Physician: Kip Xiao MD Financial #: [id number] Pt. Type: O Room/Bed: / Admit/Disch: 09/05/24 11:40:26 - Institution: Case Times FT Entry 1 Patient Times In Room 09/05/24 12:48:00 Out Room 09/05/24 13:21:00 Procedure Times Start 09/05/24 12:52:00 Stop 09/05/24 13:15:00 Anesthesia Times Start 09/05/24 12:48:00 Stop 09/05/24 13:21:00 Time at [facility] 09/05/24 13:05:00 Last Modified By: Kathrine Webber RN 09/05/24 13:21:09 General Comments: EGD end time at 1258./BAKARI,RN Colonoscopy start time at 1301./1301 09/05/24 Chart opened to review and send charges [facility]FA Case Attendance FT Entry 1 Entry 2 Entry 3 Case Attendee Bhupinder Saldivar MD, Kathrine Sanz RN Role Performed Anesthesiologist Surgeon - Primary Director Design - Primary Thread Cutter Tender Time In 09/05/24 12:48:00 09/05/24 12:48:00 [...] Webber RN 09/05/24 13:21:10 General Comments: Mylene canchola rep./BAKARI,cmm inspector Protocols FT Pre-Care Text: Implements protective measures [...] 12:53:00 Outcomes Met? Yes Last Modified By: Ktahrine Webber RN 09/05/24 12:53:30 Post-Care Text: The patient is free from signs and symptoms of injury caused by extraneous objects Allergy Information FT Pre-Care Text: Verifies allergies Entry 1 Allergies Reviewed? Yes Allergies Reviewed Self/Patient With Outcomes Met? Yes Last Modified By: Kathrine Webber RN 09/05/24 12:53:37 Post-Care Text: The patient [...] Class 2 - Clean-Contaminated Last Modified By: Kathrine Webber RN 09/05/24 13:15:30 General Case Data [...] and tissue Entry 1 Skin Integrity Intact, Pillager, Warm, & Skin Abnormality No Dry Outcomes Met? Yes Last Modified By: Akbar VELIZ, Kathrine Kruger 09/05/24 12:57:23 Post-Care Text: The patient is free from signs and symptoms of injury caused by extraneous objects Patient Positioning FT Pre-Care Text: Identifies physical alterations that require additional precautions for procedure-specific positioning, v (more content not included)... Normal [facility] Main OR PACU II Recordon Main OR PACU II Record Main OR PACU II R ecord PACU Phase II Document Type FT Summary Primary Physician: Kip Xiao MD Finalized Date/Time: 09/05/24 14:08:46 Pt. Name: SUSANA SCHMIDT Alexis CanalesB./Sex: 1985 Female Med Rec #: [id number] Physician: Kip Xiao MD Financial #: [id number] Pt. Type: O Room/Bed: / Admit/Disch: 09/05/24 [...] Signed By: Varsha Anguiano I 09/05/24 14:08 [facility] Main OR Preoperative Recordo n 09-05-2024 Main OR Preoperative Record Main OR Preoperative Record Holding Area Document Type FT Summary Primary Physician: Kip Xiao MD Finalized Date/Time: 09/05/24 11:57:37 Pt. Name: ENRIQUE SCHMIDTKATIUSKA Giraldo/Sex: 1985 Female Med Rec #: [id number] Physician: Kip Xiao MD Financial #: [id number] Pt. Type: O Room/Bed: / Admit/Disch: 09/05/24 [...] By: Kathrine Webber RN 09/05/24 11:57 Normal [facility] Outpatient Surgery Discharge Instructionon 09-05-2024 Outpatient Surgery Discharge Instruction Outpatient Surgery Discharge Instruction [place] [address] Patient Discharge Instructions PERSON INFORMATION Name: SUSANA SCHMIDT Date of : 1985 Current Date: 09/05/2024 12:44:53 PHYSICIANS Admitting Physician: Dameon OCASIO, Kip Brunner Discharge Diagnosis: Acute Crohn's disease JYOTIENRIQUESUSANA Alexis has been given the following list of [...] THE NEAREST EMERGENCY ROOM OR CALL 911 IJYOTI KIMBERLY L, have received the attached patient education materials/instructions and have verbalized understanding: May we do a follow up call? Yes No I was present when discharge instructions were given ____ Patient Signature _ Date Clinican/Nurse Signature Date Follow up: Pharmacy Information: You may receive a survey from Lizett Weiss asking you to rate your care experience. Your feedback is important and will help us understand what we do well and how we can improve the quality of care we provide to you, your loved ones and our community. It???s an honor to serve you. Thank you for choosing [facility] HERE ARE THE MEDICATION CHANGES THAT [...] PATIENT EDUCATION INFORMATION Instructions: Medication Leaflets: Normal [facility] ALL CBC WITH AUTO DIFFon BASOPHILS ABSOLUTE AUTO 0.1 [facility] Basophils/100 WBC (Bld) 1.1 % 0.2 - 2.0 % [facility] Eosinophils/100 WBC (Bld) 3.7 % 0.9 - 7.0 % [facility] Erythrocyte distribution width (RBC) [Ratio] 13.1 % 11.0 - 15.0 % [facility] Hematocrit (Bld) [Volume fraction] 37.9 % 36.0 - 48.0 % [facility] Hemoglobin (Bld) [Mass/Vol] 12.7 g/dL 12.0 - 16.0 g/dL [facility] IMMATURE GRANULOCYTES ABS AUTO 0.01 [facility] Immature granulocytes/100 WBC (Bld) 0.2 % 0.0 - 0.5 % [facility] Interpretation and review of laboratory results Abnormal [facility] LYMPHOCYTES ABSOLUTE AUTO 1.9 [facility] Lymphocytes/100 WBC (Bld) 34.1 % 20.5 - 60.0 % [facility] MCH (RBC) [Entitic mass] 31.4 pg 26.7 - 34.0 pg [facility] MCHC (RBC) [Mass/Vol] 33.5 g/dL 29.9 - 35.2 g/dL [facility] MCV (RBC) [Entitic vol] 93.6 fL 81.0 - 99.0 fL [facility] MONOCYTES ABSOLUTE AUTO 0.4 N [facility] Monocytes/100 WBC (Bld) 6.4 % 1.7 - 12.0 % [facility] NEUTROPHILS ABSOLUTE AUTO 3 [facility] Neutrophils/100 WBC (Bld) 54.5 % 43.0 - 75.0 % [facility] Platelet mean volume (Bld) [Entitic vol] 9.6 fL 9.5 - 13.5 fL [facility] TBH EO # 0.2 [facility] TB PLT 284 [facility] RBC 4.05 Low [facility] WBC 5.4 [facility] Family Medicine Office/Clini c Noteon 08-15-2024 Family Medicine Office/Clinic Note Family Medicine Office/Clinic Note Chief Complaint cough HPI Staff 39 year old female presents with chest congestion, headache, sob, and cough since July 31 otc: theraflu History of Present Illness Reviewed and agree with above documented HPI by medical secretary receptionist. Portions of this record may have been created with voice recognition artificial intelligence software, specifically [employer], [employer] and or [employer]. Substitutions may have occurred due to the inherent limitations of voice recognition and artificial intelligence software. Patient is a 39-year-old female who presents to [facility], for sinus congestion, sinus pressure, bilateral [...] she is having chest congestion, has tried isto-ywk-imokulf Tamiflu without any relief, states her and [...] at this time. 39-year-old female presents to [facility], for acute bacterial sinusitis acute bronchitis, symptoms started 2 weeks ago, patient did appear ill but not septic, no respiratory distress or difficulty swallowing. Patient was given a prescription for refill of albuterol inhaler, Augmentin, and Bromfed. Instructed take zrpe-hls-iszrjzy ibuprofen Tylenol as needed for any headaches, [...] Contact Information Vinod ROBINS DO, Toni Carmen, [address] [address] Additional Instructions: Problem List/Past Medical History Ongoing Abdominal pain Anemia Crohn disease Crohn's disease, small intestine Epigastric pain foliculitis Heart murmur Loose stools seborrice dermititis Historical (more content not included)... Normal [facility] Comment on above: Result Comment: [...] (06/29/2019), Esophagogastroduodenoscopy (06/29/2019), Arthroscopy of knee, Colonoscopy, [place] tooth. Discharge Vitals Temperature (Tympanic) 37 ???C [...] Acute bronchitis Duration: 7 Days Pickup at [facility] New amoxicillin-clavulanate (Augmentin 875 mg oral tablet) 1 Tablets By Mouth Every 12 hours Acute bacterial sinusitis Duration: 10 Days Pickup at [facility] New brompheniramine/ dextromethorphan/ PSE (Bromfed DM oral syrup) 10 Milliliter By Mouth 4 times a day as needed for for cough and congestion Acute bronchitis Duration: 7 Days Pickup at [facility] Unchanged budesonide (budesonide 3 mg oral delayed release capsule) 3 Capsules By Mouth Once a day (in the morning) Unchanged esomeprazole (Nexium 40 mg Cap-EC) 1 Capsules By Mouth Every day Unchanged ustekinumab (Stelara) Pharmacy Information [facility]: [address] [place], [place] [id number] [phone] Medications and Immunizations Administered Given albuterol 0.083% [...] for choosing us for your care. Normal [facility] Gastroenterology Office/Clin ic Noteon 07-28-2024 Gastroenterology [...] 91 fL (06/30/24) Chloride: 106 mmol/L (06/30/24) [place] Absolute: 0.4 E9/L (06/30/24) CO2: 24 mmol/L (06/30/24) [place] Auto: 5.4 % (06/30/24) Creatinine: 0.7 mg/dL [...] also she (more content not included)... Normal [facility] Comment on above: Result Comment: Elec tronically Signed By: Dameon OCASIO, Kip Brunner\.br\Date and Time Signed: 07/28/24 13:45 EDT Quantiferon-TB Plus (Client Incubated)on 07-25-2024 Gamma interferon background IA Qn (Bld) 0.02 International_Unit/mL Invalid Interpretation Code [facility] Comment on above: Performed By: #### 1 [id number] ####[facility] [address] [place] [address] M. tuberculosis stim IFN-g by CD4+ CD8+ T-cells corrected for background Qn (Bld) 0.01 International_Unit/mL Invalid Interpretation Code [facility] Comment on above: Performed By: #### 1 [id number] ####[facility] [address] [place] [address] M. tuberculosis stim IFN-g by CD4+ T-cells corrected for background Qn (Bld) 0.02 International_Unit/mL Invalid Interpretation Code [facility] Comment on above: Performed By: #### 1 [id number] ####[place] [address] [place] [address] M. tuberculosis stim IFN-g Ql (Bld) [Interp] Negative Invalid Interpretation Code Negative [facility] Comment on above: Result Comment: [...] interferon gamma. Chemiluminescence immunoassay methodology Performed at: [address] [id number] PhD Wm Alonso Performed By: #### 1 [id number] ####[facility] [id number] [place] [address] Mitogen stimulated gamma interferon corrected for background Qn (Bld) >10.00 Invalid Interpretation Code [facility] Comment on above: Performed By: #### 1 [id number] ####[place] [address] [place] [address] Service comment (Unsp spec) [Interp] Comment Invalid Interpretation Code [facility] Comment on above: Result Comment: [...] for the test. Performed By: #### 1 [id number] ####[address] [address] [address] Abdomen/Pelvis w/contrast (enterography)on 07-01-2024 CT Abdomen/Pelvis [...] Oral contrast amount in ml's: 1350 Normal [facility] Hep Bs Abon 07-01-2024 HBV surface Ab Ql (S) Non-Reactive Invalid Interpretation Code [facility] Comment on above: Result Comment: Non Reactive: Not immune to HBV infection. Equivocal: Unable to determine if anti-HBs is present at levels consistent with immunity. Reactive: Anti-HBs concentration detected at greater than 10 mIU/mL. Individual is considered to be immune to infection with HBV. Performed at: [facility] [address], [place] [id number] PhD Wm Alonso Performed By: #### 2 [id number] #### [facility] [address] [place] [address] Hep Bs Agon 07-01-2024 HBV surface Ag IA Ql Negative Invalid Interpretation Code Negative [facility] Comment on above: Result Comment: Perf ormed at: [facility] [address], [place] [id number] PhD Wm Alonso Performed By: #### 2 [id number] #### [facility] [address] [place] [address] Gastroenterology Office/Clin ic Noteon 03-31-2024 Gastroenterology Office/Clinic [...] History of Present Illness currently on Stelara y7mfcit Review of Systems PHQ Score Initial Depression [...] When Contact Information Dameon OCASIO, Kip Brunner, CESAR, MED Within 3 months [address], [address] [phone] Additional Instructions: To Follow up on CTE and labs Problem List/Past Medical History Ongoing Anemia Crohn disease Crohn's disease, small intestine Epigastric pain foliculitis Heart murmur Loose stools seborrice dermititis Historical Procedure/Surgical History Colonoscopy (06/29/2019), Esophagogastroduodenoscopy (06/29/2019), Arthroscopy of knee, Colonoscopy, [place] tooth. 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 Alcohol abuse in household: No. Substance abuse in household: No. Smoker in household: Yes. Injuries/Abuse/Neglect in household: No. Crohn's disease in remission, 10/25/2015 N (more content not included)... Normal [facility] Comment on above: Result Comment: Elec tronically Signed By: Dameon OCASIO, Kip Brunner\.br\Date and Time Signed: 03/31/24 16:13 EDT\.br\Electronically Co-Signed By: Inez Castorena MA S\.br\Date and Time Co-Signed: 03/31/24 16:03 EDT PAP ACOG PANEL 2: 30 to 65on 02-05-2023 . . Normal [facility] Comment on above: Result Comment: Perf ormed at: [facility] Performed By: #### 4 [id number] #### [facility] [address] [place] [address] Dr. Sally Lambert Age Gdln ACOG Testing 30-65 Normal [facility] Comment on above: Performed By: #### 4 [id number] #### [facility] [address] [place] [address] Dr. Sally Lambert DIAGNOSIS: Comment Normal [facility] Comment on above: Result Comment: NEGA TIVE FOR INTRAEPITHELIAL LESION OR MALIGNANCY. Performed at: [facility] Performed By: #### [id number] #### [facility] [address] [place] [address] Dr. Sally Lambert HPV Aptima Negative Normal Negative [facility] Comment on above: Result Comment: This nucleic acid amplification test detects fourteen high-risk HPV types (16,18,31,33,35,39,45,51,52,56,58,59,66,68) without differentiation. Performed at: =G Performed By: #### [id number] #### [facility] [address] [place] [address] Dr. Sally Lambert HPV Genotype Reflex Comment Normal [facility] Comment on above: Result Comment: Crit eria not met, HPV Genotype not performed. Performed at: WB Performed By: #### [id number] #### [facility] [address] [place] [address] Dr. Sally Lambert Methodology: Comment Normal [facility] Comment on above: Result Comment: This liquid based ThinPrep(R) pap test was screened with the use of an image guided system. Performed at: WB Performed By: #### [id number] #### [facility] [address] [place] [address] Dr. Sally Lambert Note: Comment Normal [facility] Comment on above: Result Comment: The Pap smear is a screening test designed to aid in the detection of premalignant and malignant conditions of the uterine cervix. It is not a diagnostic procedure and should not be used as the sole means of detecting cervical cancer. Both false-positive and false-negative reports do occur. . Performed at: WB Performed By: #### [id number] #### [facility] [address] [place] [address] Dr. Sally Lambert Performed by: Comment Normal [facility] Comment on above: Result Comment: Melita Deal, Septic Technician (ASCP) Performed at: WB Performed By: #### [id number] #### [facility] [address] [place] [address] Dr. Sally Lambert Specimen adequacy: Comment Normal [facility] Comment on above: Result Comment: Sati sfactory for evaluation. Endocervical and/or squamous metaplastic cells (endocervical component) are present. Performed at: WB Performed By: #### [id number] #### [facility] [address] [place] [address] Dr. Sally Lambert DHEA SERUMon 07-18-2022 Dehydroepiandrosterone (DHEA) 335 ng/dL Normal -701 [facility] Comment on above: Result Comment: Age [...] 89 Performed By: #### D ELIOT. #### [facility] [address] [place] [address] Dr. Sally Lambert DHEA-SULFATEon 07-16-2022 DHEA-Sulfate 291.0 ug/dL Critically high 57.3-279.2 [facility] Comment on above: Performed By: #### D HEASUL #### [facility] [address] [place] [address] Dr. Sally Lambert FSHon 07-16-2022 FSH 4.4 mIU/mL Normal [facility] Comment on above: Result Comment: Adul t Female: Follicular phase 3.5 - 12.5 Ovulation phase 4.7 - 21.5 Luteal phase 1.7 - 7.7 Postmenopausal 25.8 - 134.8 Performed By: #### L BCFS #### [facility] [address] [place] [address] Dr. Sally Lambert LUTEINIZING HORMONE (LH)on 1 LH 5.1 mIU/mL Normal [facility] Comment on above: Result Comment: Adul t Female: Follicular phase 2.4 - 12.6 Ovulation phase 14.0 - 95.6 Luteal phase 1.0 - 11.4 Postmenopausal 7.7 - 58.5 Performed By: #### L BCLH #### [facility] [address] [place] [address] Dr. Sally Lambert CBC AUTO DIFFon 07-15-2022 BASO # 0.0 103/ul Normal 0.0-0.1 [facility] Comment on above: Performed By: #### C BC #### [facility] [address] [place] [address] Dr. Sally Lambert Basophils/100 WBC (Bld) 0.6 % Normal 0.2-2.0 [facility] Comment on above: Performed By: #### C BC #### [facility] [address] [place] [address] Dr. Sally Lambert EO # 0.1 103/ul Normal 0.0-0.7 [facility] Comment on above: Performed By: #### C BC #### [facility] [address] [place] [address] Dr. Sally Lambert Eosinophils/100 WBC (Bld) 2.6 % Normal 0.9-7.0 [facility] Comment on above: Performed By: #### C BC #### [facility] [address] [place] [address] Dr. Sally Lambert Erythrocyte distribution width (RBC) [Ratio] 13.8 % Normal 11.0-15.0 [facility] Comment on above: Performed By: #### C BC #### [facility] [address] [place] [address] Dr. Sally Lambert Hematocrit (Bld) [Volume fraction] 35.9 % Critically low 36.0-48.0 [facility] Comment on above: Performed By: #### C BC #### [facility] [address] [place] [address] Dr. Sally Lambert Hemoglobin (Bld) [Mass/Vol] 11.5 g/dL Critically low 12.0-16.0 [facility] Comment on above: Performed By: #### C BC #### [facility] [address] [place] [address] Dr. Sally Lambert IG # 0.02 10e3/ul Normal 0.00-0.03 [facility] Comment on above: Performed By: #### C BC #### [facility] [address] [place] [address] Dr. Sally Lambert IG % 0.4 % Normal 0.0-0.5 [facility] Comment on above: Performed By: #### C BC #### [facility] [address] [place] [address] Dr. Sally Lambert LYMPH # 1.9 103/ul Normal 1.2-3.8 [facility] Comment on above: Performed By: #### C BC #### [facility] [address] [place] [address] Dr. Sally Lambert Lymphocytes/100 WBC (Bld) 36.6 % Normal 20.5-60.0 [facility] Comment on above: Performed By: #### C BC #### [facility] [address] [place] [address] Dr. Sally Lambert MANUAL DIFF REQ NO Normal [facility] Comment on above: Performed By: #### C BC #### [facility] [address] [place] [address] Dr. Sally Lambert MCH (RBC) [Entitic mass] 29.6 pg Normal 26.7-34.0 [facility] Comment on above: Performed By: #### C BC #### [facility] [address] [place] [address] Dr. Sally Lambret MCHC (RBC) [Mass/Vol] 32.0 g/dL Normal 29.9-35.2 [facility] Comment on above: Performed By: #### C BC #### [facility] [address] [place] [address] Dr. Sally Lambert MCV (RBC) [Entitic vol] 92.5 fL Normal 81.0-99.0 [facility] Comment on above: Performed By: #### C BC #### [facility] [address] [place] [address] Dr. Sally Lambert MONO # 0.3 103/ul Normal 0.3-0.8 [facility] Comment on above: Performed By: #### C BC #### [facility] [address] [place] [address] Dr. Sally Lambert Monocytes/100 WBC (Bld) 5.7 % Normal 1.7-12.0 [facility] Comment on above: Performed By: #### C BC #### [facility] [address] [place] [address] Dr. Sally Lambert NEUT # 2.9 103/ul Normal 1.4-6.5 [facility] Comment on above: Performed By: #### C BC #### [facility] [address] [place] [address] Dr. Slaly Lambert Neutrophils/100 WBC (Bld) 54.1 % Normal 43.0-75.0 [facility] Comment on above: Performed By: #### C BC #### [facility] [address] [place] [address] Dr. Sally Lambert Platelet mean volume (Bld) [Entitic vol] 9.9 fL Normal 9.5-13.5 [facility] Comment on above: Performed By: #### C BC #### [facility] [address] [place] [address] Dr. Sally Lambert PLT 311 103/ul Normal 150-450 [facility] Comment on above: Performed By: #### C BC #### [facility] [address] [place] [address] Dr. Sally Lambert RBC 3.88 106/ul Critically low 4.20-5.40 [facility] Comment on above: Performed By: #### C BC #### [facility] [address] [place] [address] Dr. Sally Lambert WBC 5.3 103/ul Normal 4.0-11.0 [facility] Comment on above: Performed By: #### C BC #### [facility] [address] [place] [address] Dr. Sally Lambert FREE T4on 07-15-2022 Free T4 [Mass/Vol] 0.93 ng/dL Normal 0.76-1.46 [facility] Comment on above: Performed By: #### F T4 #### [facility] [address] [address] [address] Sally Lambert GLYCOHEMOGLOBIN A1Con 2021 ADA RECOMMENDATION SEE BELOW Normal [facility] Comment on above: Result Comment: ADA RECOMMENDED LIMIT 4.0 - 6.0 ADA THERAPEUTIC TARGET < 7.0 ACTION SUGGESTED > 7.0 Performed By: #### A 1C #### [facility] [address] [place] [address] Dr. Sally Lambert Glucose [Mass/Vol] 120 mg/dL Normal [facility] Comment on above: Performed By: #### A 1C #### [facility] [address] [place] [address] Dr. Sally Lambert HbA1c (Bld) [Mass fraction] 5.8 % Normal 4.5-6.2 [facility] Comment on above: Performed By: #### A 1C #### [facility] [address] [place] [address] Dr. Sally Lamebrt TSHon 07-15-2022 TSH 1.110 uIU/mL Normal 0.358-3.74 0 [facility] Comment on above: Performed By: #### T SH #### [facility] [address] [place] [address] Dr. Sally Lambert Vital Signs Date Time Vital Sign Value Performing Clinician Minnie bolton 06-20-2025 08:58-0400 Body mass index (BMI) [Ratio] 29.92 kg/m2 [employer] Work Phone: [facility] 06-20-2025 08:58-0400 Body weight 81.56 kg [employer] Work Phone: [facility] 06-20-2025 08:58-0400 Diastolic blood pressure 78 mm[Hg] [employer] Work Phone: [facility] 06-20-2025 08:58-0400 Systolic blood pressure 118 mm[Hg] [employer] Work Phone: [facility] 03-14-2025 13:33-0400 Body mass index (BMI) [Ratio] 29.45 kg/m2 Etienne Myles DO Work Phone: [facility] 03-14-2025 13:33-0400 Body weight 80.29 kg Etienne Myles DO Work Phone: [facility] 03-14-2025 13:33-0400 Diastolic blood pressure 70 mm[Hg] Etienne Myles DO Work Phone: [facility] 03-14-2025 13:33-0400 Systolic blood pressure 114 mm[Hg] Etienne Myles DO Work Phone: [facility] 12-06-2024 10:35-0500 Body mass index (BMI) [Ratio] 30.62 kg/m2 China Herlong PA Work Phone: [facility] 12-06-2024 10:35-0500 Body weight 83.46 kg China Rodney PA Work Phone: [facility] 12-06-2024 10:35-0500 Diastolic blood pressure 76 mm[Hg] Hcina Herlong PA Work Phone: [facility] 12-06-2024 10:35-0500 Systolic blood pressure 124 mm[Hg] China Herlong PA Work Phone: [facility] 08-31-2024 13:57-0500 Body mass index (BMI) [Ratio] 30.12 kg/m2 China Rodney PA Work Phone: [facility] 08-31-2024 13:57-0500 Body weight 82.1 kg China Herlong PA Work Phone: [facility] 08-31-2024 13:57-0500 Diastolic blood pressure 76 mm[Hg] China Rodney PA Work Phone: [facility] 08-31-2024 13:57-0500 Systolic blood pressure 124 mm[Hg] China Rodney PA Work Phone: [facility] 08-09-2024 10:45-0500 Body mass index (BMI) [Ratio] 30.09 kg/m2 Etienne Myles DO Work Phone: [facility] 08-09-2024 10:45-0500 Body weight 82.01 kg Etienne Myles DO Work Phone: [facility] 08-09-2024 10:45-0500 Diastolic blood pressure 70 mm[Hg] Etienne Myles DO Work Phone: [facility] 08-09-2024 10:45-0500 Systolic blood pressure 118 mm[Hg] Etienne Myles DO Work Phone: [facility] 07-19-2024 13:34-0400 Body mass index (BMI) [Ratio] 30.52 kg/m2 China GOMEZ Work Phone: [facility] 07-19-2024 13:34-0400 Body weight 83.19 kg China GOMEZ Work Phone: [facility] Healthcare Encounters Encounter Date Encounter Type Care Provider Facility Start: 09-27-2025 ambulatory Shin Talal [facility] Facility:[facility] Start: 06-28-2025 End: 06-28-2025 ambulatory [facility] Facility:[facility] Start: 06-20-2025 End: 06-26-2025 Clinisync Result Encounter Etienne Myles DO Work Phone: [facility] External Department Unsolicited Start: 06-20-2025 End: 06-26-2025 Clinisync Result Encounter Etienne Myles DO Work Phone: [facility] External Department Unsolicited Start: 06-20-2025 End: 06-20-2025 ambulatory ETIENNE MYLES Not Available Start: 06-20-2025 End: 06-20-2025 Patient encounter procedure Etienne Myles DO Work Phone: [facility] Healthcare Work Phone: Start: 06-20-2025 End: 06-20-2025 Periodic preventive med est patient 40-64yrs Etienne Myles DO Work Phone: [facility] Comment on above: Pre-op examination; Pelvic pain; Dyspareunia in female; Dysmenorrhea; Menorrhagia with regular cycle; Well woman exam with routine gynecological exam; Breast cancer screening by mammogram Start: 06-20-2025 End: 06-20-2025 Preprocedural examination done Etienne Myles DO Work Phone: [facility] Start: 06-02-2025 End: 06-06-2025 Telephone encounter Etienne Myles DO [facility] Start: 04-26-2025 End: 04-26-2025 ambulatory Shin Talal Sarmini Facility:[facility] Start: 03-27-2025 End: 03-27-2025 ambulatory ETIENNE MYLES Not Available Start: 03-14-2025 End: 03-14-2025 Bamboo flowsheet Etienne Myles DO Work Phone: [facility] Start: 03-14-2025 End: 03-14-2025 Bamboo flowsheet Etienne Myles DO Work Phone: [facility] Start: 03-14-2025 End: 03-14-2025 Office outpatient visit 15 minutes Etienne Myles DO Work Phone: [facility] Comment on above: S/P endometrial abla tion; Uterine cramping; Uterine pain; Abnormal uterine bleeding (AUB) Start: 03-14-2025 End: 03-14-2025 ambulatory ETIENNE MYLES Not Available Start: 01-16-2025 End: 01-16-2025 ambulatory Shin Talal Sarmini Facility:[facility] Start: 01-05-2025 End: 01-06-2025 ambulatory Shin Talal Sarmini Facility:[facility] Start: 12-15-2024 End: 12-15-2024 Telephone encounter Sade George MA [facility] Start: 12-06-2024 End: 12-06-2024 Bamboo flowsheet China GOMEZ Work Phone: [facility] Start: 12-06-2024 End: 12-06-2024 Bamboo flowsheet China GOMEZ Work Phone: [facility] Start: 12-06-2024 End: 12-06-2024 Office outpatient visit 15 minutes China GOMEZ Work Phone: [facility] Comment on above: Jasmin-menopause; Anxiety, generalized (CMS/HCC) Start: 12-06-2024 End: 12-06-2024 ambulatory CHINA STEVENS Not Available Start: 11-11-2024 End: 11-11-2024 ambulatory Shin Talal Sarmini Facility:[facility] Start: 11-08-2024 End: 11-08-2024 ambulatory Shin Talal Sarmini Facility:[facility] Start: 09-05-2024 End: 09-05-2024 ambulatory Shin Talal Sarmini Facility:[facility] Start: 08-31-2024 End: 08-31-2024 Bamboo flowsheet China GOMEZ Work Phone: [facility] Start: 08-31-2024 End: 08-31-2024 Bamboo flowsheet China GOMEZ Work Phone: [facility] Start: 08-31-2024 End: 08-31-2024 Postop follow up visit related to original px China GOMEZ Work Phone: [facility] Comment on above: Postoperative visit; S/P tubal ligation; S/P endometrial ablation Start: 08-31-2024 End: 08-31-2024 ambulatory CHINA STEVENS Not Available Start: 08-24-2024 End: 08-24-2024 Clinisync Result Encounter Etienne Myles DO Work Phone: [facility] External Department Unsolicited Start: 08-24-2024 End: 08-24-2024 Clinisync Result Encounter Etienne Myles DO Work Phone: [facility] External Department Unsolicited Start: 08-13-2024 End: 08-13-2024 ambulatory [facility] Facility: [place] Start: 08-09-2024 End: 08-09-2024 Bamboo flowsheet Etienne Myles DO Work Phone: [facility] Start: 08-09-2024 End: 08-09-2024 Bamboo flowsheet Etienne Myles DO Work Phone: [facility] Start: 08-09-2024 End: 08-09-2024 Office outpatient visit 15 minutes Etienne Myles DO Work Phone: [facility] Comment on above: Pre-operative exam; Menorrhagia with regular cycle; Abnormal uterine bleeding (AUB); Pelvic pain in female; Request for sterilization Start: 08-09-2024 End: 08-09-2024 Preprocedural examination done Etienne Myles DO Work Phone: [facility] Work Phone: Start: 08-09-2024 End: 08-09-2024 ambulatory ETIENNE MYLES Not Available Start: 07-28-2024 End: 07-28-2024 ambulatory Shin Talal Sarmini Facility:[facility] Start: 07-19-2024 End: 07-19-2024 Bamboo flowsheet China GOMEZ Work Phone: [facility] Start: 07-19-2024 End: 07-19-2024 Bamboo flowsheet China GOMEZ Work Phone: [facility] Start: 07-19-2024 End: 07-19-2024 Office outpatient visit 15 minutes China GOMEZ Work Phone: [facility] Comment on above: PMDD (premenstrual d ysphoric disorder) ([facility] Menorrhagia with regular cycle Start: 07-19-2024 End: 07-19-2024 ambulatory CHINA STEVENS Not Available Start: 06-30-2024 ambulatory Shin Talal Sarmini Facility:[facility] Start: 03-31-2024 End: 03-31-2024 ambulatory Shin Talal Sarmini Facility:[facility] Start: 02-02-2024 End: 02-02-2024 ambulatory ETIENNE BUENO Not Available Start: 01-29-2023 End: 01-29-[address] ETIENNE BUENO . Facility: Start: 07-15-2022 End: 07-16-[address] ETIENNE BUENO . Facility: Procedures Date Procedure Procedure Detail Performing Clinician Start: 06-20-2025 IGP,APTIMA HPV,AGE GDLN Etienne Bueno DO Work Phone: Start: 08-24-2024 ALL CBC WITH AUTO DIFF Etienne Bueno DO Work Phone: H/O: tubal ligation S/P tubal ligation Am y Rodney GOMEZ Work Phone: Plan of Treatment Date Care Activity Detail Author Start: 07-31-2025 End: 07-31-2025 Patient encounter procedure 07/31/2025 8:30 AM EDT Office Visit AIMEE BRUNSON [address] [place] [place] [address] China Stevens PA [address] [place], [place] [id number] AIMEE BRUNSON Start: 06-20-2025 End: 08-20-2026 MG Breast - bilateral Screening Bilateral screening mammogram Imaging Routine Breast cancer screening by mammogram Expected: 06/20/2025 (Approximate), [facility]20[facility] Phone: Comment on above: Expected: 06/20/2025 (Approximate), Expires: 08/20/2026 Start: 06-20-2025 End: 06-20-2025 Patient encounter procedure 06/20/2025 8:40 AM EDT Consult AIMEE BRUNSON [address] [place] [address] Etienne Bueno DO [address] [place], [place] [id number] AIMEE BRUNSON Start: 03-14-2025 End: 09-13-2025 US Pelvis US Pelvis w/ TV Imaging Routine S/P endometrial ablation Uterine pain Abnormal uterine bleeding (AUB) Expected: 03/14/2025, Expires: 09/13/2025 [facility] Work Phone: Comment on above: Expected: 03/14/2025 , Expires: 09/13/2025 Start: 03-14-2025 End: 03-14-2025 Patient encounter procedure 03/14/2025 1:20 PM EDT Office Visit [facility] [address] [id number] Etienne Bueno DO [address] [place], [place] [id number] Arrived [facility] Comment on above: Arrived Start: 12-06-2024 End: 12-06-2024 Patient encounter procedure 12/06/2024 10:20 AM EST Office Visit [facility] [address] [place] [phone] China Stevens, PA [address] [place] [address] Arrived [facility] Comment on above: Arrived Start: 09-05-2024 End: 09-05-2024 Patient encounter procedure 09/05/2024 8:30 AM EST Office Visit [facility] [address] [place] [id number] China Stevens, PA [address] [place] [address] [facility] Start: 08-31-2024 End: 08-31-2024 Patient encounter procedure 08/31/2024 1:40 PM EST Office Visit [facility] [address] [place] [phone] China Stevens, PA [address] [place], [place] [id number] Arrived [facility] Comment on above: Arrived Start: 08-09-2024 End: 08-09-2024 Patient encounter procedure [facility] Comment on above: Arrived Start: 07-27-2024 End: 07-27-2024 Professional / ancillary services management 07/27/2024 9:00 AM EDT Ancillary Procedure [facility] [address] [place] [place] [address] [facility] Start: 07-19-2024 End: 07-19-2025 US for US PELVIS-TRANSVAG IF INDICATED Imaging Routine Menorrhagia with regular cycle Expected: 07/19/2024 (Approximate), Expires: 07/19/2025 [facility] Work Phone: Comment on above: Expected: 07/19/2024 (Approximate), Expires: 07/19/2025 Start: 07-19-2024 End: 07-19-2024 Patient encounter procedure 07/19/2024 1:30 PM EDT Office Visit [facility] [address] [place] [place] [address] China Stevens PA [address] [place], [place] [id number] Arrived [facility] Comment on above: Arrived THIN PREP TIS PAP AN D HR HPV DNA THIN PREP TIS PAP AND HR HPV DNA Pathology and Cytology Routine Well woman exam with routine gynecological exam Ordered: 06/20/2025 [facility] Comment on above: Ordered: 06/20/2025 Payers Date Payer Category Payer Unknown 2021 [facility] BCBS [id number] 1984 Unknown [id number] 2.16.840.1.596325.3.579. 2.59 1984 Unknown [id number] 2.16.840.1.734623.3.579. 259 1984 Unknown [id number] 2.16.840.1.800378.3.579. 2.1258 1984 Unknown [id number] 2.16.840.1.627398.3.579. 2 1984 Unknown [id number] 2.16.840.1.394442.3.579. 2 1984 Unknown [id number] 2.16.840.1.327403.3.579. 2 1984 Unknown [id number] 2.16.840.1.993590.3.579. 2 1984 Unknown [id number] 2.16.840.1.587120.3.579. 2 1984 Unknown [id number] 2.16.840.1.502979.3.579. 2 1984 Unknown [id number] 2.16.840.1.123179.3.579. 2 1984 Unknown [id number] 2.16.840.1.607682.3.579. 2 1984 Unknown [id number] 2.16.840.1.807210.3.579. 2 1984 Unknown [id number] 2.16.840.1.715792.3.579. 2 1984 Unknown [id number] 2.16.840.1.631925.3.579. 2.1259 1984 Unknown [id number] 2.16.840.1.072206.3.579. 2.9 1984 Unknown [id number] 2.16.840.1.507875.3.579. 2.9 1984 Unknown [id number] 2.16.840.1.541291.3.579. 2.1258 1984 Unknown [id number] 2.16.840.1.529787.3.579. 2.1258 1984 Unknown [id number] 2.16.840.1.084596.3.579. 2.1258 1984 Unknown [id number] 2.16.840.1.399617.3.579. 2.1258 1984 Unknown [id number] 2.16.840.1.659451.3.579. 2. 1984 Unknown [id number] 2.16.840.1.861468.3.579. 2. 1984 Unknown [id number] 2.16.840.1.015506.3.579. 2. 1984 Unknown [id number] 2.16.840.1.469531.3.579. 2.727 1959 Unknown [id number] Social History Date Type Detail Facility Tobacco smoking stat [facility] Tobacco smoking consumption unknown [facility] Start: 1985 Sex assigned at Female [facility] Start: 05-19-2024 Gender identity Identifies as female gender (finding) [facility] Start: 05-19-2024 Sexual orientation Heterosexual (fin ding) [facility] Clinical Notes 07-19-2024 to 06-20-2025 Sapna Kim - 06/20/2025 8:40 AM EDTTelephone Encounter - Gabriella Jacome LPN - 06/02/2025 10:59 AM EDTTelephone Encounter - Gabriella Jacome LPN - 06/02/2025 10:59 AM EDT Note Date [...] on 07-19-[address] Bueno at [facility]. MEDICATIONS Current Outpatient Medications Medication Instructions [...] nursing note reviewed. Exam conducted with a pier hand present. Vitals: Estimated body mass index is [...] reviewed, and patient is to proceed to [facility]. Follow Up: Patient is to follow up at 1 & 6 weeks post operative to assess proper healing and recovery from procedure. Documented by Christelle Fierro LPN on behalf of: Etienne Bueno DO documented in this encounter [facility] 06-02-2025 Telephone encounter Note Patient called the [...] to her on Thursday. PVU in this. [facility] 06-02-2025 Miscellaneous Notes Patient called the office [...] the Endometriosis. Patient reassured would get to he may get back before end of day or while at Hospital but if not we will get back to her on Thursday. PVU in this. documented in this encounter [facility] 03-14-2025 History of Present illness Narrative Reason [...] nursing note reviewed. Exam conducted with a pier hand present. Vitals: Estimated body mass index is [...] Etienne Bueno DO documented in this encounter [facility] 01-05-2025 Note Progress Note-Physic derrell Patient: SUSANA SCHMIDT Age: 39 years Sex: Female : 1985 Associated Diagnoses: None Author: Rudolph Diez Jr., DO Postoperative Information Postoperative disposition: Postoperative disposition: Home. Optimetrix number: Optimetrix number [id number]. Anesthetic utilized: General. Physical Examination Vital Signs [...] Ambulatory Surgery Unit, and To home ). [facility] Comment on above: Result Comment: [...] severe or gets worse throughout the day. [facility] 01-05-2025 Note Endoscopic Procedure Report - Other Patient: SUSANA SCHMIDT Age: 39 years Sex: Female : 1985 Associated Diagnoses: None Author: Kip Xiao MD Pre-Procedure Procedure Date 01/05/2025 08:30:00 . Procedure Type: Colonoscopy with biopsy. Procedure provider Performed by Kip Xiao MD. Current history and physical Documented on chart. Colonoscopy ([id number]) on 09/05/2024 at 39 Years. Esophagogastroduodenoscopy ([id number]) on 09/05/2024 at 39 Years. Esophagogastroduodenoscopy ([id number]) on 06/29/2019 at 34 Years. Colonoscopy ([id number]) on 06/29/2019 at 34 Years. right Arthroscopy of knee ([id number]). [place] tooth ([id number]). Colonoscopy ([id number]).. Past Medical History Active Crohn disease ([id number]) foliculitis seborrice dermititis Resolved (059108003): Onset on 08/05/2017 at 32 years. Resolved on 04/04/2018 at 33 years. ([id number]): Onset on 01/03/2015 at 29 years. Resolved on 10/25/2015 at 30 years. ([id number]): Onset on 12/29/2000 at 15 years. Resolved in 2001 at 16 years.. Family History Entire family history is negative.. Procedure History Colonoscopy ([id number]) on 09/05/2024 at 39 Years. Esophagogastroduodenoscopy ([id number]) on 09/05/2024 at 39 Years. Esophagogastroduodenoscopy ([id number]) on 06/29/2019 at 34 Years. Colonoscopy ([id number]) on 06/29/2019 at 34 Years. right Arthroscopy of knee ([id number]). [place] tooth ([id number]). Colonoscopy ([id number]).. Colorectal neoplasm risk assessment Average risk. Informed [...] Daily, # 60 tab(s), Refills(s) 6, Pharmacy: [facility], 165, cm, 11/11/24 9:09:00 EST, Height/Length Dosing, 82, kg, 11/11/24 9:09:00 EST, Weight Dosing Ibgard 90 mg oral delayed release capsule: 180 mg = 2 cap(s), Oral, BID, # 16 cap(s), Refills(s) 0, samples given to patient (Rx) Nexium 40 mg Cap-EC: 40 mg = 1 cap(s), Oral, Daily, # 90 cap(s), Refills(s) 3, Pharmacy: [facility], 165, cm, 07/28/24 12:58:00 EDT, Height/Length Dosing, 83, kg, 07/28/24 12:58:00 EDT, Weight Dosing budesonide 3 mg oral delayed release capsule: 9 mg = 3 cap(s), Oral, qAM, # 90 cap(s), Refills(s) 3, Pharmacy: [facility], 165, cm, 07/28/24 12:58:00 EDT, Height/Length Dosing, 83, kg, 07/28/24 12:58:00 EDT, Weight Dosing famotidine 40 mg Tab: 40 mg = 1 tab(s), Oral, Once a day (at bedtime), # 90 tab(s), Refills(s) 3, Pharmacy: [facility], 165, cm, 09/05/24 11:54:00 EST, Height/Length [...] villi, biopsies were taken Images Procedure images: Rec1_hd_video_2024_04_03T07_41_[id number]. jpg Rec1_hd_video_2024_04_03T07_41_07_459. jpg Rec1_hd_video_5_04_03T07_39_45_519. jpg Rec1_hd_video_5_04_03T07_39_42_465. jpg Rec1_hd_video_5_04_03T07_39_26_489. jpg Rec1_hd_video_5_04_03T07_39_01_422. jpg Rec1_hd_video_5_04_03T07_38_49_510. jpg Rec1_hd_video_5_04_03T07_38_29_134. jpg Rec1_hd_video_5_04_03T07_38_25_724. jpg Rec1_hd_video_5_04_03T07_38_12_881. jpg Rec1_hd_video_5__03T07_37_47_642. jpg (Inserted Image. Unable to disp (more content not included)... [facility] Comment on above: Result Comment: Elec tronically Signed By: Dameon OCASIO, Kip Brunner\.br\Date and Time Signed: 01/05/25 08:31 EDT Other Comment: Rose edwards Attachment - attachment storage system not supported [id number] Can be viewed in source systemMissing Attachment - attachment storage system not supported [id number] Can be viewed in source systemMissing Attachment - attachment storage system not supported [id number] Can be viewed in source systemMissing Attachment - attachment storage system not supported [id number] Can be viewed in source systemMissing Attachment - attachment storage system not supported 5639170 Can be viewed in source systemMissing Attachment - attachment storage system not supported [id number] Can be viewed in source systemMissing Attachment - attachment storage system not supported [id number] Can be viewed in source systemMissing Attachment - attachment storage system not supported 2431893 Can be viewed in source systemMissing Attachment - attachment storage system not supported [id number] Can be viewed in source systemMissing Attachment - attachment storage system not supported 4758346 Can be viewed in source systemMissing Attachment - attachment storage system not supported [id number] Can be viewed in source systemMissing Attachment - attachment storage system not supported [id number] Can be viewed [facility] Attachment - attachment storage system not supported [id number] Can be viewed in [facility] Attachment - attachment storage system not supported 8545315 Can be viewed in [facility] Attachment - attachment storage system not supported [id number] Can be viewed in source system 01-05-2025 [...] Normal examined proximal jejunum Images Procedure images: Rec1_hd_video_2024__T07__33_375. jpg Rec1_hd_video_2024__T__19_088. jpg Rec1_hd_video_2024__T07__07_059. jpg Rec1_hd_video_2024__T07__01_879. jpg Rec1_hd_video_2024__T07__43_899. jpg . Post-Procedure Complications: none. Estimated blood [...] to 2 weeks when pathology is available [facility] Comment on above: Result Comment: Elec tronically Signed By: Kip Xiao MD\.br\Date and Time Signed: 01/05/25 08:17 EDT Other Comment: Rose edwards Attachment - attachment storage system not supported [id number] Can be viewed in source system Missing Attachment - attachment storage system not supported [id number] Can be viewed in source system Missing Attachment - attachment storage system not supported [id number] Can be viewed in source system Missing Attachment - attachment storage system not supported [id number] Can be viewed in source system Missing Attachment - attachment storage system not supported [id number] Can be viewed in source system 01-05-2025 Note History and Physical Patient: SUSANA SCHMIDT Age: 39 years Sex: Female : 1985 Associated Diagnoses: None Author: Kip Xiao MD Preoperative Information Indication for procedure and diagnosis: [...] Daily, # 60 tab(s), Refills(s) 6, Pharmacy: [facility], 165, cm, 11/11/24 9:09:00 EST, Height/Length Dosing, 82, kg, 11/11/24 9:09:00 EST, Weight Dosing Ibgard 90 mg oral delayed release capsule: 180 mg = 2 cap(s), Oral, BID, # 16 cap(s), Refills(s) 0, samples given to patient (Rx) Nexium 40 mg Cap-EC: 40 mg = 1 cap(s), Oral, Daily, # 90 cap(s), Refills(s) 3, Pharmacy: [facility], 165, cm, 07/28/24 12:58:00 EDT, Height/Length Dosing, 83, kg, 07/28/24 12:58:00 EDT, Weight Dosing budesonide 3 mg oral delayed release capsule: 9 mg = 3 cap(s), Oral, qAM, # 90 cap(s), Refills(s) 3, Pharmacy: [facility], 165, cm, 07/28/24 12:58:00 EDT, Height/Length Dosing, 83, kg, 07/28/24 12:58:00 EDT, Weight Dosing famotidine 40 mg Tab: 40 mg = 1 tab(s), Oral, Once a day (at bedtime), # 90 tab(s), Refills(s) 3, Pharmacy: [facility], 165, cm, 09/05/24 11:54:00 EST, Height/Length [...] All Problems Crohn disease / SNOMED CT 68450469 / Confirmed 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 Resolved on 04/04/2018 at 33 years. ([id number]): Onset on 01/03/2015 at 29 years. Resolved on 10/25/2015 at 30 years. ([id number]): Onset on 12/29/2000 at 15 years. Resolved in 2001 at 16 years. Family History: Entire family history is negative. Procedure history: Colonoscopy ([id number]) on 09/05/2024 at 39 Years. Esophagogastroduodenoscopy ([id number]) on 09/05/2024 at 39 Years. Esophagogastroduodenoscopy ([id number]) on 06/29/2019 at 34 Years. Colonoscopy ([id number]) on 06/29/2019 at 34 Years. right Arthroscopy of knee (710872731). [place] tooth ([id number]). Colonoscopy ([id number]). 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 [facility] Comment on above: Result Comment: Elec tronically Signed By: Dameon OCASIO, Kip Brunner\.br\Date and Time Signed: 01/05/25 08:06 EDT 01-05-2025 Note Progress Note-Physic derrell Patient: SUSANA SCHMIDT Age: 39 years Sex: Female : 1985 Associated Diagnoses: None Author: Diez Jr. DO, Rudolph G Preoperative Information Anesthesia history: Patient history: No [...] Daily, # 60 tab(s), Refills(s) 6, Pharmacy: [facility], 165, cm, 11/11/24 9:09:00 EST, Height/Length Dosing, 82, kg, 11/11/24 9:09:00 EST, Weight Dosing Ibgard 90 mg oral delayed release capsule: 180 mg = 2 cap(s), Oral, BID, # 16 cap(s), Refills(s) 0, samples given to patient (Rx) Nexium 40 mg Cap-EC: 40 mg = 1 cap(s), Oral, Daily, # 90 cap(s), Refills(s) 3, Pharmacy: [facility], 165, cm, 07/28/24 12:58:00 EDT, Height/Length Dosing, 83, kg, 07/28/24 12:58:00 EDT, Weight Dosing budesonide 3 mg oral delayed release capsule: 9 mg = 3 cap(s), Oral, qAM, # 90 cap(s), Refills(s) 3, Pharmacy: [facility], 165, cm, 07/28/24 12:58:00 EDT, Height/Length Dosing, 83, kg, 07/28/24 12:58:00 EDT, Weight Dosing famotidine 40 mg Tab: 40 mg = 1 tab(s), Oral, Once a day (at bedtime), # 90 tab(s), Refills(s) 3, Pharmacy: [facility], 165, cm, 09/05/24 11:54:00 EST, Height/Length [...] All Problems Abdominal pain / SNOMED CT 44114479 / Confirmed Anemia / SNOMED CT 030512469 / Confirmed Crohn disease / SNOMED CT 74067061 / Confirmed Crohn's disease, small intestine / SNOMED CT 07009239 / Confirmed Epigastric pain / SNOMED CT 429801229 / Confirmed foliculitis / Confirmed Heart murmur / SNOMED CT 451515061 / Confirmed Loose stools / SNOMED CT 8761637014 / Confirmed seborrice dermititis / Confirmed Resolved: / SNOMED CT 896999042 Resolved: / SNOMED CT 210822430 Resolved: / SNOMED CT 492833377 Histories Past Medical History: Active Crohn disease (81609328) foliculitis seborrice dermititis Resolved (982920404): Onset on 08/05/2017 at 32 years. Resolved on 04/04/2018 at 33 years. ([id number]): Onset on 01/03/2015 at 29 years. Resolved on 10/25/2015 at 30 years. ([id number]): Onset on 12/29/2000 at 15 years. Resolved in 2001 at 16 years. Procedure history: Colonoscopy ([id number]) on 09/05/2024 at 39 Years. Esophagogastroduodenoscopy ([id number]) on 09/05/2024 at 39 Years. Esophagogastroduodenoscopy ([id number]) on 06/29/2019 at 34 Years. Colonoscopy ([id number]) on 06/29/2019 at 34 Years. right Arthroscopy of knee (226427343). [place] tooth ([id number]). Colonoscopy ([id number]). 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 [facility] Comment on above: Result Comment: Elec tronically Signed By: Rudolph Diez Jr., DO.lelia\Date and Time Signed: 01/05/25 07:36 EDT 12-15-2024 Telephone encounter Note Martin, this is Susana Trinway. My D. O. B. Is [phone] have a couple questions about the side effects I am experiencing from the Celexa, I am on I was put on it about a week, if you can please call me back. That would be great. [phone]. Pt c/o BARNES, Dry Mouth, Insomnia, Decreased Appetite, and Nausea. Pt advised that it take 2 weeks for medicine to kick in. Otherwise if side effects are unbearable than pt to discontinue. Pt would like to know dr. Bueno's opinion Please advise. [facility] 12-15-2024 Miscellaneous Notes Martin, chino is Susana Schmidt. My D. O. B. Is 500 2384I have a couple questions about the side effects I am experiencing from the Celexa, I am on I was put on it about a week, if you can please call me back. That would be great. [phone]. Pt c/o BARNES, Dry Mouth, Insomnia, Decreased Appetite, and Nausea. Pt advised that it take 2 weeks for medicine to kick in. Otherwise if side effects are unbearable than pt to discontinue. Pt would like to know dr. Bueno's opinion Please advise. documented in this encounter [facility] 12-06-2024 History of Present illness Narrative Reason [...] of: PATRICIA Boyd documented in this encounter [facility] 09-05-2024 Note Progress Note-Physic derrell Patient: SUSANA SCHMIDT Age: 39 years Sex: Female : 1985 Associated Diagnoses: None Author: Kin Frederick MD Postoperative Information Postoperative disposition: Postoperative disposition: To PACU. Optimetrix number: Optimetrix number [id number]. Anesthetic utilized: General. Health Status Allergies: Allergic [...] when meets criteria ( To home ). [facility] Comment on above: Result Comment: Elec tronically Signed By: Kin Frederick MD\.br\Date and Time Signed: 09/05/24 14:54 EST 09-05-2024 [...] Document Re-Released: 03/15/2007 ExitCare??? Patient Information ???2009 NUVETA. Colonoscopy Care After Surgery Please read the [...] or chemotherapy treatm (more content not included)... [facility] 09-05-2024 Note Endoscopic Procedure Report - Other Patient: SUSANA SCHMIDT Age: 39 years Sex: Female : 1985 Associated Diagnoses: None Author: Kip Xiao MD Pre-Procedure Procedure Date 09/05/2024 13:16:00 . Procedure Type: Colonoscopy with biopsy. Procedure provider Performed by Kip Xiao MD. Current history and physical Documented on chart. Esophagogastroduodenoscopy ([id number]) on 06/29/2019 at 34 Years. Colonoscopy ([id number]) on 06/29/2019 at 34 Years. right Arthroscopy of knee (208341218). [place] tooth ([id number]). Colonoscopy ([id number]).. Past Medical History Active Crohn disease (60377052) foliculitis seborrice dermititis Resolved (937034206): Onset on 08/05/2017 at 32 years. Resolved on 04/04/2018 at 33 years. ([id number]): Onset on 01/03/2015 at 29 years. Resolved on 10/25/2015 at 30 years. ([id number]): Onset on 12/29/2000 at 15 years. Resolved in 2001 at 16 years.. Family History Entire family history is negative.. Procedure History Esophagogastroduodenoscopy ([id number]) on 06/29/2019 at 34 Years. Colonoscopy ([id number]) on 06/29/2019 at 34 Years. right Arthroscopy of knee (186985699). [place] tooth ([id number]). Colonoscopy ([id number]).. Colorectal neoplasm risk assessment Average risk. Informed [...] BID, # 180 cap(s), Refills(s) 3, Pharmacy: [facility], 165, cm, 09/05/24 11:54:00 EST, Height/Length Dosing, 83, kg, 09/05/24 11:54:00 EST, Weight Dosing Nexium 40 mg Cap-EC: 40 mg = 1 cap(s), Oral, Daily, # 90 cap(s), Refills(s) 3, Pharmacy: [facility], 165, cm, 07/28/24 12:58:00 EDT, Height/Length Dosing, 83, kg, 07/28/24 12:58:00 EDT, Weight Dosing Ventolin HFA 90 mcg/inh Aerosol-Adpt: 2 puff(s), Inhalation, q6hr for wheezing, 18 gm, Refill(s) 0, [facility], 165, cm, 08/13/24 12:43:00 EST, Height/Length Dosing, 83, kg, 08/13/24 12:43:00 EST, Weight Dosing budesonide 3 mg oral delayed release capsule: 9 mg = 3 cap(s), Oral, qAM, # 90 cap(s), Refills(s) 3, Pharmacy: [facility], 165, cm, 07/28/24 12:58:00 EDT, Height/Length Dosing, 83, kg, 07/28/24 12:58:00 EDT, Weight Dosing famotidine 40 mg Tab: 40 mg = 1 tab(s), Oral, Once a day (at bedtime), # 90 tab(s), Refills(s) 3, Pharmacy: [facility], 165, cm, 09/05/24 11:54:00 EST, Height/Length [...] normal mucosa beyond it Images Procedure images: Rec_hd_video___21_397. jpg Rec_hd_video___30_620. jpg Rec1_hd_video__22_23_262. jpg Rec1_hd_video___25_640. jpg Rec1_hd_video___04_806. jpg Rec1_hd_video___56_328. jpg Rec1_hd_video___51_417. jpg Re (more content not included)... [facility] Comment on above: Result Comment: Elec tronically Signed By: Dameon OCASIO, Kip Brunner\.br\Date and Time Signed: 09/05/24 13:20 EST Other Comment: Rose edwards Attachment - attachment storage system not supported [id number] Can be viewed in source system Missing Attachment - attachment storage system not supported [id number] Can be viewed in source system Missing Attachment - attachment storage system not supported 5876014 Can be viewed in source system Missing Attachment - attachment storage system not supported 0056757 Can be viewed in source system Missing Attachment - attachment storage system not supported 1263303 Can be viewed in source system Missing Attachment - attachment storage system not supported 5832798 Can be viewed in source system Missing Attachment - attachment storage system not supported 7353147 Can be viewed in source system Missing Attachment - attachment storage system not supported 2229313 Can be viewed in source system Missing Attachment - attachment storage system not supported 8097846 Can be viewed in source system Missing Attachment - attachment storage system not supported 6067249 Can be viewed in source system Missing Attachment - attachment storage system not supported 6802035 Can be viewed in source system Missing Attachment - attachment storage system not supported 6447154 Can be viewed in source system Missing Attachment - attachment storage system not supported 9480096 Can be viewed in source system Missing Attachment - attachment storage system not supported 5653851 Can be viewed in source system Missing Attachment - attachment storage system not supported 6868517 Can be viewed in source system Missing Attachment - attachment storage system not supported 6343897 Can be viewed in source system Missing Attachment - attachment storage system not supported 3892052 Can be viewed in source system Missing Attachment - attachment storage system not supported 7187954 Can be viewed in source system Missing Attachment - attachment storage system not supported 6932029 Can be viewed in source system Missing Attachment - attachment storage system not supported 0253976 Can be viewed in source system 09-05-2024 [...] rule out Crohn's disease Images Procedure images: Rec1_hd_video_2023___08_11_937. jpg Rec1_hd_video_2023__3_08_09_786. jpg Rec1_hd_video_2023__3_08_03_254. jpg Rec1_hd_video_2023__3_07_58_177. jpg Rec1_hd_video_2023__3_07_40_083. jpg Rec1_hd_video_2023__3_07_28_744. jpg Rec1_hd_video_2023__3_07_19_807. jpg Rec1_hd_video_2023__3_06_11_108. jpg Rec1_hd_video_2023__3_04_48_070. jpg Rec1_hd_video____37_697. jpg Rec1_hd_video____25_760. jpg Rec1_hd_video____06_526. jpg Rec1_hd_video____20_109. jpg . Post-Procedure Complications: none. Estimated blood [...] in 3 months to ensure esophagitis healing [facility] Comment on above: Result Comment: Elec tronically Signed By: Dameon OCASIO, Kip Brunner\.br\Date and Time Signed: 09/05/24 13:00 EST Other Comment: Rose edwards Attachment - attachment storage system not supported [id number] Can be viewed in source system Missing Attachment - attachment storage system not supported [id number] Can be viewed in source system Missing Attachment - attachment storage system not supported 6717447 Can be viewed in source system Missing Attachment - attachment storage system not supported 5126201 Can be viewed in source system Missing Attachment - attachment storage system not supported [id number] Can be viewed in source system Missing Attachment - attachment storage system not supported 2089103 Can be viewed in source system Missing Attachment - attachment storage system not supported 0703209 Can be viewed in source system Missing Attachment - attachment storage system not supported 9621313 Can be viewed in source system Missing Attachment - attachment storage system not supported 3929606 Can be viewed in source system Missing Attachment - attachment storage system not supported 6117715 Can be viewed in source system Missing Attachment - attachment storage system not supported 7453072 Can be viewed in source system Missing Attachment - attachment storage system not supported 0731970 Can be viewed in source system Missing Attachment - attachment storage system not supported 0123518 Can be viewed in source system 09-05-2024 Note Progress Note-Priyanka dove Patient: SUSANA SCHMIDT Age: 39 years Sex: [...] Daily, # 90 cap(s), Refills(s) 3, Pharmacy: [facility], 165, cm, 07/28/24 12:58:00 EDT, Height/Length Dosing, 83, kg, 07/28/24 12:58:00 EDT, Weight Dosing Ventolin HFA 90 mcg/inh Aerosol-Adpt: 2 puff(s), Inhalation, q6hr for wheezing, 18 gm, Refill(s) 0, [facility], 165, cm, 08/13/24 12:43:00 EST, Height/Length Dosing, 83, kg, 08/13/24 12:43:00 EST, Weight Dosing budesonide 3 mg oral delayed release capsule: 9 mg = 3 cap(s), Oral, qAM, # 90 cap(s), Refills(s) 3, Pharmacy: [facility], 165, cm, 07/28/24 12:58:00 EDT, Height/Length [...] All Problems Abdominal pain / SNOMED CT 42330854 / Confirmed Anemia / SNOMED CT 851491685 / Confirmed Crohn disease / SNOMED CT 67642194 / Confirmed Crohn's disease, small intestine / SNOMED CT 51261044 / Confirmed Epigastric pain / SNOMED CT 178631838 / Confirmed foliculitis / Confirmed Heart murmur / SNOMED CT 351138383 / Confirmed Loose stools / SNOMED CT 2108731875 / Confirmed seborrice dermititis / Confirmed Resolved: / SNOMED CT 302677382 Resolved: / SNOMED CT 556890444 Resolved: / SNOMED CT 631669869, Active Problems (9) Abdominal pain Anemia Crohn disease Crohn's disease, small intestine Epigastric pain foliculitis Heart murmur Loose stools seborrice dermititis Histories Past Medical History: Active Crohn disease (27150454) foliculitis seborrice dermititis Resolved (086679686): Onset on 08/05/2017 at 32 years. Resolved on 04/04/2018 at 33 years. (439849909): Onset on 01/03/2015 at 29 years. Resolved on 10/25/2015 at 30 years. ([id number]): Onset on 12/29/2000 at 15 years. Resolved in 2001 at 16 years. Family History: Entire family history is negative. Procedure history: Esophagogastroduodenoscopy ([id number]) on 06/29/2019 at 34 Years. Colonoscopy ([id number]) on 06/29/2019 at 34 Years. right Arthroscopy of knee (518567577). [place] tooth ([id number]). Colonoscopy ([id number]). 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 [facility] Comment on above: Result Comment: Elec tronically Signed By: Otoniel OCASIO, Kin Alarcon\.br\Date and Time Signed: 09/05/24 12:47 EST 09-05-2024 Note History and Physical Patient: SUSANA SCHMIDT Age: 39 years Sex: Female : 1985 Associated Diagnoses: None Author: Kip Xiao MD Preoperative Information Indication for procedure and diagnosis: [...] Daily, # 90 cap(s), Refills(s) 3, Pharmacy: [facility], 165, cm, 07/28/24 12:58:00 EDT, Height/Length Dosing, 83, kg, 07/28/24 12:58:00 EDT, Weight Dosing Ventolin HFA 90 mcg/inh Aerosol-Adpt: 2 puff(s), Inhalation, q6hr for wheezing, 18 gm, Refill(s) 0, [facility], 165, cm, 08/13/24 12:43:00 EST, Height/Length Dosing, 83, kg, 08/13/24 12:43:00 EST, Weight Dosing budesonide 3 mg oral delayed release capsule: 9 mg = 3 cap(s), Oral, qAM, # 90 cap(s), Refills(s) 3, Pharmacy: [facility], 165, cm, 07/28/24 12:58:00 EDT, Height/Length [...] All Problems Crohn disease / SNOMED CT 24089115 / Confirmed foliculitis / Confirmed seborrice dermititis / Confirmed Anemia / SNOMED CT 989328608 / Confirmed Heart murmur / SNOMED CT 048332709 / Confirmed Crohn's disease, small intestine / SNOMED CT 67854300 / Confirmed Loose stools / SNOMED CT 4008496453 / Confirmed Epigastric pain / SNOMED CT 635164362 / Confirmed Abdominal pain / SNOMED CT 29521979 / Confirmed Histories Past Medical History: Active Crohn disease (00671940) foliculitis seborrice dermititis Resolved (790935392): Onset on 08/05/2017 at 32 years. Resolved on 04/04/2018 at 33 years. ([id number]): Onset on 01/03/2015 at 29 years. Resolved on 10/25/2015 at 30 years. ([id number]): Onset on 12/29/2000 at 15 years. Resolved in 2001 at 16 years. Family History: Entire family history is negative. Procedure history: Esophagogastroduodenoscopy (739001542) on 06/29/2019 at 34 Years. Colonoscopy (820881297) on 06/29/2019 at 34 Years. right Arthroscopy of knee ([id number]). [place] tooth ([id number]). Colonoscopy (092432569). 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 [employer] - 10/25/2015 14:55 - Love Arboleda RN 08/13/2024 Status: Employed Description: [employer] Exercise 08/13/2024 Risk Assessment: Occasional exercise [...] Last Charted Temp Temporal 36.8 DegC (SEP 05) Heart Rate Monitored 78 bpm (SEP 05) Resp Rate 10 br/min (SEP 05) SBP 125 mmHg (SEP 05) DBP 86 mmHg (SEP 05) Weight 83 kg (SEP 05) BMI 30.49 (SEP 05) General: in Nad Abdomen: Soft, NTND Impression and Plan Impression: Crohn's and GERD Plan: -EGD and Colonoscopy [facility] Comment on above: Result Comment: [...] Bilateral Laparoscopic Salpingectomy/Nuris ablation performed at [facility] with Dr. Bueno. Patient is healing well [...] of: PATRICIA Boyd documented in this encounter [facility] 08-09-2024 History of Present illness Narrative Reason for Appointment: Patient ID: Susana Schmidt is a 39 y.o. female who presents for Pre-op Visit Patient presents today for Pre Op appointment. Patient is scheduled to undergo Da Monica assisted Bilateral Laparoscopic Salpingectomy and Endometrial Ablation with Nuris on 08/24/[address] Bueno at [facility]. MEDICATIONS Current Outpatient Medications Medication Instructions [...] nursing note reviewed. Exam conducted with a pier hand present. Vitals: Estimated body mass index is [...] reviewed, and patient is to proceed to [facility] OR. Follow Up: Patient is to follow up between 1-2 weeks post op to assess proper healing and recovery from procedure. Documented by Christelle Fierro LPN on behalf of: Etienne Bueno DO documented in this encounter [facility] 07-19-2024 History of Present illness Narrative Reason [...] nursing note reviewed. Exam conducted with a pier hand present. Vitals: Estimated body mass index is [...] of: PATRICIA Boyd documented in this encounter [facility] Healthcare Evaluation note Diagnosis PMDD (premenstrual dysphoric disorder) (CMS/HCC) Premenstrual tension syndromes Menorrhagia with regular cycle documented in this encounter [facility] HealthcareEvaluation note* Diagnosis Pre-operative exam Unspecified pre-operative examination Menorrhagia with regular cycle Abnormal uterine bleeding (AUB) Pelvic pain in female Unspecified symptom associated with female genital organs Request for sterilization documented in this encounter [facility] note* Diagnosis Postoperative visit S/P tubal ligation Tubal ligation status S/P endometrial ablation Other postprocedural status documented in this encounter [facility] HealthcareEvaluation note* Diagnosis Jasmin-menopause Symptomatic menopausal or [...] DATE CREATED AUTHOR AUTHOR'S ORGANIZ ATION 02/03/2024 [facility] DATE CREATED AUTHOR AUTHOR'S ORGANIZ ATION 07/02/2024 [facility] DATE CREATED AUTHOR AUTHOR'S ORGANIZ ATION 07/08/2024 [facility] DATE CREATED AUTHOR AUTHOR'S ORGANIZ ATION 09/06/2024 [facility] DATE CREATED AUTHOR AUTHOR'S ORGANIZ ATION 11/10/2024 [facility] DATE CREATED AUTHOR AUTHOR'S ORGANIZ ATION 11/12/2024 [facility] DATE CREATED AUTHOR AUTHOR'S ORGANIZ ATION 01/11/2025 [facility] DATE CREATED AUTHOR AUTHOR'S ORGANIZ ATION 01/18/2025 [facility] DATE CREATED AUTHOR AUTHOR'S ORGANIZ ATION 02/07/2025 [facility] DATE CREATED AUTHOR AUTHOR'S ORGANIZ ATION 06/21/2025 [facility] EPIC DATE CREATED AUTHOR AUTHOR'S ORGANIZ ATION 06/30/2025 [facility] Care Teams (unrecognized sec tion and content) Golf Ball Winder Relationship Specialty Start Date End Date Toni Brock DO [address] [place] [facility] [place] [phone] PCP - General Family Medicine 07/19/24 Golf Ball Winder Relationship Specialty Start Date End Date Toni Brock DO [address] [place] [address] [place] [phone] PCP - General Family Medicine 07/19/24 Golf Ball Winder Relationship Specialty Start Date End Date Toni Brock DO [address] [phone] PCP - General Family Medicine 07/19/24 [employer] Ball Winder Relationship Specialty Start Date End Date Toni Brock DO [address] [phone] PCP - General Family Medicine 07/19/24 [employer] Winder Relationship Specialty Start Date End Date Toni Brock DO [address] [phone] PCP - General Family Medicine 07/19/24 [employer] Winder Relationship Specialty Start Date End Date Toni Brock DO [address] [place] [address] [place] [address] PCP - General Family Medicine 07/19/24 [employer] Ball Winder Relationship Specialty Start Date End Date Toni Brock DO PCP - General Family Medicine 07/19/24 [employer] Winder Relationship Specialty Start Date End Date Toni Brokc DO PCP - General Family Medicine 07/19/24 [employer] Ball Winder Relationship Specialty Start Date End Date Toni Brock DO PCP - General Family Medicine 07/19/24 Golf Ball Winder Relationship Specialty Start Date End Date Toni [...] BE BASED ON THE PRIMARY CLINICAL RECORDS. [employer] [facility]. provides no warranty or guarantee of the accuracy or completeness of information in this document.
--- NOTE | 2025-07-11 13:07 | PM.PRESUREVA ---
History of Present Illness History of Present Illness Chief complaint: menorrhagia, dysparunea, dysmenorrhea, pain Narrative: Patient presents for presurgical testing. The patient reports a 6-month history of heavy painful periods. The patient states she had an ablation in August 2024, and approximately 6 months later had a significant change in her periods resulting in heavy bleeding and abdominal pain. The patient also suffers from Crohn's disease. The patient denies fever, nausea, vomiting, or any other complaints. Review of Systems ROS Narrative REVIEW OF SYSTEMS: Negative except as stated in HPI, ten or more systems reviewed. Constitutional: No fever, chills, weakness ENT: No sore throat or epistaxis Cardiovascular: No edema, chest pain, palpitations, or activity intolerance Respiratory: No shortness of breath, cough, or wheezing Musculoskeletal: No joint pain or swelling Genitourinary: No dysuria or hematuria Neurological: No numbness, tingling, weakness, or headache Psychiatric: No mood changes PFSH PFSH Medical History (Updated 07/11/25 @ 12:54 by Bella Carcamo NP) Dysmenorrhea ?N94.6 - Dysmenorrhea, unspecified (ICD-10) Dyspareunia GERD (gastroesophageal reflux disease) ?K21.9 - Gastro-esophageal reflux disease without esophagitis (ICD-10) Bronchitis (~08/05/24) ?J40 - Bronchitis, not specified as acute or chronic (ICD-10) Anemia ?D64.9 - Anemia, unspecified (ICD-10) Depression ?F32.A - Depression, unspecified (ICD-10) Panic attacks ?F41.0 - Panic disorder [episodic paroxysmal anxiety] (ICD-10) Anxiety ?F41.9 - Anxiety disorder, unspecified (ICD-10) Crohn disease ?K50.90 - Crohn's disease, unspecified, without complications (ICD-10) Pelvic pain ?R10.2 - Pelvic and perineal pain (ICD-10) Abnormal uterine bleeding (AUB) ?N93.9 - Abnormal uterine and vaginal bleeding, unspecified (ICD-10) Menorrhagia ?N92.0 - Excessive and frequent menstruation with regular cycle (ICD-10) Request for sterilization ?Z30.2 - Encounter for sterilization (ICD-10) Surgical History (Updated 07/10/25 @ 10:35 by Bella Carcamo NP) History of salpingectomy (08/24/24) ?Z90.79 - Acquired absence of other genital organ(s) (ICD-10) History of endometrial ablation ?Z98.890 - Other specified postprocedural states (ICD-10) History of arthroscopy of knee ?Z98.890 - Other specified postprocedural states (ICD-10) History of esophagogastroduodenoscopy (EGD) ?Z98.890 - Other specified postprocedural states (ICD-10) History of colonoscopy ?Z98.890 - Other specified postprocedural states (ICD-10) Family History (Updated 08/15/24 @ 14:47 by Bella Carcamo NP) Other Family history of breast cancer Family history of diabetes mellitus Family history of hypertension TIA (transient ischemic attack) Social History (Updated 08/15/24 @ 14:45 by Bella Carcamo NP) Within the past year, how often did you have a drink containing alcohol: 2-3 times a week Smoking status: Former smoker Non-prescribed substance use: cannabis (any form) Highest level of school completed/degree received: Associate degree: occupational, technical, vocational program Meds Home Medications and Allergies Home Medications ?Medication ?Instructions ?Recorded ?Confirmed ?Type budesonide 3 mg 3 mg PO DAILY 08/15/24 07/11/25 History capsule,delayed,extended release esomeprazole magnesium 40 mg 40 mg PO DAILY PRN GERD 07/11/25 07/11/25 History capsule,delayed release famotidine 40 mg tablet 40 mg PO DAILY PRN GERD 07/11/25 07/11/25 History naproxen 500 mg tablet 500 mg PO Q12H 07/11/25 07/11/25 History progesterone cream OTC 07/11/25 History vitamin B complex 1 tab PO DAILY 07/11/25 07/11/25 History Allergies Allergy/AdvReac Type Severity Reaction Status Date / Time [id number] (From Allergy Hives Verified 07/11/25 12:44 Luz Elena) Exam Narrative Exam Narrative: Constitutional: Awake, alert, comfortable, well-appearing, nontoxic, interactive, vital signs as charted Head: Normocephalic, atraumatic Neck: Supple, normal appearance, normal range of motion, no meningeal signs, no lymphadenopathy Respiratory: No respiratory distress, breath sounds clear Cardiovascular: Regular rate and rhythm, strong and regular heart tones Abdomen: Nontender, normal bowel sounds, soft, no CVA tenderness Musculoskeletal: Normal gait, no swelling or edema Skin: No rashes or induration, no lesions, only visible skin inspected Neuro: No neurological deficits, normal sensation Psychiatric: Oriented ?3, normal affect Assessment and Plan Assessment and Plan (1) Menorrhagia: (2) Abnormal uterine bleeding (AUB): (3) Pelvic pain: (4) Dyspareunia: (5) Dysmenorrhea: Plan Diagnostic laparoscopy, possible YUNG, possible FOE, possible BSO scheduled with Dr. Bueno July 21, 2025.
== END 2025-07-11 12:20 | disposition home or self-care (01) ==
LOC: PST 12:22
PROVIDERS: Visit Provider Obstetrics & Gynecology
DX: Z01.818 Encounter for other preprocedural examination (principal); N92.0 Excessive and frequent menstruation with regular cycle; N94.10 Unspecified dyspareunia; N94.6 Dysmenorrhea, unspecified; R10.30 Lower abdominal pain, unspecified
CPT/HCPCS: G0463

== ENCOUNTER 2025-07-21 09:26 | Day surgery (SDC) | payer BC, SELFPAY ==
[2025-07-11 13:05] VITALS: BP 126/79; PULSE 77; TEMP 36.3; O2SAT 98; BMI 29.9
[2025-07-21] VITALS (10 sets, daily range): BP systolic 111–143; BP diastolic 66–97; PULSE 81–106; TEMP 36.2–36.4; O2SAT 95–97; BMI 30.2
--- OUTSIDE RECORDS SUMMARY | 2025-07-21 09:31 | XMS_ITS | CCD ---
Author Organization [facility] Care Team Providers Care Molder Operator Name Role Phone MYLES ., DR LEIVA Admitting Unavailable MISC, DR BUTT Primary Care Unavailable MYLES ., DR LEIVA Attending Unavailable MYLES ., DR LEIVA Consulting Unavailable MYLES ., DR LEIVA Admitting Unavailable MISC, DR BUTT Primary Care Unavailable MYLES ., DR LEIVA Attending Unavailable MYLES ., DR LEIVA Consulting Unavailable ETIENNE BUENO Attending Unavailable Toni Brock DO Primary Care Provider [phone] Kip Xiao Talal Referring Unavaila ble Sarmini, Kip Talal Attending Unavaila ble Sarmini, Kip Talal Admitting Unavaila ble REYES LORENZO Attending Unavailable Michaelmini, Kip Talal Attending Unavaila ble Sarmini, Kip Talal Referring Unavaila ble Sarmini, Kip Talal Attending Unavaila ble Sarmini, Kip Talal Admitting Unavaila ble Sarmini, Kip Talal Attending Unavaila ble Sarmini, Kpi Talal Admitting Unavaila ble Sarmini, Kip Talal [...] Sarmini, Kip Talal Attending Unavaila ble Sarmini, iKp Talal Attending Unavaila helio Vinod ISABEL Toni Primary Care Provider [phone] CHINA STEVENS Attending Unavailable ETIENNE BUENO Attending [...] Translations: [Wezlana] Propensity to adverse reactions (disorder) [facility] Repository Medications Current Medications Medication Drug Class(es) [...] Care Team Attending Physician - Dameon OCASIO, Kip Brunner Primary Care Physician - Toni Brock [...] (06/29/2019), Esophagogastroduodenoscopy (06/29/2019), Arthroscopy of knee, Colonoscopy, [place] tooth. Discharge Vitals Heart Rate (Peripheral) 69 Blood Pressure 100/69 Height 165 cm Height 65 in Weight 81.17 kg Weight 178.949 lb BMI 29.81 What to do next You Need to Schedule the Following Appointments Follow Up with Dameon OCASIO, Kip Brunner, [facility], [facility] When: Within 6 months Where: [address] [place] [address], [facility] [address] [phone] [phone] You Need to Complete the Following C-Reactive [...] (in the morning) Refills: 5 Pickup at [facility] Unchanged dicyclomine (dicyclomine 10 mg Cap) [...] physician if questions or concerns Pharmacy Information [facility]: [address] [place], [place] [id number] [phone] Allergies Wezlana (Joint pain, Fatigue, Itching) Problems [...] signed up for this yet, please contact [facility] at [phone] to get signed up today. Language Information Language assistance services are available as needed. Hany [facility] Gastroenterology Office/Clin ic Noteon 06-28-2025 Gastroenterology Office/Clinic [...] 92.4 fL (11/08/24) Chloride: 106 mmol/L (11/08/24) [place] Absolute: 0.4 E9/L (11/08/24) CO2: 26 mmol/L (11/08/24) [place] Auto: 6.4 % (11/08/24) Creatinine: 0.8 mg/dL [...] need f (more content not included)... Normal [facility] Comment on above: Result Comment: Elec tronically Signed By: Rosmery Bartholomew MA\.br\Date and Time Signed: 06/28/25 10:20 EDT\.br\Electronically Co-Signed By: Dameon OCASIO, Kip Brunner\.br\Date and Time Co-Signed: 06/28/25 12:57 EDT IGP,APTIMA HPV,AGE GDLNon AGE GDLN ACOG TESTING Note . [facility] Comment on above: TESTS RESULT FLAG UN ITS REF RANGE LAB Clinician Provided Cytology Information Source.............Cervix;Endocervix No. of containers..01 ThinPrep Vial Age Algo ACOG Carie... FLAG LEGEND: L-Low Normal,H-High Normal,LL-Alert Low,HH-Alert High <-Panic Low,>-Panic High,A-Abnormal,AA-Critical Abnormal Performed at: 01 =[address] [address] Shavon Gonzales MD, HPV APTIMA Negative Negative [facility] Comment on above: This nucleic acid am plification test detects fourteen high- risk HPV types (16,18,31,33,35,39,45,51,52,56,58,59,66,68) without differentiation. Performed at: =[address] [id number] Plasterer Helper: Shavon Gonzales MD, Phone: [phone] Performed at: [address] [id number] Plasterer Helper: Shavon Gonzales MD, Phone: [phone] IGP, APTIMA HPV, RFX 16/18,45 Note . [facility] Comment on above: TESTS RESULT FLAG UN ITS REF RANGE LAB DIAGNOSIS: 02 NEGATIVE FOR INTRAEPITHELIAL LESION OR MALIGNANCY. Specimen adequacy: 02 Satisfactory for evaluation. Endocervical and/or squamous metaplastic cells (endocervical component) are present. Performed by: 02 Giana Law, Band Nailer ([facility]) . 02 Note: Note 02 The [...] <-Panic Low,>-Panic High,A-Abnormal,AA-Critical Abnormal Performed at: [address] [address] Shavon Gonzales MD, BRUSH-SPATULA CERVIX ENDOCERVIX [facility] US PELVIC COMPLETE W/ TVon 0 [...] II, MD, PHD at 28-Mar-2025 08:31:02 AM [facility] Normal Not Available Comment on above: Order Comment: US PE LVIS-TRANSVAG IF INDICATED No LMP recorded. Patient has had an ablation. Reminderson 02-02-2025 Reminders Reminders From: Asha Apodaca I To: [facility] - Reminders/Recalls; Sent: 02/02/2025 12:02:26 EDT Show up: 12/03/2025 12:02:00 EST Subject: Colonoscopy recall Due Date/Time: 01/05/2026 12:02:00 EDT Reminder/Recall [address] Xiao 01/05/25 Normal [facility] Gastroenterology Office/Clin ic Noteon 01-17-2025 Gastroenterology Office/Clinic Note Gastroenterology Office/Clinic Note Chief Complaint f/u to egd/colonoscopy HPI Staff Established patient is a(n) 39 year old female who presents today for a follow up to EGD & Colonoscopy on 01/05/25. COLON RECALL NEEDS PLACED. Continues Stelara q4 weeks. Serviced through [employer]. Prescribed Colestid and Bentyl at last appt. [...] 92.4 fL (11/08/24) Chloride: 106 mmol/L (11/08/24) [place] Absolute: 0.4 E9/L (11/08/24) CO2: 26 mmol/L (11/08/24) [place] Auto: 6.4 % (11/08/24) Creatinine: 0.8 mg/dL [...] Continue Stelar (more content not included)... Normal [facility] Comment on above: Result Comment: Elec tronically [...] (06/29/2019), Esophagogastroduodenoscopy (06/29/2019), Arthroscopy of knee, Colonoscopy, [place] tooth. Discharge Vitals Heart Rate (Peripheral) 69 Respiratory Rate 14 Blood Pressure 124/86 Height 165 cm Height 65 in Weight 81 kg Weight 178.574 lb BMI 29.75 What to do next Scheduled Follow-Up Appointments Thursday 8:45 AM EDT With: Kip Xiao MD Where: [facility] [address] [facility] [place] [address] [place] [phone] You Need to Schedule the Following Appointments Follow Up with Dameon OCASIO, Kip Brunner, [facility], [facility] When: In 3 months Where: [address] [facility] [address] [place] [phone] Medications What How Much When Instructions Unchanged [...] for choosing us for your care. Normal [facility] Surgical Pathology Reporton 01-10-2025 Surgical Pathology Report [facility] [address] [place] [address]- Surgical Pathology Report Collected Date/Time: 01/05/2025 08:20 [...] is entirely submitted in one cassette. (DC) DC:[facility] Microscopic Description Microscopic examination performed unless gross only specified. This report was transcribed using voice recognition technology and might contain unintended computerized talkback host errors. The use of one or more reagents in the above tests is regulated as an analyte specific reagent (ASR). The test or tests are ordered following initial H&E microscopic examination. The performance characteristics were determined by the [facility] Surgical Pathology. They have not been cleared or approved by the US Food and Drug Administration. The FDA has Surgical Pathology Report Collected Date/Time: 01/05/2025 08:20 EDT Pathologist: Fausto OCASIO PhD, Sally Espinoza Received Date/Time: 01/05/2025 09:16 EDT Dameon OCASIO, Kip iXao MD, Kip Brunner Microscopic Description determined that such clearance or approval is not necessary. These tests are used for clinical purposes. They should not be regarded as investigational or for research. Appropriate positive and negative controls are performed and are acceptable. This report was transcribed using voice recognition technology and might contain unintended computerized talkback host errors. Normal [facility] Comment on above: Performed By: #### 4 [id number] #### [facility] [address] [place] [address] Main OR Intraoperative Recor don 01-06-2025 Main OR Intraoperative Record Main OR Intraoperative Record IntraOp Document Type FT Summary Primary Physician: Kip Xiao MD Finalized Date/Time: 01/06/25 14:08:51 Pt. Name: SUSANA SCHMIDT /Sex: 1985 Female Med Rec #: [id number] Physician: Kip Xiao MD Financial #: [id number] Pt. Type: O Room/Bed: / Admit/Disch: 01/05/25 [...] 2 Entry 3 Case Attendee Leobardo RUSH, RUNNING SPECIALIST, Queen Vijay VELIZ, Bryanna Graves Role Performed RUNNING SPECIALIST Merchandise Stocker - Primary Staff - Other Time In [...] and tissue Entry 1 Skin Integrity Intact, [place], Warm, & Skin Abnormality No Dry Outcomes Met? Yes Last Modified By: Bella Linares RN 01/05/25 08:26:24 Post-Care Text: The patient is free from signs and symptoms of injury caused by extraneous objects Patient Positioning FT Pre-Care Text: Identifies physical alterations that require additional precautions for procedure-specific positioning, verifies presence of prosthetics or corrective devices, posit (more content not included)... Normal [facility] Discharge Instructionson Discharge Instructions Discharge Instruc tions [...] (06/29/2019), Esophagogastroduodenoscopy (06/29/2019), Arthroscopy of knee, Colonoscopy, [place] tooth. Discharge Vitals Temperature (Temporal Artery) 36.8 [...] EDT With: Dameon OCASIO, Kip Brunner Where: [facility] [address] [address]- New Follow Up Appointments after Discharge Follow Up with Dameon OCASIO, Kip Brunner, [facility], [facility] When: Comments: Keep scheduled appt. Where: [address] [phone] Medications What How Much When Instructions Next [...] is sev (more content not included)... Normal [facility] Comment on above: Result Comment: Elec tronically Signed By: Chandana VELIZ, Jessica\.br\Date and Time Signed: 01/05/25 08:48 EDT Inpatient Patient Summaryon 01-05-2025 Inpatient Patient Summary Inpatient Patient Summary [place] [id number] [facility] Clinical Discharge Instructions PERSON INFORMATION Name: SUSANA SCHMIDT [facility]#:[id number] PHYSICIANS Admitting Physician: Dameon OCASIO, Kip Brunner Attending Physician: Kip Xiao MD PCP: Toni Brock III, DO Discharge Diagnosis: Acute Crohn's disease Comment: PATIENT EDUCATION INFORMATION Instructions: Medication Leaflets: Follow up: Type Location Start [facility] Follow Up [facility] 01/16/2025 [...] 2 times a day. Refills: 0., lot: [id number] exp: 05/30 ustekinumab (Stelara) Subcutaneous every 4 weeks. Comment: Normal [facility] Main OR PACU II Recordon Main OR PACU II Record Main OR PACU II R ecord PACU Phase II Document Type FT Summary Primary Physician: Kip Xiao MD Finalized Date/Time: 01/05/25 11:30:06 Pt. Name: SUSANA SCHMIDT/Sex: 1985 Female Med Rec #: [id number] Physician: Kip Xiao MD Financial #: [id number] Pt. Type: O Room/Bed: / Admit/Disch: 01/05/25 [...] By: Jessica Ellington RN 01/05/25 11:30 Normal [facility] Main OR Preoperative Recordo n 01-05-2025 Main OR Preoperative Record Main OR Preoperative Record Holding Area Document Type FT Summary Primary Physician: Kip Xiao MD Finalized Date/Time: 01/05/25 07:38:21 Pt. Name: SUSANA SCHMIDT/Sex: 1985 Female Med Rec #: [id number] Physician: Kip Xiao MD Financial #: [id number] Pt. Type: O Room/Bed: / Admit/Disch: 01/05/25 [...] By: Val Muñiz RN 01/05/25 07:38 Normal [facility] Outpatient Surgery Discharge Instructionon 01-05-2025 Outpatient Surgery Discharge Instruction Outpatient Surgery Discharge Instruction [place] [id number] Patient Discharge Instructions PERSON INFORMATION Name: SUSANA [...] Signature Date Follow up: Type Location Start [facility] Follow Up [facility] 01/16/2025 [...] to serve you. Thank you for choosing [facility] HERE ARE THE MEDICATION CHANGES THAT [...] 2 times a day. Refills: 0., lot: [id number] exp: 05/30 ustekinumab (Stelara) Subcutaneous every 4 weeks. PATIENT EDUCATION INFORMATION Instructions: Medication Leaflets: [facility] Ambulatory Visit Summaryon 0 11-11-2024 Ambulatory Visit [...] (06/29/2019), Esophagogastroduodenoscopy (06/29/2019), Arthroscopy of knee, Colonoscopy, [place] tooth. Discharge Vitals Heart Rate (Peripheral) 80 Respiratory Rate 14 Blood Pressure 134/87 Height 165 cm Height 65 in Weight 82 kg Weight 180.779 lb BMI 30.12 What to do next Scheduled Follow-Up Appointments Thursday 9:45 AM EDT With: Kip Xiao MD Where: [facility] [address] [place] [address]- Medications What How Much When Instructions New colestipol (Colestid 1 g Tab) 2 Tablets By Mouth Every day Refills: 6 Pickup at [facility] Unchanged budesonide (budesonide 3 mg oral [...] physician if questions or concerns Pharmacy Information [facility]: [address] [id number] [phone] Allergies No Known Allergies Problems Ongoing - [...] for choosing us for your care. Normal [facility] Gastroenterology Office/Clin ic Noteon 11-11-2024 Gastroenterology Office/Clinic [...] increased to q4 weeks 09/2024. Serviced through [employer]. Pt called 11/03/24 with c/o RUQ pain [...] 92.4 fL (11/08/24) Chloride: 106 mmol/L (11/08/24) [place] Absolute: 0.4 E9/L (11/08/24) CO2: 26 mmol/L (11/08/24) [place] Auto: 6.4 % (11/08/24) Creatinine: 0.8 mg/dL [...] the termin (more content not included)... Normal [facility] Comment on above: Result Comment: Elec tronically [...] DO Transcribed by: JARRETT Technologist: ESAU, Normal [facility] CBC w/ Auto Diffon 5 Basophils/100 WBC (Bld) 0.9 % Normal 0.0-2.0 [facility] Comment on above: Performed By: #### 2 [id number] #### [facility] [address] [place] [address] Basophils/Leukocytes Auto (Bld) [Pure # fraction] 0.1 E9/L Normal 0.0-0.2 [facility] Comment on above: Performed By: #### 2 [id number] #### [facility] [address] [place] [address] Eosinophils (Bld) [#/Vol] 0.2 E9/L Normal 0.0-0.5 [facility] Comment on above: Performed By: #### 2 [id number] #### [facility] [address] [place] [address] Eosinophils/100 WBC (Bld) 3.0 % Normal 0.0-8.0 [facility] Comment on above: Performed By: #### 2 [id number] #### [facility] [address] [place] [address] Erythrocyte distribution width (RBC) [Ratio] 13.7 % Normal 10.9-14.2 [facility] Comment on above: Performed By: #### 2 [id number] #### [facility] [address] [place] [address] Hematocrit (Bld) [Volume fraction] 39.4 % Normal 34.0-46.0 [facility] Comment on above: Performed By: #### 2 [id number] #### [facility] [address] [place] [address] Hemoglobin (Bld) [Mass/Vol] 13.3 g/dL Normal 12.0-16.0 [facility] Comment on above: Performed By: #### 2 098002 #### [facility] [address] [place] [address] Lymphocytes (Bld) [#/Vol] 1.8 E9/L Normal 1.0-4.0 [facility] Comment on above: Performed By: #### 2 [id number] #### [facility] [address] [place] [address] Lymphocytes/100 WBC (Bld) 29.4 % Normal 14.0-50.0 [facility] Comment on above: Performed By: #### 2 [id number] #### [facility] [address] [place] [address] MCH (RBC) [Entitic mass] 31.3 pg Normal 27.0-34.0 [facility] Comment on above: Performed By: #### 2 [id number] #### [facility] [address] [place] [address] MCHC (RBC) [Mass/Vol] 33.9 g/dL Normal 31.4-36.0 [facility] Comment on above: Performed By: #### 2 [id number] #### [facility] [address] [place] [address] MCV (RBC) [Entitic vol] 92.4 fL Normal 80.0-100.0 F [facility] Comment on above: Performed By: #### 2 [id number] #### [facility] [address] [place] [address] Monocytes (Bld) [#/Vol] 0.4 E9/L Normal 0.2-1.0 F [facility] Comment on above: Performed By: #### 2 602191 #### [facility] [address] [place] [address] Neutrophils (Bld) [#/Vol] 3.6 E9/L Normal 2.0-7.5 [facility] Comment on above: Performed By: #### 2 [id number] #### [facility] [address] [place] [address] Neutrophils/100 WBC (Bld) 60.3 % Normal 36.0-75.0 [facility] Comment on above: Performed By: #### 2 [id number] #### [facility] [address] [place] [address] Platelet mean volume (Bld) [Entitic vol] 8.4 fL Normal 6.4-10.8 [facility] Comment on above: Performed By: #### 2 [id number] #### [facility] [address] [place] [address] Platelets (Bld) [#/Vol] 245.0 E9/L Normal 150. 0-500. 0 [facility] Comment on above: Performed By: #### 2 599295 #### [facility] [address] [place] [address] RBC (Bld) [#/Vol] 4.3 E12/L Normal 4.3-5.9 [facility] Comment on above: Performed By: #### 2 952266 #### [facility] [address] [place] [address] WBC corrected for nucl RBC Auto (Bld) [#/Vol] 6.0 E9/L Normal 4.0-11.0 [facility] Comment on above: Performed By: #### 2 [id number] #### [facility] [address] [place] [address] CMPon 11-08-2024 Albumin [Mass/Vol] 4.3 g/dL Normal 3.3-5.0 [facility] Comment on above: Performed By: #### 2 [id number] #### [facility] [address] [place] [address] Albumin/Globulin (S) [Mass conc ratio] 1.4 Normal 1.1-2.2 [facility] Comment on above: Performed By: #### 2 [id number] #### [facility] [address] [place] [address] ALP [Catalytic activity/Vol] 51 Int._Unit/L Normal 21-98 [facility] Comment on above: Performed By: #### 2 [id number] #### [facility] [address] [place] [address] ALT No additional P-5'-P [Catalytic activity/Vol] 23 Int._Unit/L Normal 6-46 [facility] Comment on above: Performed By: #### 2 [id number] #### [facility] [address] [place] [address] Anion gap [Moles/Vol] 11 mmol/L Normal 6-16 [facility] Comment on above: Performed By: #### 2 218298 #### [facility] [address] [place] [address] AST [Catalytic activity/Vol] 17 Int._Unit/L Normal 5-43 [facility] Comment on above: Performed By: #### 2 606385 #### [facility] [address] [place] [address] Bilirubin [Mass/Vol] 0.3 mg/dL Normal 0.0-1.1 [facility] Comment on above: Performed By: #### 2 721970 #### [facility] [address] [place] [address] Calcium [Mass/Vol] 8.9 mg/dL Normal 8.9-11.1 [facility] Comment on above: Performed By: #### 2 154969 #### [facility] [address] [place] [address] Chloride [Moles/Vol] 106 mmol/L Normal 101-111 [facility] Comment on above: Performed By: #### 2 723481 #### [facility] [address] [place] [address] CO2 [Moles/Vol] 26 mmol/L Normal 21-31 [facility] Comment on above: Performed By: #### 2 786499 #### [facility] [address] [place] [address] Creatinine [Mass/Vol] 0.8 mg/dL Normal 0.5-1.3 [facility] Comment on above: Performed By: #### 2 [id number] #### [facility] [address] [place] [address] Globulin (S) [Mass/Vol] 3.1 g/dL Normal 1.4-4.0 [facility] Comment on above: Performed By: #### 2 [id number] #### [facility] [address] [place] [address] Glucose [Mass/Vol] 96 mg/dL Normal 55-199 [facility] Comment on above: Performed By: #### 2 368016 #### [facility] [address] [place] [address] Potassium [Moles/Vol] 4.0 mmol/L Normal 3.5-5.3 [facility] Comment on above: Performed By: #### 2 424185 #### [facility] [address] [place] [address] Protein [Mass/Vol] 7.4 g/dL Normal 6.0-7.8 [facility] Comment on above: Performed By: #### 2 934320 #### [facility] [address] [place] [address] Sodium [Moles/Vol] 139 mmol/L Normal 135-145 [facility] Comment on above: Performed By: #### 2 841508 #### [facility] [address] [place] [address] Urea nitrogen [Mass/Vol] 12 mg/dL Normal 5-21 [facility] Comment on above: Performed By: #### 2 [id number] #### [facility] [address] [place] [address] Urea nitrogen/Creatinine [Mass ratio] 15 No Units Normal 10-20 [facility] Comment on above: Performed By: #### 2 [id number] #### [facility] [address] [place] [address] eGFRon 11-08-2024 eGFR 95 mL/min/1.73 m2 Normal >=59 [facility] Comment on above: Performed By: #### 1 [id number] ####[facility] [address] [place] [address] Surgical Pathology Reporton 09-08-2024 Surgical Pathology Report [facility] [address] [place] [address]- Surgical Pathology Report Collected Date/Time: 09/05/2024 13:09 [...] characteristics were determined by the [facility] Surgical Pathology. They have not been cleared or approved by the US Food and Drug Administration. The FDA has determined that such clearance or approval is not necessary. These tests are used for clinical purposes. They should not be regarded as investigational or for research. Appropriate positive and negative controls are performed and are acceptable. Normal [facility] Comment on above: Performed By: #### 4 [id number] #### [facility] [address] [place] [address] Discharge Instructionson Discharge Instructions Discharge Instruc tions [...] (06/29/2019), Esophagogastroduodenoscopy (06/29/2019), Arthroscopy of knee, Colonoscopy, [place] tooth. What to do next Instructions From [...] day (at bedtime) Refills: 3 Pickup at [facility] Changed esomeprazole (Nexium 40 mg Cap-EC) 1 Capsules By Mouth Every day Changed esomeprazole (Nexium 40 mg Cap-EC) 1 Capsules By Mouth 2 times a day Pickup at [facility] Unchanged albuterol (Ventolin HFA 90 mcg/ inh Aerosol-Adpt) 2 Puffs Inhalation Every 6 hours as needed for for wheezing Acute bronchitis Duration: 7 Days Unchanged budesonide (budesonide 3 mg oral delayed release capsule) 3 Capsules By Mouth Once a day (in the morning) Unchanged ustekinumab (Stelara) Subcutaneous Every 3 months Pharmacy Information [facility]: [address] [place], [place] [id number] [phone] Test Results No qualifying data available. Allergies [...] the tissue (more content not included)... Normal [facility] Comment on above: Result Comment: Elec tronically Signed By: Varsha Anguiano.lelia\Date and Time Signed: 09/05/24 13:29 EST Inpatient Patient Summaryon 09-05-2024 Inpatient Patient Summary Inpatient Patient Summary [place] [id number] [facility] [facility] Clinical Discharge Instructions PERSON INFORMATION Name: [...] (Stelara) Subcutaneous every 3 months. Comment: Normal [facility] Main OR Intraoperative Recor don 09-05-2024 Main OR Intraoperative Record Main OR Intraoperative Record IntraOp Document Type FT Summary Primary Physician: Kip Xiao MD Finalized Date/Time: 09/05/24 14:04:03 Pt. Name: SUSANA SCHMIDT Enzo/Sex: 1985 Female Med Rec #: [id number] Physician: Kip Xiao MD Financial #: [id number] Pt. Type: O Room/Bed: / Admit/Disch: 09/05/24 [...] RN Role Performed Anesthesiologist Surgeon - Primary Merchandise Stocker - Primary Shell Reprint Operator Time In 09/05/24 12:48:00 09/05/24 12:48:00 09/05/24 [...] RN 09/05/24 13:21:10 General Comments: Mylene canchola rep./BAKARI,grinder set up operator thread Protocols FT Pre-Care Text: Implements protective measures [...] and tissue Entry 1 Skin Integrity Intact, [place], Warm, & Skin Abnormality No Dry Outcomes Met? Yes Last Modified By: Akbar VELIZ, Kathrine Kruger 09/05/24 12:57:23 Post-Care Text: The patient is free from signs and symptoms of injury caused by extraneous objects Patient Positioning FT Pre-Care Text: Identifies physical alterations that require additional precautions for procedure-specific positioning, v (more content not included)... Normal [facility] Main OR PACU II Recordon Main OR PACU II Record Main OR PACU II R ecord PACU Phase II Document Type FT Summary Primary Physician: Kip Xiao MD Finalized Date/Time: 09/05/24 14:08:46 Pt. Name: SUSANA SCHMIDT Alexis CanalesB./Sex: 1985 Female Med Rec #: [id number] Physician: Kip Xiao MD Financial #: [id number] Pt. Type: O Room/Bed: / Admit/Disch: 09/05/24 [...] Signed By: Varsha Anguiano I 09/05/24 14:08 [facility] Main OR Preoperative Recordo n 09-05-2024 Main OR Preoperative Record Main OR Preoperative Record Holding Area Document Type FT Summary Primary Physician: Kip Xiao MD Finalized Date/Time: 09/05/24 11:57:37 Pt. Name: ENRIQUE SCHMIDTKATIUSKA Giraldo/Sex: 1985 Female Med Rec #: [id number] Physician: Kip Xiao MD Financial #: [id number] Pt. Type: O Room/Bed: / Admit/Disch: 09/05/24 [...] By: Kathrine Webber RN 09/05/24 11:57 Normal [facility] Outpatient Surgery Discharge Instructionon 09-05-2024 Outpatient Surgery Discharge Instruction Outpatient Surgery Discharge Instruction [place] [address] Patient Discharge Instructions PERSON INFORMATION Name: SUSANA [...] to serve you. Thank you for choosing [facility] HERE ARE THE MEDICATION CHANGES THAT [...] PATIENT EDUCATION INFORMATION Instructions: Medication Leaflets: Normal [facility] ALL CBC WITH AUTO DIFFon BASOPHILS ABSOLUTE AUTO 0.1 N [facility] Basophils/100 WBC (Bld) 1.1 % 0.2 - 2.0 % [facility] Eosinophils/100 WBC (Bld) 3.7 % 0.9 - 7.0 % [facility] Erythrocyte distribution width (RBC) [Ratio] 13.1 % 11.0 - 15.0 % [facility] Hematocrit (Bld) [Volume fraction] 37.9 % 36.0 - 48.0 % [facility] Hemoglobin (Bld) [Mass/Vol] 12.7 g/dL 12.0 - 16.0 g/dL [facility] IMMATURE GRANULOCYTES ABS AUTO 0.01 [facility] Immature granulocytes/100 WBC (Bld) 0.2 % 0.0 - 0.5 % [facility] Interpretation and review of laboratory results Abnormal [facility] LYMPHOCYTES ABSOLUTE AUTO 1.9 [facility] Lymphocytes/100 WBC (Bld) 34.1 % 20.5 - 60.0 % [facility] MCH (RBC) [Entitic mass] 31.4 pg 26.7 - 34.0 pg [facility] MCHC (RBC) [Mass/Vol] 33.5 g/dL 29.9 - 35.2 g/dL [facility] MCV (RBC) [Entitic vol] 93.6 fL 81.0 - 99.0 fL [facility] MONOCYTES ABSOLUTE AUTO 0.4 N [facility] Monocytes/100 WBC (Bld) 6.4 % 1.7 - 12.0 % [facility] NEUTROPHILS ABSOLUTE AUTO 3 [facility] Neutrophils/100 WBC (Bld) 54.5 % 43.0 - 75.0 % [facility] Platelet mean volume (Bld) [Entitic vol] 9.6 fL 9.5 - 13.5 fL [facility] TBH EO # 0.2 [facility] TB PLT 284 [facility] RBC 4.05 Low [facility] WBC 5.4 [facility] Family Medicine Office/Clini c Noteon 08-15-2024 Family Medicine Office/Clinic Note Family Medicine Office/Clinic Note Chief Complaint cough HPI Staff 39 year old female presents with chest congestion, headache, sob, and cough since July 31 otc: theraflu History of Present Illness Reviewed and agree with above documented HPI by medical assistant cardiology. Portions of this record may have been created with voice recognition artificial intelligence software, specifically [employer], [employer] and or [employer]. Substitutions may have occurred due to the inherent limitations of voice recognition and artificial intelligence software. Patient is a 39-year-old female who presents to [facility] care, for sinus congestion, sinus pressure, [...] she is having chest congestion, has tried peuu-lxp-ukskard Tamiflu without any relief, states her and [...] at this time. 39-year-old female presents to [facility] care, for acute bacterial sinusitis acute bronchitis, symptoms started 2 weeks ago, patient did appear ill but not septic, no respiratory distress or difficulty swallowing. Patient was given a prescription for refill of albuterol inhaler, Augmentin, and Bromfed. Instructed take [id number] ibuprofen Tylenol as needed for any headaches, [...] Contact Information Vinod ROBINS DO, Toni Carmen, [address] [address] Additional Instructions: Problem List/Past Medical History Ongoing Abdominal pain Anemia Crohn disease Crohn's disease, small intestine Epigastric pain foliculitis Heart murmur Loose stools seborrice dermititis Historical (more content not included)... Normal [facility] Comment on above: Result Comment: Elec tronically [...] (06/29/2019), Esophagogastroduodenoscopy (06/29/2019), Arthroscopy of knee, Colonoscopy, [place] tooth. Discharge Vitals Temperature (Tympanic) 37 ???C [...] Acute bronchitis Duration: 7 Days Pickup at [facility] New amoxicillin-clavulanate (Augmentin 875 mg oral tablet) 1 Tablets By Mouth Every 12 hours Acute bacterial sinusitis Duration: 10 Days Pickup at [facility] New brompheniramine/ dextromethorphan/ PSE (Bromfed DM oral syrup) 10 Milliliter By Mouth 4 times a day as needed for for cough and congestion Acute bronchitis Duration: 7 Days Pickup at [facility] Unchanged budesonide (budesonide 3 mg oral delayed release capsule) 3 Capsules By Mouth Once a day (in the morning) Unchanged esomeprazole (Nexium 40 mg Cap-EC) 1 Capsules By Mouth Every day Unchanged ustekinumab (Stelara) Pharmacy Information [facility]: [address] [place], [place] [id number] [phone] Medications and Immunizations Administered Given albuterol 0.083% [...] for choosing us for your care. Normal [facility] Gastroenterology Office/Clin ic Noteon 07-28-2024 Gastroenterology Office/Clinic [...] 91 fL (06/30/24) Chloride: 106 mmol/L (06/30/24) [place] Absolute: 0.4 E9/L (06/30/24) CO2: 24 mmol/L (06/30/24) [place] Auto: 5.4 % (06/30/24) Creatinine: 0.7 mg/dL [...] also she (more content not included)... Normal [facility] Comment on above: Result Comment: Elec tronically Signed By: Dameon OCASIO, Kip Brunner\.br\Date and Time Signed: 07/28/24 13:45 EDT Quantiferon-TB Plus (Client Incubated)on 07-25-2024 Gamma interferon background IA Qn (Bld) 0.02 International_Unit/mL Invalid Interpretation Code [facility] Comment on above: Performed By: #### 1 [id number] ####[facility] [address] [place] [address] M. tuberculosis stim IFN-g by CD4+ CD8+ T-cells corrected for background Qn (Bld) 0.01 International_Unit/mL Invalid Interpretation Code [facility] Comment on above: Performed By: #### 1 [id number] ####[facility] [address] [place] [address] M. tuberculosis stim IFN-g by CD4+ T-cells corrected for background Qn (Bld) 0.02 International_Unit/mL Invalid Interpretation Code [facility] Comment on above: Performed By: #### 1 [id number] ####[place] [place] [address] M. tuberculosis stim IFN-g Ql (Bld) [Interp] Negative Invalid Interpretation Code Negative [facility] Comment on above: Result Comment: No r [...] interferon gamma. Chemiluminescence immunoassay methodology Performed at: [address] [id number] PhD Wm Alonso Performed By: #### 1 [id number] ####[facility] [address] [place] [address] Mitogen stimulated gamma interferon corrected for background Qn (Bld) >10.00 Invalid Interpretation Code [facility] Comment on above: Performed By: #### 1 [id number] ####[address] [place] [address] Service comment (Unsp spec) [Interp] Comment Invalid Interpretation Code [facility] Comment on above: Result Comment: Idris tiFERON-TB [...] for the test. Performed By: #### 1 [id number] ####[address] [address] [address] Abdomen/Pelvis w/contrast (enterography)on 07-01-2024 CT Abdomen/Pelvis [...] Oral contrast amount in ml's: 1350 Normal [facility] Hep Bs Abon 07-01-2024 HBV surface Ab Ql (S) Non-Reactive Invalid Interpretation Code [facility] Comment on above: Result Comment: Non Reactive: Not immune to HBV infection. Equivocal: Unable to determine if anti-HBs is present at levels consistent with immunity. Reactive: Anti-HBs concentration detected at greater than 10 mIU/mL. Individual is considered to be immune to infection with HBV. Performed at: [facility] [address] [place], [place] [id number] PhD mW Alonso Performed By: #### 2 [id number] #### [facility] [address] [place] [address] Hep Bs Agon 07-01-2024 HBV surface Ag IA Ql Negative Invalid Interpretation Code Negative [facility] Comment on above: Result Comment: Perf ormed at: [facility] [address] [place], [place] [id number] PhD Wm Alonso Performed By: #### 2 [id number] #### [facility] [address] [place] [address] Gastroenterology Office/Clin ic Noteon 03-31-2024 Gastroenterology Office/Clinic [...] History of Present Illness currently on Stelara [id number] Review of Systems PHQ Score Initial Depression [...] 3 months [address], [address] [phone] Additional Instructions: To Follow up on CTE and labs Problem List/Past Medical History Ongoing Anemia Crohn disease Crohn's disease, small intestine Epigastric pain foliculitis Heart murmur Loose stools seborrice dermititis Historical Procedure/Surgical History Colonoscopy (06/29/2019), Esophagogastroduodenoscopy (06/29/2019), Arthroscopy of knee, Colonoscopy, [place] tooth. 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 Alcohol abuse in household: No. Substance abuse in household: No. Smoker in household: Yes. Injuries/Abuse/Neglect in household: No. Crohn's disease in remission, 10/25/2015 N (more content not included)... Normal [facility] Comment on above: Result Comment: Elec tronically Signed By: Dameon OCASIO, Kip Brunner\.br\Date and Time Signed: 03/31/24 16:13 EDT\.br\Electronically Co-Signed By: Inez Castorena MA S\.br\Date and Time Co-Signed: 03/31/24 16:03 EDT PAP ACOG PANEL 2: 30 to 65on 02-05-2023 . . Normal [facility] Comment on above: Result Comment: Perf ormed at: [facility] Performed By: #### 4 [id number] #### [facility] [address] [place] [address] Dr. Sally Lambert Age Gdln ACOG Testing 30-65 Normal [facility] Comment on above: Performed By: #### 4 [id number] #### [facility] [address] [place] [address] Dr. Sally Lambert DIAGNOSIS: Comment Normal [facility] Comment on above: Result Comment: NEGA TIVE FOR INTRAEPITHELIAL LESION OR MALIGNANCY. Performed at: WB Performed By: #### 4 [id number] #### [facility] [address] [place] [address] Dr. Sally Lambert HPV Aptima Negative Normal Negative [facility] Comment on above: Result Comment: This nucleic acid amplification test detects fourteen high-risk HPV types (16,18,31,33,35,39,45,51,52,56,58,59,66,68) without differentiation. Performed at: =G Performed By: #### 4 [id number] #### [facility] [address] [place] [address] Dr. Sally Lambert HPV Genotype Reflex Comment Normal [facility] Comment on above: Result Comment: Crit eria not met, HPV Genotype not performed. Performed at: WB Performed By: #### 4 [id number] #### [facility] [address] [place] [address] Dr. Sally Lambert Methodology: Comment Normal [facility] Comment on above: Result Comment: This liquid based ThinPrep(R) pap test was screened with the use of an image guided system. Performed at: WB Performed By: #### 4 [id number] #### [facility] [address] [place] [address] Dr. Sally Lambert Note: Comment Normal [facility] Comment on above: Result Comment: The Pap smear is a screening test designed to aid in the detection of premalignant and malignant conditions of the uterine cervix. It is not a diagnostic procedure and should not be used as the sole means of detecting cervical cancer. Both false-positive and false-negative reports do occur. . Performed at: WB Performed By: #### 4 [id number] #### [facility] [address] [place] [address] Dr. Sally Lambert Performed by: Comment Normal [facility] Comment on above: Result Comment: Melita Deal, Band Scroll Saw Operator (ASCP) Performed at: WB Performed By: #### 4 [id number] #### [facility] [address] [place] [address] Dr. Sally Lambert Specimen adequacy: Comment Normal [facility] Comment on above: Result Comment: Sati sfactory for evaluation. Endocervical and/or squamous metaplastic cells (endocervical component) are present. Performed at: WB Performed By: #### 4 [id number] #### [facility] [address] [place] [address] Dr. Sally Lambert DHEA SERUMon 07-18-2022 Dehydroepiandrosterone (DHEA) 335 ng/dL Normal -701 [facility] Comment on above: Result Comment: Age 1 [...] 701 Performed By: #### D ELIOT. #### [facility] [address] [place] [address] Dr. Sally Lambert DHEA-SULFATEon 07-16-2022 DHEA-Sulfate 291.0 ug/dL Critically high 57.3-279.2 [facility] Comment on above: Performed By: #### D HEASUL #### [facility] [address] [place] [address] Dr. Sally Lambert FSHon 07-16-2022 FSH 4.4 mIU/mL Normal [facility] Comment on above: Result Comment: Adul t Female: Follicular phase 3.5 - 12.5 Ovulation phase 4.7 - 21.5 Luteal phase 1.7 - 7.7 Postmenopausal 25.8 - 134.8 Performed By: #### L BCFS #### [facility] [address] [place] [address] Dr. Sally Lambetr LUTEINIZING HORMONE (LH)on 1 LH 5.1 mIU/mL Normal [facility] Comment on above: Result Comment: Adul t Female: Follicular phase 2.4 - 12.6 Ovulation phase 14.0 - 95.6 Luteal phase 1.0 - 11.4 Postmenopausal 7.7 - 58.5 Performed By: #### L BCLH #### [facility] [address] [place] [address] Dr. Sally Lambert CBC AUTO DIFFon 07-15-2022 BASO # 0.0 103/ul Normal 0.0-0.1 [facility] Comment on above: Performed By: #### C BC #### [facility] [address] [place] [address] Dr. Sally Lambert Basophils/100 WBC (Bld) 0.6 % Normal 0.2-2.0 [facility] Comment on above: Performed By: #### C BC #### [facility] [address] [place] [address] Dr. Sally Lambert EO # 0.1 103/ul Normal 0.0-0.7 [facility] Comment on above: Performed By: #### C BC #### [facility] [address] [place] [address] Dr. Sally Lambert Eosinophils/100 WBC (Bld) 2.6 % Normal 0.9-7.0 [facility] Comment on above: Performed By: #### C BC #### [facility] [address] [place] [address] Dr. Sally Lambert Erythrocyte distribution width (RBC) [Ratio] 13.8 % Normal 11.0-15.0 [facility] Comment on above: Performed By: #### C BC #### [facility] [address] [place] [address] Dr. Sally Lambert Hematocrit (Bld) [Volume fraction] 35.9 % Critically low 36.0-48.0 [facility] Comment on above: Performed By: #### C BC #### [facility] [address] [place] [address] Dr. Sally Lambert Hemoglobin (Bld) [Mass/Vol] 11.5 g/dL Critically low 12.0-16.0 [facility] Comment on above: Performed By: #### C BC #### [facility] [address] [place] [address] Dr. Sally Lambert IG # 0.02 10e3/ul Normal 0.00-0.03 [facility] Comment on above: Performed By: #### C BC #### [facility] [address] [place] [address] Dr. Sally Lambert IG % 0.4 % Normal 0.0-0.5 [facility] Comment on above: Performed By: #### C BC #### [facility] [address] [place] [address] Dr. Sally Lambert LYMPH # 1.9 103/ul Normal 1.2-3.8 [facility] Comment on above: Performed By: #### C BC #### [facility] [address] [place] [address] Dr. Sally Lambert Lymphocytes/100 WBC (Bld) 36.6 % Normal 20.5-60.0 [facility] Comment on above: Performed By: #### C BC #### [facility] [address] [place] [address] Dr. Sally Lambert MANUAL DIFF REQ NO Normal [facility] Comment on above: Performed By: #### C BC #### [facility] [address] [place] [address] Dr. Sally Lambert MCH (RBC) [Entitic mass] 29.6 pg Normal 26.7-34.0 [facility] Comment on above: Performed By: #### C BC #### [facility] [address] [place] [address] Dr. Sally Lambert MCHC (RBC) [Mass/Vol] 32.0 g/dL Normal 29.9-35.2 [facility] Comment on above: Performed By: #### C BC #### [facility] [address] [place] [address] Dr. Sally Lambert MCV (RBC) [Entitic vol] 92.5 fL Normal 81.0-99.0 [facility] Comment on above: Performed By: #### C BC #### [facility] [address] [place] [address] Dr. Sally Lambert MONO # 0.3 103/ul Normal 0.3-0.8 [facility] Comment on above: Performed By: #### C BC #### [facility] [address] [place] [address] Dr. Sally Lambert Monocytes/100 WBC (Bld) 5.7 % Normal 1.7-12.0 [facility] Comment on above: Performed By: #### C BC #### [facility] [address] [place] [address] Dr. Sally Lambert NEUT # 2.9 103/ul Normal 1.4-6.5 [facility] Comment on above: Performed By: #### C BC #### [facility] [address] [place] [address] Dr. Sally Lambert Neutrophils/100 WBC (Bld) 54.1 % Normal 43.0-75.0 [facility] Comment on above: Performed By: #### C BC #### [facility] [address] [place] [address] Dr. Sally Lambert Platelet mean volume (Bld) [Entitic vol] 9.9 fL Normal 9.5-13.5 [facility] Comment on above: Performed By: #### C BC #### [facility] [address] [place] [address] Dr. Sally Lambert PLT 311 103/ul Normal 150-450 [facility] Comment on above: Performed By: #### C BC #### [facility] [address] [place] [address] Dr. Sally Lambert RBC 3.88 106/ul Critically low 4.20-5.40 [facility] Comment on above: Performed By: #### C BC #### [facility] [address] [place] [address] Dr. Sally Lambert WBC 5.3 103/ul Normal 4.0-11.0 [facility] Comment on above: Performed By: #### C BC #### [facility] [address] [place] [address] Dr. Sally Lambert FREE T4on 07-15-2022 Free T4 [Mass/Vol] 0.93 ng/dL Normal 0.76-1.46 [facility] Comment on above: Performed By: #### F T4 #### [facility] [address] [address] [address] Sally Lambert GLYCOHEMOGLOBIN A1Con 2021 ADA RECOMMENDATION SEE BELOW Normal [facility] Comment on above: Result Comment: ADA RECOMMENDED LIMIT 4.0 - 6.0 ADA THERAPEUTIC TARGET < 7.0 ACTION SUGGESTED > 7.0 Performed By: #### A 1C #### [facility] [address] [place] [address] Dr. Sally Lambert Glucose [Mass/Vol] 120 mg/dL Normal [facility] Comment on above: Performed By: #### A 1C #### [facility] [address] [place] [address] Dr. Sally Lambert HbA1c (Bld) [Mass fraction] 5.8 % Normal 4.5-6.2 [facility] Comment on above: Performed By: #### A 1C #### [facility] [address] [place] [address] Dr. Sally Lambert TSHon 07-15-2022 TSH 1.110 uIU/mL Normal 0.358-3.74 0 [facility] Comment on above: Performed By: #### T SH #### [facility] [address] [place] [address] Dr. Sally Lambert Vital Signs Date Time Vital Sign Value Performing Clinician Minnie bolton 06-20-2025 08:58-0400 Body mass index (BMI) [Ratio] 29.92 kg/m2 [employer] Work Phone: [facility] 06-20-2025 08:58-0400 Body weight 81.56 kg [employer] Work Phone: [facility] 06-20-2025 08:58-0400 Diastolic blood pressure 78 mm[Hg] [employer] Work Phone: [facility] 06-20-2025 08:58-0400 Systolic blood pressure 118 mm[Hg] [employer] Work Phone: [facility] 03-14-2025 13:33-0400 Body mass index (BMI) [Ratio] 29.45 kg/m2 Etienne Myles DO Work Phone: [facility] 03-14-2025 13:33-0400 Body weight 80.29 kg Etienne Myles DO Work Phone: [facility] 03-14-2025 13:33-0400 Diastolic blood pressure 70 mm[Hg] Etienne Myles DO Work Phone: [facility] 03-14-2025 13:33-0400 Systolic blood pressure 114 mm[Hg] Etienne Myles DO Work Phone: [facility] 12-06-2024 10:35-0500 Body mass index (BMI) [Ratio] 30.62 kg/m2 [place] PA Work Phone: [facility] 12-06-2024 10:35-0500 Body weight 83.46 kg China Rodney PA Work Phone: [facility] 12-06-2024 10:35-0500 Diastolic blood pressure 76 mm[Hg] China Poseyville PA Work Phone: [facility] 12-06-2024 10:35-0500 Systolic blood pressure 124 mm[Hg] China Poseyville PA Work Phone: [facility] 08-31-2024 13:57-0500 Body mass index (BMI) [Ratio] 30.12 kg/m2 China Rodney PA Work Phone: [facility] 08-31-2024 13:57-0500 Body weight 82.1 kg China Rodney PA Work Phone: [facility] 08-31-2024 13:57-0500 Diastolic blood pressure 76 mm[Hg] China Poseyville PA Work Phone: [facility] 08-31-2024 13:57-0500 Systolic blood pressure 124 mm[Hg] China Poseyville PA Work Phone: [facility] 08-09-2024 10:45-0500 Body mass index (BMI) [Ratio] 30.09 kg/m2 Etienne Myles DO Work Phone: [facility] 08-09-2024 10:45-0500 Body weight 82.01 kg Etienne Myles DO Work Phone: [facility] 08-09-2024 10:45-0500 Diastolic blood pressure 70 mm[Hg] Etienne Myles DO Work Phone: [facility] 08-09-2024 10:45-0500 Systolic blood pressure 118 mm[Hg] Etienne Myles DO Work Phone: [facility] 07-19-2024 13:34-0400 Body mass index (BMI) [Ratio] 30.52 kg/m2 China GOMEZ Work Phone: [facility] 07-19-2024 13:34-0400 Body weight 83.19 kg China GOMEZ Work Phone: [facility] Healthcare Encounters Encounter Date Encounter Type Care Provider Facility Start: 09-27-2025 ambulatory Shin Tal[facility] Facility:[facility] Start: 06-28-2025 End: 06-28-2025 ambulatory [facility] Facility:[facility] Start: 06-20-2025 End: 06-26-2025 Clinisync Result Encounter Etienne Myles DO Work Phone: [facility] External Department Unsolicited Start: 06-20-2025 End: 06-26-2025 Clinisync Result Encounter Etienne Myles DO Work Phone: [facility] External Department Unsolicited Start: 06-20-2025 End: 06-20-2025 ambulatory ETIENNE MYLES Not Available Start: 06-20-2025 End: 06-20-2025 Patient encounter procedure Etienne Myles DO Work Phone: [facility] Healthcare Work Phone: Start: 06-20-2025 End: 06-20-2025 Periodic preventive med est patient 40-64yrs Etienne Myles DO Work Phone: [facility] Comment on above: Pre-op examination; Pelvic pain; Dyspareunia in female; Dysmenorrhea; Menorrhagia with regular cycle; Well woman exam with routine gynecological exam; Breast cancer screening by mammogram Start: 06-20-2025 End: 06-20-2025 Preprocedural examination done Etienne Myles DO Work Phone: [facility] Start: 06-02-2025 End: 06-06-2025 Telephone encounter Etienne Myles DO Work Phone: [facility] Start: 04-26-2025 End: 04-26-2025 ambulatory Shin Talal Sarmini Facility:[facility] Start: 03-27-2025 End: 03-27-2025 ambulatory ETIENNE MYLES Not Available Start: 03-14-2025 End: 03-14-2025 Bamboo flowsheet Etienne Myles DO Work Phone: [facility] Start: 03-14-2025 End: 03-14-2025 Bamboo flowsheet Etienne Myles DO Work Phone: [facility] Start: 03-14-2025 End: 03-14-2025 Office outpatient visit 15 minutes Etienne Myles DO Work Phone: [facility] Comment on above: S/P endometrial abla tion; Uterine cramping; Uterine pain; Abnormal uterine bleeding (AUB) Start: 03-14-2025 End: 03-14-2025 ambulatory ETIENNE MYLES Not Available Start: 01-16-2025 End: 01-16-2025 ambulatory Shin Talal Sarmini Facility:[facility] Start: 01-05-2025 End: 01-06-2025 ambulatory Shin Talal Sarmini Facility:[facility] Start: 12-15-2024 End: 12-15-2024 Telephone encounter Sade George MA [facility] Start: 12-06-2024 End: 12-06-2024 Bamboo flowsheet China GOMEZ Work Phone: [facility] Start: 12-06-2024 End: 12-06-2024 Bamboo flowsheet China GOMEZ Work Phone: [facility] Start: 12-06-2024 End: 12-06-2024 Office outpatient visit 15 minutes China GOMEZ Work Phone: [facility] Comment on above: Jasmin-menopause; Anxiety, generalized (CMS/HCC) Start: 12-06-2024 End: 12-06-2024 ambulatory CHINA STEVENS Not Available Start: 11-11-2024 End: 11-11-2024 ambulatory Shin Talal Sarmini Facility:[facility] Start: 11-08-2024 End: 11-08-2024 ambulatory Shin Talal Sarmini Facility:[facility] Start: 09-05-2024 End: 09-05-2024 ambulatory Shin Talal Sarmini Facility:[facility] Start: 08-31-2024 End: 08-31-2024 Bamboo flowsheet China GOMEZ Work Phone: [facility] Start: 08-31-2024 End: 08-31-2024 Bamboo flowsheet China GOMEZ Work Phone: [facility] Start: 08-31-2024 End: 08-31-2024 Postop follow up visit related to original px China GOMEZ Work Phone: [facility] Comment on above: Postoperative visit; S/P tubal ligation; S/P endometrial ablation Start: 08-31-2024 End: 08-31-2024 ambulatory CHINA STEVENS Not Available Start: 08-24-2024 End: 08-24-2024 Clinisync Result Encounter Etienne Myles DO Work Phone: [facility] External Department Unsolicited Start: 08-24-2024 End: 08-24-2024 Clinisync Result Encounter Etienne Myles DO Work Phone: [facility] External Department Unsolicited Start: 08-13-2024 End: 08-13-2024 [facility] [place] Start: 08-09-2024 End: 08-09-2024 Bamboo flowsheet Etienne Myles DO Work Phone: [facility] Start: 08-09-2024 End: 08-09-2024 Bamboo flowsheet Etienne Myles DO Work Phone: [facility] Start: 08-09-2024 End: 08-09-2024 Office outpatient visit 15 minutes Etienne Myles DO Work Phone: [facility] Comment on above: Pre-operative exam; Menorrhagia with regular cycle; Abnormal uterine bleeding (AUB); Pelvic pain in female; Request for sterilization Start: 08-09-2024 End: 08-09-2024 Preprocedural examination done Etienne Myles DO Work Phone: [facility] Work Phone: Start: 08-09-2024 End: 08-09-2024 ambulatory ETIENNE MYLES Not Available Start: 07-28-2024 End: 07-28-2024 ambulatory Shin Talal Sarmini Facility:[facility] Start: 07-19-2024 End: 07-19-2024 Bamboo flowsheet China GOMEZ Work Phone: [facility] Start: 07-19-2024 End: 07-19-2024 Bamboo flowsheet China GOMEZ Work Phone: [facility] Start: 07-19-2024 End: 07-19-2024 Office outpatient visit 15 minutes China GOMEZ Work Phone: [facility] Comment on above: PMDD (premenstrual d ysphoric disorder) ([facility]); Menorrhagia with regular cycle Start: 07-19-2024 End: 07-19-2024 ambulatory CHINA STEVENS Not Available Start: 06-30-2024 ambulatory Shin Talal Sarmini Facility:[facility] Start: 03-31-2024 End: 03-31-2024 ambulatory Shin Talal Sarmini Facility:[facility] Start: 02-02-2024 End: 02-02-2024 ambulatory ETIENNE BUENO [...] AM EDT Office Visit AIMEE BRUNSON [address] [address] China Stevens PA [address] [place], [place] [id number] AIMEE BRUNSON Start: 06-20-2025 End: 08-20-2026 MG Breast - bilateral Screening Bilateral screening mammogram Imaging Routine Breast cancer screening by mammogram Expected: 06/20/2025 (Approximate), [facility]: Comment on above: Expected: 06/20/2025 (Approximate), Expires: 08/20/2026 Start: 06-20-2025 End: 06-20-2025 Patient encounter procedure 06/20/2025 8:40 AM EDT Consult AIMEE BRUNSON [address] [place] [address] Etienne Bueno DO [address] [place], [place] [id number] AIMEE BRUNSON Start: 03-14-2025 End: 09-13-2025 US Pelvis US Pelvis w/ TV Imaging Routine S/P endometrial ablation Uterine pain Abnormal uterine bleeding (AUB) Expected: 03/14/2025, Expires: 09/13/2025 [facility] Work Phone: Comment on above: Expected: 03/14/2025 , Expires: 09/13/2025 Start: 03-14-2025 End: 03-14-2025 Patient encounter procedure 03/14/2025 1:20 PM EDT Office Visit [facility] [address] [place] [id number] Etienne Bueno DO [address] [facility] [facility] [address] [place] [place], [place] [id number] Arrived [facility] Comment on above: Arrived Start: 12-06-2024 End: 12-06-2024 Patient encounter procedure 12/06/2024 10:20 AM EST Office Visit [facility] [address] [place] [phone] China Stevens, PA [address] [address] Arrived [facility] Comment on above: Arrived Start: 09-05-2024 End: 09-05-2024 Patient encounter procedure 09/05/2024 8:30 AM EST Office Visit [facility] [address] [facility] [place] [phone] China Stevens, PA [address] [facility] [address] [facility] Start: 08-31-2024 End: 08-31-2024 Patient encounter procedure 08/31/2024 1:40 PM EST Office Visit [facility] [address] [place] [phone] China Stevens, PA [address] [facility] [place], [place] [id number] Arrived [facility] Comment on above: Arrived Start: 08-09-2024 End: 08-09-2024 Patient encounter procedure [facility] Comment on above: Arrived Start: 07-27-2024 End: 07-27-2024 Professional / ancillary services management 07/27/2024 9:00 AM EDT Ancillary Procedure [facility] [address] [facility] [facility] [address] [facility] Start: 07-19-2024 End: 07-19-2025 US for US PELVIS-TRANSVAG IF INDICATED Imaging Routine Menorrhagia with regular cycle Expected: 07/19/2024 (Approximate), Expires: 07/19/2025 [facility] Work Phone: Comment on above: Expected: 07/19/2024 (Approximate), Expires: 07/19/2025 Start: 07-19-2024 End: 07-19-2024 Patient encounter procedure 07/19/2024 1:30 PM EDT Office Visit [facility] [address] [facility] [address] China Stevens PA [address] [facility] [place], [place] [id number] Arrived [facility] Comment on above: Arrived THIN PREP TIS PAP AN D HR HPV DNA THIN PREP TIS PAP AND HR HPV DNA Pathology and Cytology Routine Well woman exam with routine gynecological exam Ordered: 06/20/2025 [facility] Comment on above: Ordered: 06/20/2025 Payers Date Payer Category Payer Unknown 2021 [facility] [employer] [id number] 1984 Unknown [id number] 2.16.840.1.913328.3.579. 2.59 1984 Unknown [id number] 2.16.840.1.999846.3.579. 259 1984 Unknown [id number] 2.16.840.1.139286.3.579. 2.1258 1984 Unknown [id number] 2.16.840.1.903875.3.579. 2 1984 Unknown [id number] 2.16.840.1.173785.3.579. 2 1984 Unknown [id number] 2.16.840.1.807091.3.579. 2 1984 Unknown [id number] 2.16.840.1.590282.3.579. 2 1984 Unknown [id number] 2.16.840.1.668068.3.579. 2 1984 Unknown [id number] 2.16.840.1.224923.3.579. 2 1984 Unknown [id number] 2.16.840.1.632863.3.579. 2 1984 Unknown [id number] 2.16.840.1.224151.3.579. 2 1984 Unknown [id number] 2.16.840.1.011422.3.579. 2 1984 Unknown [id number] 2.16.840.1.549566.3.579. 2 1984 Unknown [id number] 2.16.840.1.505635.3.579. 2.1259 1984 Unknown [id number] 2.16.840.1.859336.3.579. 2.9 1984 Unknown [id number] 2.16.840.1.324563.3.579. 2.9 1984 Unknown [id number] 2.16.840.1.184775.3.579. 2.1258 1984 Unknown [id number] 2.16.840.1.544538.3.579. 2.1258 1984 Unknown [id number] 2.16.840.1.944897.3.579. 2.1258 1984 Unknown [id number] 2.16.840.1.376081.3.579. 2.1258 1984 Unknown [id number] 2.16.840.1.327733.3.579. 2. 1984 Unknown [id number] 2.16.840.1.021291.3.579. 2. 1984 Unknown [id number] 2.16.840.1.595007.3.579. 2. 1984 Unknown [id number] 2.16.840.1.969641.3.579. 2.727 1959 Unknown [id number] Social History Date Type Detail Facility Tobacco smoking stat [facility] Tobacco smoking consumption unknown [facility] Healthcare Start: 1985 Sex assigned at Female [facility] Start: 05-19-2024 Gender identity Identifies as female gender (finding) [facility] Start: 05-19-2024 Sexual orientation Heterosexual (fin ding) [facility] Healthcare Clinical Notes 07-19-2024 to 06-20-2025 Sapna [...] on 07-19-[address] Bueno at [facility]. MEDICATIONS Current Outpatient Medications Medication Instructions [...] nursing note reviewed. Exam conducted with a attacher present. Vitals: Estimated body mass index is [...] reviewed, and patient is to proceed to [facility] OR. Follow Up: Patient is to follow up at 1 & 6 weeks post operative to assess proper healing and recovery from procedure. Documented by Christelle Fierro LPN on behalf of: Etienne Bueno DO documented in this encounter [facility] 06-02-2025 Telephone encounter Note Patient called the [...] to her on Thursday. PVU in this. [facility] 06-02-2025 Miscellaneous Notes Patient called the office [...] PVU in this. documented in this encounter [facility] 03-14-2025 History of Present illness Narrative Reason [...] nursing note reviewed. Exam conducted with a attacher present. Vitals: Estimated body mass index is [...] Etienne Bueno DO documented in this encounter [facility] 01-05-2025 Note Progress Note-Physic derrell Patient: SUSANA SCHMIDT Age: 39 years Sex: Female : 1985 Associated Diagnoses: None Author: Rudolph Diez Jr., DO Postoperative Information Postoperative disposition: Postoperative disposition: Home. Optimetrix number: Optimetrix number [id number]. Anesthetic utilized: General. Physical Examination Vital Signs [...] Ambulatory Surgery Unit, and To home ). [facility] Comment on above: Result Comment: Elec tronically [...] severe or gets worse throughout the day. [facility] 01-05-2025 Note Endoscopic Procedure Report - Other Patient: SUSANA SCHMIDT Age: 39 years Sex: Female : 1985 Associated Diagnoses: None Author: Kip Xiao MD Pre-Procedure Procedure Date 01/05/2025 08:30:00 . Procedure Type: Colonoscopy with biopsy. Procedure provider Performed by iKp Xiao MD. Current history and physical Documented on chart. Colonoscopy ([id number]) on 09/05/2024 at 39 Years. Esophagogastroduodenoscopy ([id number]) on 09/05/2024 at 39 Years. Esophagogastroduodenoscopy ([id number]) on 06/29/2019 at 34 Years. Colonoscopy ([id number]) on 06/29/2019 at 34 Years. right Arthroscopy of knee ([id number]). [place] tooth ([id number]). Colonoscopy ([id number]).. Past Medical History Active Crohn disease ([id number]) foliculitis seborrice dermititis Resolved ([id number]): Onset on 08/05/2017 at 32 years. Resolved on 04/04/2018 at 33 years. ([id number]): Onset on 01/03/2015 at 29 years. Resolved on 10/25/2015 at 30 years. ([id number]): Onset on 12/29/2000 at 15 years. Resolved in 2001 at 16 years.. Family History Entire family history is negative.. Procedure History Colonoscopy ([id number]) on 09/05/2024 at 39 Years. Esophagogastroduodenoscopy ([id number]) on 09/05/2024 at 39 Years. Esophagogastroduodenoscopy ([id number]) on 06/29/2019 at 34 Years. Colonoscopy ([id number]) on 06/29/2019 at 34 Years. right Arthroscopy of knee ([id number]). [place] tooth ([id number]). Colonoscopy ([id number]).. Colorectal neoplasm risk assessment Average risk. Informed [...] Daily, # 60 tab(s), Refills(s) 6, Pharmacy: [facility], 165, cm, 11/11/24 9:09:00 EST, Height/Length Dosing, 82, kg, 11/11/24 9:09:00 EST, Weight Dosing Ibgard 90 mg oral delayed release capsule: 180 mg = 2 cap(s), Oral, BID, # 16 cap(s), Refills(s) 0, samples given to patient (Rx) Nexium 40 mg Cap-EC: 40 mg = 1 cap(s), Oral, Daily, # 90 cap(s), Refills(s) 3, Pharmacy: [facility], 165, cm, 07/28/24 12:58:00 EDT, Height/Length Dosing, 83, kg, 07/28/24 12:58:00 EDT, Weight Dosing budesonide 3 mg oral delayed release capsule: 9 mg = 3 cap(s), Oral, qAM, # 90 cap(s), Refills(s) 3, Pharmacy: [facility], 165, cm, 07/28/24 12:58:00 EDT, Height/Length Dosing, 83, kg, 07/28/24 12:58:00 EDT, Weight Dosing famotidine 40 mg Tab: 40 mg = 1 tab(s), Oral, Once a day (at bedtime), # 90 tab(s), Refills(s) 3, Pharmacy: [facility], 165, cm, 09/05/24 11:54:00 EST, Height/Length [...] Unable to disp (more content not included)... [facility] Comment on above: Result Comment: Elec tronically Signed By: Dameon OCASIO, Kip Brunner\.br\Date and Time Signed: 01/05/25 08:31 EDT Other Comment: Rose edwards Attachment - attachment storage system not supported [id number] Can be viewed in source systemMissing Attachment - attachment storage system not supported [id number] Can be viewed in source systemMissing Attachment - attachment storage system not supported [id number] Can be viewed in source systemMissing Attachment - attachment storage system not supported [id number] Can be viewed in source systemMissing Attachment - attachment storage system not supported [id number] Can be viewed in source systemMissing Attachment - attachment storage system not supported [id number] Can be viewed in source systemMissing Attachment - attachment storage system not supported [id number] Can be viewed in source systemMissing Attachment - attachment storage system not supported [id number] Can be viewed in source systemMissing Attachment - attachment storage system not supported [id number] Can be viewed in source systemMissing Attachment - attachment storage system not supported [id number] Can be viewed in source systemMissing Attachment - attachment storage system not supported [id number] Can be viewed in source systemMissing Attachment - attachment storage system not supported [id number] Can be viewed in source systemMissbeth [facility] Attachment - attachment storage system not supported [id number] Can be viewed in source systemMissbeth [facility] Attachment - attachment storage system not supported [id number] Can be viewed in source systemMissbeth [facility] Attachment - attachment storage system not supported [id number] Can be viewed in source system 01-05-2025 [...] to 2 weeks when pathology is available [facility] Comment on above: Result Comment: Elec tronically Signed By: Kip Xiao MD\.br\Date and Time Signed: 01/05/25 08:17 EDT Other Comment: Rose edwards Attachment - attachment storage system not supported [id number] Can be viewed in source system Missing Attachment - attachment storage system not supported [id number] Can be viewed in source system Missing Attachment - attachment storage system not supported [id number] Can be viewed in source system Missing Attachment - attachment storage system not supported [id number] Can be viewed in source system Missing Attachment - attachment storage system not supported [id number] Can be viewed in source system 01-05-2025 [...] Daily, # 60 tab(s), Refills(s) 6, Pharmacy: [facility], 165, cm, 11/11/24 9:09:00 EST, Height/Length Dosing, 82, kg, 11/11/24 9:09:00 EST, Weight Dosing Ibgard 90 mg oral delayed release capsule: 180 mg = 2 cap(s), Oral, BID, # 16 cap(s), Refills(s) 0, samples given to patient (Rx) Nexium 40 mg Cap-EC: 40 mg = 1 cap(s), Oral, Daily, # 90 cap(s), Refills(s) 3, Pharmacy: [facility], 165, cm, 07/28/24 12:58:00 EDT, Height/Length Dosing, 83, kg, 07/28/24 12:58:00 EDT, Weight Dosing budesonide 3 mg oral delayed release capsule: 9 mg = 3 cap(s), Oral, qAM, # 90 cap(s), Refills(s) 3, Pharmacy: [facility], 165, cm, 07/28/24 12:58:00 EDT, Height/Length Dosing, 83, kg, 07/28/24 12:58:00 EDT, Weight Dosing famotidine 40 mg Tab: 40 mg = 1 tab(s), Oral, Once a day (at bedtime), # 90 tab(s), Refills(s) 3, Pharmacy: [facility], 165, cm, 09/05/24 11:54:00 EST, Height/Length [...] All Problems Crohn disease / SNOMED CT 10081370 / Confirmed foliculitis / Confirmed seborrice dermititis / Confirmed Anemia / SNOMED CT 684310488 / Confirmed Heart murmur / SNOMED CT 187116772 / Confirmed Crohn's disease, small intestine / SNOMED CT 11025621 / Confirmed Loose stools / SNOMED CT 1686292327 / Confirmed Epigastric pain / SNOMED CT 683937585 / Confirmed Abdominal pain / SNOMED CT 94338075 / Confirmed Histories Past Medical History: Active Crohn disease (78277187) foliculitis seborrice dermititis Resolved ([id number]): Onset on 08/05/2017 at 32 years. Resolved on 04/04/2018 at 33 years. ([id number]): Onset on 01/03/2015 at 29 years. Resolved on 10/25/2015 at 30 years. ([id number]): Onset on 12/29/2000 at 15 years. Resolved in 2001 at 16 years. Family History: Entire family history is negative. Procedure history: Colonoscopy ([id number]) on 09/05/2024 at 39 Years. Esophagogastroduodenoscopy ([id number]) on 09/05/2024 at 39 Years. Esophagogastroduodenoscopy ([id number]) on 06/29/2019 at 34 Years. Colonoscopy ([id number]) on 06/29/2019 at 34 Years. right Arthroscopy of knee (967751675). [place] tooth ([id number]). Colonoscopy ([id number]). 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 [facility] Comment on above: Result Comment: Elec tronically [...] Daily, # 60 tab(s), Refills(s) 6, Pharmacy: [facility], 165, cm, 11/11/24 9:09:00 EST, Height/Length Dosing, 82, kg, 11/11/24 9:09:00 EST, Weight Dosing Ibgard 90 mg oral delayed release capsule: 180 mg = 2 cap(s), Oral, BID, # 16 cap(s), Refills(s) 0, samples given to patient (Rx) Nexium 40 mg Cap-EC: 40 mg = 1 cap(s), Oral, Daily, # 90 cap(s), Refills(s) 3, Pharmacy: [facility], 165, cm, 07/28/24 12:58:00 EDT, Height/Length Dosing, 83, kg, 07/28/24 12:58:00 EDT, Weight Dosing budesonide 3 mg oral delayed release capsule: 9 mg = 3 cap(s), Oral, qAM, # 90 cap(s), Refills(s) 3, Pharmacy: [facility], 165, cm, 07/28/24 12:58:00 EDT, Height/Length Dosing, 83, kg, 07/28/24 12:58:00 EDT, Weight Dosing famotidine 40 mg Tab: 40 mg = 1 tab(s), Oral, Once a day (at bedtime), # 90 tab(s), Refills(s) 3, Pharmacy: [facility], 165, cm, 09/05/24 11:54:00 EST, Height/Length [...] All Problems Abdominal pain / SNOMED CT 19334420 / Confirmed Anemia / SNOMED CT 186289345 / Confirmed Crohn disease / SNOMED CT 10597872 / Confirmed Crohn's disease, small intestine / SNOMED CT 02004733 / Confirmed Epigastric pain / SNOMED CT 893676775 / Confirmed foliculitis / Confirmed Heart murmur / SNOMED CT 489835747 / Confirmed Loose stools / SNOMED CT 4261426496 / Confirmed seborrice dermititis / Confirmed Resolved: / SNOMED CT 157394369 Resolved: / SNOMED CT 938569589 Resolved: / SNOMED CT 475956184 Histories Past Medical History: Active Crohn disease (21184868) foliculitis seborrice dermititis Resolved (727500882): Onset on 08/05/2017 at 32 years. Resolved on 04/04/2018 at 33 years. ([id number]): Onset on 01/03/2015 at 29 years. Resolved on 10/25/2015 at 30 years. ([id number]): Onset on 12/29/2000 at 15 years. Resolved in 2001 at 16 years. Procedure history: Colonoscopy ([id number]) on 09/05/2024 at 39 Years. Esophagogastroduodenoscopy ([id number]) on 09/05/2024 at 39 Years. Esophagogastroduodenoscopy ([id number]) on 06/29/2019 at 34 Years. Colonoscopy ([id number]) on 06/29/2019 at 34 Years. right Arthroscopy of knee (727227395). [place] tooth ([id number]). Colonoscopy ([id number]). 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 [facility] Comment on above: Result Comment: Elec tronically Signed By: Rudolph Diez Jr., DO.lelia\Date and Time Signed: 01/05/25 07:36 EDT 12-15-2024 Telephone encounter Note Martin, this is Susana [place]. My D. O. B. Is [phone] have a couple questions about the side effects I am experiencing from the Celexa, I am on I was put on it about a week, if you can please call me back. That would be great. [phone]. Pt c/o BARNES, Dry Mouth, Insomnia, Decreased Appetite, and Nausea. Pt advised that it take 2 weeks for medicine to kick in. Otherwise if side effects are unbearable than pt to discontinue. Pt would like to know dr. Bueno's opinion Please advise. [facility] 12-15-2024 Miscellaneous Notes Martin, chino is Susana Schmidt. My D. O. B. Is [phone] have a couple questions about the side effects I am experiencing from the Celexa, I am on I was put on it about a week, if you can please call me back. That would be great. [phone]. Pt c/o BARNES, Dry Mouth, Insomnia, Decreased Appetite, and Nausea. Pt advised that it take 2 weeks for medicine to kick in. Otherwise if side effects are unbearable than pt to discontinue. Pt would like to know dr. Bueno's opinion Please advise. documented in this encounter [facility] 12-06-2024 History of Present illness Narrative Reason [...] of: PATRICIA Boyd documented in this encounter [facility] 09-05-2024 Note Progress Note-Physic derrell Patient: SUSANA SCHMIDT Age: 39 years Sex: Female : 1985 Associated Diagnoses: None Author: Kin Frederick MD Postoperative Information Postoperative disposition: Postoperative disposition: To PACU. Optimetrix number: Optimetrix number [id number]. Anesthetic utilized: General. Health Status Allergies: Allergic [...] when meets criteria ( To home ). [facility] Comment on above: Result Comment: Elec tronically [...] Document Re-Released: 03/15/2007 ExitCare??? Patient Information ???2009 [employer]. Colonoscopy Care After Surgery Please read the [...] or chemotherapy treatm (more content not included)... [facility] 09-05-2024 Note Endoscopic Procedure Report - Other Patient: SUSANA SCHMIDT Age: 39 years Sex: Female : 1985 Associated Diagnoses: None Author: Kip Xiao MD Pre-Procedure Procedure Date 09/05/2024 13:16:00 . Procedure Type: Colonoscopy with biopsy. Procedure provider Performed by Kip Xiao MD. Current history and physical Documented on chart. Esophagogastroduodenoscopy ([id number]) on 06/29/2019 at 34 Years. Colonoscopy ([id number]) on 06/29/2019 at 34 Years. right Arthroscopy of knee ([id number]). [place] tooth ([id number]). Colonoscopy ([id number]).. Past Medical History Active Crohn disease (48601766) foliculitis seborrice dermititis Resolved (710831774): Onset on 08/05/2017 at 32 years. Resolved on 04/04/2018 at 33 years. ([id number]): Onset on 01/03/2015 at 29 years. Resolved on 10/25/2015 at 30 years. ([id number]): Onset on 12/29/2000 at 15 years. Resolved in 2001 at 16 years.. Family History Entire family history is negative.. Procedure History Esophagogastroduodenoscopy ([id number]) on 06/29/2019 at 34 Years. Colonoscopy ([id number]) on 06/29/2019 at 34 Years. right Arthroscopy of knee (472883026). [place] tooth ([id number]). Colonoscopy ([id number]).. Colorectal neoplasm risk assessment Average risk. Informed [...] BID, # 180 cap(s), Refills(s) 3, Pharmacy: [facility], 165, cm, 09/05/24 11:54:00 EST, Height/Length Dosing, 83, kg, 09/05/24 11:54:00 EST, Weight Dosing Nexium 40 mg Cap-EC: 40 mg = 1 cap(s), Oral, Daily, # 90 cap(s), Refills(s) 3, Pharmacy: [facility], 165, cm, 07/28/24 12:58:00 EDT, Height/Length Dosing, 83, kg, 07/28/24 12:58:00 EDT, Weight Dosing Ventolin HFA 90 mcg/inh Aerosol-Adpt: 2 puff(s), Inhalation, q6hr for wheezing, 18 gm, Refill(s) 0, [facility], 165, cm, 08/13/24 12:43:00 EST, Height/Length Dosing, 83, kg, 08/13/24 12:43:00 EST, Weight Dosing budesonide 3 mg oral delayed release capsule: 9 mg = 3 cap(s), Oral, qAM, # 90 cap(s), Refills(s) 3, Pharmacy: [facility], 165, cm, 07/28/24 12:58:00 EDT, Height/Length Dosing, 83, kg, 07/28/24 12:58:00 EDT, Weight Dosing famotidine 40 mg Tab: 40 mg = 1 tab(s), Oral, Once a day (at bedtime), # 90 tab(s), Refills(s) 3, Pharmacy: [facility], 165, cm, 09/05/24 11:54:00 EST, Height/Length [...] [id number] [id number] Re (more content not included)... [facility] Comment on above: Result Comment: Elec tronically Signed By: Dameon OCASIO, Kip Brunner\.br\Date and Time Signed: 09/05/24 13:20 EST Other Comment: Rose edwards Attachment - attachment storage system not supported [id number] Can be viewed in source system Missing Attachment - attachment storage system not supported [id number] Can be viewed in source system Missing Attachment - attachment storage system not supported [id number] Can be viewed in source system Missing Attachment - attachment storage system not supported [id number] Can be viewed in source system Missing Attachment - attachment storage system not supported [id number] Can be viewed in source system Missing Attachment - attachment storage system not supported [id number] Can be viewed in source system Missing Attachment - attachment storage system not supported [id number] Can be viewed in source system Missing Attachment - attachment storage system not supported [id number] Can be viewed in source system Missing Attachment - attachment storage system not supported [id number] Can be viewed in source system Missing Attachment - attachment storage system not supported [id number] Can be viewed in source system Missing Attachment - attachment storage system not supported [id number] Can be viewed in source system Missing Attachment - attachment storage system not supported [id number] Can be viewed in source system Missing Attachment - attachment storage system not supported [id number] Can be viewed in source system Missing Attachment - attachment storage system not supported [id number] Can be viewed in source system Missing Attachment - attachment storage system not supported [id number] Can be viewed in source system Missing Attachment - attachment storage system not supported [id number] Can be viewed in source system Missing Attachment - attachment storage system not supported [id number] Can be viewed in source system Missing Attachment - attachment storage system not supported [id number] Can be viewed in source system Missing Attachment - attachment storage system not supported [id number] Can be viewed in source system Missing Attachment - attachment storage system not supported [id number] Can be viewed in source system 09-05-2024 [...] in 3 months to ensure esophagitis healing [facility] Comment on above: Result Comment: Elec tronically Signed By: Dameon OCASIO, Kip Brunner\.br\Date and Time Signed: 09/05/24 13:00 EST Other Comment: Rose edwards Attachment - attachment storage system not supported [id number] Can be viewed in source system Missing Attachment - attachment storage system not supported [id number] Can be viewed in source system Missing Attachment - attachment storage system not supported [id number] Can be viewed in source system Missing Attachment - attachment storage system not supported [id number] Can be viewed in source system Missing Attachment - attachment storage system not supported [id number] Can be viewed in source system Missing Attachment - attachment storage system not supported [id number] Can be viewed in source system Missing Attachment - attachment storage system not supported [id number] Can be viewed in source system Missing Attachment - attachment storage system not supported [id number] Can be viewed in source system Missing Attachment - attachment storage system not supported [id number] Can be viewed in source system Missing Attachment - attachment storage system not supported [id number] Can be viewed in source system Missing Attachment - attachment storage system not supported [id number] Can be viewed in source system Missing Attachment - attachment storage system not supported [id number] Can be viewed in source system Missing Attachment - attachment storage system not supported [id number] Can be viewed in source system 09-05-2024 [...] Daily, # 90 cap(s), Refills(s) 3, Pharmacy: [facility], 165, cm, 07/28/24 12:58:00 EDT, Height/Length Dosing, 83, kg, 07/28/24 12:58:00 EDT, Weight Dosing Ventolin HFA 90 mcg/inh Aerosol-Adpt: 2 puff(s), Inhalation, q6hr for wheezing, 18 gm, Refill(s) 0, [facility], 165, cm, 08/13/24 12:43:00 EST, Height/Length Dosing, 83, kg, 08/13/24 12:43:00 EST, Weight Dosing budesonide 3 mg oral delayed release capsule: 9 mg = 3 cap(s), Oral, qAM, # 90 cap(s), Refills(s) 3, Pharmacy: [facility], 165, cm, 07/28/24 12:58:00 EDT, Height/Length [...] All Problems Abdominal pain / SNOMED CT 82341809 / Confirmed Anemia / SNOMED CT 488517030 / Confirmed Crohn disease / SNOMED CT 50176319 / Confirmed Crohn's disease, small intestine / SNOMED CT 95201680 / Confirmed Epigastric pain / SNOMED CT 524896521 / Confirmed foliculitis / Confirmed Heart murmur / SNOMED CT 359949532 / Confirmed Loose stools / SNOMED CT 5343097136 / Confirmed seborrice dermititis / Confirmed Resolved: / SNOMED CT 750636633 Resolved: / SNOMED CT 749519367 Resolved: / SNOMED CT 376837502, Active Problems (9) Abdominal pain Anemia Crohn disease Crohn's disease, small intestine Epigastric pain foliculitis Heart murmur Loose stools seborrice dermititis Histories Past Medical History: Active Crohn disease (46746811) foliculitis seborrice dermititis Resolved (858214662): Onset on 08/05/2017 at 32 years. Resolved on 04/04/2018 at 33 years. (755327454): Onset on 01/03/2015 at 29 years. Resolved on 10/25/2015 at 30 years. ([id number]): Onset on 12/29/2000 at 15 years. Resolved in 2001 at 16 years. Family History: Entire family history is negative. Procedure history: Esophagogastroduodenoscopy ([id number]) on 06/29/2019 at 34 Years. Colonoscopy ([id number]) on 06/29/2019 at 34 Years. right Arthroscopy of knee (706775528). [place] tooth ([id number]). Colonoscopy (216926194). 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 as [employer] - 10/25/2015 14:55 - Love Arboleda RN 08/13/2024 Status: Employed Description: [employer] Exercise 08/13/2024 Risk Assessment: Occasional exercise Home/Environment [...] available Airway: Naomi (more content not included)... [facility] Comment on above: Result Comment: Elec tronically [...] Daily, # 90 cap(s), Refills(s) 3, Pharmacy: [facility], 165, cm, 07/28/24 12:58:00 EDT, Height/Length Dosing, 83, kg, 07/28/24 12:58:00 EDT, Weight Dosing Ventolin HFA 90 mcg/inh Aerosol-Adpt: 2 puff(s), Inhalation, q6hr for wheezing, 18 gm, Refill(s) 0, [facility], 165, cm, 08/13/24 12:43:00 EST, Height/Length Dosing, 83, kg, 08/13/24 12:43:00 EST, Weight Dosing budesonide 3 mg oral delayed release capsule: 9 mg = 3 cap(s), Oral, qAM, # 90 cap(s), Refills(s) 3, Pharmacy: [facility], 165, cm, 07/28/24 12:58:00 EDT, Height/Length [...] All Problems Crohn disease / SNOMED CT 56367591 / Confirmed foliculitis / Confirmed seborrice dermititis / Confirmed Anemia / SNOMED CT 564457122 / Confirmed Heart murmur / SNOMED CT 660803421 / Confirmed Crohn's disease, small intestine / SNOMED CT 98767747 / Confirmed Loose stools / SNOMED CT 0023999580 / Confirmed Epigastric pain / SNOMED CT 338149571 / Confirmed Abdominal pain / SNOMED CT 61768619 / Confirmed Histories Past Medical History: Active Crohn disease (07688701) foliculitis seborrice dermititis Resolved (997691516): Onset on 08/05/2017 at 32 years. Resolved on 04/04/2018 at 33 years. ([id number]): Onset on 01/03/2015 at 29 years. Resolved on 10/25/2015 at 30 years. ([id number]): Onset on 12/29/2000 at 15 years. Resolved in 2001 at 16 years. Family History: Entire family history is negative. Procedure history: Esophagogastroduodenoscopy (775076283) on 06/29/2019 at 34 Years. Colonoscopy ([id number]) on 06/29/2019 at 34 Years. right Arthroscopy of knee (637885929). [place] tooth (48635802). Colonoscopy ([id number]). 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 as [employer] - 10/25/2015 14:55 - Love Arboleda RN 08/13/2024 Status: Employed Description: [employer] Exercise 08/13/2024 Risk Assessment: Occasional exercise Home/Environment [...] Crohn's and GERD Plan: -EGD and Colonoscopy [facility] Comment on above: Result Comment: Elec tronically [...] Bilateral Laparoscopic Salpingectomy/Nuris ablation performed at [facility] with Dr. Bueno. Patient is healing [...] of: PATRICIA Boyd documented in this encounter [facility] 08-09-2024 History of Present illness Narrative Reason for Appointment: Patient ID: Susana Schmidt is a 39 y.o. female who presents for Pre-op Visit Patient presents today for Pre Op appointment. Patient is scheduled to undergo [place] Monica assisted Bilateral Laparoscopic Salpingectomy and Endometrial Ablation with Nuris on 08/24/[address] Bueno at [facility]. MEDICATIONS Current Outpatient Medications Medication Instructions [...] nursing note reviewed. Exam conducted with a attacher present. Vitals: Estimated body mass index is [...] reviewed, and patient is to proceed to [facility] OR. Follow Up: Patient is to follow up between 1-2 weeks post op to assess proper healing and recovery from procedure. Documented by Christelle Fierro LPN on behalf of: Etienne Bueno DO documented in this encounter [facility] 07-19-2024 History of Present illness Narrative Reason [...] nursing note reviewed. Exam conducted with a attacher present. Vitals: Estimated body mass index is [...] of: PATRICIA Boyd documented in this encounter [facility] Healthcare Evaluation note Diagnosis PMDD (premenstrual dysphoric disorder) (CMS/HCC) Premenstrual tension syndromes Menorrhagia with regular cycle documented in this encounter [facility] HealthcareEvaluation note* Diagnosis Pre-operative exam Unspecified pre-operative examination Menorrhagia with regular cycle Abnormal uterine bleeding (AUB) Pelvic pain in female Unspecified symptom associated with female genital organs Request for sterilization documented in this encounter [facility] HealthcareEvaluation note* Diagnosis Postoperative visit S/P tubal ligation Tubal ligation status S/P endometrial ablation Other postprocedural status documented in this encounter [facility] HealthcareEvaluation note* Diagnosis Jasmin-menopause Symptomatic menopausal or [...] DATE CREATED AUTHOR AUTHOR'S ORGANIZ ATION 02/03/2024 [facility] DATE CREATED AUTHOR AUTHOR'S ORGANIZ ATION 07/02/2024 [facility] DATE CREATED AUTHOR AUTHOR'S ORGANIZ ATION 07/08/2024 [facility] DATE CREATED AUTHOR AUTHOR'S ORGANIZ ATION 09/06/2024 [facility] DATE CREATED AUTHOR AUTHOR'S ORGANIZ ATION 11/10/2024 [facility] DATE CREATED AUTHOR AUTHOR'S ORGANIZ ATION 11/12/2024 [facility] DATE CREATED AUTHOR AUTHOR'S ORGANIZ ATION 01/11/2025 [facility] DATE CREATED AUTHOR AUTHOR'S ORGANIZ ATION 01/18/2025 [facility] DATE CREATED AUTHOR AUTHOR'S ORGANIZ ATION 02/07/2025 [facility] DATE CREATED AUTHOR AUTHOR'S ORGANIZ ATION 06/21/2025 [facility] EPIC DATE CREATED AUTHOR AUTHOR'S ORGANIZ ATION 06/30/2025 Eber [facility] Care Teams (unrecognized sec tion and content) Molder Operator Relationship Specialty Start Date End Date Toni Brock DO [address] [place] [phone] PCP - General Family Medicine 07/19/24 Molder Operator Relationship Specialty Start Date End Date Toni Brock DO [address] [place] [phone] PCP - General Family Medicine 07/19/24 Molder Operator Relationship Specialty Start Date End Date Toni Brock DO [address] [phone] PCP - General Family Medicine 07/19/24 Molder Operator Relationship Specialty Start Date End Date Toni Brock DO [address] [phone] PCP - General Family Medicine 07/19/24 Molder Operator Relationship Specialty Start Date End Date Toni Brock DO [address] [phone] PCP - General Family Medicine 07/19/24 Molder Operator Relationship Specialty Start Date End Date Toni Brock DO [address] [place] [address] PCP - General Family Medicine 07/19/24 Molder Operator Relationship Specialty Start Date End Date Toni Brock DO PCP - General Family Medicine 07/19/24 Molder Operator Relationship Specialty Start Date End Date Toni Brock DO PCP - General Family Medicine 07/19/24 Molder Operator Relationship Specialty Start Date End Date Toni Brock DO PCP - General Family Medicine 07/19/24 Molder Operator Relationship Specialty Start Date End Date Toni [...] BE BASED ON THE PRIMARY CLINICAL RECORDS. [employer] [facility]. provides no warranty or guarantee of the accuracy or completeness of information in this document.
[2025-07-21 09:35] LABS: Hematocrit 38.0 % (36.0-48.0); Hemoglobin 12.7 g/dL (12.0-16.0); Immature Granulocytes Abs Auto 0.02 10^3/uL (0.00-0.03); Immature Granulocytes Pct Auto 0.3 % (0.0-0.5); Lymphocytes Absolute Auto 1.6 10^3/uL (1.2-3.8); Mean Corpuscular HGB Conc 33.4 g/dL (29.9-35.2); Mean Corpuscular Hemoglobin 31.7 pg (26.7-34.0); Mean Corpuscular Volume 94.8 fL (81.0-99.0); Platelet Count 233 10^3/uL (150-450); Red Blood Count 4.01 10^6/uL (4.20-5.40); White Blood Count 7.6 10^3/uL (4.0-11.0)
--- NOTE | 2025-07-21 11:56 | PM.ONB ---
Brief Operative Note Date of procedure: 07/21/25 Pre-op diagnosis general: pelvic pain Post-op diagnosis: same as pre-op Procedure: NAME OF PROCEDURE: [diagnostic laparoscopy ] obliterated posterior culdesac, significant endometriosis PROCEDURE: The patient was taken back to the Operating Room where she was placed in dorsal lithotomy position after given general anesthesia. The patient was prepped and draped in normal sterile fashion. A sponge stick was placed into the patient's vagina. Attention was turned to the patient's abdomen, where a small umbilical incision was made. The fascia was tented using Marisel clamps and the fascia was entered sharply. Confirmation of intraabdominal placement of the 10 mm port was confirmed under direct visualization using a laparoscope. The patient's abdomen was then insufflated using CO2 gas with approximately 4 liters. A second port was placed left laterally, this was done under direct visualization with a 5 mm port. Survey of the patient's abdomen demonstrated normal liver and gallbladder. Survey of the patient's pelvic anatomy was limited dt obliterated posterior culdesac, normal appearing rt ovary, could not visualize lt ovary. All instruments were removed from the patient's abdomen. The patient's abdomen was deinsufflated of CO2 gas. The patient tolerated the procedure well. Sponge stick was removed from the patient's vagina. The patient's infraumbilical fascia was closed using #0 Vicryl on a GI needle. The patient's skin was closed laterally and infraumbilically using 4-0 Vicryl. The patient tolerated the procedure well. Sponge, lap and needle counts were correct x 2. The patient was taken to Recovery Room in stable condition. Anesthesia: IRISA Surgeon: Etienne Bueno Commission Agent Livestock: Sonja Ayala Estimated blood loss (mL): 5 Pathology: none sent Condition: stable Disposition: PACU Urinary Catheter Management Urinary Catheter Management Urethral: Cath placed during this visit: no
== END 2025-07-21 13:39 | disposition home or self-care (01) ==
LOC: SURGOUT 09:27
PROVIDERS: Visit Provider Obstetrics & Gynecology
PROC: (CPT 840; principal; 2025-07-21 11:00)
DX: N92.0 Excessive and frequent menstruation with regular cycle (principal); N94.10 Unspecified dyspareunia; N94.6 Dysmenorrhea, unspecified; N80.329 Endometriosis of the posterior cul-de-sac, unspecified depth; K50.90 Crohn's disease, unspecified, without complications; Z87.891 Personal history of nicotine dependence; K21.9 Gastro-esophageal reflux disease without esophagitis; F41.9 Anxiety disorder, unspecified; F32.A Depression, unspecified; R10.30 Lower abdominal pain, unspecified
CPT/HCPCS: 49320; 36415; 84702; 85025; J0131; J1100; J1885; J2250; J2405; J2704; J3010